=== PATIENT | female | born 1935 | race Caucasian/White ===

== ENCOUNTER → 2018-06-13 16:09 | Outpatient (CLI) | payer MEDICARE, OTHER, SELFPAY ==
[2015-08-25 11:02] VITALS: BMI 22.1
--- NOTE | 2018-06-13 16:19 | RAD_ITS ---
STUDY: X-RAY CHEST REASON FOR EXAM: Female, 82 years old. Preop for pelvic surgery TECHNIQUE: PA and lateral views of the chest. COMPARISON: 2009 FINDINGS: The lungs are clear and expanded. There is no demonstrated pleural abnormality. Normal size heart. Normal mediastinum and josseline. Normal visualized pulmonary arteries. Normal visualized aortic arch and descending thoracic aorta. Normal visualized thoracic spine. Normal visualized ribs, clavicles, and shoulders. There is no demonstrated abnormality of the visualized soft tissue structures of the upper abdomen. RAD/Chest PA and Lateral IMPRESSION: Normal x-ray examination of the chest. Electronically Signed: Tommie Rios MD at 8:29 EDT , Service support ,
--- NOTE | 2018-06-13 16:36 | EKG12_ITS ---
Test Reason : PRE OP Blood Pressure : / mmHG Vent. Rate : 068 BPM Atrial Rate : 068 BPM P-R Int : 192 ms QRS Dur : 132 ms QT Int : 450 ms P-R-T Axes : 079 074 249 degrees QTc Int : 478 ms Normal sinus rhythm Left bundle branch block Abnormal ECG Confirmed by CAROL ANN RON, DANETTE ([id number]), story editor SASKIA SINGLETON ([id number]) on 06/14/2018 7:05:24 AM Referred By: El Singleton Confirmed By:DANETTE MAHARAJ MD
== END ==
PROVIDERS: Family Provider Family Medicine; PCP Family Medicine; Referring Provider Orthopaedic Surgery; Visit Provider Orthopaedic Surgery
DX: Z01.810 Encounter for preprocedural cardiovascular examination (principal); Z01.811 Encounter for preprocedural respiratory examination
CPT/HCPCS: 71046; 93005

== ENCOUNTER → 2018-11-15 15:27 | Outpatient (CLI) | payer MEDICARE, OTHER, SELFPAY ==
--- NOTE | 2018-11-15 15:36 | VDLE_ITS ---
Reason For Study: PAIN RIGHT GSV is normal. CFV is compressible, spontaneous, phasic, competent and demonstrates normal augmentation. FV is compressible, spontaneous, phasic, competent and demonstrates normal augmentation. POP V is compressible, spontaneous, phasic, competent and demonstrates normal augmentation. T/P Trunk is compressible. PTV is compressible. RT PerV is compressible. Rt SSV is dilated and NONCOMPRESSIBLE throughout. Interpretation Summary Deep veins of the right lower extremity are patent and compressible segmentally. There is no evidence of right lower extremity deep vein thrombosis. Valvular competence appears intact within the proximal deep venous system on the right . The right great saphenous vein appears patent and compressible segmentally. Acute superficial thrombophlebitis is noted throughout the right small saphenous vein. Ordering Physician: El Singleton Referring Physician: El Singleton Performed By: Griselda Olivia, RUSSELL, RVT
== END ==
PROVIDERS: Family Provider Family Medicine; PCP Family Medicine; Referring Provider Orthopaedic Surgery; Visit Provider Orthopaedic Surgery
DX: M79.604 Pain in right leg (principal)
CPT/HCPCS: 93971

== ENCOUNTER 2020-03-18 14:10 | Outpatient (RCR) | payer MEDICARE, SELFPAY ==
[2015-08-25 11:02] VITALS: BMI 22.1
== END 2020-03-18 23:59 ==
LOC: IMMUN 14:10
PROVIDERS: PCP Family Medicine; Visit Provider Family Medicine
DX: Z23 Encounter for immunization (principal)
CPT/HCPCS: 0011A; 0012A; 91301

== ENCOUNTER 2020-10-23 00:09 | Observation (INO) | payer MEDICARE, SELFPAY ==
[2020-10-23] VITALS (14 sets, daily range): BP systolic 121–168; BP diastolic 59–128; PULSE 57–140; RESP 14–20; TEMP 36.4–36.9; O2SAT 94–100; BMI 23.8; BMI 22.7
--- NOTE | 2020-10-23 00:17 | EKG12_ITS ---
Test Reason : PALPATIONS/CP Blood Pressure : / mmHG Vent. Rate : 065 BPM Atrial Rate : 065 BPM P-R Int : 190 ms QRS Dur : 154 ms QT Int : 434 ms P-R-T Axes : 076 035 186 degrees QTc Int : 451 ms Normal sinus rhythm Left bundle branch block Abnormal ECG Confirmed by LINO RON, ZITA ([id number]), editor newspaper TRAVIS QUACH ([id number]) on 10/26/2020 8:42:23 AM Referred By: PL Confirmed By:DORETHA HUYNH MD
--- NOTE | 2020-10-23 00:29 | EKG12_ITS ---
Test Reason : PALPATIONS/CP Blood Pressure : / mmHG Vent. Rate : 134 BPM Atrial Rate : 136 BPM P-R Int : 000 ms QRS Dur : 140 ms QT Int : 404 ms P-R-T Axes : 000 061 229 degrees QTc Int : 603 ms Supraventricular tachycardia , likely atrial tachycardia Left bundle branch block Abnormal ECG Confirmed by LINO RON, ZITA ([id number]), industrial editor TRAVIS QUACH ([id number]) on 10/26/2020 7:58:12 AM Referred By: SUE Confirmed By:DORETHA HUYNH MD
[2020-10-23 00:39] LABS: Absolute Lymphocyte Count 1.71 X10^3/uL (0.83-4.51); Absolute Neutrophil Count 3.5 X10^3/uL (2.0-7.7); Basophil# 0.04 X10^3/uL; Basophil% 0.7 % (0-1); Eosinophil# 0.13 X10^3/uL; Eosinophils% 2.1 % (0-5); Hematocrit 41.8 % (37-47); Hemoglobin 13.8 g/dL (12.0-15.0); Lymphocyte # 1.71 X10^3/ul (0.83-4.51); Lymphocyte % 28.2 % (19-41); Mean Corpuscular Hgb 30.7 pg (27.0-32.0); Mean Corpuscular Volume 92.9 fL (81-99); Monocyte% 11.5 % (0-10); NRBC Flagged by Analyzer 0 % (0-5); Neutrophil # 3.48 X10^3/uL (2.7-7.7); Neutrophil % 57.3 % (47-70); Platelet Count 212 K/mm3 (150-450); RBC Distribution Width CV 13.8 % (11.6-14.6); RBC Distribution Width SD 47.2 fl (35.1-43.9); White Blood Count 6.1 K/mm3 (4.4-11.0)
--- NOTE | 2020-10-23 00:45 | RAD_ITS ---
STUDY: X-RAY CHEST REASON FOR EXAM: Female, 85 years old. chest pain TECHNIQUE: Single AP portable view of the chest. COMPARISON: None. FINDINGS: The lungs are clear and expanded. There is no demonstrated pleural abnormality. Normal size heart. Normal mediastinum and josseline. Normal visualized pulmonary arteries. Normal visualized aortic arch and descending thoracic aorta. Normal visualized thoracic spine. Normal visualized ribs, clavicles, and shoulders. There is no demonstrated abnormality of the visualized soft tissue structures of the upper abdomen. RAD/Chest 1 View (Portable) IMPRESSION: Normal x-ray examination of the chest. Electronically Signed: Rebel Vaughan MD at 2:04 EDT Tel , Service support ,
[2020-10-23] MEDS: Metoprolol Tartrate 5 MG/5 ML Vial IV (00:48)
[2020-10-23] MEDS: Aspirin 81 MG TAB.CHEW 324 MG PO (00:48)
--- NOTE | 2020-10-23 00:54 | EDS_ITS ---
HPI History of Present Illness Chief Complaint: Palpitations Informant: patient and spouse/S.O. Narrative Narrative: Patient had an episode of anterior sternal chest pain that radiated a little toward her neck. This occurred at about 11:15 at night. Lasted for 10 minutes. She thinks she could have been slightly short of breath. No nausea vomiting or diaphoresis. No lightheadedness. She checked her blood pressure and its said that her heart rate was at 117. She then noticed some palpitations with this. The chest pain is never returned. She denies any history of heart disease. No heart attack. No dysrhythmia. She does have high blood pressure. Her med list shows Xarelto but she was only on this after her left knee replacement for a month. Nothing specifically made her symptoms better or worse. She feels well now. Past medical history is positive for high blood pressure and cholesterol. Medications include losartan, amlodipine, pravastatin Multiple allergies Surgeries include multiple orthopedic surgeries D&C Non-smoker lives with [facility] Medical History Chest pain Hypertension Non-smoker Home Medications pravastatin 10 mg PO QHS 08/04/15 [History Last Taken 08/04/15 10 MG] amlodipine 5 mg DAILY 10/23/20 [History Last Taken Unknown] losartan 100 mg DAILY 10/23/20 [History Last Taken Unknown] Allergy/AdvReac Type Severity Reaction Status Date / Time latex Allergy Rash Verified 10/23/20 00:10 meloxicam Allergy Rash Verified 10/23/20 00:10 prednisone Allergy Unknown Verified 10/23/20 00:10 tramadol Allergy Rash Verified 10/23/20 00:10 Family History (Updated 10/23/20 @ 02:[address] Beni Vasquez MD) Other Heart disease Melanoma and neural system tumor syndrome Surgical History (Updated 10/23/20 @ 02:[address] Beni Vasquez MD) H/O dilation and curettage History of carpal tunnel surgery History of knee replacement History of tonsillectomy Social History Smoking Status: Never smoker ROS ROS ED Constitutional Constitutional ED: Denies fever(s) or subjective Eyes Eyes: Denies change in vision ENT ENT ED: Denies rhinorrhea Cardiovascular Cardiovascular: Reports as per HPI, chest pain, palpitations and other Respiratory/Chest Respiratory/Chest: Reports dyspnea; Denies cough, dyspnea on exertion or sputum Gastrointestinal Gastrointestinal: Denies abdominal pain, nausea or vomiting Genitourinary Genitourinary ED: Denies dysuria Musculoskeletal Musculoskeletal: Reports other Details: Pain did radiate toward the left side of her neck but it is not there now. ; Denies back pain Integumentary Denies rash Neurologic Neurologic: Denies headache(s), paresthesias or weakness Endocrine Endocrinology: Denies polydipsia or polyuria Hematologic/Lymphatic Hematologic/Lymphatic: Denies easy bleeding or easy bruising Allergic/Immunologic Allergic/Immunologic ED: Denies urticaria EXAM Physical Exam Const Vital Signs: 10/23/20 00:11 10/23/20 00:20 10/23/20 00:21 Temperature 97.6 F L Temperature Source Temporal Pulse Rate 140 H 64 Respiratory Rate 14 16 Respiratory Effort Normal Blood Pressure 146/122 H 154/94 H Blood Pressure Mean 130 114 Pulse Ox 98 100 Oxygen Delivery Method Room Air 10/23/20 00:33 10/23/20 00:35 10/23/20 00:52 Temperature Temperature Source Pulse Rate Respiratory Rate Respiratory Effort Blood Pressure 168/128 H Blood Pressure Mean 141 Pulse Ox 97 99 Oxygen Delivery Method Room Air Room Air Positive well nourished and well developed General Appearance ED: well developed and NAD HEENT normocephalic and atraumatic Neck supple and no JVD Chest Wall inspection of chest normal Resp normal respiratory effort and clear to auscultation bilaterally Effort and Inspection: respiratory distress Cardio regular rate, regular rhythm and no murmurs Rate: other Other Details: When I listen to the heart initially. She has a rate in the 60s this regular. She then flips into a rate about 120s. She will then flipped back to her normal sinus rhythm. This generally looks to be a SVT as it is tachycardic with no obvious P waves. It does not look to be irregular as one would typically see with atrial fibrillation. She is going back and forth between this fast rhythm and her normal rhythm. She does not seem to have symptoms as this happens. GI normal to inspection, nondistended, normoactive bowel sounds, soft to palpation and non-tender Back/Spine no CVA tenderness Extremity normal to inspection General Extremety ED: Negative for edema, pulses abnormal or tenderness General Extremity: Negative for edema or pulses abnormal Neuro oriented x3 Sensorium / Orientation: awake and alert Psych mental status grossly normal Skin no rashes or lesions noted MDM MDM MDM Narrative Medical decision making narrative: Blood work showed normal CBC. Electrolytes were essentially unremarkable other than minimally low potassium. This was replaced. Troponin was negative. I added phosphorus magnesium and TSH. Patient is switching back and forth between a sinus rhythm and a tachycardic rhythm. This looks to be a junctional tachycardic rhythm. When it transitions from 1 to the other it is a clean transition without any sign of fusion beat or transition beat. My suspicion is that this is sinus and junctional. Does not appear to be atrial fibrillation as the rhythm is quite regular. Patient is really not having symptoms when this transitions. With her continually variable rate, I think she does need to come in the hospital. I cannot really give her more beta-blockers. It did lower her high rate but also dropped her lower sinus rhythm rate. I discussed the case with the hospitalist. Lab Data Attestation: I reviewed the patient's lab results. Labs: Laboratory Results - last 24 hr 10/23/20 10/23/20 10/23/20 00:15 00:15 00:15 WBC 6.1 RBC 4.50 Hgb 13.8 Hct 41.8 MCV 92.9 MCH 30.7 MCHC 33.0 RDW Std Deviation 47.2 H RDW Coeff of [place] 13.8 Plt Count 212 MPV 11.0 Immature Gran % (Auto) 0.200 Neut % (Auto) 57.3 Lymph % (Auto) 28.2 [place] % (Auto) 11.5 H Eos % (Auto) 2.1 Baso % (Auto) 0.7 Absolute Neuts (auto) 3.5 Absolute Lymphs (auto) 1.71 Nucleated RBC % 0 Sodium 137 Potassium 3.4 L Chloride 102 Carbon Dioxide 29.0 Anion Gap 6 BUN 18 Creatinine 0.81 Estim Creat Clear Calc 42.00 Est GFR (MDRD) Af Amer 87 Est GFR (MDRD) Non-Af 72 BUN/Creatinine Ratio 22.3 H Glucose 113 H Calcium 9.2 Phosphorus 4.2 Magnesium 2.2 Troponin I High Sens 17 TSH 7.70 H Radiography Diagnostic Testing: Radiology Impression Chest X-Ray 10/23/20 00:45 IMPRESSION: Normal x-ray examination of the chest. Electronically Signed: Rebel Vaughan MD at 2:04 EDT Tel , Service support , EKG Initial EKG: Comments: EKG done for palpitations read by me shows normal sinus rhythm with left bundle branch block which is not new. No ectopy. AL interval is normal. QRS duration is long. QTc is normal. We repeated this and then we have a tachycardic rate at 130 that does look regular and I do not see P waves. Discharge Plan Dx/Rx/DC Orders Clinical Impression: Dysrhythmia, Chest pain Disposition Disposition: Acute Care Hospital [facility]
[2020-10-23 01:07] LABS: Anion Gap 6 (5-15); BUN 18 mg/dL (7-18); BUN/Creat Ratio 22.3 RATIO (10-20); Calcium,Total 9.2 mg/dL (8.5-10.1); Chloride 102 mmol/L (98-107); Creatinine, Serum 0.81 mg/dL (0.55-1.02); EST Glomerular Filtration Rate 72 mL/min (>60); Est Glom Filt Rate - Afr Amer 87 mL/min (>60); Glucose 113 mg/dL (74-106); Potassium 3.4 mmol/L (3.5-5.1); Sodium Level 137 mmol/L (136-145); Troponin-I HS 17 pg/mL (3.0-54.0)
[2020-10-23] MEDS: Potassium Chloride Oral Tablet 20 MEQ 40 MEQ PO (01:37)
--- NOTE | 2020-10-23 02:08 | PCM.HP.STD ---
HPI - General General Date of Admission: 10/23/20 HPI Narrative APRYL BARTHOLOMEW, is a 85 F with a significant history of hypertension and hyperlipidemia who presents presents emergency department with persistent palpitations that started about 1-1/2 hours to 2 hours before presentation. Associated of her symptoms is sharp substernal chest pain that radiated to her left arm, her left neck into her left back. The chest pain considerably improved but the palpitations lasted longer. Eventually both chest pain and the palpitations disappeared. At the emergency department she was found with heart rate in the high 50s and going up to as high as 139; back and forth. Of note her who has A. aurea was very concerned about patient's rhythm. [facility] Medical History Chest pain Hypertension Non-smoker Home Medications pravastatin 10 mg PO QHS 08/04/15 [History Last Taken 10/22/20] amlodipine 5 mg DAILY 10/23/20 [History Last Taken 10/22/20] losartan 100 mg DAILY 10/23/20 [History Last Taken 10/22/20] Allergy/AdvReac Type Severity Reaction Status Date / Time latex Allergy Rash Verified 10/23/20 00:10 meloxicam Allergy Rash Verified 10/23/20 00:10 prednisone Allergy Unknown Verified 10/23/20 00:10 tramadol Allergy Rash Verified 10/23/20 00:10 Family History Other Heart disease Melanoma and neural system tumor syndrome Surgical History H/O dilation and curettage History of carpal tunnel surgery History of knee replacement History of tonsillectomy Social History Smoking Status: Never smoker ROS ROS Narrative Constitutional: Denies anorexia and change in weight Eyes: Denies blurry vision, change in eye color, change in vision, discharge from eye(s), double vision, erythema, eye pain, loss of vision or other HEENT: Denies abnormal hearing, dysphagia, ear pain, epistaxis, headache(s), hearing loss, nasal congestion, nasal discharge, post nasal drip, sinus pressure, sore throat or other Cardiovascular: Reports chest pain. Denies dyspnea on exertion, orthopnea and paroxysmal nocturnal dyspnea Respiratory/Chest: Denies cough, excessive phlegm production, shortness of breath with exertion and wheezing Gastrointestinal: Denies abdominal pain, coffee ground emesis, constipation, diarrhea, dyspepsia, hematemesis, hematochezia, loose stools, melena, nausea, vomiting or other Genitourinary: Denies burning urination, difficulty urinating, dysuria, hematuria, nocturia, urinary frequency, urinary hesitancy, urinary incontinence, urinary urgency or other Musculoskeletal: Denies arthralgias, joint pain, joint stiffness, joint swelling, myalgias or other Neurologic: Denies abnormal gait, abnormal speech, confusion, disequilibrium, dizziness, focal weakness, headache(s), numbness, paresthesias, seizure-like activity, seizures, syncope, tingling, tremor(s) or other Psychiatric: Reports anxiety. Denies depression, homicidal ideation, suicidal ideation or other Endocrinology: Denies change in body appearance, cold intolerance, excessive sweating, heat intolerance, polydipsia, polyuria or other Hematologic/Lymphatic: Denies anemia, easy bleeding, easy bruising, lymphadenopathy or other Integumentary: Denies rashes Allergic/Immunologic: Denies rhinitis, hives, eczema, asthma or other Vital Signs Vital Signs Vital Signs: 10/23/20 00:11 10/23/20 00:20 10/23/20 00:21 Temperature 97.6 F L Temperature Source Temporal Pulse Rate 140 H 64 Respiratory Rate 14 16 Respiratory Effort Normal Blood Pressure 146/122 H 154/94 H Blood Pressure Mean 130 114 Pulse Ox 98 100 Oxygen Delivery Method Room Air 10/23/20 00:33 10/23/20 00:35 10/23/20 00:52 Temperature Temperature Source Pulse Rate Respiratory Rate Respiratory Effort Blood Pressure 168/128 H Blood Pressure Mean 141 Pulse Ox 97 99 Oxygen Delivery Method Room Air Room Air Weight Weight: 61.1 kg Body Mass Index (BMI) 23.8 Physical Exam Narrative Physical exam: General: Well-nourished, well-developed. Head: Normocephalic, atraumatic, no tenderness Eyes: PERRLA, EOMI ENT, no trauma, moist mucous membranes, no rhinorrhea Neck: Nontender, full range of motion, no spinal tenderness, deformities, step-off CVS: Regular rate and rhythm. S1-S2 present. No murmur, gallop or rub. Respiratory : clear to auscultation bilaterally, chest wall nontender, no wheezing Abdomen: Soft, nontender, nondistended, normal bowel sounds, no masses : Deferred Back: Nontender, no CVA tenderness, no midline spinal tenderness, deformities, step-offs Extremities: Nontender full range of motion, no trauma Skin: Normal color, no trauma, abrasions Neuro: Alert, oriented, cranial nerves II through XII grossly intact. Psychiatry: Normal mood. Normal affect. Not depressed. Not anxious. Results Lab / Micro Data Result Diagrams: 10/23/20 00:15 10/23/20 00:15 Labs: Laboratory Results - last 24 hr 10/23/20 00:15: WBC 6.1, RBC 4.50, Hgb 13.8, Hct 41.8, MCV 92.9, MCH 30.7, MCHC 33.0, RDW Std Deviation 47.2 H, RDW Coeff of [place] 13.8, Plt Count 212, MPV 11.0, Immature Gran % (Auto) 0.200, Neut % (Auto) 57.3, Lymph % (Auto) 28.2, [place] % (Auto) 11.5 H, Eos % (Auto) 2.1, Baso % (Auto) 0.7, Absolute Neuts (auto) 3.5, Absolute Lymphs (auto) 1.71, Nucleated RBC % 0 10/23/20 00:15: Sodium 137, Potassium 3.4 L, Chloride 102, Carbon Dioxide 29.0, Anion Gap 6, BUN 18, Creatinine 0.81, Estim Creat Clear Calc 42.00, Est GFR (MDRD) Af Amer 87, Est GFR (MDRD) Non-Af 72, BUN/Creatinine Ratio 22.3 H, Glucose 113 H, Calcium 9.2, Troponin I High Sens 17 Radiology Impression Chest X-Ray 10/23/20 00:45 IMPRESSION: Normal x-ray examination of the chest. Electronically Signed: Rebel Vaughan MD at 2:04 EDT Tel , Service support , Assessment & Plan Assessment/Plan (1) Dysrhythmia: QUALIFIERS: Arrhythmia type: other cardiac arrhythmia Qualified Code(s): I49.8 - Other specified cardiac arrhythmias (2) Chest pain: QUALIFIERS: Chest pain type: unspecified Qualified Code(s): R07.9 - Chest pain, unspecified PLAN: Dysrhythmia Radiologist impression of chest x-ray: Normal x-ray examination of the chest. Actual chest x-ray was independently visualized and agree radiologist interpretation. Review of EKG obtained at the emergency department showed EKG is with normal sinus rhythm; and EKGs with left bundle branch block and tachycardia with occasional P waves. Review of old records show that left bundle branch block is not new. Received metoprolol IV at the emergency department. At the time of hospitalist examination patient remained in sinus rhythm as observed on the monitor. Will observe patient at the progressive care unit on telemetry. Consider further heart monitoring if necessary. Potassium level was 3.4 that was replaced at the emergency department. Trend BMP. Magnesium, and phosphorus was obtained at the emergency department; follow. Check echocardiogram. Chest pain Initial high sensitivity troponin was negative. Trend troponin. Received aspirin 324 mg at emergency department. Aspirin 81 mg ordered. Elevated TSH TSH ordered emergency department return as 7.70 high. Will obtain a free T4. DVT prophylaxis Subcutaneous Lovenox ordered. Charges/Coding Visit Charges OBSV E&M: 93147 Initial observation care L3
[2020-10-23 02:17] LABS: Magnesium 2.2 mg/dL (1.6-2.6); Phosphorus 4.2 mg/dL (2.5-4.9)
--- NOTE | 2020-10-23 02:46 | ECHOD_ITS ---
Reason For Study: ARRHYTHMIA Procedure This was a 2D Doppler, Color Flow transthoracic echocardiogram. Exam performed portable in patient room. Left Ventricle Normal LV size. The estimated ejection fraction is 60 %. Unable to assess diastolic dysfunction. No regional wall motion abnormalities noted. Right Ventricle Normal RV size. Normal systolic function. Atria The left atrium is mildly enlarged. Normal right atrium. No doppler evidence for ASD. Mitral Valve There is severe mitral annular calcification. There is no mitral valve stenosis. No mitral valve insufficiency. Tricuspid Valve There is no tricuspid stenosis. No tricuspid valve insufficiency. Aortic Valve Aortic sclerosis, no stenosis. There is no aortic stenosis. No aortic valve insufficiency. Pulmonic Valve There is no pulmonic valvular stenosis. No pulmonic valve insufficiency. Great Vessels Normal aortic root. Pericardium/Pleural No pericardial effusion. MMode/2D Measurements & Calculations LVIDd: 4.8 cm IVSd: 1.1 cm Ao root diam: 3.4 cm LVIDs: 3.2 cm LVPWd: 1.1 cm RVDd: 2.8 cm FS: 32.9 % LAV(MOD-bp): 66.7 ml LA A4 area: 18.6 cm2 LA dimension(2D): 3.0 cm LAV(MOD-bp) Indexed: 41.7 ml/m2 LAV(MOD-sp2): 70.8 ml LAV(MOD-sp4): 56.4 ml RA A4 area: 13.6 cm2 Time Measurements MV dec time: 0.25 sec Doppler Measurements & Calculations MV E max kevin: 107.6 cm/sec Lat Peak E' Kevin: 5.9 cm/sec Med Peak E' Kevin: 4.5 cm/sec MV A max kevin: 137.2 cm/sec E/E' lat: 18.3 E/E' med: 23.8 MV E/A: 0.78 Ao V2 max: 162.3 cm/sec LV V1 max: 126.6 cm/sec PA V2 max: 109.5 cm/sec Ao max P.5 mmHg LV V1 max P.4 mmHg ECHO/Echo Complete Interpretation Summary The estimated ejection fraction is 60 %. Unable to assess diastolic dysfunction. The left atrium is mildly enlarged. There is severe mitral annular calcification. Ordering Physician: Beni Vasquez Referring Physician: Aries Jones Performed By: Edyta Ruelas, RUSSELL, RVT
--- NOTE | 2020-10-23 02:50 | PCS.PANDOC ---
PANDEMIC DOCUMENTATION INITIATED: Date: 10/23/2020 Time: 0250 pandemic charting in effect.
[2020-10-23 03:47] LABS: Troponin-I HS 24 pg/mL (3.0-54.0)
[2020-10-23 07:37] LABS: Anion Gap 3 (5-15); BUN 15 mg/dL (7-18); Calcium,Total 8.2 mg/dL (8.5-10.1); Chloride 110 mmol/L (98-107); Creatinine, Serum 0.65 mg/dL (0.55-1.02); EST Glomerular Filtration Rate 92 mL/min (>60); Est Glom Filt Rate - Afr Amer 111 mL/min (>60); Estimated Creatinine Clearance 32.53 ml/min; Glucose 114 mg/dL (74-106); Potassium 4.1 mmol/L (3.5-5.1); Sodium Level 142 mmol/L (136-145); Troponin-I HS 62 pg/mL (3.0-54.0)
[2020-10-23] MEDS: Aspirin 81 MG TAB.CHEW PO (08:02)
[2020-10-23] MEDS: amLODIPine 5 MG Tablet PO (09:12)
[2020-10-23] MEDS: Enoxaparin 40 MG/0.4 ML Syringe SC (09:12)
--- NOTE | 2020-10-23 12:01 | PN.HOSP_ITS ---
Subjective Subjective Patient was seen and examined. She denied any new complaints. Denied chest pain or dizziness. Heart rate has been fairly stable overnight. Objective Data Objective Data Vital Signs: Vital Signs Temp Pulse Resp BP Pulse Ox 98.4 F 70 18 142/59 H 100 10/23/20 09:10 10/23/20 09:10 10/23/20 09:10 10/23/20 09:10 10/23/20 09:10 Oxygen Delivery Method Room Air Weight: 58.3 kg Body Mass Index (BMI) 22.7 Intake & Output: Intake and Output for Last 24 Hours 10/21/20 10/22/20 10/23/20 23:59 23:59 23:59 Intake Total 620 / 620 Balance 620 / 620 Lab / Micro Data Result Diagrams: 10/23/20 00:15 10/23/20 06:53 Labs: Laboratory Results - last 24 hr 10/23/20 00:15: WBC 6.1, RBC 4.50, Hgb 13.8, Hct 41.8, MCV 92.9, MCH 30.7, MCHC 33.0, RDW Std Deviation 47.2 H, RDW Coeff of [place] 13.8, Plt Count 212, MPV 11.0, Immature Gran % (Auto) 0.200, Neut % (Auto) 57.3, Lymph % (Auto) 28.2, [place] % ( Auto) 11.5 H, Eos % (Auto) 2.1, Baso % (Auto) 0.7, Absolute Neuts (auto) 3.5, Absolute Lymphs (auto) 1.71, Nucleated RBC % 0 10/23/20 00:15: Sodium 137, Potassium 3.4 L, Chloride 102, Carbon Dioxide 29.0, Anion Gap 6, BUN 18, Creatinine 0.81, Estim Creat Clear Calc 42.00, Est GFR (MDRD) Af Amer 87, Est GFR (MDRD) Non-Af 72, BUN/Creatinine Ratio 22.3 H, Glucose 113 H, Calcium 9.2, Troponin I High Sens 17 10/23/20 00:15: Phosphorus 4.2, Magnesium 2.2, TSH 7.70 H 10/23/20 03:04: Troponin I High Sens 24 10/23/20 06:53: Sodium 142, Potassium 4.1, Chloride 110 H, Carbon Dioxide 29.0, Anion Gap 3 L, BUN 15, Creatinine 0.65, Estim Creat Clear Calc 32.53, Est GFR (MDRD) Af Amer 111, Est GFR (MDRD) Non-Af 92, BUN/Creatinine Ratio 23.0 H, Glucose 114 H, Calcium 8.2 L, Troponin I High Sens 62 H, Free T4 0.80 Radiography Diagnostic Testing: Radiology Impression Chest X-Ray 10/23/20 00:45 IMPRESSION: Normal x-ray examination of the chest. Electronically Signed: Rebel Vaughan MD at 2:04 EDT Tel , Service support , Physical Exam Narrative Physical exam: General: Alert, Oriented x3, Cooperative, No apparent distress, Well developed HEENT: Atraumatic Oral: Moist Mucosa Neck: Supple Lungs: Clear to auscultation Cardiovascular: HS I+II, regular, no murmurs Abdomen: Bowel Sounds Present, Soft, Non Tender Extremities: No edema Skin: No rashes, No breakdown Neurological: Grossly intact Psych/Mental Status: Appropriate Assessment & Plan Assessment/Plan (1) Dysrhythmia: QUALIFIERS: Arrhythmia type: other cardiac arrhythmia Qualified Code(s): I49.8 - Other specified cardiac arrhythmias (2) Chest pain: QUALIFIERS: Chest pain type: unspecified Qualified Code(s): R07.9 - Chest pain, unspecified PLAN: 1. Acute dysrhythmia, in NSR, heart rate has been fluctuating, dropped to 50s Continue to monitor, Consult cardiology 2. Acute chest pain, resolved Troponins x3 have been unremarkable 3. Hypokalemia, resolved, recheck in a.m. 4. Elevated TSH, normal FT4, will check free T3 Charges/Coding Visit Charges Inpatient E&M: 93165 Subs Hosp L2
[2020-10-23 14:49] LABS: Free T3 2.4 pg/mL (2.18-3.98)
--- NOTE | 2020-10-23 15:42 | CASEMGMT ---
TAYLOR AKHTAR in to discuss ARIZA form with patient. RN GIOVANA explained ARIZA form to patient. Patient voiced understanding, patient signed ARIZA form. Signed ARIZA form placed in chart. Patient provided with copy of signed ARIZA form. Patient had no further questions or concerns at this time.
--- NOTE | 2020-10-23 17:00 | DS.PCM_ITS ---
Providers Date of Admission: 10/23/20 Date of Discharge: 10/23/20 Primary Care Physician: Dr. Jas Jones MD Consultations 10/23/20 11:47 Consult: Cardiology Routine Consulting Provider: Bairon Cabral Reason for Consult: Arrthymia EMERGENT Consult: No MD Notified: Yes Date Notified: 10/23/20 Time Notified: 11:47 Method of Notification: Text Reason For Visit: DYSRHYTHMIA Diagnosis Discharge Diagnosis (1) Palpitations: Status: Resolved Code(s): R00.2 - Palpitations (2) Chest pain: Status: Resolved Code(s): R07.9 - Chest pain, unspecified Qualifiers: Chest pain type: unspecified Qualified Code(s): R07.9 - Chest pain, unspecified (3) Subclinical hypothyroidism: Status: Acute Code(s): E03.8 - Other specified hypothyroidism Medications at Discharge Home Medications pravastatin 10 mg PO QHS 08/04/15 amlodipine 5 mg DAILY 10/23/20 losartan 100 mg DAILY 10/23/20 Hospital Course Operations None Procedures 2-D Echocardiogram Summary of Care Provided Minutes Spent on Discharge: 45 Hospital Course: 85-year-old female with past medical history of hypertension, hyperlipidemia who was admitted with palpitations that was associated with substernal chest pain related to the left arm. This did not last long. Palpitations lasted longer. In the emergency department, her heart rate was found to be fluctuating between 50s and 140s. She was admitted to the [facility] floor. She was kept on telemetry. No acute events overnight except for short run of V. tach. Patient had 2D echo done showed no wall motion abnormality. Troponins x2 were negative. EKG did not show any acute ST-T changes. She had elevated TSH of 7.7 but free T4 and free T3 were normal. Patient most likely have subclinical hypothyroidism. Needs to follow-up with her primary care doctor for repeat TSH in 4 to 6 weeks. Patient was seen by cardiology and recommended to keep an eye on symptoms. She will follow up with cardiology in the outpatient. Physical Exam Narrative See progress note of the day Weight / BMI Weight Weight: 58.3 kg Body Mass Index (BMI) 22.7 ABG / Lab / Microbiology Data Result Diagrams: 10/23/20 00:15 10/23/20 06:53 Laboratory: Laboratory Results - last 24 hr 10/23/20 06:53: Sodium 142, Potassium 4.1, Chloride 110 H, Carbon Dioxide 29.0, Anion Gap 3 L, BUN 15, Creatinine 0.65, Estim Creat Clear Calc 32.53, Est GFR (MDRD) Af Amer 111, Est GFR (MDRD) Non-Af 92, BUN/Creatinine Ratio 23.0 H, Glucose 114 H, Calcium 8.2 L, Troponin I High Sens 62 H, Free T4 0.80 10/23/20 06:53: Free T3 pg/dL 2.4 Radiography Diagnostic Testing: Radiology Impression Echocardiogram 10/23/20 02:46 Interpretation Summary The estimated ejection fraction is 60 %. Unable to assess diastolic dysfunction. The left atrium is mildly enlarged. There is severe mitral annular calcification. Ordering Physician: Beni Vasquez Referring Physician: Aries Jones Performed By: Edyta Ruelas RDCS, RVT D/C Instructions Discharge Diet: Low fat / Low cholesterol Call your doctor if you observe: Fever of 101 or Higher, Shortness of breath, Dizziness, Swelling in the ankles, Chest pain and Increased palpitations (irregular heartbeat) Meaningful Use Info Meaningful Use Diagnoses (Choose all that apply): None applicable Discharge Plan Admission Admit Date/Time: 10/23/20 02:06 Primary Reason for Your Visit: Dysrhythmia Attending Provider: Gladys Silverio Primary Care Provider: Jas Jones Consulting Providers: Bairon Cabral Instructions Patient Instructions: ED Chest Pain, Noncardiac Discharge Orders/Prescriptions Prescriptions: Continued pravastatin 10 MG tablet 10 mg PO QHS RF: 0 losartan 100 mg tablet 100 mg DAILY RF: 0 amlodipine 5 mg tablet 5 mg DAILY RF: 0 Referrals / Follow Up: Jas Jones MD [Primary Care Provider] - Within 1 Week Disposition Disposition (needs filled in before D/C Order can be placed): Home, Self Care Charges/Coding Visit Charges OBSV E&M: 94948 Observation care discharge
--- NOTE | 2020-10-23 17:38 | PCM.CONS.C ---
Assessment & Plan Assessment/Plan (1) Palpitations: PLAN: No significant arrhythmias noted on telemetry except for a short run of nonsustained V. tach. Explained to the patient that she could be discharged home today and she can keep an eye on symptoms. If she continues to have palpitations then we will order a 30-day event monitor. Patient will call our office and let us know if she has symptoms. (2) Chest pain: QUALIFIERS: Chest pain type: unspecified Qualified Code(s): R07.9 - Chest pain, unspecified PLAN: Echo showed no wall motion abnormalities. Advised patient that if she has recurrence of symptoms she may need a stress test or coronary angiography depending on the clinical situation at that time. HPI Consult Data Date of Consult: 10/23/20 HPI Narrative HPI Narrative: 85-year-old female who presented with complaints of palpitations. She also had sharp chest pain that resolved on its own. Patient has a blood pressure cuff and that showed heart rate of 117 when she was having the palpitations. No major arrhythmias were noted when patient presented to the emergency room. She was monitored overnight on PCU and apart from one episode of 6 beat run of nonsustained V. tach no other significant arrhythmias with noted on telemetry. Patient has been doing well since admission. Review of systems: All systems reviewed. All else is negative except that in the [facility] Medical History Chest pain Hypertension Non-smoker Home Medications pravastatin 10 mg PO QHS 08/04/15 [History Last Taken 10/22/20] amlodipine 5 mg DAILY 10/23/20 [History Last Taken 10/22/20] losartan 100 mg DAILY 10/23/20 [History Last Taken 10/22/20] Allergy/AdvReac Type Severity Reaction Status Date / Time latex Allergy Rash Verified 10/23/20 00:10 meloxicam Allergy Rash Verified 10/23/20 00:10 prednisone Allergy Unknown Verified 10/23/20 00:10 tramadol Allergy Rash Verified 10/23/20 00:10 Family History Other Heart disease Melanoma and neural system tumor syndrome Surgical History H/O dilation and curettage History of carpal tunnel surgery History of knee replacement History of tonsillectomy Social History Smoking Status: Never smoker Physical Exam Const alert and oriented x3 Orientation / Consciousness: awake HEENT normocephalic Eyes no scleral icterus Neck supple Chest inspection of chest normal Resp normal respiratory effort Cardio regular rate Extremity no pedal edema Neuro oriented x3 Psych mental status grossly normal Charges/Coding Visit Charges Inpatient E&M: 24889 Init Hosp L2 Objective Data Vital Signs: Vital Signs Temp Pulse Resp BP Pulse Ox 97.9 F 58 L 18 150/76 H 100 10/23/20 15:35 10/23/20 15:35 10/23/20 15:35 10/23/20 15:35 10/23/20 15:35 Oxygen Delivery Method Room Air Weight: 128 lb 8.472 oz Body Mass Index (BMI) 22.7 Intake & Output: Intake and Output for Last 24 Hours 10/21/20 10/22/20 10/23/20 23:59 23:59 23:59 Intake Total 1020 / 1020 Balance 1020 / 1020 Lab / Micro Data Result Diagrams: 10/23/20 00:15 10/23/20 06:53 Labs: Laboratory Results - last 24 hr 10/23/20 00:15: WBC 6.1, RBC 4.50, Hgb 13.8, Hct 41.8, MCV 92.9, MCH 30.7, MCHC 33.0, RDW Std Deviation 47.2 H, RDW Coeff of Ernesto 13.8, Plt Count 212, MPV 11.0, Immature Gran % (Auto) 0.200, Neut % (Auto) 57.3, Lymph % (Auto) 28.2, [place] % (Auto) 11.5 H, Eos % (Auto) 2.1, Baso % (Auto) 0.7, Absolute Neuts (auto) 3.5, Absolute Lymphs (auto) 1.71, Nucleated RBC % 0 10/23/20 00:15: Sodium 137, Potassium 3.4 L, Chloride 102, Carbon Dioxide 29.0, Anion Gap 6, BUN 18, Creatinine 0.81, Estim Creat Clear Calc 42.00, Est GFR (MDRD) Af Amer 87, Est GFR (MDRD) Non-Af 72, BUN/Creatinine Ratio 22.3 H, Glucose 113 H, Calcium 9.2, Troponin I High Sens 17 10/23/20 00:15: Phosphorus 4.2, Magnesium 2.2, TSH 7.70 H 10/23/20 03:04: Troponin I High Sens 24 10/23/20 06:53: Sodium 142, Potassium 4.1, Chloride 110 H, Carbon Dioxide 29.0, Anion Gap 3 L, BUN 15, Creatinine 0.65, Estim Creat Clear Calc 32.53, Est GFR (MDRD) Af Amer 111, Est GFR (MDRD) Non-Af 92, BUN/Creatinine Ratio 23.0 H, Glucose 114 H, Calcium 8.2 L, Troponin I High Sens 62 H, Free T4 0.80 10/23/20 06:53: Free T3 pg/dL 2.4 Cardiology Labs/Tests 10/23/20 00:15: WBC 6.1, RBC 4.50, Hgb 13.8, Hct 41.8, MCV 92.9, MCH 30.7, MCHC 33.0, Plt Count 212, MPV 11.0, Immature Gran % (Auto) 0.200, Neut % (Auto) 57.3, Lymph % (Auto) 28.2, [place] % (Auto) 11.5 H, Eos % (Auto) 2.1, Baso % (Auto) 0.7, Absolute Neuts (auto) 3.5, Nucleated RBC % 0 10/23/20 00:15: Sodium 137, Potassium 3.4 L, Chloride 102, Carbon Dioxide 29.0, Anion Gap 6, BUN 18, Creatinine 0.81, Est GFR (MDRD) Af Amer 87, Est GFR (MDRD) Non-Af 72, BUN/Creatinine Ratio 22.3 H, Glucose 113 H, Calcium 9.2 10/23/20 00:15: Phosphorus 4.2, Magnesium 2.2 10/23/20 06:53: Sodium 142, Potassium 4.1, Chloride 110 H, Carbon Dioxide 29.0, Anion Gap 3 L, BUN 15, Creatinine 0.65, Est GFR (MDRD) Af Amer 111, Est GFR (MDRD) Non-Af 92, BUN/Creatinine Ratio 23.0 H, Glucose 114 H, Calcium 8.2 L Rhythm: EKG: ECHO: Stress Test: Cardiac Cath: PCI: CT Surgery: Holter monitor: EPS: PPM: CXR: Chest CT Scan: Radiography Diagnostic Testing: Radiology Impression Chest X-Ray 10/23/20 00:45 IMPRESSION: Normal x-ray examination of the chest. Electronically Signed: Rebel Vaughan MD at 2:04 EDT Tel , Service support , Echocardiogram 10/23/20 02:46 Interpretation Summary The estimated ejection fraction is 60 %. Unable to assess diastolic dysfunction. The left atrium is mildly enlarged. There is severe mitral annular calcification. Ordering Physician: Beni Vasquez Referring Physician: Aries Jones Performed By: Edyta Ruelas, RDCS, RVT
--- NOTE | 2020-10-23 17:48 | PCM.DC ---
Discharge Instructions Diet Discharge Diet: Low fat / Low cholesterol Activity Discharge Activity: Return to Normal Activity Dressing / Incision Call your doctor if you observe: Fever of 101 or Higher, Shortness of breath, Dizziness, Swelling in the ankles, Chest pain and Increased palpitations (irregular heartbeat) Follow Up Care Test Results: Test results from this visit will be discussed in further detail at your follow-up appointment, if applicable. Discharge Plan Admission Admit Date/Time: 10/23/20 02:06 Attending Provider: Gladys Silverio Primary Care Provider: Jas Jones Consulting Providers: Bairon Cabral Instructions Patient Instructions: ED Chest Pain, Noncardiac Discharge Orders/Prescriptions Prescriptions: Continued pravastatin 10 MG tablet 10 mg PO QHS RF: 0 losartan 100 mg tablet 100 mg DAILY RF: 0 amlodipine 5 mg tablet 5 mg DAILY RF: 0 Referrals / Follow Up: Jas Jones MD [Primary Care Provider] - Within 1 Week Disposition Disposition (needs filled in before D/C Order can be placed): Home, Self Care
== END 2020-10-23 17:49 | disposition home or self-care (01) ==
LOC: ED 02:02 → PCU 02:13
PROVIDERS: Admitting Provider Hospitalist; Emergency Provider Emergency Medicine; PCP Family Medicine; Visit Provider Internal Medicine
DX: R00.2 Palpitations (principal); E03.8 Other specified hypothyroidism; E78.5 Hyperlipidemia, unspecified; I10 Essential (primary) hypertension; R07.2 Precordial pain; Z79.899 Other long term (current) drug therapy; E87.6 Hypokalemia; I47.2 Ventricular tachycardia
CPT/HCPCS: 36415; 71045; 80048; 83735; 84100; 84439; 84443; 84481; 84484; 85025; 93005; 93306; 96372; 96374; 99218; 99285; J7030; A4216; G0378

== ENCOUNTER → 2022-11-15 | Outpatient (CLI) | payer MEDICARE, SELFPAY ==
[2022-11-15 14:33] LABS: Absolute Lymphocyte Count 1.04 X10^3/uL (0.83-4.51); Absolute Neutrophil Count 4.1 X10^3/uL (2.0-7.7); Basophil# 0.03 X10^3/uL; Basophil% 0.5 % (0-1); Eosinophil# 0.11 X10^3/uL; Eosinophils% 1.9 % (0-5); Hematocrit 38.7 % (37-47); Hemoglobin 12.2 g/dL (12.0-15.0); Lymphocyte # 1.04 X10^3/ul (0.83-4.51); Lymphocyte % 17.7 % (19-41); Mean Corp Hgb Conc 31.5 g/dL (32-36); Mean Corpuscular Hgb 30.7 pg (27.0-32.0); Mean Corpuscular Volume 97.2 fL (81-99); Monocyte# 0.59 X10^3/uL; Monocyte% 10.1 % (0-10); NRBC Flagged by Analyzer 0 % (0-5); Neutrophil # 4.07 X10^3/uL (2.7-7.7); Neutrophil % 69.5 % (47-70); Platelet Count 169 K/mm3 (150-450); RBC Distribution Width CV 13.6 % (11.6-14.6); RBC Distribution Width SD 48.9 fl (35.1-43.9); Red Blood Count 3.98 M/mm3 (4.2-5.4); White Blood Count 5.9 K/mm3 (4.4-11.0)
[2022-11-15 14:55] LABS: Vitamin D,25 Hydroxy 38.3 ng/mL
[2022-11-15 15:02] LABS: ALB/GLOB Ratio 1.2 RATIO (0.9-2.4); AST(SGOT) 23 U/L (15-37); Alanine Aminotransfer ALT/SGPT 32 U/L (13-56); Albumin, Serum 3.7 g/dL (3.2-5.0); Alkaline Phosphatase 61 U/L (45-117); Anion Gap 4 (5-15); BUN 18 mg/dL (7-18); BUN/Creat Ratio 21.8 RATIO (10-20); Calcium,Total 8.6 mg/dL (8.5-10.1); Chloride 105 mmol/L (98-107); Cholesterol 183 mg/dL (200); Creatinine, Serum 0.82 mg/dL (0.55-1.02); EST Glomerular Filtration Rate 70 mL/min (>60); Est Glom Filt Rate - Afr Amer 84 mL/min (>60); Free T3 2.1 pg/mL (2.18-3.98); Globulin 3.2 g/dL (2.2-4.2); Glucose 110 mg/dL (74-106); High Density Lipoprotein 78 mg/dL; Magnesium 2.3 mg/dL (1.6-2.6); Potassium 3.8 mmol/L (3.5-5.1); Protein, Total 6.9 g/dL (6.4-8.2); Sodium Level 139 mmol/L (136-145); T4 Free Direct 0.79 ng/dL (0.76-1.46); Thyroid Stim Hormone (TSH) 2.48 uIU/mL (0.358-3.74); Triglycerides 102 mg/dL; Very Low Density Lipoprotein 20 mg/dL (5-40)
== END | disposition home or self-care (01) ==
PROVIDERS: PCP Internal Medicine; Visit Provider Internal Medicine
DX: I10 Essential (primary) hypertension (principal); E78.00 Pure hypercholesterolemia, unspecified; M19.90 Unspecified osteoarthritis, unspecified site; E03.8 Other specified hypothyroidism; E55.9 Vitamin D deficiency, unspecified
CPT/HCPCS: 36415; 80053; 80061; 82306; 83735; 84439; 84443; 84481; 85025

== ENCOUNTER → 2023-01-22 | Outpatient (CLI) | payer MEDICARE, SELFPAY ==
--- NOTE | 2023-01-22 15:30 | RAD_ITS ---
INDICATION: BACK PAIN EXAMINATION/TECHNIQUE: X-RAY - XR Spine Thoracic 3 Views COMPARISON: Prior study dated: 01/26/2016. FINDINGS: VERTEBRAE: Preserved vertebral body height. No fracture. No spondylolisthesis. Exaggerated kyphosis of the thoracic spine. No substantial scoliosis. No significant facet arthropathy. DISCS: Endplate spondylosis and multilevel disc space narrowing. INCLUDED CHEST/ABDOMEN: No acute abnormalities. . RAD/Thoracic Spine 3 Views IMPRESSION: Degenerative changes of the thoracic spine essentially unchanged. Electronically Signed: Price Apodaca MD at 22:54 EST ,
== END | disposition home or self-care (01) ==
LOC: RAD 15:26
PROVIDERS: PCP Internal Medicine; Referring Provider Anesthesiology Pain Medicine; Visit Provider Anesthesiology Pain Medicine
DX: M54.14 Radiculopathy, thoracic region (principal); M51.34 Other intervertebral disc degeneration, thoracic region
CPT/HCPCS: 72072

== ENCOUNTER → 2023-03-07 | Outpatient (CLI) | payer MEDICARE, SELFPAY ==
[2023-03-07 12:37] LABS: Bacteria 0 SEEN /hpf (None Seen); Mucous, Urine 0 SEEN /hpf (<or=2+); Squamous Epithelial Cells - UA 0 SEEN /hpf (5-10)
--- OUTSIDE RECORDS SUMMARY | 2023-03-07 12:42 | XMS RPT_ITS | CCD ---
Author Name Unknown Address [address] [facility] [address] [place] [address] [facility] Providers Care Motor And Controls Tester Name Role Phone ÁNGELA TREVIÑO (PAC) Unavailable Unavaila MARIAN Raygoza DR Admitting Unavailable MARIAN GUTIERREZ DR Attending Unavailable MARIAN GUTIERREZ DR Primary Care Unavailable JAREN JONES Consulting Unava ilable PROVIDER, UNKNOWN Consulting Unavailable MARIAN GUTIERREZ DR Admitting Unavailable MARIAN GUTIERREZ DR Attending Unavailable MARIAN GUTIERREZ DR Primary Care Unavailable JAREN JONES Consulting Unava ilable PROVIDER, UNKNOWN Consulting Unavailable MARIAN GUTIERREZ DR Admitting Unavailable MARIAN GUTIERREZ DR Attending Unavailable MARIAN GUTIERREZ DR Primary Care Unavailable JAREN JONES Consulting Unava ilable PROVIDER, UNKNOWN Consulting Unavailable Jaren Jones MD Primary Care Provider Jaren Jones MD Primary Care Provider Jaren Jones MD Primary Care Provider Unavailable Primary Care Provider Unavailabl ÁNGELA Reyes Referring Unavailable JAREN JONES Primary Care Unavailab JAREN Eaton Attending Unavailab JAREN Eaton Primary Care Unavailab JAREN Eaton Referring Unavailab JAREN Eaton Primary Care Unavailab ÁNGELA Smalls Attending Unavailable JAREN JONES Primary Care UnavailÁNGELA Mejia Attending Unavailable ÁNGELA LEIVA Referring Unavailable JAREN JONES Primary Care Unavailab le Allergies Allergy Classification Reported Allergen(s) Allergy Type Date of Onset Reaction(s) Facility (18 sources) benzocaine; Translations: [BENZOCAINE] Drug Allergy 01-29-20 04 Swelling [place] Other [place] Repository (19 sources) Latex; Translations: [LATEX] Propensity to adverse reactions to drug (disorder) 05-29-19 07 Swelling [facility] Repository (19 sources) meloxicam; Translations: [MELOXICAM] Drug Allergy 02-26-19 15 Other: See Comments [facility] Repository (18 sources) methylprednisoLONE ; Translations: [METHYLPREDNISOLON E] Drug Allergy 11-28-19 07 Hives, Swelling, Itching [facility] Repository (18 sources) NITROFURANTOIN MONOHYD/M-CRYST; Translations: [NITROFURANTOIN MONOHYD/M-CRYST] Propensity to adverse reactions to drug (disorder) 05-09-19 06 Vomiting [facility] Repository (1 source) oxyCODONE Drug Allergy [facility] Repository (1 source) Sulfonamides (Antibiotic) Drug allergy (disorder) [facility] Repository (15 sources) traMADol; Translations: [TRAMADOL] Drug Allergy 10-24-19 21 Rash [place] Medications Current Medications Medication Drug Class(es) Dates Sig (Normalized) Sig (Original) predniSONE 10 mg oral tablet (2 sources) Start: 03-21-2022 End: 03-30-2022 predniSONE (DELTASONE) 10 mg tablet Indications: Rash Take 4 tabs daily for 3 days, then 2 tabs daily for 3 days, then 1 tab daily for 3 days with food. 21 tablet 0 03/21/2022 03/30/2022 Active Completed/Discontinued Medications Medication Drug Class(es) Dates Sig (Normalized) Sig (Original) amLODIPine 5 mg oral tablet (16 sources) Dihydropyridine Calcium Channel Piyush Start: 01-05-2021 End: 09-28-2021 take 1 tablet by mouth once daily amLODIPine (NORVASC) 5 mg tablet Indications: Essential hypertension Take 1 tablet by mouth once daily. 90 tablet 3 06/30/2021 Active Problems Active Problems Problem Classification Problem Date Documented Da te Episodic/Chronic Allergic reactions (1 source) Eruption due to drug; Translations: [Generalized skin eruption due to drugs and medicaments taken internally] Episodic Anxiety disorders (2 sources) Mixed anxiety and depressive disorder; Translations: [Other specified anxiety disorders] Chronic Conditions associated with dizziness or vertigo (3 sources) Dizziness; Translations: [Dizziness and giddiness] Episodic Conduction disorders (20 sources) Left bundle branch block; Translations: [Left bundle-branch block, unspecified] Onset: 03-07-2021 03-07-2021 Chronic Disorders of lipid metabolism (20 sources) Hyperlipidemia; Translations: [Hyperlipidemia, unspecified] Onset: 05-17-2005 12-22-2014 Chronic Disorders of lipid metabolism (1 source) Pure hypercholesterolemia , unspecified; Translations: [Pure hypercholesterolemia , unspecified] Onset: 08-12-2018 Diverticulosis and diverticulitis (16 sources) Diverticulosis of colon; Translations: [Diverticulosis of large intestine without perforation or abscess without bleeding] 01-31-2005 Chronic Essential hypertension (20 sources) Essential (primary) hypertension; Translations: [Essential hypertension] Onset: 05-17-2005 Chronic Inflammation; infection of eye (except that caused by tuberculosis or sexually transmitteddisease) (16 sources) Herpes zoster ophthalmicus; Translations: [Zoster ocular disease, unspecified] 08-20-2019 Episodic Osteoarthritis (2 sources) Unilateral post-traumatic osteoarthritis, right knee; Translations: [Unilateral primary osteoarthritis, right knee] Onset: 07-08-2018 Chronic Other and unspecified benign neoplasm (16 sources) Benign neoplasm of colon; Translations: [Benign neoplasm of colon, unspecified] 01-31-2005 Episodic Other bone disease and musculoskeletal deformities (16 sources) Osteopenia; Translations: [Other specified disorders of bone density and structure, unspecified site] 05-25-2017 Episodic Other ear and sense organ disorders (1 source) Impacted cerumen of bilateral ears; Translations: [Impacted cerumen, bilateral] Episodic Other hereditary and degenerative nervous system conditions (1 source) Minimal cognitive impairment; Translations: [Mild cognitive impairment, so stated] Chronic Other non-traumatic joint disorders (2 sources) Pain in right knee; Translations: [Pain in right knee] Onset: 08-12-2018 Episodic Other skin disorders (1 source) Eruption; Translations: [Rash and other nonspecific skin eruption] Episodic Spondylosis; intervertebral disc disorders; other back problems (16 sources) Degeneration of thoracic intervertebral disc; Translations: [Other intervertebral disc degeneration, thoracic region] Onset: 03-20-2014 03-20-2014 Chronic Past or Other Problems Problem Classification Problem Date Documented Da te Episodic/Chronic Cardiac dysrhythmias (20 sources) Palpitations; Translations: [Palpitations] Onset: 03-07-2021 03-07-2021 Episodic Other and unspecified benign neoplasm (16 sources) History of polyp of colon; Translations: [Personal history of colonic polyps] Onset: 02-26-2007 02-26-2007 Episodic Other connective tissue disease (16 sources) Bilateral cramp of muscle of lower limbs; Translations: [Cramp and spasm] Onset: 01-05-2015 01-05-2015 Episodic Other diseases of bladder and urethra (16 sources) Urethral caruncle; Translations: [Urethral caruncle] Onset: 12-28-2009 12-28-2009 Episodic Other screening for suspected conditions (not mental disorders or infectious disease) (18 sources) Patient encounter status; Translations: [Encounter for screening for malignant neoplasm of colon] Onset: 03-04-2015 03-04-2015 Episodic Spondylosis; intervertebral disc disorders; other back problems (20 sources) Pain in thoracic spine; Translations: [Low back pain] Onset: 05-22-2006 05-22-2006 Episodic Results Test Name Value Interpretation Reference Range Facil ity Vital Signs Date Time Vital Sign Value Performing Clinician Kelton hurst 11-13-2022 15:31-0400 Diastolic blood pressure 72 mm[Hg] Ángela Leiva MD Work Phone: [place] 11-13-2022 15:31-0400 Systolic blood pressure 138 mm[Hg] Ángela Leiva MD Work Phone: [place] 11-13-2022 15:14-0400 Body weight 58.06 kg Ángela Leiva MD Work Phone: [place] 11-13-2022 15:14-0400 Heart rate 62 /min Ángela Leiva MD Work Phone: [place] 11-13-2022 15:14-0400 SaO2% (BldA) [Mass fraction] 100 % Ángela Leiva MD Work Phone: [place] 03-21-2022 15:25-0500 Body temperature 97.7 [degF] Lily Villar APRN.QUALITY ASSURANCE CONSULTANT Work Phone: [place] 03-21-2022 15:25-0500 Body weight 58.06 kg Lily Villar APRN.QUALITY ASSURANCE CONSULTANT Work Phone: [place] 03-21-2022 15:25-0500 Diastolic blood pressure 78 mm[Hg] Lily Praisler-Wood EARLY CHILDHOOD COORDINATOR.QUALITY ASSURANCE CONSULTANT Work Phone: [place] 03-21-2022 15:25-0500 Heart rate 68 /min Lily Praisler-Wood EARLY CHILDHOOD COORDINATOR.QUALITY ASSURANCE CONSULTANT Work Phone: [place] 03-21-2022 15:25-0500 Respiratory rate 18 /min Lily Praisler-Wood EARLY CHILDHOOD COORDINATOR.QUALITY ASSURANCE CONSULTANT Work Phone: [place] 03-21-2022 15:25-0500 SaO2% (BldA) [Mass fraction] 99 % Lily Praisler-Wood EARLY CHILDHOOD COORDINATOR.QUALITY ASSURANCE CONSULTANT Work Phone: [place] 03-21-2022 15:25-0500 Systolic blood pressure 132 mm[Hg] Lily Praisler-Wood EARLY CHILDHOOD COORDINATOR.QUALITY ASSURANCE CONSULTANT Work Phone: [place] 02-06-2022 15:27-0500 Body weight 59.88 kg Ángela Leiva MD Work Phone: [place] 02-06-2022 15:27-0500 Diastolic blood pressure 80 mm[Hg] Ángela Leiva MD Work Phone: [place] 02-06-2022 15:27-0500 Heart rate 75 /min Ángela Leiva MD Work Phone: [place] 02-06-2022 15:27-0500 SaO2% (BldA) [Mass fraction] 98 % Ángela Leiva MD Work Phone: [place] 02-06-2022 15:27-0500 Systolic blood pressure 148 mm[Hg] Ángela Leiva MD Work Phone: [place] 01-17-2022 11:55-0500 Heart rate 60 /min Jaren Jones MD Work Phone: [place] 01-17-2022 11:16-0500 Body weight 59.69 kg Jaren Jones MD Work Phone: [place] 01-17-2022 11:16-0500 Diastolic blood pressure 64 mm[Hg] Jaren Jones MD Work Phone: [place] 01-17-2022 11:16-0500 Respiratory rate 16 /min Jaren Jones MD Work Phone: [place] 01-17-2022 11:16-0500 SaO2% (BldA) [Mass fraction] 98 % Jaren Jones MD Work Phone: [place] 01-17-2022 11:16-0500 Systolic blood pressure 114 mm[Hg] Jaren Jones MD Work Phone: [place] 09-21-2021 14:40-0400 Body temperature 99 [degF] Tawnya Podlogar EARLY CHILDHOOD COORDINATOR.QUALITY ASSURANCE CONSULTANT Work Phone: [place] 09-21-2021 14:40-0400 Body weight 59.78 kg Tawnya Podlogar EARLY CHILDHOOD COORDINATOR.QUALITY ASSURANCE CONSULTANT Work Phone: [place] 09-21-2021 14:40-0400 Diastolic blood pressure 68 mm[Hg] Tawnya Podlogar EARLY CHILDHOOD COORDINATOR.QUALITY ASSURANCE CONSULTANT Work Phone: [place] 09-21-2021 14:40-0400 Heart rate 67 /min Tawnya Podlogar EARLY CHILDHOOD COORDINATOR.QUALITY ASSURANCE CONSULTANT Work Phone: [place] 09-21-2021 14:40-0400 Respiratory rate 18 /min Tawnya Podlogar EARLY CHILDHOOD COORDINATOR.QUALITY ASSURANCE CONSULTANT Work Phone: [place] 09-21-2021 14:40-0400 SaO2% (BldA) [Mass fraction] 96 % Tawnya Podlogar EARLY CHILDHOOD COORDINATOR.QUALITY ASSURANCE CONSULTANT Work Phone: [place] 09-21-2021 14:40-0400 Systolic blood pressure 132 mm[Hg] Tawnya Podlogar EARLY CHILDHOOD COORDINATOR.QUALITY ASSURANCE CONSULTANT Work Phone: [place] 09-09-2021 13:05-0400 Body weight 60.06 kg Tawnya Podlogar EARLY CHILDHOOD COORDINATOR.QUALITY ASSURANCE CONSULTANT Work Phone: [place] 09-09-2021 13:05-0400 Diastolic blood pressure 72 mm[Hg] Tawnya Podlogar EARLY CHILDHOOD COORDINATOR.QUALITY ASSURANCE CONSULTANT Work Phone: [place] 09-09-2021 13:05-0400 Heart rate 76 /min Tawnya Podlogar EARLY CHILDHOOD COORDINATOR.QUALITY ASSURANCE CONSULTANT Work Phone: [place] 09-09-2021 13:05-0400 Respiratory rate 18 /min Tawnya Podlogar EARLY CHILDHOOD COORDINATOR.QUALITY ASSURANCE CONSULTANT Work Phone: [place] 09-09-2021 13:05-0400 SaO2% (BldA) [Mass fraction] 98 % Tawnya Podlogar EARLY CHILDHOOD COORDINATOR.QUALITY ASSURANCE CONSULTANT Work Phone: [place] 09-09-2021 13:05-0400 Systolic blood pressure 128 mm[Hg] Tawnya Podlogar EARLY CHILDHOOD COORDINATOR.QUALITY ASSURANCE CONSULTANT Work Phone: [place] 07-11-2021 14:25-0400 Body weight 59.42 kg Ángela Leiva MD Work Phone: [place] 07-11-2021 14:25-0400 Diastolic blood pressure 68 mm[Hg] Ángela Leiva MD Work Phone: [place] 07-11-2021 14:25-0400 Heart rate 72 /min Ángela Leiva MD Work Phone: [place] 07-11-2021 14:25-0400 SaO2% (BldA) [Mass fraction] 97 % Ángela Leiva MD Work Phone: [place] 07-11-2021 14:25-0400 Systolic blood pressure 138 mm[Hg] Ángela Leiva MD Work Phone: [place] Encounters Encounter Date Encounter Type Care Provider Facility Start: 11-13-2022 End: 11-13-2022 ambulatory ÁNGELA LEIVA Facility:[facility] Start: 11-13-2022 End: 11-13-2022 Patient encounter procedure Ángela Leiva MD Work Phone: Cardiology Procedures Date Procedure Procedure Detail Performing Clinician Start: 10-20-2022 Screening digital br east tomosynthesis bi [facility] Provider Start: 08-12-2018 Replacement of Right Knee Joint with Synthetic Substitute, Cemented, Open Approach MARIAN GUTIERREZ Plan of Treatment Date Care Activity Detail Author Start: 01-28-2023 Urine microalbumin profile [place] Start: 01-17-2023 COVID-19 VACCINE (4 - Booster for Moderna series) COVID-19 VACCINE (4 - Booster for Moderna series) [place] Immunizations Immunization Date Immunization Notes Care Provider Fa cility 12-14-2021 influenza (aIIV4) vaccine, age 65+ yr, quadrivalent, PF (FLUAD QUADRIVALENT) Jaren Jones MD Work Phone: [place] 12-14-2021 influenza virus vaccine, unspecified formulation Ángela Leiva MD Work Phone: [place] 09-20-2021 zoster vaccine recombinant Tawnya Scales EARLY CHILDHOOD COORDINATOR.QUALITY ASSURANCE CONSULTANT Work Phone: [place] 06-07-2021 zoster vaccine recombinant Jaren Jones MD Work Phone: [place] Work Phone: 11-30-2020 influenza, high-dose , quadrivalent vaccine (FLUZONE HIGH DOSE QUADRIVALENT) Jaren Jones MD Work Phone: [place] 04-15-2020 COVID-19 vaccine, booster dose (MODERNA) Jaren Jones MD Work Phone: [place] 03-18-2020 COVID-19 vaccine, booster dose (MODERNA) Jaren Jones MD Work Phone: [place] 12-13-2019 influenza, high-dose , quadrivalent vaccine (FLUZONE HIGH DOSE QUADRIVALENT) Jaren Jones MD Work Phone: [place] 12-14-2018 influenza, high dose seasonal, preservative-free Jaren Jones MD Work Phone: [place] 11-17-2017 influenza, high dose seasonal, preservative-free Jaren Jones MD Work Phone: [place] 11-24-2016 influenza, high dose seasonal, preservative-free Jaren Jones MD Work Phone: [place] 12-11-2015 influenza, high dose seasonal, preservative-free Jaren Jones MD Work Phone: [place] 01-05-2015 influenza, high dose seasonal, preservative-free Jaren Jones MD Work Phone: [place] 06-01-2014 pneumococcal conjuga te vaccine, 13 valent Jaren Jones MD Work Phone: [place] 12-26-2013 influenza, seasonal, injectable Jaren Jones MD Work Phone: [place] 01-28-2013 tetanus toxoid, redu brain diphtheria toxoid, and acellular pertussis vaccine, adsorbed Jaren Jones MD Work Phone: [place] 12-28-2012 influenza virus vaccine, unspecified formulation Jaren Jones MD Work Phone: [place] 12-30-2011 influenza virus vaccine, unspecified formulation Jaren Jones MD Work Phone: [place] Work Phone: 12-22-2010 influenza virus vaccine, unspecified formulation Jaren Jones MD Work Phone: [place] 11-18-2008 influenza virus vaccine, unspecified formulation Jaren Jones MD Work Phone: [place] 01-01-2008 influenza virus vaccine, unspecified formulation Jaren Jones MD Work Phone: [place] Work Phone: 03-08-2007 zoster vaccine, live Claudio Jones MD Work Phone: [place] Work Phone: 01-08-2006 influenza virus vaccine, unspecified formulation Jaren Jones MD Work Phone: [place] 12-20-2004 influenza virus vaccine, unspecified formulation Jaren Jones MD Work Phone: [place] Work Phone: 11-19-2002 tetanus and diphther ia toxoids, not adsorbed, for adult use Jaren Jones MD Work Phone: [place] 09-19-2000 pneumococcal polysaccharide vaccine, 23 valent Jaren Jones MD Work Phone: [place] Payers Date Payer Category Payer Medicare UHC AARP MEDICAR E UHC AARP MEDICARE HMO [id number] 2019-Present [phone] [address] [address] [place] [address] O [id number] 2019 Medicare UHC AARP MEDICAR E UHC AARP MEDICARE HMO [id number] 2019-Present [phone] [address] [address] [place] [address] O [id number] 2019 Medicare [id number] 1935 Unknown [id number] 1935 Unknown [id number] 1935 Unknown [id number] Medicare [id number] Medicare [id number] Unknown [id number] Social History Date Type Detail Facility Start: 12-22-2010 Tobacco smoking stat us IAIS Never smoked tobacco [place] Start: 03-07-2021 End: 03-21-2022 Alcohol intake Current drinker of alcohol (finding) [place] Start: 01-28-2020 End: 03-07-2021 Alcohol intake [place] Start: 01-01-2012 History SDOH Alcohol Comment wine ocassional 3-4 times over the week [place] Start: 1935 [facility] Start: 09-11-2021 End: 01-17-2022 Exposure to SARS-CoV-2 (event) Not sure [place] Start: 12-22-2010 Tobacco use and exposure Smoke less tobacco non-user [place] Start: 01-28-2020 End: 03-21-2022 Tobacco use panel [facility] Adult Depression Screening Assessment 2 [facility] Clinical Notes 04-20-2009 to 11-13-2022 Ángela Leiva MD - 11/13/2022 3:20 PM EDTPLaurita marino RT(R) - 10/20/2022 2:30 PM EDTTelephone Encounter - Jaren Jones MD - 10/17/2022 4:46 PM EDTPatient Instructions Note Date & Type Note Facility 11-13-2022 Note HNO ID: [id number] Author: Ángela Leiva MD Service: ? Author Type: Physician Type: Progress Notes Filed: 11/13/2022 3:58 PM Note Text: [facility] SE[facility]AL CARDIOLOGY Cardiology ([facility]) [address] [facility] [id number] OUTPATIENT VISIT DATE 11/13/2022 PRIMARY CARE PHYSICIAN: Jaren Jones [address] [place] [address] REFERRING PHYSICIAN: Jaren Jones [address] [facility] [address] HISTORY OF PRESENT ILLNESS: Ms. Schreiber is a 87 year old pleasant and active woman with a history of hypertension, left bundle branch block pattern on EKG, SVT secondary to atrial tachycardia, and dyslipidemia who presents the office for routine follow-up. Since her last visit she has been doing well. She has not had symptoms of palpitation or heart racing. She denies symptoms concerning for congestive heart failure including PND, orthopnea, lower extremity edema. She has not had palpitations, lightheadedness, dizziness, or syncope. 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 Gutierrez ARTHROSCOPY KNEE DIAGNOSTIC W/WO SYNOVIAL BX SPX 08/19/2010 Arthroscopy, knee- right- Dr. Gutierrez ARTHRP KNE CONDYLEANDPLATU MEDIALANDLAT COMPARTMENTS Left 08/2015 CARPAL TUNNEL Right 05/[address] Morales COLONOSCOPY FLX DX W/COLLJ SPEC WHEN PFRMD 01/31/05 Colonoscopy COLONOSCOPY FLX DX W/COLLJ SPEC WHEN PFRMD 02/26/2007 Colonoscopy-repeat in COLONOSCOPY FLX DX W/COLLJ SPEC WHEN PFRMD 02/28/2012 Colonoscopy COLONOSCOPY FLX DX W/COLLJ SPEC WHEN PFRMD 03/04/2015 Colonoscopy, repeat in 5 years DILATION AND CURETTAGE DXAND/THER NONOBSTETRIC Dilation AND curettage DILATION AND CURETTAGE DXAND/THER NONOBSTETRIC Dilation AND curettage ESOPHAGOGASTRODUODENOSCOPY TRANSORAL DIAGNOSTIC 03/27/2013 EGD SIGMOIDOSCOPY FLX DX W/COLLJ SPEC BR/WA IF PFRMD 01/26/00 Sigmoidoscopy, flexible TONSILLECTOMY PRIMARY/SECONDARY Tonsillectomy SOCIAL HISTORY Social History Tobacco Use Smoking status: Never Smokeless tobacco: Never Substance Use Topics Alcohol use: Yes Alcohol/week: 5.0 standard drinks of alcohol Types: 2 Glasses of Wine (5oz) per week Comment: wine ocassional 3-4 times over the week Drug use: No FAMILY HISTORY Problem Relation Age of Onset other (MELANOMA) Mother other (CT) Father 59 other (LUNG CANCER) Brother ALLERGIES: ALLERGIES Allergen Reactions Benzocaine Swelling Latex Swelling Macrobid [Nitrofura* Vomiting Meloxicam Other: See Comments Itching, rash Methylprednisolone Hives, Swelling, Itching Tramadol Rash MEDICATIONS: dupilumab (DUPIXENT SYRINGE) 100 mg/0.67 mL injection Inject 100 mg subcutaneously every 2 weeks. losartan (COZAAR) 100 mg tablet Take 1 tablet by mouth once daily. pravastatin (PRAVACHOL) 10 mg tablet Take 1 tablet by mouth daily at bedtime. triamcinolone (KENALOG) 0.025 % cream Apply 1 application to affected area twice daily. amLODIPine (NORVASC) 5 mg tablet Take 1 tablet by mouth once daily. cyanocobalamin, vitamin B-12, (VITAMIN B-12 ORAL) Take 1 tablet by mouth once daily. metoprolol tartrate, short acting, (LOPRESSOR) 25 mg tablet Take 1 tablet by mouth twice daily. As needed per your directions DUREZOL 0.05 % ophthalmic suspension instill 1 drop into left eye once a day REVIEW OF SYSTEMS: Review of Systems Constitutional: Negative for chills, fever, malaise/fatigue and weight loss. HENT: Negative for hearing loss and sore throat. Eyes: Negative for blurred vision and double vision. Respiratory: Negative. Cardiovascular: Negative. Gastrointestinal: Negative. Genitourinary: Negative for dysuria, frequency, hematuria and urgency. Musculoskeletal: Negative. Skin: Negative. Neurological: Negative for dizziness, seizures, loss of consciousness, weakness and headaches. Endo/Heme/Allergies: Negative for environmental allergies. Does not bruise/bleed easily. Psychiatric/Behavioral: Negative for depression. PHYSICAL EXAMINATION: BP 138/72 Pulse 62 Wt 128 lb (58.1kg) SpO2 100% General: Thin elderly woman appears younger than her stated age sitting comfortable no apparent distress. She is alert and oriented x3 HEENT: Carotid upstrokes are brisk bilaterally without bru (more content not included)... [facility] 11-13-2022 History of Present illness Narrative Images from the original note were not included. [facility] SECTION [facility] REGIONAL CARDIOLOGY Cardiology ([facility] ) [address] [facility] [address] OUTPATIENT VISIT DATE 11/13/2022 PRIMARY CARE PHYSICIAN: Jaren Jones [address] [place] [address] REFERRING PHYSICIAN: Jaren Jones [address] [facility] [address] HISTORY OF PRESENT ILLNESS: Ms. Schreiber is a 87 year old pleasant and active woman with a history of hypertension, left bundle branch block pattern on EKG, SVT secondary to atrial tachycardia, and dyslipidemia who presents the office for routine follow-up. Since her last visit she has been doing well. She has not had symptoms of palpitation or heart racing. She denies symptoms concerning for congestive heart failure including PND, orthopnea, lower extremity edema. She has not had palpitations, lightheadedness, dizziness, or syncope. 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 Gutierrez ARTHROSCOPY KNEE DIAGNOSTIC W/WO SYNOVIAL BX SPX 08/19/2010 Arthroscopy, knee- right- Dr. Gutierrez ARTHRP KNE CONDYLE&PLATU MEDIAL&LAT COMPARTMENTS Left 08/2015 CARPAL TUNNEL Right 05/[address] Morales COLONOSCOPY FLX DX W/COLLJ SPEC WHEN PFRMD 01/31/05 Colonoscopy COLONOSCOPY FLX DX W/COLLJ SPEC WHEN PFRMD 02/26/2007 Colonoscopy-repeat in -2012 COLONOSCOPY FLX DX W/COLLJ SPEC WHEN PFRMD 02/28/2012 Colonoscopy COLONOSCOPY FLX DX W/COLLJ SPEC WHEN PFRMD 03/04/2015 Colonoscopy, repeat in 5 years DILATION & CURETTAGE DX&/THER NONOBSTETRIC Dilation & curettage DILATION & CURETTAGE DX&/THER NONOBSTETRIC Dilation & curettage ESOPHAGOGASTRODUODENOSCOPY TRANSORAL DIAGNOSTIC 03/27/2013 EGD SIGMOIDOSCOPY FLX DX W/COLLJ SPEC BR/WA IF PFRMD 01/26/00 Sigmoidoscopy, flexible TONSILLECTOMY PRIMARY/SECONDARY <AGE 12 Tonsillectomy SOCIAL HISTORY Social History Tobacco Use Smoking status: Never Smokeless tobacco: Never Substance Use Topics Alcohol use: Yes Alcohol/week: 5.0 standard drinks of alcohol Types: 2 Glasses of Wine (5oz) per week Comment: wine ocassional 3-4 times over the week Drug use: No FAMILY HISTORY Problem Relation Age of Onset other (MELANOMA) Mother other (CT) Father 59 other (LUNG CANCER) Brother ALLERGIES: ALLERGIES Allergen Reactions Benzocaine Swelling Latex Swelling Macrobid [Nitrofura* Vomiting Meloxicam Other: See Comments Itching, rash Methylprednisolone Hives, Swelling, Itching Tramadol Rash MEDICATIONS: dupilumab (DUPIXENT SYRINGE) 100 mg/0.67 mL injection Inject 100 mg subcutaneously every 2 weeks. losartan (COZAAR) 100 mg tablet Take 1 tablet by mouth once daily. pravastatin (PRAVACHOL) 10 mg tablet Take 1 tablet by mouth daily at bedtime. triamcinolone (KENALOG) 0.025 % cream Apply 1 application to affected area twice daily. amLODIPine (NORVASC) 5 mg tablet Take 1 tablet by mouth once daily. cyanocobalamin, vitamin B-12, (VITAMIN B-12 ORAL) Take 1 tablet by mouth once daily. metoprolol tartrate, short acting, (LOPRESSOR) 25 mg tablet Take 1 tablet by mouth twice daily. As needed per your directions DUREZOL 0.05 % ophthalmic suspension instill 1 drop into left eye once a day REVIEW OF SYSTEMS: Review of Systems Constitutional: Negative for chills, fever, malaise/fatigue and weight loss. HENT: Negative for hearing loss and sore throat. Eyes: Negative for blurred vision and double vision. Respiratory: Negative. Cardiovascular: Negative. Gastrointestinal: Negative. Genitourinary: Negative for dysuria, frequency, hematuria and urgency. Musculoskeletal: Negative. Skin: Negative. Neurological: Negative for dizziness, seizures, loss of consciousness, weakness and headaches. Endo/Heme/Allergies: Negative for environmental allergies. Does not bruise/bleed easily. Psychiatric/Behavioral: Negative for depression. PHYSICAL EXAMINATION: BP 138/72 Pulse 62 Wt 128 lb (58.1kg) SpO2 100% General: Thin elderly woman appears younger than her stated age sitting comfortable no apparent distress. She is alert and oriented x3 HEENT: Carotid upstrokes are brisk bilaterally without bruits no JVD appreciated. Pulmonary: Lungs are clear no rales, wheezes, rhonchi Cardiovascular: Normal S1, S2 with regular rate and rhythm. No murmurs, rubs, or gallops Extremities: Warm, well-perfused, no lower extremity edema. 2+ distal pulses CARDIOVASCULAR MEDICINE TESTING: ECG in the office 02/06/2022: Normal sinus rhythm with a left bundle branch block pattern Echocardiogram [facility] 10/23/2020 Normal LV size and systolic function. Estimated ejection fraction 60% Left atrium mildly enlarged Severe mitral annular calcification, no mitral regurgitation or stenosis Regadenoson Myoview stress test 07/03/2018 CONCLUSIONS: 1. SPECT Perfusion Study: Normal. 2. There is no scintigraphic evidence for inducible ischemia. 3. No evidence of scarred myocardium. 4. Functional capacity N/A (pharmacological). 5. Left ventricle is normal in size. The left ventricle systolic function is normal. 6. Right ventricle is normal in size. The right ventricle systolic function is normal. 7. This is a low risk scan. Gated Stress FBP LVEF % 56 Zio Monitor 11/02/2020-11/16/2020: Patient had a min HR of 45 bpm, max HR of 174 bpm, and avg HR of 62 bpm. Predominant underlying rhythm was Sinus Rhythm. Bundle Branch Block/IVCD was present. 40 Supraventricular Tachycardia runs occurred, the run with the fastest interval lasting 6 beats with a max rate of 174 bpm, the longest lasting 11.5 secs with an avg rate of 116 bpm. IsolatedSVEs were rare (<1.0%), SVE Couplets were rare (<1.0%), and SVE Triplets were rare (<1.0%). Isolated VEs were rare (<1.0%), and no VE Couplets or VE Triplets were present. Ventricular Bigeminy and Trigeminywere present. I have personally reviewed the Electrocardiogram, Laboratory Testing and Echocardiogram. IMPRESSION: Ms. Schreiber is a 87 year old woman with a history of hypertension, dyslipidemia and SVT likely atrial tachycardia who presents for routine follow-up PLAN AND RECOMMENDATIONS: 1. Essential hypertension, benign - ICD9: 401.1, ICD10: I10 (primary diagnosis) Well-controlled on current medical regimen. 2. Mixed hyperlipidemia - ICD9: 272.2, ICD10: E78.2 Maintained on Pravachol 10 mg daily. Fasting blood work has been followed by her primary care physician. Most recent blood work was completed December 2021 and was reviewed during the office visit 3. Palpitations - ICD9: 785.1, ICD10: R00.2 Likely secondary to atrial tachycardia. She has been asymptomatic since her last visit. 4. LBBB (left bundle branch block) - ICD9: 426.3, ICD10: I44.7 Ángela Leiva MD documented in this encounter [place] 10-20-2022 Note HNO ID: [id number] Author: Laurita Gavin RT(R) Service: Radiology Author Type: Agricultural Produce Packer Type: Progress Notes Filed: 10/20/2022 2:48 PM Note Text: Radiology Service Progress Note PATIENT NAME: Apryl Schreiber DATE OF SERVICE: October 20, 2022 TIME: 2:48 PM PATIENT IDENTITY VERIFICATION COMPLETED USING TWO (2) IDENTIFIERS: Name and Date of confirmed by patient verbally. FALL SCREENING: Has the patient had 2 falls in the last year or 1 fall with injury or currently using an Ambulatory Assistive Device (Walker, Cane, Wheelchair, Crutches, etc.)? No PATIENT GENDER DATA: Female. status: : No status: NO. PATIENT RELEVANT IMPLANT DATA REVIEWED: Yes RADIOLOGY DEPARTMENT: Mammography PERIPHERAL IV DATA: Not applicable SIGNED BY: RT Jose(R) October 20, 2022 2:48 PM [facility] 10-20-2022 History of Present illness Narrative Radiology Service Progress Note PATIENT NAME: Apryl Schreiber DATE OF SERVICE: October 20, 2022 TIME: 2:48 PM PATIENT IDENTITY VERIFICATION COMPLETED USING TWO (2) IDENTIFIERS: Name and Date of confirmed by patient verbally. FALL SCREENING: Has the patient had 2 falls in the last year or 1 fall with injury or currently using an Ambulatory Assistive Device (Walker, Cane, Wheelchair, Crutches, etc.)? No PATIENT GENDER DATA: Female. status: : No status: NO. PATIENT RELEVANT IMPLANT DATA REVIEWED: Yes RADIOLOGY DEPARTMENT: Mammography PERIPHERAL IV DATA: Not applicable SIGNED BY: RT Jose(R) October 20, 2022 2:48 PM documented in this encounter [place] 10-17-2022 Miscellaneous Notes Ok, will remove myself as PCP and cancel order. Would recommend she follow up with their office for imaging. Phoned patient and reviewed message with her. She stated she has changed PCP and sees Dr Angella Wallace. She says she already has mammogram scheduled for Sunday. Typically we stop mammograms at age 75. Is patient wanting to continue mammograms at this point? Please file orders for a screening mammogram for patient for upcoming appointment. Thanks documented in this encounter [place] 04-10-2022 Miscellaneous Notes Last Office Visit: 01/17/2022 Future Office Visit: None Requested Prescriptions Pending Prescriptions Disp Refills losartan (COZAAR) 100 mg tablet 90 tablet 1 Sig: Take 1 tablet by mouth once daily. Date of Last Labs: 01/11/2022 documented in this encounter [place] 03-27-2022 Miscellaneous Notes Patient has been identified by name and date of : Yes, Provider Date Time Patient phones for refill(s): Requested Prescriptions Pending Prescriptions Disp Refills pravastatin (PRAVACHOL) 10 mg tablet 90 tablet 3 Sig: Take 1 tablet by mouth daily at bedtime. Date of last office visit with pcp: 01/17/22 Date of last office visit in primary care: Last 2 Encounter Wt Readings: Date: Wt: 03/21/2022 58.1 kg (128 lb) 02/06/2022 59.9 kg (132 lb) Previous labs/tests for medication: Cholesterol: HDL Cholesterol (mg/dL) Date Value 06/19/2018 80 HDL Cholesterol, Nonfasting (mg/dL) Date Value 01/11/2022 81 01/05/2021 79 LDL Cholesterol (mg/dL) Date Value 06/19/2018 93 LDL Cholesterol, Nonfasting (mg/dL) Date Value 01/11/2022 92 01/05/2021 90 ALT (U/L) Date Value 01/11/2022 17 01/05/2021 20 Non HDL Cholesterol, Nonfasting (mg/dL) Date Value 01/11/2022 108 01/05/2021 106 Please advise. Thank you. Haley Liu RN documented in this encounter [place] 03-21-2022 Note HNO ID: [id number] Author: Lily Villar APRN.QUALITY ASSURANCE CONSULTANT Service: ? Author Type: Nurse Practitioner Type: Progress Notes Filed: 03/21/2022 3:52 PM Note Text: Subjective Hives Associated symptoms include a rash. Pertinent negatives include no chills, fever or myalgias. Apryl Schreiber is a 86 year old female who presents with rash on her bilateral lower abdomen and torso present since 01/07. She thinks the rash is due to Ultram which she took for some pain she was having. She had a prior reaction to Ultram. She states the rash is red and itchy. She has used OTC benadryl and hydrocortisone cream without improvement. She also used lidocaine gel and ice packs. She has been under increased stress recently caring for her sick . Review of Systems Constitutional: Negative for chills and fever. Musculoskeletal: Negative for joint pain and myalgias. Skin: Positive for itching and rash. BP 132/78 Pulse 68 Temp 36.5 ?C (97.7 ?F) (Tympanic) Resp 18 Wt 58.1 kg (128 lb) SpO2 99% BMI 22.86 kg/m? 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 Gutierrez ARTHROSCOPY KNEE DIAGNOSTIC W/WO SYNOVIAL BX SPX 08/19/2010 Arthroscopy, knee- right- Dr. Gutierrez ARTHRP KNE CONDYLEANDPLATU MEDIALANDLAT COMPARTMENTS Left 08/2015 CARPAL TUNNEL Right 05/[address] Morales COLONOSCOPY FLX DX W/COLLJ SPEC WHEN PFRMD 01/31/05 Colonoscopy COLONOSCOPY FLX DX W/COLLJ SPEC WHEN PFRMD 02/26/2007 Colonoscopy-repeat in COLONOSCOPY FLX DX W/COLLJ SPEC WHEN PFRMD 02/28/2012 Colonoscopy COLONOSCOPY FLX DX W/COLLJ SPEC WHEN PFRMD 03/04/2015 Colonoscopy, repeat in 5 years DILATION AND CURETTAGE DXAND/THER NONOBSTETRIC Dilation AND curettage DILATION AND CURETTAGE DXAND/THER NONOBSTETRIC Dilation AND curettage ESOPHAGOGASTRODUODENOSCOPY TRANSORAL DIAGNOSTIC 03/27/2013 EGD SIGMOIDOSCOPY FLX DX W/COLLJ SPEC BR/WA IF PFRMD 01/26/00 Sigmoidoscopy, flexible TONSILLECTOMY PRIMARY/SECONDARY Tonsillectomy ALLERGIES Benzocaine, Latex, Macrobid [Nitrofurantoin Monohyd/M-Cryst], Meloxicam, Methylprednisolone, and Tramadol MEDICATIONS losartan (COZAAR) 100 mg tablet Take 1 tablet by mouth once daily. amLODIPine (NORVASC) 5 mg tablet Take 1 tablet by mouth once daily. pravastatin (PRAVACHOL) 10 mg tablet Take 1 tablet by mouth daily at bedtime. DUREZOL 0.05 % ophthalmic suspension instill 1 drop into left eye once a day predniSONE (DELTASONE) 10 mg tablet Take 4 tabs daily for 3 days, then 2 tabs daily for 3 days, then 1 tab daily for 3 days with food. triamcinolone (KENALOG) 0.025 % cream Apply 1 application to affected area twice daily. cyanocobalamin, vitamin B-12, (VITAMIN B-12 ORAL) Take 1 tablet by mouth once daily. (Patient not taking: Reported on 03/21/2022) metoprolol tartrate, short acting, (LOPRESSOR) 25 mg tablet Take 1 tablet by mouth twice daily. As needed per your directions FAMILY HISTORY Problem Relation Age of Onset other (MELANOMA) Mother other (CT) Father 59 other (LUNG CANCER) Brother Social History Tobacco Use Smoking status: Never Smokeless tobacco: Never Substance Use Topics Alcohol use: Yes Alcohol/week: 5.0 standard drinks Types: 2 Glasses of Wine (5oz) per week Comment: wine ocassional 3-4 times over the week Drug use: No Objective Physical Exam Vitals and nursing note reviewed. Constitutional: Appearance: Normal appearance. Skin: General: Skin is warm and dry. Capillary Refill: Capillary refill takes less than 2 seconds. Findings: Erythema and rash present. Rash is not scaling. Neurological: Mental Status: She is alert. ASSESSMENT/PLAN: 1. Rash - ICD9: 782.1, ICD10: R21 - PREDNISONE 10 MG TABLET - TRIAMCINOLONE ACETONIDE 0.025 % TOPICAL CREAM - Follow-up with your PCP in 3-5 days if symptoms have not improved or sooner if symptoms worsen - Discussed red flags and need for immediate medical evaluation if any occur. - Discussed expected course of illness Lily Villar APRN.[facility] 03-21-2022 History of Present illness Narrative Images from the original note were not included. Subjective Hives Associated symptoms include a rash. Pertinent negatives include no chills, fever or myalgias. Apryl Schreiber is a 86 year old female who presents with rash on her bilateral lower abdomen and torso present since 01/07. She thinks the rash is due to Ultram which she took for some pain she was having. She had a prior reaction to Ultram. She states the rash is red and itchy. She has used OTC benadryl and hydrocortisone cream without improvement. She also used lidocaine gel and ice packs. She has been under increased stress recently caring for her sick . Review of Systems Constitutional: Negative for chills and fever. Musculoskeletal: Negative for joint pain and myalgias. Skin: Positive for itching and rash. 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 Gutierrez ARTHROSCOPY KNEE DIAGNOSTIC W/WO SYNOVIAL BX SPX 08/19/2010 Arthroscopy, knee- right- Dr. Gutierrez ARTHRP KNE CONDYLE&PLATU MEDIAL&LAT COMPARTMENTS Left 08/2015 CARPAL TUNNEL Right 05/[address] Morales COLONOSCOPY FLX DX W/COLLJ SPEC WHEN PFRMD 01/31/05 Colonoscopy COLONOSCOPY FLX DX W/COLLJ SPEC WHEN PFRMD 02/26/2007 Colonoscopy-repeat in COLONOSCOPY FLX DX W/COLLJ SPEC WHEN PFRMD 02/28/2012 Colonoscopy COLONOSCOPY FLX DX W/COLLJ SPEC WHEN PFRMD 03/04/2015 Colonoscopy, repeat in 5 years DILATION & CURETTAGE DX&/THER NONOBSTETRIC Dilation & curettage DILATION & CURETTAGE DX&/THER NONOBSTETRIC Dilation & curettage ESOPHAGOGASTRODUODENOSCOPY TRANSORAL DIAGNOSTIC 03/27/2013 EGD SIGMOIDOSCOPY FLX DX W/COLLJ SPEC BR/WA IF PFRMD 01/26/00 Sigmoidoscopy, flexible TONSILLECTOMY PRIMARY/SECONDARY <AGE 12 Tonsillectomy ALLERGIES Benzocaine, Latex, Macrobid [Nitrofurantoin Monohyd/M-Cryst], Meloxicam, Methylprednisolone, and Tramadol MEDICATIONS losartan (COZAAR) 100 mg tablet Take 1 tablet by mouth once daily. amLODIPine (NORVASC) 5 mg tablet Take 1 tablet by mouth once daily. pravastatin (PRAVACHOL) 10 mg tablet Take 1 tablet by mouth daily at bedtime. DUREZOL 0.05 % ophthalmic suspension instill 1 drop into left eye once a day predniSONE (DELTASONE) 10 mg tablet Take 4 tabs daily for 3 days, then 2 tabs daily for 3 days, then 1 tab daily for 3 days with food. triamcinolone (KENALOG) 0.025 % cream Apply 1 application to affected area twice daily. cyanocobalamin, vitamin B-12, (VITAMIN B-12 ORAL) Take 1 tablet by mouth once daily. (Patient not taking: Reported on 03/21/2022) metoprolol tartrate, short acting, (LOPRESSOR) 25 mg tablet Take 1 tablet by mouth twice daily. As needed per your directions FAMILY HISTORY Problem Relation Age of Onset other (MELANOMA) Mother other (CT) Father 59 other (LUNG CANCER) Brother Social History Tobacco Use Smoking status: Never Smokeless tobacco: Never Substance Use Topics Alcohol use: Yes Alcohol/week: 5.0 standard drinks Types: 2 Glasses of Wine (5oz) per week Comment: wine ocassional 3-4 times over the week Drug use: No Objective Physical Exam Vitals and nursing note reviewed. Constitutional: Appearance: Normal appearance. Skin: General: Skin is warm and dry. Capillary Refill: Capillary refill takes less than 2 seconds. Findings: Erythema and rash present. Rash is not scaling. Neurological: Mental Status: She is alert. ASSESSMENT/PLAN: 1. Rash - ICD9: 782.1, ICD10: R21 - PREDNISONE 10 MG TABLET - TRIAMCINOLONE ACETONIDE 0.025 % TOPICAL CREAM - Follow-up with your PCP in 3-5 days if symptoms have not improved or sooner if symptoms worsen - Discussed red flags and need for immediate medical evaluation if any occur. - Discussed expected course of illness Lily Villar APRN.CNP documented in this encounter [place] 03-21-2022 Instructions Lily Villar APRN.CNP - 03/21/2022 3:44 PM EST ASSESSMENT/PLAN: 1. Rash - ICD9: 782.1, ICD10: R21 - PREDNISONE 10 MG TABLET - TRIAMCINOLONE ACETONIDE 0.025 % TOPICAL CREAM - Follow-up with your PCP in 3-5 days if symptoms have not improved or sooner if symptoms worsen - Discussed red flags and need for immediate medical evaluation if any occur. - Discussed expected course of illness Lily Praisler-Wood, EARLY CHILDHOOD COORDINATOR.QUALITY ASSURANCE CONSULTANT NONSPECIFIC RASH: Our exam shows you have a rash which has no clear cause. Rashes can result from infections, allergies, or irritation of the skin by chemicals or other environmental factors. Rashes can also result from scratching or rubbing the skin too much to relieve itching. Further medical examination may be needed to identify the specific cause and proper treatment of your skin rash. You should treat your rash as recommended by your doctor. If you have itching, you should avoid scratching as much as possible, as this further damages the skin. Ask your doctor or pharmacist if you have any questions about what topical medicines may help relieve your symptoms. Call your doctor right away if your rash is not better in 2-3 days, if it worsens, or if there are signs of infection (increased pain, redness, drainage or pus). documented in this encounter [place] 02-06-2022 Note HNO ID: [id number] Author: Ángela Leiva MD Service: ? Author Type: Physician Type: Progress Notes Filed: 02/06/2022 4:39 PM Note Text: [facility] SECTION OF REGIONAL CARDIOLOGY Cardiology ([facility]) [address] [facility] [address] OUTPATIENT VISIT DATE 02/06/2022 PRIMARY CARE PHYSICIAN: Jaren Jones [address] [place] [address] REFERRING PHYSICIAN: Jaren Jones [address] [id number] HISTORY OF PRESENT ILLNESS: Ms. Schreiber is a 86 year old pleasant and active woman with a history of hypertension, left bundle branch block pattern on EKG, SVT secondary to atrial tachycardia, and dyslipidemia who presents the office for routine follow-up. Since her last visit, she tells me she has been doing well. She has had no symptoms of chest pain, or palpitations. Overall functional capacity is remained stable. She has had no symptoms concerning for CHF including PND, orthopnea, lower extremity edema. 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 Gutierrez ARTHROSCOPY KNEE DIAGNOSTIC W/WO SYNOVIAL BX SPX 08/19/2010 Arthroscopy, knee- right- Dr. Gutierrez ARTHRP KNE CONDYLEANDPLATU MEDIALANDLAT COMPARTMENTS Left 08/2015 CARPAL TUNNEL Right 05/[address] Morales COLONOSCOPY FLX DX W/COLLJ SPEC WHEN PFRMD 01/31/05 Colonoscopy COLONOSCOPY FLX DX W/COLLJ SPEC WHEN PFRMD 02/26/2007 Colonoscopy-repeat in -2012 COLONOSCOPY FLX DX W/COLLJ SPEC WHEN PFRMD 02/28/2012 Colonoscopy COLONOSCOPY FLX DX W/COLLJ SPEC WHEN PFRMD 03/04/2015 Colonoscopy, repeat in 5 years DILATION AND CURETTAGE DXAND/THER NONOBSTETRIC Dilation AND curettage DILATION AND CURETTAGE DXAND/THER NONOBSTETRIC Dilation AND curettage ESOPHAGOGASTRODUODENOSCOPY TRANSORAL DIAGNOSTIC 03/27/2013 EGD SIGMOIDOSCOPY FLX DX W/COLLJ SPEC BR/WA IF PFRMD 01/26/00 Sigmoidoscopy, flexible TONSILLECTOMY PRIMARY/SECONDARY Tonsillectomy SOCIAL HISTORY Social History Tobacco Use Smoking status: Never Smokeless tobacco: Never Substance Use Topics Alcohol use: Yes Alcohol/week: 5.0 standard drinks Types: 2 Glasses of Wine (5oz) per week Comment: wine ocassional 3-4 times over the week Drug use: No FAMILY HISTORY Problem Relation Age of Onset other (MELANOMA) Mother other (CT) Father 59 other (LUNG CANCER) Brother ALLERGIES: ALLERGIES Allergen Reactions Benzocaine Swelling Latex Swelling Macrobid [Nitrofura* Vomiting Meloxicam Other: See Comments Itching, rash Methylprednisolone Hives, Swelling, Itching Tramadol Rash MEDICATIONS: losartan (COZAAR) 100 mg tablet Take 1 tablet by mouth once daily. amLODIPine (NORVASC) 5 mg tablet Take 1 tablet by mouth once daily. pravastatin (PRAVACHOL) 10 mg tablet Take 1 tablet by mouth daily at bedtime. cyanocobalamin, vitamin B-12, (VITAMIN B-12 ORAL) Take 1 tablet by mouth once daily. metoprolol tartrate, short acting, (LOPRESSOR) 25 mg tablet Take 1 tablet by mouth twice daily. As needed per your directions DUREZOL 0.05 % ophthalmic suspension instill 1 drop into left eye once a day REVIEW OF SYSTEMS: Review of Systems Constitutional: Negative for chills, fever, malaise/fatigue and weight loss. HENT: Negative for hearing loss and sore throat. Eyes: Negative for blurred vision and double vision. Respiratory: Negative. Cardiovascular: Negative. Gastrointestinal: Negative. Genitourinary: Negative for dysuria, frequency, hematuria and urgency. Musculoskeletal: Negative. Skin: Negative. Neurological: Negative for dizziness, seizures, loss of consciousness, weakness and headaches. Endo/Heme/Allergies: Negative for environmental allergies. Does not bruise/bleed easily. Psychiatric/Behavioral: Negative for depression. PHYSICAL EXAMINATION: BP 148/80 Pulse 75 Wt 132 lb (59.9kg) SpO2 98% General: Thin elderly woman appears younger than her stated age sitting comfortable no apparent distress. She is alert and oriented x3 HEENT: Carotid upstrokes are brisk bilaterally without bruits no JVD appreciated. Pulmonary: Lungs are clear no rales, wheezes, rhonchi Cardiovascular: Normal S1, S2 with regular rate and rhythm. No murmurs, rubs, or gallops Extremities: Warm, well-perfused, no lower extremity julee (more content not included)... [facility] 02-06-2022 History of Present illness Narrative Images from the original note were not included. [facility] SECTION OF REGIONAL CARDIOLOGY Cardiology ([facility] ) [address] [facility] [id number] OUTPATIENT VISIT DATE 02/06/2022 PRIMARY CARE PHYSICIAN: Jaren Jones [address] [place] [address] REFERRING PHYSICIAN: Jaren Jones [address] [facility] [id number] HISTORY OF PRESENT ILLNESS: Ms. Schreiber is a 86 year old pleasant and active woman with a history of hypertension, left bundle branch block pattern on EKG, SVT secondary to atrial tachycardia, and dyslipidemia who presents the office for routine follow-up. Since her last visit, she tells me she has been doing well. She has had no symptoms of chest pain, or palpitations. Overall functional capacity is remained stable. She has had no symptoms concerning for CHF including PND, orthopnea, lower extremity edema. 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 Gutierrez ARTHROSCOPY KNEE DIAGNOSTIC W/WO SYNOVIAL BX SPX 08/19/2010 Arthroscopy, knee- right- Dr. Gutierrez ARTHRP KNE CONDYLE&PLATU MEDIAL&LAT COMPARTMENTS Left 08/2015 CARPAL TUNNEL Right 05/[address] Morales COLONOSCOPY FLX DX W/COLLJ SPEC WHEN PFRMD 01/31/05 Colonoscopy COLONOSCOPY FLX DX W/COLLJ SPEC WHEN PFRMD 02/26/2007 Colonoscopy-repeat in COLONOSCOPY FLX DX W/COLLJ SPEC WHEN PFRMD 02/28/2012 Colonoscopy COLONOSCOPY FLX DX W/COLLJ SPEC WHEN PFRMD 03/04/2015 Colonoscopy, repeat in 5 years DILATION & CURETTAGE DX&/THER NONOBSTETRIC Dilation & curettage DILATION & CURETTAGE DX&/THER NONOBSTETRIC Dilation & curettage ESOPHAGOGASTRODUODENOSCOPY TRANSORAL DIAGNOSTIC 03/27/2013 EGD SIGMOIDOSCOPY FLX DX W/COLLJ SPEC BR/WA IF PFRMD 01/26/00 Sigmoidoscopy, flexible TONSILLECTOMY PRIMARY/SECONDARY <AGE 12 Tonsillectomy SOCIAL HISTORY Social History Tobacco Use Smoking status: Never Smokeless tobacco: Never Substance Use Topics Alcohol use: Yes Alcohol/week: 5.0 standard drinks Types: 2 Glasses of Wine (5oz) per week Comment: wine ocassional 3-4 times over the week Drug use: No FAMILY HISTORY Problem Relation Age of Onset other (MELANOMA) Mother other (CT) Father 59 other (LUNG CANCER) Brother ALLERGIES: ALLERGIES Allergen Reactions Benzocaine Swelling Latex Swelling Macrobid [Nitrofura* Vomiting Meloxicam Other: See Comments Itching, rash Methylprednisolone Hives, Swelling, Itching Tramadol Rash MEDICATIONS: losartan (COZAAR) 100 mg tablet Take 1 tablet by mouth once daily. amLODIPine (NORVASC) 5 mg tablet Take 1 tablet by mouth once daily. pravastatin (PRAVACHOL) 10 mg tablet Take 1 tablet by mouth daily at bedtime. cyanocobalamin, vitamin B-12, (VITAMIN B-12 ORAL) Take 1 tablet by mouth once daily. metoprolol tartrate, short acting, (LOPRESSOR) 25 mg tablet Take 1 tablet by mouth twice daily. As needed per your directions DUREZOL 0.05 % ophthalmic suspension instill 1 drop into left eye once a day REVIEW OF SYSTEMS: Review of Systems Constitutional: Negative for chills, fever, malaise/fatigue and weight loss. HENT: Negative for hearing loss and sore throat. Eyes: Negative for blurred vision and double vision. Respiratory: Negative. Cardiovascular: Negative. Gastrointestinal: Negative. Genitourinary: Negative for dysuria, frequency, hematuria and urgency. Musculoskeletal: Negative. Skin: Negative. Neurological: Negative for dizziness, seizures, loss of consciousness, weakness and headaches. Endo/Heme/Allergies: Negative for environmental allergies. Does not bruise/bleed easily. Psychiatric/Behavioral: Negative for depression. PHYSICAL EXAMINATION: BP 148/80 Pulse 75 Wt 132 lb (59.9kg) SpO2 98% General: Thin elderly woman appears younger than her stated age sitting comfortable no apparent distress. She is alert and oriented x3 HEENT: Carotid upstrokes are brisk bilaterally without bruits no JVD appreciated. Pulmonary: Lungs are clear no rales, wheezes, rhonchi Cardiovascular: Normal S1, S2 with regular rate and rhythm. No murmurs, rubs, or gallops Extremities: Warm, well-perfused, no lower extremity edema. 2+ distal pulses CARDIOVASCULAR MEDICINE TESTING: ECG in the office 02/06/2022: Normal sinus rhythm with a left bundle branch block pattern Echocardiogram [facility] 10/23/2020 Normal LV size and systolic function. Estimated ejection fraction 60% Left atrium mildly enlarged Severe mitral annular calcification, no mitral regurgitation or stenosis Regadenoson Myoview stress test 07/03/2018 CONCLUSIONS: 1. SPECT Perfusion Study: Normal. 2. There is no scintigraphic evidence for inducible ischemia. 3. No evidence of scarred myocardium. 4. Functional capacity N/A (pharmacological). 5. Left ventricle is normal in size. The left ventricle systolic function is normal. 6. Right ventricle is normal in size. The right ventricle systolic function is normal. 7. This is a low risk scan. Gated Stress FBP LVEF % 56 Zio Monitor 11/02/2020-11/16/2020: Patient had a min HR of 45 bpm, max HR of 174 bpm, and avg HR of 62 bpm. Predominant underlying rhythm was Sinus Rhythm. Bundle Branch Block/IVCD was present. 40 Supraventricular Tachycardia runs occurred, the run with the fastest interval lasting 6 beats with a max rate of 174 bpm, the longest lasting 11.5 secs with an avg rate of 116 bpm. IsolatedSVEs were rare (<1.0%), SVE Couplets were rare (<1.0%), and SVE Triplets were rare (<1.0%). Isolated VEs were rare (<1.0%), and no VE Couplets or VE Triplets were present. Ventricular Bigeminy and Trigeminywere present. I have personally reviewed the Electrocardiogram, Laboratory Testing and Echocardiogram. IMPRESSION: Ms. Schreiber is a 86 year old woman with a history of hypertension, dyslipidemia and SVT likely atrial tachycardia who presents for routine follow-up PLAN AND RECOMMENDATIONS: 1. Palpitations - ICD9: 785.1, ICD10: R00.2 (primary diagnosis) Remains asymptomatic. Continue current medical therapy. - ECG COMPLETE 2. Essential hypertension, benign - ICD9: 401.1, ICD10: I10 Mildly elevated during the office visit. I have asked her to keep track of her blood pressure at home for review at next office visit 3. Other hyperlipidemia - ICD9: 272.4, ICD10: E78.49 Maintained on pravastatin 10 mg daily. Recent fasting blood work 01/11/2022 was reviewed. LDL cholesterol 92 mg/dL 4. LBBB (left bundle branch block) - ICD9: 426.3, ICD10: I44.7 Ángela Leiva MD documented in this encounter [facility] 01-17-2022 Miscellaneous Notes Patient calls to request copies of recent lab work be mailed to home address. Copies of labs made and placed in out-going mail to be mailed to patient at home address. Cierra Nassar RN documented in this encounter [facility] 01-17-2022 Note HNO ID: [id number] Author: Jaren Jones MD Service: ? Author Type: Physician Type: Progress Notes Filed: 01/22/2022 11:40 AM Note Text: Chief Complaint Patient presents with: Physical: Started mini cog and patient refused after starting it became aggitated and demanded the mini cog paperwork. She stated she didn't want the information recorded. Papers given to patient and PCP updated. HPI Apryl Schreiber is a 86 year old female who presents here today for routine follow up. Patient did minicog with nurse before I entered the room and was not able to draw the clock and only could remember 2 out of the 3 words. Score 2/5 which is abnormal. Patient became agitated and requested the papers from the nurse which she was given. Refuses to give them back for our records. States that she was upset by the testing and is refusing to do MMSE today. Doesn't want to do any of that big brother stuff. Also states that she is upset that when she had dizziness she had to see our INTERDISCIPLINARY PROFESSOR instead of me. States that her symptoms of BPPV were not improved with sherrie maneuvers at home. Had to see ENT and they performed them there and her symptoms. Discussed with patient that she had been given maneuvers for home and if they didn't improve we would have referred her to PT as appropriate. C/o itching rash on her left side to shoulder which started with Tramadol from her pain management Dr Stringer for DDD thoracic spine. Started last week and has since stopped the medication. Treating with OTC hydrocortisone cream and rash is improving. Has known allergy to Tramadol. BP well controlled on current regimen. Taking her beta piyush and ARB daily. Past medical history, appointments, medications, allergies reviewed. 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 Gutierrez ARTHROSCOPY KNEE DIAGNOSTIC W/WO SYNOVIAL BX SPX 08/19/2010 Arthroscopy, knee- right- Dr. Gutierrez ARTHRP KNE CONDYLEANDPLATU MEDIALANDLAT COMPARTMENTS Left 08/2015 CARPAL TUNNEL Right 05/[address] Morales COLONOSCOPY FLX DX W/COLLJ SPEC WHEN PFRMD 01/31/05 Colonoscopy COLONOSCOPY FLX DX W/COLLJ SPEC WHEN PFRMD 02/26/2007 Colonoscopy-repeat in COLONOSCOPY FLX DX W/COLLJ SPEC WHEN PFRMD 02/28/2012 Colonoscopy COLONOSCOPY FLX DX W/COLLJ SPEC WHEN PFRMD 03/04/2015 Colonoscopy, repeat in 5 years DILATION AND CURETTAGE DXAND/THER NONOBSTETRIC Dilation AND curettage DILATION AND CURETTAGE DXAND/THER NONOBSTETRIC Dilation AND curettage ESOPHAGOGASTRODUODENOSCOPY TRANSORAL DIAGNOSTIC 03/27/2013 EGD SIGMOIDOSCOPY FLX DX W/COLLJ SPEC BR/WA IF PFRMD 01/26/00 Sigmoidoscopy, flexible TONSILLECTOMY PRIMARY/SECONDARY Tonsillectomy Family History FAMILY HISTORY Problem Relation Age of Onset other (MELANOMA) Mother other (CT) Father 59 other (LUNG CANCER) Brother Patient Allergies ALLERGIES Allergen Reactions Benzocaine Swelling Latex Swelling Macrobid [Nitrofura* Vomiting Meloxicam Other: See Comments Itching, rash Methylprednisolone Hives, Swelling, Itching Tramadol Rash Current Medications Current Outpatient Medications on File Prior to Visit Medication Sig losartan (COZAAR) 100 mg tablet Take 1 tablet by mouth once daily. pravastatin (PRAVACHOL) 10 mg tablet Take 1 tablet by mouth daily at bedtime. cyanocobalamin, vitamin B-12, (VITAMIN B-12 ORAL) Take 1 tablet by mouth once daily. meclizine (ANTIVERT) 12.5 mg tab Take 1 tablet by mouth at bedtime as needed (dizziness). (Patient not taking: Reported on 01/17/2022) amLODIPine (NORVASC) 5 mg tablet Take 1 tablet by mouth once daily. metoprolol tartrate, short acting, (LOPRESSOR) 25 mg tablet Take 1 tablet by mouth twice daily. As needed per your directions DUREZOL 0.05 % ophthalmic suspension instill 1 drop into left eye once a day MULTIVITAMIN ORAL Take by mouth. (Patient not taking: Reported on 01/17/2022) No current facility-administered medications on file prior to visit. Social History Social History Tobacco Use Smoking status: Never Smokeless tobacco: Never Substance Use Topics Alcohol use: Yes Alcohol/week: 5.0 standard drinks Types: 2 Glasses of Wine (5oz) per week Comment: wine ocassional 3-4 times over the week Drug use: No Review of Symptoms REVIEW OF SYSTEMS (more content not included)... [facility] 01-17-2022 History of Present illness Narrative Chief Complaint Patient presents with: Physical: Started mini cog and patient refused after starting it became aggitated and demanded the mini cog paperwork. She stated she didn't want the information recorded. Papers given to patient and PCP updated. TIMBO Apryl Schreiber is a 86 year old female who presents here today for routine follow up. Patient did minicog with nurse before I entered the room and was not able to draw the clock and only could remember 2 out of the 3 words. Score 2/5 which is abnormal. Patient became agitated and requested the papers from the nurse which she was given. Refuses to give them back for our records. States that she was upset by the testing and is refusing to do MMSE today. Doesn't want to do any of that big brother stuff. Also states that she is upset that when she had dizziness she had to see our INTERDISCIPLINARY PROFESSOR instead of me. States that her symptoms of BPPV were not improved with sherrie maneuvers at home. Had to see ENT and they performed them there and her symptoms. Discussed with patient that she had been given maneuvers for home and if they didn't improve we would have referred her to PT as appropriate. C/o itching rash on her left side to shoulder which started with Tramadol from her pain management Dr Myke for DDD thoracic spine. Started last week and has since stopped the medication. Treating with OTC hydrocortisone cream and rash is improving. Has known allergy to Tramadol. BP well controlled on current regimen. Taking her beta piyush and ARB daily. Past medical history, appointments, medications, allergies reviewed. 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 Gutierrez ARTHROSCOPY KNEE DIAGNOSTIC W/WO SYNOVIAL BX SPX 08/19/2010 Arthroscopy, knee- right- Dr. Gutierrez ARTHRP KNE CONDYLE&PLATU MEDIAL&LAT COMPARTMENTS Left 08/2015 CARPAL TUNNEL Right 05/[address] Morales COLONOSCOPY FLX DX W/COLLJ SPEC WHEN PFRMD 01/31/05 Colonoscopy COLONOSCOPY FLX DX W/COLLJ SPEC WHEN PFRMD 02/26/2007 Colonoscopy-repeat in -2012 COLONOSCOPY FLX DX W/COLLJ SPEC WHEN PFRMD 02/28/2012 Colonoscopy COLONOSCOPY FLX DX W/COLLJ SPEC WHEN PFRMD 03/04/2015 Colonoscopy, repeat in 5 years DILATION & CURETTAGE DX&/THER NONOBSTETRIC Dilation & curettage DILATION & CURETTAGE DX&/THER NONOBSTETRIC Dilation & curettage ESOPHAGOGASTRODUODENOSCOPY TRANSORAL DIAGNOSTIC 03/27/2013 EGD SIGMOIDOSCOPY FLX DX W/COLLJ SPEC BR/WA IF PFRMD 01/26/00 Sigmoidoscopy, flexible TONSILLECTOMY PRIMARY/SECONDARY <AGE 12 Tonsillectomy Family History FAMILY HISTORY Problem Relation Age of Onset other (MELANOMA) Mother other (CT) Father 59 other (LUNG CANCER) Brother Patient Allergies ALLERGIES Allergen Reactions Benzocaine Swelling Latex Swelling Macrobid [Nitrofura* Vomiting Meloxicam Other: See Comments Itching, rash Methylprednisolone Hives, Swelling, Itching Tramadol Rash Current Medications Current Outpatient Medications on File Prior to Visit Medication Sig losartan (COZAAR) 100 mg tablet Take 1 tablet by mouth once daily. pravastatin (PRAVACHOL) 10 mg tablet Take 1 tablet by mouth daily at bedtime. cyanocobalamin, vitamin B-12, (VITAMIN B-12 ORAL) Take 1 tablet by mouth once daily. meclizine (ANTIVERT) 12.5 mg tab Take 1 tablet by mouth at bedtime as needed (dizziness). (Patient not taking: Reported on 01/17/2022) amLODIPine (NORVASC) 5 mg tablet Take 1 tablet by mouth once daily. metoprolol tartrate, short acting, (LOPRESSOR) 25 mg tablet Take 1 tablet by mouth twice daily. As needed per your directions DUREZOL 0.05 % ophthalmic suspension instill 1 drop into left eye once a day MULTIVITAMIN ORAL Take by mouth. (Patient not taking: Reported on 01/17/2022) No current facility-administered medications on file prior to visit. Social History Social History Tobacco Use Smoking status: Never Smokeless tobacco: Never Substance Use Topics Alcohol use: Yes Alcohol/week: 5.0 standard drinks Types: 2 Glasses of Wine (5oz) per week Comment: wine ocassional 3-4 times over the week Drug use: No Review of Symptoms REVIEW OF SYSTEMS GENERAL: No weight loss, malaise or fevers RESPIRATORY: Negative for cough, hemoptysis, wheezing, COPD, dyspnea or shortness of breath CARDIOVASCULAR: Negative for chest pain, leg swelling, hypertension, CHF or palpitations GI: No nausea, vomiting, or diarrhea SKIN: Negative for lesions, rash, and itching EXAM: BP 114/64 Pulse 60 Resp 16 Wt 59.7 kg (131 lb 9.6 oz) SpO2 98% BMI 23.50 kg/m General Appearance: Well appearing, alert, in no acute distress, well-hydrated, well nourished.. Skin: scattered rash on left flank and shoulder without cellulitis or purulent drainage. Lungs: Lungs clear to auscultation. No wheezing, rhonchi, rales.. Heart: RRR without murmur, gallop, or rubs. No ectopy. Abdomen: Normal abdominal exam, Abdomen soft, non-tender. Bowel sounds normal. No masses, organomegaly. Extremities: No deformities, edema, skin discoloration, clubbing or cyanosis. Good capillary refill. Health Maintenance List ADVANCE DIRECTIVE DISCUSSION Never done DEPRESSION ASSESSMENT Never done COVID-19 VACCINE(4 - Booster for Moderna series) due on 03/03/2021 SHINGRIX VACCINE(3 of 3) due on 11/15/2021 LDL CHOLESTEROL due on 01/11/2023 DTAP,TDAP,TD(2 - Td or Tdap) due on 01/28/2023 BONE DENSITY Completed INFLUENZA Completed PNEUMOCOCCAL: 65+ Completed URINE ALBUMIN:CREATININE RATIO Discontinued DILATED RETINAL EXAM Discontinued DIABETIC FOOT EXAM Discontinued HBA1C Discontinued Data reviewed Component Latest Ref Rng & Units 01/11/2022 Protein, Total 6.3 - 8.0 g/dL 7.0 Albumin 3.9 - 4.9 g/dL 4.3 Calcium 8.5 - 10.2 mg/dL 9.7 Bilirubin, Total 0.2 - 1.3 mg/dL 0.4 Alkaline Phosphatase 34 - 123 U/L 74 AST 13 - 35 U/L 20 ALT 7 - 38 U/L 17 Glucose 74 - 99 mg/dL 104 (H) BUN 7 - 21 mg/dL 17 Creatinine 0.58 - 0.96 mg/dL 0.77 Sodium 136 - 144 mmol/L 138 Potassium 3.7 - 5.1 mmol/L 4.1 Chloride 97 - 105 mmol/L 100 CO2 22 - 30 mmol/L 26 Anion Gap 9 - 18 mmol/L 12 eGFR >=60 mL/min/1.73m 75 Total Cholesterol, Nonfasting <200 mg/dL 189 Triglycerides, Nonfasting <150 mg/dL 78 HDL Cholesterol, Nonfasting >39 mg/dL 81 LDL Cholesterol, Nonfasting <100 mg/dL 92 Non HDL Cholesterol, Nonfasting <130 mg/dL 108 VLDL Cholesterol, Nonfasting <30 mg/dL 16 Total Chol/HDL Ratio, Nonfasting <5.10 mg/dL 2.33 LDL/HDL Ratio, Nonfasting <2.54 mg/dL 1.14 ASSESSMENT/PLAN: 1. Drug rash - ICD9: 693.0, ICD10: L27.0 (primary diagnosis) Improving with cessation of tramadol. Continue OTC anti itch cream. Red flags for re-assessment reviewed with patient in detail. 2. 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 Refusing further workup with MMSE today. Discussed concerns about possible memory impairment. Refusing to schedule f/u appointment before leaving to discuss. 3. Essential hypertension - ICD9: 401.9, ICD10: I10 - good control - Continue current medication(s) - Encouraged dietary sodium restriction/DASH diet - Recommended regular aerobic exercise. - Reviewed risks of HTN and principles of treatment - Goal of BP <140/90 4. Hyperlipidemia, unspecified hyperlipidemia type - ICD9: 272.4, ICD10: E78.5 - good control - Continue current medication. - Encouraged following a low fat, low cholesterol diet. - Discussed the benefits of regular aerobic exercise and weight loss. 5. Anxiety with depression - ICD9: 300.4, ICD10: F41.8 No complaints today. Doing well without rx. 6. BPPV (benign paroxysmal positional vertigo), unspecified laterality - ICD9: 386.11, ICD10: H81.10 Resolved. Jaren Jones MD documented in this encounter [facility] 09-30-2021 Miscellaneous Notes September 30, 2021 PID: [id number] Apryl Schreiber [address] [place] [address] Dear Ms. Schreiber, We are pleased to inform you that the results of your recent breast imaging exam on 09/29/2021 are normal. Your mammogram demonstrates that you have dense breast tissue, which could hide abnormalities. Dense breast tissue, in and of itself, is a relatively common condition. Therefore, this information is not provided to cause undue concern; rather, it is to raise your awareness and promote discussion with your health care provider regarding the presence of dense breast tissue in addition to other risk factors. Early detection of cancer is very important. We also understand recommendations regarding breast cancer screening are controversial. Please discuss with your primary care provider which strategy is best for you and whether a mammogram is right for you. Your imaging studies and report will be kept on file at [facility] as part of your permanent medical record and are available for your continuing care. Thank you for allowing us to help in meeting your health care needs. Sincerely, Dr. Watt Interpreting Radiologist [facility] (Normal over 40) documented in this encounter [facility] 09-29-2021 Miscellaneous Notes Pt notified. Glad to hear it. Let us know if symptoms return or change. Patient called to advise Tawnya Scales that her vertigo has been gone for 2 days. documented in this encounter [facility] 09-29-2021 Miscellaneous Notes Patient has been identified by name and date of : Yes Requested Prescriptions Pending Prescriptions Disp Refills losartan (COZAAR) 100 mg tablet 90 tablet 1 Sig: Take 1 tablet by mouth once daily. RX INSTRUCTIONS: Patient aware RX will be sent to pharmacy. No need to notify patient. Mel Dubose documented in this encounter [facility] 09-21-2021 History of Present illness Narrative 09/21/2021 Patient presents with: Dizziness: x4 days Earwax: bilateral ears; completed drops SUBJECTIVE: This is a 86 year old that is here today for Above Complaints. After last appointment dizziness had stopped but on Sunday awoke with dizziness. Reports usually only gets dizzy at night when she lays down and if she turns on her side the dizziness goes away. Did note when she looked up and then back down became dizzy but it went away quickly. Denies visual changes, headaches, syncope, ear pain, tinnitus, or recent URI. 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 amLODIPine (NORVASC) 5 mg tablet Take 1 tablet by mouth once daily. losartan (COZAAR) 100 mg tablet Take 1 tablet by mouth once daily. pravastatin (PRAVACHOL) 10 mg tablet Take 1 tablet by mouth daily at bedtime. cyanocobalamin, vitamin B-12, (VITAMIN B-12 ORAL) Take 1 tablet by mouth once daily. metoprolol tartrate, short acting, (LOPRESSOR) 25 mg tablet Take 1 tablet by mouth twice daily. As needed per your directions DUREZOL 0.05 % ophthalmic suspension instill 1 drop into left eye once a day MULTIVITAMIN ORAL Take by mouth. No current facility-administered medications for this visit. Medications and allergies reviewed by this provider. SOCIAL HISTORY Social History Tobacco Use Smoking status: Never Smoker Smokeless tobacco: Never Used Substance Use Topics Alcohol use: Yes Alcohol/week: 5.0 standard drinks Types: 2 Glasses of Wine (5oz) per week Comment: wine ocassional 3-4 times over the week Drug use: No REVIEW OF SYSTEMS All other reviewed and negative other than HPI. OBJECTIVE: BP 132/68 Pulse 67 Temp 37.2 C (99 F) Resp 18 Wt 59.8 kg (131 lb 12.8 oz) SpO2 96% BMI 23.53 kg/m . Vital signs reviewed by this provider. APPEARANCE Well appearing, alert, in no acute distress, well-hydrated, well nourished. EYES PERRLA, conjunctiva and sclera normal. EARS Positive findings: cerumen bilaterally, amount Small. Normal bilateral ear canals and TMs after irrigation HEART RRR with normal S1 and S2, no murmurs, no gallops, no JVD appreciated LUNG clear to auscultation. No wheezes, rhonchi, or rales EXTREMITIES Extremities normal, No deformities, No skin discoloration and No edema NEURO Awake, alert and oriented x 3, Cranial nerves II-XII grossly intact, Reflexes symmetrical, Normal gait, No involuntary motions. and negative findings: speech normal, mental status intact, gait, including heel, toe, and tandem walking normal, Romberg negative, muscle tone normal, muscle strength normal, rapid alternating movements normal, finger to nose normal, reflexes normal and symmetric, plantar response downgoing bilaterally SKIN Skin color, texture, turgor normal, no suspicious rashes or lesions to exposed skin ADVANCE DIRECTIVE DISCUSSION Never done COVID-19 VACCINE(4 - Booster for Moderna series) due on 05/06/2021 INFLUENZA(1) due on 10/20/2021 SHINGRIX VACCINE(3 of 3) due on 11/15/2021 LDL CHOLESTEROL due on 01/05/2022 DTAP,TDAP,TD(2 - Td or Tdap) due on 01/28/2023 BONE DENSITY Completed PNEUMOCOCCAL: 65+ Completed URINE ALBUMIN:CREATININE RATIO Discontinued DILATED RETINAL EXAM Discontinued DIABETIC FOOT EXAM Discontinued HBA1C Discontinued ASSESSMENT/PLAN: 1. Dizziness - ICD9: 780.4, ICD10: R42 (primary diagnosis) - no red flag symptoms or exam findings - red flag symptoms discussed, verbalizes understanding - discussed options for treatment - she is going to take a meclizine 30-45 minutes prior to sleep to see if this helps - will have her do Sherrie procedure at home three times a day - she will update me in one week with symptoms, if not improving will have her see PT - MECLIZINE 12.5 MG TABLET- common side effects discussed - update me in one to ER with red flag symptoms 2. Bilateral impacted cerumen - ICD9: 380.4, ICD10: H61.23 - resolved after irrigation Tawnya Podlogar, EARLY CHILDHOOD COORDINATOR.QUALITY ASSURANCE CONSULTANT Prescription instructions reviewed with patient as applicable. Patient advised if symptoms do not improve or if symptoms worsen sooner, to contact their primary care physician. Potential red flag symptoms discussed with the patient. Reviewed appropriate action plan to take if red flag symptoms occur. Patient agreeable to treatment plan. I spent a total of 30 minutes on the date of the service which included preparing to see the patient, [id number] patient care, completing clinical documentation, obtaining and/or reviewing separately obtained history, performing a medically appropriate examination, counseling and educating the patient/family/caregiver and ordering medications, tests, or procedures. documented in this encounter [place] 09-09-2021 History of Present illness Narrative 09/09/2021 Patient presents with: Dizziness: x1 week SUBJECTIVE: This is a 86 year old that is here today for Above Complaints. Reports vertigo for the past week, although she reports last night she was fine. Happens when she lays down at night, however if she turns her head to the left or right it goes away. No current dizziness. Admits to a hx of vertigo and it felt like this. Has not had any dizziness or lightheadedness during the day. Also denies visual changes, headaches, syncope, ear pain, tinnitus, or recent URI. Patient asking if I think her vertigo is due to anxiety. Patient reports her family wanted her to discuss her anxiety today. Patient admits to some recent stressful situations in her family recently. 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 losartan (COZAAR) 100 mg tablet Take 1 tablet by mouth once daily. pravastatin (PRAVACHOL) 10 mg tablet Take 1 tablet by mouth daily at bedtime. cyanocobalamin, vitamin B-12, (VITAMIN B-12 ORAL) Take 1 tablet by mouth once daily. metoprolol tartrate, short acting, (LOPRESSOR) 25 mg tablet Take 1 tablet by mouth twice daily. As needed per your directions DUREZOL 0.05 % ophthalmic suspension instill 1 drop into left eye once a day MULTIVITAMIN ORAL Take by mouth. No current facility-administered medications for this visit. Medications and allergies reviewed by this provider. SOCIAL HISTORY Social History Tobacco Use Smoking status: Never Smoker Smokeless tobacco: Never Used Substance Use Topics Alcohol use: Yes Alcohol/week: 5.0 standard drinks Types: 2 Glasses of Wine (5oz) per week Comment: wine ocassional 3-4 times over the week Drug use: No REVIEW OF SYSTEMS All other reviewed and negative other than HPI. OBJECTIVE: BP 128/72 Pulse 76 Resp 18 Wt 60.1 kg (132 lb 6.4 oz) SpO2 98% BMI 23.64 kg/m . Vital signs reviewed by this provider. APPEARANCE Well appearing, alert, in no acute distress, well-hydrated, well nourished. EYES PERRLA, conjunctiva and sclera normal. EARS External ears normal, canals clear NECK Supple, no adenopathy; thyroid symmetric, normal size, no bruits HEART RRR with normal S1 and S2, no murmurs, no gallops, no JVD appreciated LUNG clear to auscultation. No wheezes, rhonchi, or rales EXTREMITIES Extremities normal, No deformities, No skin discoloration and No edema NEURO Awake, alert and oriented x 3, Cranial nerves II-XII grossly intact, Reflexes symmetrical, Normal gait, No involuntary motions. and negative findings: speech normal, mental status intact, cranial nerves 2-12 intact, Romberg negative, muscle tone normal, muscle strength normal, rapid alternating movements normal, finger to nose normal, reflexes normal and symmetric, plantar response downgoing bilaterally SKIN Skin color, texture, turgor normal, no suspicious rashes or lesions to exposed skin PSYCH: Posture and motor behavior: normal posture and motor behavior Dress, grooming, personal hygiene: normal dress and grooming Facial expression: good eye contact Speech: normal speech Mood: cheerful Coherency and relevance of thought: normal thought processes Memory: normal memory SHINGRIX VACCINE(2 of 3) due on 05/03/2007 ADVANCE DIRECTIVE DISCUSSION Never done COVID-19 VACCINE(4 - Booster for Moderna series) due on 05/06/2021 INFLUENZA(1) due on 10/20/2021 LDL CHOLESTEROL due on 01/05/2022 DTAP,TDAP,TD(2 - Td or Tdap) due on 01/28/2023 BONE DENSITY Completed PNEUMOCOCCAL: 65+ Completed URINE ALBUMIN:CREATININE RATIO Discontinued DILATED RETINAL EXAM Discontinued DIABETIC FOOT EXAM Discontinued HBA1C Discontinued ASSESSMENT/PLAN: 1. Dizziness - ICD9: 780.4, ICD10: R42 (primary diagnosis) - none last night, normal neuro exam today - possibly BPPV - no red flag symptoms or exam findings - red flag symptoms discussed, verbalizes understanding - discussed Sherrie maneuver she can do three times a day if returns - follow-up if symptoms fail to improve 2. 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 - Counseling Center [facility] and after hours crisis line - [facility] [place] phone number or - SERTRALINE 25 MG TABLET - follow-up in one month, sooner if needed 3. Encounter for screening mammogram for malignant neoplasm of breast - ICD9: V76.12, ICD10: Z12.31 - MARY SCREENING Tawnya Scales APRN.CNP Prescription instructions reviewed with patient as applicable. Patient advised if symptoms do not improve or if symptoms worsen sooner, to contact their primary care physician. Potential red flag symptoms discussed with the patient. Reviewed appropriate action plan to take if red flag symptoms occur. Patient agreeable to treatment plan. I spent a total of 36 minutes on the date of the service which included preparing to see the patient, [id number] patient care, completing clinical documentation, performing a medically appropriate examination, counseling and educating the patient/family/caregiver and ordering medications, tests, or procedures. documented in this encounter [place] 07-11-2021 History of Present illness Narrative Images from the original note were not included. [facility] SE[facility] CARDIOLOGY Cardiology ([facility]) [address] [facility] [id number] OUTPATIENT VISIT DATE 07/11/2021 PRIMARY CARE PHYSICIAN: Jaren Jones [address] [place] [address] REFERRING PHYSICIAN: Jaren Jones [address] [facility] [id number] HISTORY OF PRESENT ILLNESS: Ms. Schreiber is a 85 year old pleasant and active woman with a history of hypertension, left bundle branch block pattern on EKG, SVT secondary to atrial tachycardia, and dyslipidemia who presents the office for routine follow-up. Since her last visit, she tells me she has been doing well. She has had no recurrent episodes of palpitations or heart racing. She did not take a single dose of metoprolol since her last visit. She remains active and is only limited by some back pain. She has had no symptoms concerning for congestive heart failure including PND, orthopnea, lower extremity edema. 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 Gutierrez ARTHROSCOPY KNEE DIAGNOSTIC W/WO SYNOVIAL BX SPX 08/19/2010 Arthroscopy, knee- right- Dr. Gutierrez ARTHRP KNE CONDYLE&PLATU MEDIAL&LAT COMPARTMENTS Left 08/2015 CARPAL TUNNEL Right 05/[address] Morales COLONOSCOPY FLX DX W/COLLJ SPEC WHEN PFRMD 01/31/05 Colonoscopy COLONOSCOPY FLX DX W/COLLJ SPEC WHEN PFRMD 02/26/2007 Colonoscopy-repeat in COLONOSCOPY FLX DX W/COLLJ SPEC WHEN PFRMD 02/28/2012 Colonoscopy COLONOSCOPY FLX DX W/COLLJ SPEC WHEN PFRMD 03/04/2015 Colonoscopy, repeat in 5 years DILATION & CURETTAGE DX&/THER NONOBSTETRIC Dilation & curettage DILATION & CURETTAGE DX&/THER NONOBSTETRIC Dilation & curettage ESOPHAGOGASTRODUODENOSCOPY TRANSORAL DIAGNOSTIC 03/27/2013 EGD SIGMOIDOSCOPY FLX DX W/COLLJ SPEC BR/WA IF PFRMD 01/26/00 Sigmoidoscopy, flexible TONSILLECTOMY PRIMARY/SECONDARY <AGE 12 Tonsillectomy SOCIAL HISTORY Social History Tobacco Use Smoking status: Never Smoker Smokeless tobacco: Never Used Substance Use Topics Alcohol use: Yes Alcohol/week: 5.0 standard drinks Types: 2 Glasses of Wine (5oz) per week Comment: wine ocassional 3-4 times over the week Drug use: No FAMILY HISTORY Problem Relation Age of Onset other (MELANOMA) Mother other (CT) Father 59 other (LUNG CANCER) Brother ALLERGIES: ALLERGIES Allergen Reactions Benzocaine Swelling Latex Swelling Macrobid [Nitrofura* Vomiting Meloxicam Other: See Comments Itching, rash Methylprednisolone Hives, Swelling, Itching MEDICATIONS: amLODIPine (NORVASC) 5 mg tablet Take 1 tablet by mouth once daily. losartan (COZAAR) 100 mg tablet Take 1 tablet by mouth once daily. pravastatin (PRAVACHOL) 10 mg tablet Take 1 tablet by mouth daily at bedtime. cyanocobalamin, vitamin B-12, (VITAMIN B-12 ORAL) Take 1 tablet by mouth once daily. DUREZOL 0.05 % ophthalmic suspension instill 1 drop into left eye once a day MULTIVITAMIN ORAL Take by mouth. metoprolol tartrate, short acting, (LOPRESSOR) 25 mg tablet Take 1 tablet by mouth twice daily. As needed per your directions REVIEW OF SYSTEMS: Review of Systems Constitutional: Negative for chills, fever, malaise/fatigue and weight loss. HENT: Negative for hearing loss and sore throat. Eyes: Negative for blurred vision and double vision. Respiratory: Negative. Cardiovascular: Negative. Gastrointestinal: Negative. Genitourinary: Negative for dysuria, frequency, hematuria and urgency. Musculoskeletal: Negative. Skin: Negative. Neurological: Negative for dizziness, seizures, loss of consciousness, weakness and headaches. Endo/Heme/Allergies: Negative for environmental allergies. Does not bruise/bleed easily. Psychiatric/Behavioral: Negative for depression. PHYSICAL EXAMINATION: BP 138/68 Pulse 72 Wt 131 lb (59.4kg) SpO2 97% General: Thin elderly woman appears younger than her stated age sitting comfortable no apparent distress. She is alert and oriented x3 HEENT: Carotid upstrokes are brisk bilaterally without bruits no JVD appreciated. Pulmonary: Lungs are clear no rales, wheezes, rhonchi Cardiovascular: Normal S1, S2 with regular rate and rhythm. No murmurs, rubs, or gallops Extremities: Warm, well-perfused, no lower extremity edema. 2+ distal pulses CARDIOVASCULAR MEDICINE TESTING: Echocardiogram [facility] 10/23/2020 Normal LV size and systolic function. Estimated ejection fraction 60% Left atrium mildly enlarged Severe mitral annular calcification, no mitral regurgitation or stenosis Regadenoson Myoview stress test 07/03/2018 CONCLUSIONS: 1. SPECT Perfusion Study: Normal. 2. There is no scintigraphic evidence for inducible ischemia. 3. No evidence of scarred myocardium. 4. Functional capacity N/A (pharmacological). 5. Left ventricle is normal in size. The left ventricle systolic function is normal. 6. Right ventricle is normal in size. The right ventricle systolic function is normal. 7. This is a low risk scan. Gated Stress FBP LVEF % 56 [facility]io Monitor 11/02/2020-11/16/2020: Patient had a min HR of 45 bpm, max HR of 174 bpm, and avg HR of 62 bpm. Predominant underlying rhythm was Sinus Rhythm. Bundle Branch Block/IVCD was present. 40 Supraventricular Tachycardia runs occurred, the run with the fastest interval lasting 6 beats with a max rate of 174 bpm, the longest lasting 11.5 secs with an avg rate of 116 bpm. IsolatedSVEs were rare (<1.0%), SVE Couplets were rare (<1.0%), and SVE Triplets were rare (<1.0%). Isolated VEs were rare (<1.0%), and no VE Couplets or VE Triplets were present. Ventricular Bigeminy and Trigeminywere present. I have personally reviewed the Electrocardiogram, Laboratory Testing and Echocardiogram. IMPRESSION: Ms. Schreiber is a 85 year old woman with a history of hypertension, dyslipidemia and SVT likely atrial tachycardia who presents for routine follow-up PLAN AND RECOMMENDATIONS: 1. Palpitations - ICD9: 785.1, ICD10: R00.2 (primary diagnosis) Patient has been asymptomatic. Continue current careful observation. 2. LBBB (left bundle branch block) - ICD9: 426.3, ICD10: I44.7 3. Essential hypertension, benign - ICD9: 401.1, ICD10: I10 Well-controlled on current regimen. 4. Other hyperlipidemia - ICD9: 272.4, ICD10: E78.49 Maintained on pravastatin 10 mg daily. Blood work from December 2020 was reviewed. LDL cholesterol 90 mg/dL Ángela Leiva MD documented in this encounter [place] 06-30-2021 Miscellaneous Notes Patient has been identified by name and date of : Yes Patient phones for refill(s): Pending Prescriptions Disp Refills AMLODIPINE 5 MG TABLET 90 tablet 3 Sig: Take 1 tablet by mouth once daily. TANA: No Date of last office visit in primary care: 01/05/2021; Future Appt. None Last 2 Encounter Wt Readings: Date: Wt: 03/07/2021 60.3 kg (133 lb) 01/05/2021 59.9 kg (132 lb) Previous labs/tests for medication: Blood Pressure: BUN (mg/dL) Date Value 01/05/2021 15 Sodium (mmol/L) Date Value 01/05/2021 140 Last 1 Encounter BP Readings: Date: BP: 03/07/2021 150/74 Liver Function: ALT (U/L) Date Value 01/05/2021 20 AST (U/L) Date Value 01/05/2021 25 Please advise. Thank you. Yeimy Jovel RN documented in this encounter [place] documented as of this encounter (statuses as of 06/30/2021) [place]03-02-2010 History of Past illness Narrative* Problem Noted Date Resolved Date DJD (degenerative joint disease), thoracic 04/2005/25/2016 Inflamed seborrheic keratosis 01/02/2008 SOLAR LENGINES///DYSCHROMIA OTHER 12/12/2007 01/05/2015 Other chronic dermatitis due to solar radiation 12/12/2007 01/05/2015 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, including hip 12/12/2007 07/06/2015 NEVI TRUNK///BENIGN FERNIE SKIN TRUNK 12/12/2007 07/06/2015 Other seborrheic keratosis 12/12/200707/05 CANNON ANGIOMA///NEVUS, NON-NEOPLASTIC 8 01/05/2015 Unspecified hypertrophic and atrophic condition of skin 12/12/2007 07/06/2015 Diarrhea 02/26/2007 12/21/2008 Internal hemorrhoids without mention of complica tion 07/06/2015 documented as of this encounter (statuses as of 07/11/2021) [place]-02-2010 History of Past illness Narrative* Problem Noted Date Resolved Date DJD (degenerative joint disease), thoracic 04/2005/25/2016 Inflamed seborrheic keratosis 01/02/2008 SOLAR LENGINES///DYSCHROMIA OTHER 12/12/2007 01/05/2015 Other chronic dermatitis due to solar radiation 12/12/2007 01/05/2015 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, including hip 12/12/2007 07/06/2015 NEVI TRUNK///BENIGN FERNIE SKIN TRUNK 12/12/2007 07/06/2015 Other seborrheic keratosis 12/12/200707/05 CANNON ANGIOMA///NEVUS, NON-NEOPLASTIC 8 01/05/2015 Unspecified hypertrophic and atrophic condition of skin 12/12/2007 07/06/2015 Diarrhea 02/26/2007 12/21/2008 Internal hemorrhoids without mention of complica tion 07/06/2015 documented as of this encounter (statuses as of 09/09/2021) [place]-02-2010 History of Past illness Narrative* Problem Noted Date Resolved Date DJD (degenerative joint disease), thoracic 04/2005/25/2016 Inflamed seborrheic keratosis 01/02/2008 SOLAR LENGINES///DYSCHROMIA OTHER 12/12/2007 01/05/2015 Other chronic dermatitis due to solar radiation 12/12/2007 01/05/2015 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, including hip 12/12/2007 07/06/2015 NEVI TRUNK///BENIGN FERNIE SKIN TRUNK 12/12/2007 07/06/2015 Other seborrheic keratosis 12/12/200707/05 CANNON ANGIOMA///NEVUS, NON-NEOPLASTIC 8 01/05/2015 Unspecified hypertrophic and atrophic condition of skin 12/12/2007 07/06/2015 Diarrhea 02/26/2007 12/21/2008 Internal hemorrhoids without mention of complica tion 07/06/2015 documented as of this encounter (statuses as of 09/21/2021) [place]-02-2010 History of Past illness Narrative* Problem Noted Date Resolved Date DJD (degenerative joint disease), thoracic 04/2005/25/2016 Inflamed seborrheic keratosis 01/02/2008 SOLAR LENGINES///DYSCHROMIA OTHER 12/12/2007 01/05/2015 Other chronic dermatitis due to solar radiation 12/12/2007 01/05/2015 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, including hip 12/12/2007 07/06/2015 NEVI TRUNK///BENIGN FERNIE SKIN TRUNK 12/12/2007 07/06/2015 Other seborrheic keratosis 12/12/200707/05 CANNON ANGIOMA///NEVUS, NON-NEOPLASTIC 8 01/05/2015 Unspecified hypertrophic and atrophic condition of skin 12/12/2007 07/06/2015 Diarrhea 02/26/2007 12/21/2008 Internal hemorrhoids without mention of complica tion 07/06/2015 documented as of this encounter (statuses as of 09/29/2021) [place]-02-2010 History of Past illness Narrative* Problem Noted Date Resolved Date DJD (degenerative joint disease), thoracic 04/2005/25/2016 Inflamed seborrheic keratosis 01/02/2008 SOLAR LENGINES///DYSCHROMIA OTHER 12/12/2007 01/05/2015 Other chronic dermatitis due to solar radiation 12/12/2007 01/05/2015 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, including hip 12/12/2007 07/06/2015 NEVI TRUNK///BENIGN FERNIE SKIN TRUNK 12/12/2007 07/06/2015 Other seborrheic keratosis 12/12/200707/05 CANNON ANGIOMA///NEVUS, NON-NEOPLASTIC 8 01/05/2015 Unspecified hypertrophic and atrophic condition of skin 12/12/2007 07/06/2015 Diarrhea 02/26/2007 12/21/2008 Internal hemorrhoids without mention of complica tion 07/06/2015 documented as of this encounter (statuses as of 09/30/2021) [place]-02-2010 History of Past illness Narrative* Problem Noted Date Resolved Date DJD (degenerative joint disease), thoracic 04/2005/25/2016 Inflamed seborrheic keratosis 01/02/2008 SOLAR LENGINES///DYSCHROMIA OTHER 12/12/2007 01/05/2015 Other chronic dermatitis due to solar radiation 12/12/2007 01/05/2015 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, including hip 12/12/2007 07/06/2015 NEVI TRUNK///BENIGN FERNIE SKIN TRUNK 12/12/2007 07/06/2015 Other seborrheic keratosis 12/12/200707/05 CANNON ANGIOMA///NEVUS, NON-NEOPLASTIC 8 01/05/2015 Unspecified hypertrophic and atrophic condition of skin 12/12/2007 07/06/2015 Diarrhea 02/26/2007 12/21/2008 Internal hemorrhoids without mention of complica tion 07/06/2015 documented as of this encounter (statuses as of 10/04/2021) [place]03-02-2010 History of Past illness Narrative* Problem Noted Date Resolved Date DJD (degenerative joint disease), thoracic 04/2005/25/2016 Inflamed seborrheic keratosis 01/02/2008 SOLAR LENGINES///DYSCHROMIA OTHER 12/12/2007 01/05/2015 Other chronic dermatitis due to solar radiation 12/12/2007 01/05/2015 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, including hip 12/12/2007 07/06/2015 NEVI TRUNK///BENIGN FERNIE SKIN TRUNK 12/12/2007 07/06/2015 Other seborrheic keratosis 12/12/200707/05 CANNON ANGIOMA///NEVUS, NON-NEOPLASTIC 8 01/05/2015 Unspecified hypertrophic and atrophic condition of skin 12/12/2007 07/06/2015 Diarrhea 02/26/2007 12/21/2008 Internal hemorrhoids without mention of complica tion 07/06/2015 documented as of this encounter (statuses as of 01/17/2022) [place]03-02-2010 History of Past illness Narrative* Problem Noted Date Resolved Date DJD (degenerative joint disease), thoracic 04/2005/25/2016 Inflamed seborrheic keratosis 01/02/2008 SOLAR LENGINES///DYSCHROMIA OTHER 12/12/2007 01/05/2015 Other chronic dermatitis due to solar radiation 12/12/2007 01/05/2015 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, including hip 12/12/2007 07/06/2015 NEVI TRUNK///BENIGN FERNIE SKIN TRUNK 12/12/2007 07/06/2015 Other seborrheic keratosis 12/12/200707/05 CANNON ANGIOMA///NEVUS, NON-NEOPLASTIC 8 01/05/2015 Unspecified hypertrophic and atrophic condition of skin 12/12/2007 07/06/2015 Diarrhea 02/26/2007 12/21/2008 Internal hemorrhoids without mention of complica tion 07/06/2015 documented as of this encounter (statuses as of 01/22/2022) [place]03-02-2010 History of Past illness Narrative* Problem Noted Date Resolved Date DJD (degenerative joint disease), thoracic 04/2005/25/2016 Inflamed seborrheic keratosis 01/02/2008 SOLAR LENGINES///DYSCHROMIA OTHER 12/12/2007 01/05/2015 Other chronic dermatitis due to solar radiation 12/12/2007 01/05/2015 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, including hip 12/12/2007 07/06/2015 NEVI TRUNK///BENIGN FERNIE SKIN TRUNK 12/12/2007 07/06/2015 Other seborrheic keratosis 12/12/200707/05 CANNON ANGIOMA///NEVUS, NON-NEOPLASTIC 8 01/05/2015 Unspecified hypertrophic and atrophic condition of skin 12/12/2007 07/06/2015 Diarrhea 02/26/2007 12/21/2008 Internal hemorrhoids without mention of complica tion 07/06/2015 documented as of this encounter (statuses as of 02/06/2022) [place]03-02-2010 History of Past illness Narrative* Problem Noted Date Resolved Date DJD (degenerative joint disease), thoracic 04/2005/25/2016 Inflamed seborrheic keratosis 01/02/2008 SOLAR LENGINES///DYSCHROMIA OTHER 12/12/2007 01/05/2015 Other chronic dermatitis due to solar radiation 12/12/2007 01/05/2015 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, including hip 12/12/2007 07/06/2015 NEVI TRUNK///BENIGN FERNIE SKIN TRUNK 12/12/2007 07/06/2015 Other seborrheic keratosis 12/12/200707/05 CANNON ANGIOMA///NEVUS, NON-NEOPLASTIC 8 01/05/2015 Unspecified hypertrophic and atrophic condition of skin 12/12/2007 07/06/2015 Diarrhea 02/26/2007 12/21/2008 Internal hemorrhoids without mention of complica tion 07/06/2015 documented as of this encounter (statuses as of 03/22/2022) [place]03-02-2010 History of Past illness Narrative* Problem Noted Date Resolved Date DJD (degenerative joint disease), thoracic 04/2005/25/2016 Inflamed seborrheic keratosis 01/02/2008 SOLAR LENGINES///DYSCHROMIA OTHER 12/12/2007 01/05/2015 Other chronic dermatitis due to solar radiation 12/12/2007 01/05/2015 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, including hip 12/12/2007 07/06/2015 NEVI TRUNK///BENIGN FERNIE SKIN TRUNK 12/12/2007 07/06/2015 Other seborrheic keratosis 12/12/200707/05 CANNON ANGIOMA///NEVUS, NON-NEOPLASTIC 8 01/05/2015 Unspecified hypertrophic and atrophic condition of skin 12/12/2007 07/06/2015 Diarrhea 02/26/2007 12/21/2008 Internal hemorrhoids without mention of complica tion 07/06/2015 documented as of this encounter (statuses as of 03/27/2022) [place]03-02-2010 History of Past illness Narrative* Problem Noted Date Resolved Date DJD (degenerative joint disease), thoracic 04/2005/25/2016 Inflamed seborrheic keratosis 01/02/2008 SOLAR LENGINES///DYSCHROMIA OTHER 12/12/2007 01/05/2015 Other chronic dermatitis due to solar radiation 12/12/2007 01/05/2015 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, including hip 12/12/2007 07/06/2015 NEVI TRUNK///BENIGN FERNIE SKIN TRUNK 12/12/2007 07/06/2015 Other seborrheic keratosis 12/12/200707/05 CANNON ANGIOMA///NEVUS, NON-NEOPLASTIC 8 01/05/2015 Unspecified hypertrophic and atrophic condition of skin 12/12/2007 07/06/2015 Diarrhea 02/26/2007 12/21/2008 Internal hemorrhoids without mention of complica tion 07/06/2015 documented as of this encounter (statuses as of 04/11/2022) [place]03-02-2010 History of Past illness Narrative* Problem Noted Date Diagnosed Date Resolved Date DJD (degenerative joint disease), thoracic 04/20/2009 05/25/2016 Inflamed seborrheic keratosis 01/02/2008 01/05/2015 SOLAR LENGINES///DYSCHROMIA OTHER 12/12/2007 01/05/2015 Other chronic dermatitis due to solar radiation 12/12/2007 01/05/2015 Benign neoplasm of skin of l ower limb, including hip 12/12/2007 07/06/2015 NEVI TRUNK///BENIGN FERNIE SKIN TRUNK 12/12/2007 07/06/2015 Other seborrheic keratosis 12/12/2007 0 07/06/2015 CANNON ANGIOMA///NEVUS, NON-NEOPLASTIC 12/12/2007 01/05/2015 Unspecified hypertrophic and atrophic condition of skin 12/12/2007 07/06/2015 Diarrhea 02/26/2007 12/21/2008 Internal hemorrhoids without mention of complication 07/06/2015 documented as of this encounter (statuses as of 10/18/2022) [place]03-02-2010 History of Past illness Narrative* Problem Noted Date Diagnosed Date Resolved Date DJD (degenerative joint disease), thoracic 04/20/2009 05/25/2016 Inflamed seborrheic keratosis 01/02/2008 01/05/2015 SOLAR LENGINES///DYSCHROMIA OTHER 12/12/2007 01/05/2015 Other chronic dermatitis due to solar radiation 12/12/2007 01/05/2015 Benign neoplasm of skin of l ower limb, including hip 12/12/2007 07/06/2015 NEVI TRUNK///BENIGN FERNIE SKIN TRUNK 12/12/2007 07/06/2015 Other seborrheic keratosis 12/12/2007 0 07/06/2015 CANNON ANGIOMA///NEVUS, NON-NEOPLASTIC 12/12/2007 01/05/2015 Unspecified hypertrophic and atrophic condition of skin 12/12/2007 07/06/2015 Diarrhea 02/26/2007 12/21/2008 Internal hemorrhoids without mention of complication 07/06/2015 documented as of this encounter (statuses as of 11/14/2022) [place]03-02-2010 History of Past illness Narrative* Problem Noted Date Diagnosed Date Resolved Date DJD (degenerative joint disease), thoracic 04/20/2009 05/25/2016 Inflamed seborrheic keratosis 01/02/2008 01/05/2015 SOLAR LENGINES///DYSCHROMIA OTHER 12/12/2007 01/05/2015 Other chronic dermatitis due to solar radiation 12/12/2007 01/05/2015 Benign neoplasm of skin of l ower limb, including hip 12/12/2007 07/06/2015 NEVI TRUNK///BENIGN FERNIE SKIN TRUNK 12/12/2007 07/06/2015 Other seborrheic keratosis 12/12/2007 0 07/06/2015 CANNON ANGIOMA///NEVUS, NON-NEOPLASTIC 12/12/2007 01/05/2015 Unspecified hypertrophic and atrophic condition of skin 12/12/2007 07/06/2015 Diarrhea 02/26/2007 12/21/2008 Internal hemorrhoids without mention of complication 07/06/2015 documented as of this encounter (statuses as of 12/24/2022) [facility] note* Diagnosis Essential hypertension Unspecified essential hypertension documented in this encounter [facility] note* Diagnosis Palpitations- Primary LBBB (left bundle branch block) Other left bundle branch block Essential hypertension, benign Other hyperlipidemia documented in this encounter [facility] note* Diagnosis Dizziness- Primary Dizziness and giddiness Anxiety with depression Encounter for screening mammogram for malignant neoplasm of breast Other screening mammogram documented in this encounter [facility] note* Diagnosis Dizziness- Primary Dizziness and giddiness Bilateral impacted cerumen Impacted cerumen documented in this encounter [facility] note* Diagnosis Drug rash- Primary Dermatitis due to drugs and medicines taken internally Minimal cognitive impairment Mild cognitive impairment, so stated Essential hypertension Unspecified essential hypertension Hyperlipidemia, unspecified hyperlipidemia type Anxiety with depression BPPV (benign paroxysmal positional vertigo), unspecified laterality documented in this encounter [facility] note* Diagnosis Palpitations- Primary Essential hypertension, benign Other hyperlipidemia LBBB (left bundle branch block) Other left bundle branch block documented in this encounter [facility] note* Diagnosis Rash- Primary Rash and other nonspecific skin eruption documented in this encounter [facility] note* Diagnosis Hyperlipidemia, unspecified hyperlipidemia type documented in this encounter [facility] note* Diagnosis Encounter for screening mammogram for malignant neoplasm of breast- Primary Other screening mammogram documented in this encounter [facility] note* Diagnosis Essential hypertension, benign- Primary Mixed hyperlipidemia Palpitations LBBB (left bundle branch block) Other left bundle branch block documented in this encounter [facility] for referral (narrative)* Diagnostic Procedure Only (Routine) - Pending Review Specialty Diagnoses / Procedures Referred By Dirk lewis Referred To Contact [facility] Diagnoses Encounter for screening mammogram for malignant neoplasm of breast Procedures MARY SCREENING SCREENING MAMMOGRAPHY BI 2-VIEW BREAST INC CAD Tawyna Scales APRN.CNP [address] [place] [address] [facility] [address] [place] [address] Referral ID Status Reason Start Date Expiration Date Visits Requested Visits Authorized [id number] Pending Review Auto-Generat ed Referral 09/09/2021 10/09/2022 1 1 [place] Outpatient Procedure (Routine) - Closed Specialty Diagnoses / Procedures Referred By Dirk t Referred To [facility] Diagnoses Palpitations Procedures ECG COMPLETE ECG ROUTINE ECG W/LEAST 12 LDS W/I&R Ángela Leiva MD [address] [place] [id number] [facility] [address] [place] [id number] Referral ID Status Reason Start Date Expiration Date V isits Requested Visits Authorized [id number] Closed Auto-Generate d Referral 01/31/2022 01/31/2023 1 1 [place] Summary Purpose Family History No Family History Records FoundNo Family History Records FoundNo Family History Records FoundNo Family History Records Found Advance Directives Documents on File Type Date Recorded 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 RECORD# NUMBER DATE DATE TYPE [place] [id number] F 83 08/12/18 1 APRYL Minnie [id number] ROOM: 309 DATE OF : 1935 DICTATING PHYSICIAN: Marian Gutierrez DATE OF SERVICE: August 13, 2018 SUBJECTIVE: Right knee replacement. The patient is postoperative day #1 right total knee replacement. She denies chest pain and shortness of breath. She denies productive cough. She has some knee pain and some nausea. She is hoping to go home today. OBJECTIVE: She has been afebrile. Current temperature is 98.2. Current pulse ox is 96% on room air. Nursing 24-hour summary sheet was reviewed. The right knee bandage is on, clean and dry. Right knee Braxton wrap was taken down to the Mepilex dressing. The Mepilex dressing was completely dry with no redness. No sign of bleeding. Her knee motion this morning is 3 to 45 degrees. No calf tenderness or swelling bilaterally. Negative Homans sign bilaterally. Good active motion i (more content not included)... Additional Source Comments INFORMATION SOURCE (unrecogn ized section and content) DATE CREATED AUTHOR AUTHOR'S ORGANIZ ATION 08/15/2018 [facility] DATE CREATED AUTHOR AUTHOR'S ORGANIZ ATION 10/12/2018 [facility] DATE CREATED AUTHOR AUTHOR'S ORGANIZ ATION 11/21/2022 [facility] Source Comments (unrecognize d section and content) In the event this informatio n is protected by the Federal Confidentiality of Alcohol and Drug Abuse Patient Records regulations: The Federal rules restrict any use of the information to criminally investigate or prosecute any alcohol or drug abuse patient.[place] the event this information is protected by the Federal Confidentiality of Alcohol and Drug Abuse Patient Records regulations: The Federal rules restrict any use of the information to criminally investigate or prosecute any alcohol or drug abuse patient.[place] the event this information is protected by the Federal Confidentiality of Alcohol and Drug Abuse Patient Records regulations: The Federal rules restrict any use of the information to criminally investigate or prosecute any alcohol or drug abuse patient.[place] the event this information is protected by the Federal Confidentiality of Alcohol and Drug Abuse Patient Records regulations: The Federal rules restrict any use of the information to criminally investigate or prosecute any alcohol or drug abuse patient.[place] the event this information is protected by the Federal Confidentiality of Alcohol and Drug Abuse Patient Records regulations: The Federal rules restrict any use of the information to criminally investigate or prosecute any alcohol or drug abuse patient.[place] the event this information is protected by the Federal Confidentiality of Alcohol and Drug Abuse Patient Records regulations: The Federal rules restrict any use of the information to criminally investigate or prosecute any alcohol or drug abuse patient.[place] the event this information is protected by the Federal Confidentiality of Alcohol and Drug Abuse Patient Records regulations: The Federal rules restrict any use of the information to criminally investigate or prosecute any alcohol or drug abuse patient.[place] the event this information is protected by the Federal Confidentiality of Alcohol and Drug Abuse Patient Records regulations: The Federal rules restrict any use of the information to criminally investigate or prosecute any alcohol or drug abuse patient.[place] the event this information is protected by the Federal Confidentiality of Alcohol and Drug Abuse Patient Records regulations: The Federal rules restrict any use of the information to criminally investigate or prosecute any alcohol or drug abuse patient.[place] the event this information is protected by the Federal Confidentiality of Alcohol and Drug Abuse Patient Records regulations: The Federal rules restrict any use of the information to criminally investigate or prosecute any alcohol or drug abuse patient.[place] the event this information is protected by the Federal Confidentiality of Alcohol and Drug Abuse Patient Records regulations: The Federal rules restrict any use of the information to criminally investigate or prosecute any alcohol or drug abuse patient.[place] the event this information is protected by the Federal Confidentiality of Alcohol and Drug Abuse Patient Records regulations: The Federal rules restrict any use of the information to criminally investigate or prosecute any alcohol or drug abuse patient.[place] the event this information is protected by the Federal Confidentiality of Alcohol and Drug Abuse Patient Records regulations: The Federal rules restrict any use of the information to criminally investigate or prosecute any alcohol or drug abuse patient.[place] the event this information is protected by the Federal Confidentiality of Alcohol and Drug Abuse Patient Records regulations: The Federal rules restrict any use of the information to criminally investigate or prosecute any alcohol or drug abuse patient.[place] the event this information is protected by the Federal Confidentiality of Alcohol and Drug Abuse Patient Records regulations: The Federal rules restrict any use of the information to criminally investigate or prosecute any alcohol or drug abuse patient.[place] the event this information is protected by the Federal Confidentiality of Alcohol and Drug Abuse Patient Records regulations: The Federal rules restrict any use of the information to criminally investigate or prosecute any alcohol or drug abuse patient.[place] Reason for Visit (unrecogniz ed section and content) Reason Comments 4 month CARD check Specialty Diagnoses / Procedures Referred By Contact Referred To Contact Cardiology / FAMILY MEDICINE Diagnoses Palpitations Other chest pain Procedures CONSULT TO CARDIOLOGY NEW PATIENT VISIT LEVEL 5 Jaren Jones MD [address] [id number] [facility] [address] [phone] Referral ID Status Reason Start Date Expiration Date V isits Requested Visits Authorized [id number] Closed Patient Cleared INN/fitaborateP Payor Auth Obtained 03/07/2021 02/18/2022 1 1 Reason Comments Dizziness x1 week Specialty Diagnoses / Procedures Referred By Contac t Referred To Contact [facility] Diagnoses vertigo x 1 week Procedures 4C ANTHONY Fonseca MD [facility] [address] [phone] Referral ID Status Reason Start Date Expiration Date V isits Requested Visits Authorized [id number] Closed Financial Clearance Required - OON Payor Patient Cleared INN/fitaborateP Payor Auth Obtained 09/08/2021 12/07/2021 1 1 Reason Comments Dizziness x4 days Earwax bilateral ears; comp leted drops Specialty Diagnoses / Procedures Referred By Contac t Referred To Contact Family Practice / FAMILY MEDICINE Diagnoses Dizziness follow-up Requesting medication and possibly therapy referral. Did not start sertraline. Procedures 4C ANTHONY Fonseca MD PodlogTawnya hines APRN.[employer] [address] [place] [address] Referral ID Status Reason Start Date Expiration Date Visits Re quested Visits Authorized [id number] Closed 09/21/2021 02/18/2022 1 1 Reason Comments Vertigo update Reason Onset Date Comments Refill Request 09/29/2021 Reason Comments Results Reason Comments Physical Started mini cog and patient refused after starting it became aggitated and demanded the mini cog paperwork. She stated she didn't want the information recorded. Papers given to patient and PCP updated. Reason Comments 6 month check Reason Comments Hives Rash and hives on gracie th sides of torso and lower abdomen since 01/07/2022 Reason Onset Date Comments Refill Request 03/27/2022 Reason Onset Date Comments Refill Request 04/10/2022 Reason Comments Orders Reason Comments Established Patient Follow-Up Care Teams (unrecognized sec tion and content) Motor And Controls Tester Relationship Specialty Start Date End Date Jaren Jones MD [address] [place], [place] [address] [phone] PCP - General Family Practice 03/03/16 Motor And Controls Tester Relationship Specialty Start Date End Date Jaren Jones MD [address] [place] [address] PCP - General Family Practice 03/03/16 Motor And Controls Tester Relationship Specialty Start Date End Date Jaren Jones MD [address] [place] [address] PCP - General Family Practice 03/03/16 Motor And Controls Tester Relationship Specialty Start Date End Date Jaren Jones MD [address] [place] [address] PCP - General Family Practice 03/03/16 Motor And Controls Tester Relationship Specialty Start Date End Date Jaren Jones MD [address] [place] [address] PCP - General Family Practice 03/03/16 Motor And Controls Tester Relationship Specialty Start Date End Date Jaren Jones MD [address] [place] [address] PCP - General Family Medicine 03/03/16 Motor And Controls Tester Relationship Specialty Start Date End Date Jaren Jones MD [address] [place] [address] PCP - General Family Medicine 03/03/16 Motor And Controls Tester Relationship Specialty Start Date End Date Jaren Jones MD [address] [place] [address] PCP - General Family Medicine 03/03/16 Motor And Controls Tester Relationship Specialty Start Date End Date Jaren Jones MD [address] [place] [address] PCP - General Family [facility] 03/03/16 Motor And Controls Tester Relationship Specialty Start Date End Date Jaren Jones MD [address] [place] [address] PCP - General Family Medicine 03/03/16 FOR RECORDS PERTAINING TO PATIENTS WHO ARE OR HAVE BEEN ENROLLED IN A CHEMICAL DEPENDENCY/SUBSTANCEABUSE PROGRAM, SOME INFORMATION MAY BE OMITTED. This clinical summary was aggregated from multiple sources. Caution should be exercised in using it in the provision of clinical care. This summary normalizes information from multiple sources, and as a consequence, information in this document may materially change the coding, format and clinical context of patient data. In addition, data may be omitted in some cases. CLINICAL DECISIONS SHOULD BE BASED ON THE PRIMARY CLINICAL RECORDS. [employer] [facility]. provides no warranty or guarantee of the accuracy or completeness of information in this document.
[2023-03-07 13:38] LABS: Color, Urine Amber (Yellow); Glucose, Dipstick Normal (Normal); Ketone-Dipstick Negative (Negative); Leukocyte Esterase-Dipstick 25 /ul (Negative); Nitrite-Dipstick Positive (Negative); Occult Blood-Urine 25 /ul (Negative); Protein-Dipstick 15 mg/dl (Negative); Urine Clarity Clear (Clear); Urine Urobilinogen 8 mg/dl (Normal)
[2023-03-07 13:41] LABS: Urine Bilirubin Dipstick 3 mg/dL (Negative)
[2023-03-07 13:50] LABS: Red Blood Cells-Urine 0-5 SEEN /hpf (0-5); White Blood Cells 0-5 SEEN /hpf (0-5)
== END | disposition home or self-care (01) ==
PROVIDERS: PCP Internal Medicine; Referring Provider Internal Medicine; Visit Provider Internal Medicine
DX: N39.0 Urinary tract infection, site not specified (principal)
CPT/HCPCS: 81001; 87077; 87086; 87088; 87186

== ENCOUNTER 2023-04-05 10:43 | Emergency (ER) | payer MEDICARE, SELFPAY ==
[2023-04-05 10:43] VITALS: BP 136/99; BP 156/99; PULSE 122; PULSE 132; RESP 16; RESP 18; TEMP 36.3; O2SAT 98; BMI 22.6
--- NOTE | 2023-04-05 11:07 | EDS_ITS ---
HPI History of Present Illness Chief Complaint: Palpitations Detail of Chief Complaint: Chest tightness x 1 month. Sent from outpatient testing for A-fib Informant: patient Onset/Context/Timing Onset: Month(s) Activity at onset: sudden and exertion Timing: Intermittent Quality: Positive for Pressure and Tightness Location: Substernal Current Severity: Gone Maximum Severity: Moderate Worsened By: Exertion (Patient states when she walks up an incline she gets chest tightness with shortness of breath and radiation to her neck) Relieved By: Rest Associated Symptoms: Positive for Dyspnea; Negative for Nausea, Vomiting, Diaphoresis, Cough, Fever, Lightheadedness, Acid Reflux or Palpitations Narrative Narrative: Patient is an 87-year-old woman who was having outpatient test done. She was noted to have A-fib. She does not have a history of A-fib. She reports chest tightness substernal for the past month when she walks up an incline. She states she is able to walk approximately 100 feet before she has symptoms. She may have symptoms walking less than 100 feet. When she is back on level ground the tightness and shortness of breath resolves. The tightness does radiate to her neck. There is no other associated symptoms. Patient does see a integrated circuit layout designer through the [facility]. She is scheduled to have an appointment in July she contacted them because of her symptoms and was told they would not be able to see her till October. She is a non-smoker. She states she walks on a regular basis. She does have history of hypertension. She also has history of hypercholesterolemia. She denies abdominal pain, black stool or maroon stool. She denies fever, chills night sweats. She denies headache, visual, ocular auditory symptoms. Prior Similar Symptoms: No Recent Illness/Hospitalization: No CVD Risk Factors: Positive for Hypertension and Hypercholesterolemia; Negative for Diabetes, Family History 1' </=55 or Smoking PE Risk Factors: Negative for Recent Travel/Surgery, Recent Immobilization, Prior DVT or PE, Cancer or OCP + Smoking + >/=35 TAD Risk Factors: Positive for Hypertension; Negative for Marfan's Syndrome or Family History [facility] Medical History Arthritis Back problem Carpal tunnel syndrome Cataracts, both eyes Chest pain Dysrhythmia Hearing problem Herniated disc High cholesterol Hives Hypertension Non-smoker Osteoarthritis Osteopenia UTI (urinary tract infection) Vision problems Home Medications multivitamin 1 tab PO DAILY 03/07/22 [History Last Taken 04/04/23] amlodipine 5 mg tablet 5 mg PO DAILY bp #90 tabs 06/28/22 [Rx Last Taken 04/05/23] pravastatin 10 mg tablet 10 mg PO QHS cholesterol #90 tabs 06/28/22 [Rx Last Taken 04/04/23] losartan 100 mg tablet 100 mg PO DAILY bp #90 tabs 10/10/22 [Rx Last Taken 04/04/23] acetaminophen 500 mg capsule 500 mg PO Q6H PRN pain 04/05/23 [History Last Taken 04/05/23] apixaban 2.5 mg tablet (Eliquis) 2.5 mg PO BID #60 tabs 04/05/23 [Rx Last Taken Unknown] metoprolol tartrate 25 mg tablet 25 mg PO BID #60 tabs 04/05/23 [Rx Last Taken Unknown] Allergy/AdvReac Type Severity Reaction Status Date / Time latex Allergy Rash Verified 04/05/23 10:46 meloxicam Allergy Rash Verified 04/05/23 10:46 prednisone Allergy Unknown Verified 04/05/23 10:46 Seasonal Allergies: Uncoded Allergy NEEDS Verified 04/05/23 10:46 FOLLOW-UP tramadol Allergy Rash Verified 04/05/23 10:46 Family History Grandmother , age 42 Arthritis Myocardial infarction Brother , age 47 Cancer lung Father , age 59 Myocardial infarction Heart disease Hypertension Mother , age 51 Melanoma Grandfather , age 69 CVA (cerebral vascular accident) Other Melanoma and neural system tumor syndrome Surgical History H/O dilation and curettage History of carpal tunnel surgery History of knee replacement History of tonsillectomy Social History household members: spouse Smoking Status: Never smoker substance use type: does not use ROS ROS ED Constitutional Constitutional ED: Denies chills, fever(s), subjective or sweats Eyes Eyes: Reports none ENT ENT ED: Denies ear pain, rhinorrhea or sore throat Cardiovascular Cardiovascular: Reports as per HPI; Denies orthopnea or paroxysmal nocturnal dyspnea Respiratory/Chest Respiratory/Chest: Reports dyspnea on exertion; Denies cough, dyspnea, orthopnea, paroxysmal nocturnal dyspnea or sputum Gastrointestinal Gastrointestinal: Denies abdominal pain, nausea or vomiting Genitourinary Genitourinary ED: Denies dysuria, hematuria or urinary frequency Musculoskeletal Musculoskeletal: Denies arthralgias, back pain or myalgias Neurologic Neurologic: Denies headache(s), paresthesias or weakness Endocrine Endocrinology: Denies cold intolerance or heat intolerance Hematologic/Lymphatic Hematologic/Lymphatic: Denies easy bleeding or easy bruising EXAM Physical Exam Const Vital Signs: 04/05/23 10:43 04/05/23 10:43 04/05/23 10:43 Temperature 97.3 F L Temperature Source Temporal Pulse Rate 122 H 132 H Respiratory Rate 18 16 Respiratory Effort Normal Blood Pressure 156/99 H 136/99 H Blood Pressure Mean 118 111 Pulse Ox 98 98 Oxygen Delivery Method Room Air 04/05/23 11:08 04/05/23 12:00 04/05/23 13:24 Temperature 98.4 F Temperature Source Temporal Pulse Rate 140 H 54 L Respiratory Rate 16 17 Respiratory Effort Blood Pressure 143/79 H 123/66 H Blood Pressure Mean 100 85 Pulse Ox 98 97 Oxygen Delivery Method Room Air Room Air Positive well nourished and well developed General Appearance ED: well developed and NAD; Negative for pallor HEENT Reports TM's clear and moist mucous membranes normocephalic and atraumatic Tympanic Membrane ED: Yes TM's clear Eyes PERRL and EOMs intact bilaterally General Eye ED: Negative for pale conjunctiva or scleral icterus Neck no lymphadenopathy, supple and no JVD Resp normal respiratory effort and clear to auscultation bilaterally Cardio regular rate, S1 normal heart sound, S2 normal heart sound and no murmurs Rhythm: abnormal rhythm irregularly irregular Peripheral Pulses: pulses 2+ throughout GI normal to inspection, nondistended, normoactive bowel sounds, soft to palpation, non-tender, non-distended and no masses; Negative for hepatosplenomegaly Back/Spine no CVA tenderness and no thoracic nor lumbar tenderness Extremity normal to inspection General Extremety ED: Negative for edema, pulses abnormal or tenderness General Extremity: Negative for edema or pulses abnormal Neuro oriented x3, CN's II-XII intact bilaterally and no sensory deficits noted Sensorium / Orientation: awake and alert Psych mental status grossly normal Skin no rashes or lesions noted and no wounds Skin Narrative: Patient has evidence of prior bruises legs. General Skin Exam: Negative for jaundice or pallor Rashes: No rashes noted Heart Score History: Moderately Suspicious ECG: Nonspecific Repolarization Age: >/= 65 years Risk Factors: 1 or 2 Risk Factors Score: 5 MDM MDM MDM Narrative Medical decision making narrative: Patient with new onset A-fib. This will need a workup. More concerning is patient's exertional chest tightness with dyspnea that resolves with rest or walking on level ground instead of an incline. Patient not had a recent echo, stress test or cardiac catheterization. Patient is seen by Dr. Schofield. History & Record Review Additional record(s) reviewed:: Prior outpatient record (2020. Enzymes were negative. Echo was normal.), Prior ED visit and Prior labs Lab Data Attestation: I reviewed the patient's lab results. Lab results narrative: Electrolyte panel is unremarkable. First troponin is normal, 15. TSH is normal 2.85. Labs: Laboratory Results - last 24 hr 04/05/23 04/05/23 11:06 13:21 Sodium 138 Potassium 3.8 Chloride 105 Carbon Dioxide 29.0 Anion Gap 4 L BUN 18 Creatinine 0.80 Estim Creat Clear Calc 40.98 Est GFR (MDRD) Af Amer 87 Est GFR (MDRD) Non-Af 72 BUN/Creatinine Ratio 22.4 H Glucose 108 H Calcium 9.6 Troponin I High Sens 15 16 TSH 2.85 Radiography Chest X-Ray - ED: 1 View and Read by ED Physician (Independent reviewed interpreted by me at 1136 is normal. Cardiac silhouette size normal. Perihilar region normal. Lung parenchyma is normal. Osseous structures are unremarkable.) Diagnostic Testing: Clinical Impression(s) from Imaging Studies Chest X-Ray 04/05/23 11:25 IMPRESSION: Stable examination. No acute abnormality is seen. Electronically Signed: Fracisco Woodward MD at 11:53 EST , EKG Initial EKG: Attestation: I personally reviewed and interpreted this EKG as follows: Interpretation: Atrial Fibrillation (Rate is 99. Decreased anterior force. Nonseptic ST-T wave changes noted. LA interval is 120 ms. Cures duration 3 and 48 ms. [place] is normal.) Follow-up EKG: Attestation: I personally reviewed and interpreted this EKG as follows: Interpretation: Sinus Bradycardia (Rate is 53. Patient has decreased anterior force. There is evidence of left bundle branch block. QRS duration 148 ms. QT duration 514 ms. [place] is normal.) Management Discussion w/another healthcare provider: [employer] (Spoke to Dr. Brian Still regarding patient. If second troponin is normal discharged home on metoprolol titrate 25 mg twice daily and Eliquis. She is to contact the office and they will set up for an outpatient visit and appropriate testing i.e. stress etc.) Treatment and Re-Evaluation :: Dr. Still was able to determine that the left bundle branch block that is noted on her repeat EKG is old since 2019. Plan is discharge with prescription for metoprolol 25 mg twice daily and Eliquis. She was given a starter pack to offset cost. Discharge Plan Triage Chief Complaint: Palpitations ED Provider: Mayito Palacio Dx/Rx/DC Orders Clinical Impression: Atrial fibrillation, new onset, High cholesterol, Hypertension, Bradycardia, sinus Instructions: ED AFIB Prescriptions: New Eliquis 2.5 mg tablet 2.5 mg PO BID Qty: 60 0RF metoprolol tartrate 25 mg tablet 25 mg PO BID Qty: 60 0RF No Action multivitamin Tablet 1 tab PO DAILY Patient Comments: centrum acetaminophen 500 mg capsule 500 mg PO Q6H PRN (Reason: pain) amlodipine 5 mg tablet 5 mg PO DAILY Qty: 90 3RF pravastatin 10 mg tablet 10 mg PO QHS Qty: 90 3RF losartan 100 mg tablet 100 mg PO DAILY Qty: 90 3RF Primary Care Provider: Angella Wallace Referrals: Angella Wallace MD [Primary Care Provider] - Patrick Still MD [Med Staff - Active Staff] - 1 Week Disposition Disposition: Home, Self Care
[2023-04-05] MEDS: Aspirin 81 MG TAB.CHEW 324 MG PO (11:11)
--- NOTE | 2023-04-05 11:25 | RAD_ITS ---
STUDY: X-RAY CHEST REASON FOR EXAM: Female, 87 years old. Chest pain TECHNIQUE: Single AP portable view of the chest. COMPARISON: Comparison is made with prior study October 23, 2020. FINDINGS: EKG electrodes are seen. The lungs are clear and expanded. There is no demonstrated pleural abnormality. Normal size heart. Normal mediastinum and josseline. Normal visualized pulmonary arteries. There is atherosclerotic tortuosity of the aortic arch and descending thoracic aorta. There are diffuse degenerative changes of the visualized thoracic spine. Normal visualized ribs, clavicles, and shoulders. There is no demonstrated abnormality of the visualized soft tissue structures of the upper abdomen. RAD/Chest 1 View (Portable) IMPRESSION: Stable examination. No acute abnormality is seen. Electronically Signed: Fracisco Woodward MD at 11:53 EST ,
[2023-04-05 11:36] LABS: Anion Gap 4 (5-15); BUN 18 mg/dL (7-18); BUN/Creat Ratio 22.4 RATIO (10-20); Calcium,Total 9.6 mg/dL (8.5-10.1); Chloride 105 mmol/L (98-107); EST Glomerular Filtration Rate 72 mL/min (>60); Est Glom Filt Rate - Afr Amer 87 mL/min (>60); Estimated Creatinine Clearance 40.98 ml/min; Glucose 108 mg/dL (74-106); Potassium 3.8 mmol/L (3.5-5.1); Sodium Level 138 mmol/L (136-145); Troponin-I HS (w/2H Reflex) 15 pg/mL (3.0-54.0)
[2023-04-05 12:00] VITALS: BP 143/79; PULSE 140; RESP 16; TEMP 36.9; O2SAT 98
[2023-04-05] MEDS: Metoprolol Tartrate 5 MG/5 ML Vial IV (12:01)
[2023-04-05] MEDS: APIXABAN 2.5 MG TABLET (WCH) PO (12:18)
[2023-04-05 13:08] LABS: Reflex Troponin-HS? (from REC) Y
--- NOTE | 2023-04-05 13:20 | PCM.CONS.C ---
Assessment & Plan Assessment/Plan (1) Paroxysmal atrial fibrillation: PLAN: The patient developed presumably new onset atrial fibrillation within the last 48 hours. She has noted dyspnea on exertion and some chest pressure walking uphill. Her EKG initially showed atrial fibrillation with a rapid ventricular sponsor and a left bundle branch block pattern. She has a chronic left bundle branch block. The patient has no prior history of coronary artery disease she has never been cathed but she has had an echo which showed mitral annular calcification but no other significant valvular heart disease. LV function was normal at 60%. The patient has a history of hypertension and an 86-year-old which is probably the etiology of her atrial fibs. The patient's symptoms are concerning for possible angina. She is stable and troponins were negative on this ED visit. The patient will be instituted on Eliquis to 2.5 mg twice daily given her 87 years of age the patient was given a card to get 30 days of Eliquis free. We will continue oral Lopressor 50 mg twice daily. A 2D echocardiogram will be performed and a stress echo will be done. The patient will follow-up in our office on 04/09/2023 at 9:30 AM with Jennifer. (2) Dyspnea on exertion: PLAN: The dyspnea on exertion is potentially an anginal equivalent with this chest pressure sensation but it could also be simply related to her atrial for with rapid ventricular response. Now that she is in sinus rhythm we will do a stress echo to evaluate her response to exercise. This will also allow us to rule out an ischemic etiology. (3) Chest tightness: PLAN: The chest tightness may be related to the atrial for with a rapid ventricular sponsor but also only we need to rule out a coronary ischemic issue. A stress echo will be done when she is evaluated in the office on Sunday. (4) Hypertension: QUALIFIERS: Hypertension type: primary hypertension Qualified Code(s): I10 - Essential (primary) hypertension PLAN: Continue Lopressor we will check her blood pressure and heart rate when she is in the office we will need to add medical therapy to maintain systolic less than 145 and diastolic less than 85. 1 option would be to increase amlodipine to 10 mg/day in addition to the recently added Lopressor 50 mg twice daily which we started today in the ER. (5) High cholesterol: PLAN: The patient's lipid profile needs to be evaluated and pending the outcome of her stress testing LDL target should be less than 70 if coronary artery disease is suspected or less than 100 otherwise. She should continue the pravastatin for now. PLAN: Plan 1. Patient be evaluated in the [facility] office with Jennifer Dias on Sunday to 2023 blood pressure and heart rate will be evaluated and medications titrated 2. We will schedule a 2D echo and stress echo at the time of that office visit. 3. Eliquis should be continued long-term as tolerated. We will address the financial constraints when she is evaluated in the office. HPI Consult Data Date of Consult: 04/05/23 HPI Narrative Reason for Consultation: New onset A.fib HPI Narrative: APRYL BARTHOLOMEW, is a 87 F who presents with new onset atrial fibrillation the patient reports that she has noticed that when she was walking up he will that she developed a pressure sensation in her chest and was short of breath. She came to the emergency department with her to be evaluated and was found to be in atrial fibrillation with a rapid ventricular response. The EKG revealed a left bundle branch block which was documented by her report as early as 2019. I actually located an EKG done June 13, 2018 that showed the left bundle branch block. The patient has followed up with Dr. Sears for this left bundle branch block in the past she has never been cathed but she did have an echocardiogram done in 2020. That echo revealed normal LV function EF of 60% severe mitral annular calcification with no mitral valve stenosis or regurgitation. There is no other significant valvular heart disease there was some mild aortic sclerosis but no stenosis and no insufficiency. The patient has been very active walking on a routine basis until just recently when she developed this dyspnea on exertion and chest pressure going up heels that resolved spontaneously on flat ground. The patient converted to normal sinus rhythm after IV Lopressor in the emergency department. FORMERLY [facility], [facility] Medical History Arthritis Back problem Carpal tunnel syndrome Cataracts, both eyes Chest pain Dysrhythmia Hearing problem Herniated disc High cholesterol Hives Hypertension Non-smoker Osteoarthritis Osteopenia UTI (urinary tract infection) Vision problems Home Medications multivitamin 1 tab PO DAILY 03/07/22 [History Last Taken 04/04/23] amlodipine 5 mg tablet 5 mg PO DAILY bp #90 tabs 05/10/23 [Rx Last Taken 04/05/23] pravastatin 10 mg tablet 10 mg PO QHS cholesterol #90 tabs 06/28/22 [Rx Last Taken 04/04/23] losartan 100 mg tablet 100 mg PO DAILY bp #90 tabs 10/10/22 [Rx Last Taken 04/04/23] acetaminophen 500 mg capsule 500 mg PO Q6H PRN pain 04/05/23 [History Last Taken 04/05/23] Allergy/AdvReac Type Severity Reaction Status Date / Time latex Allergy Rash Verified 04/05/23 10:46 meloxicam Allergy Rash Verified 04/05/23 10:46 prednisone Allergy Unknown Verified 04/05/23 10:46 Seasonal Allergies: Uncoded Allergy NEEDS Verified 04/05/23 10:46 FOLLOW-UP tramadol Allergy Rash Verified 04/05/23 10:46 Family History Grandmother , age 42 Arthritis Myocardial infarction Brother , age 47 Cancer lung Father , age 59 Myocardial infarction Heart disease Hypertension Mother , age 51 Melanoma Grandfather , age 69 CVA (cerebral vascular accident) Other Melanoma and neural system tumor syndrome Surgical History H/O dilation and curettage History of carpal tunnel surgery History of knee replacement History of tonsillectomy Social History household members: spouse Smoking Status: Never smoker substance use type: does not use ROS Constitutional Constitutional: Reports systems reviewed and no addt'l complaints, except as documented Eyes Eyes: Reports systems reviewed and no addt'l complaints, except as documented ENT HEENT: Reports systems reviewed and no addt'l complaints, except as documented Cardiovascular Cardiovascular: Reports as per HPI Respiratory/Chest Respiratory/Chest: Reports as per HPI Gastrointestinal Gastrointestinal: Reports systems reviewed and no addt'l complaints, except as documented Genitourinary Genitourinary: Reports systems reviewed and no addt'l complaints, except as documented Musculoskeletal Musculoskeletal: Reports systems reviewed and no addt'l complaints, except as documented Integumentary Integumentary: Reports systems reviewed and no addt'l complaints, except as documented Neurologic Neurologic: Reports systems reviewed and no addt'l complaints, except as documented Psychiatric Psychiatric: Reports systems reviewed and no addt'l complaints, except as documented Endocrine Endocrinology: Reports systems reviewed and no addt'l complaints, except as documented Hematologic/Lymphatic Hematologic/Lymphatic: Reports systems reviewed and no addt'l complaints, except as documented Allergic/Immunologic Allergic/Immunologic: Reports systems reviewed and no addt'l complaints, except as documented Physical Exam Const oriented x3 HEENT normocephalic Eyes EOMs intact bilaterally Neck no JVD and no carotid bruits Chest inspection of chest normal Resp clear to auscultation bilaterally Cardio regular rate, regular rhythm, S1 normal heart sound, S2 normal heart sound, no murmurs, no rub and no gallops Cardio Narrative: Examined in the emergency room. GI normal to inspection, nondistended, normoactive bowel sounds Extremity no pedal edema Skin no rashes or lesions noted Neuro Neuro Narrative: Alert and oriented x 3 Psych mental status grossly normal Risk Stratification Risk Stratification Applicable: Yes Age >/= 65: Yes >/= 3 CAD Risk Factors (HTN, HLD, DM, family hx of CAD, or current smoker): No Aspirin Use in the Past 7 Days: No Severe Angina (>/= episodes in 24 hours): No EKG ST Changes >/= 0.5mm: No Positive Cardiac Marker: No MARY Risk Stratification Score: 1 MARY % Risk: 5% Risk Charges/Coding Visit Charges Inpatient E&M: 13398 Init Hosp L3 Objective Data Vital Signs: Vital Signs Temp Pulse Resp BP Pulse Ox O2 Del Method 98.4 F 140 H 16 143/79 H 98 Room Air 04/05/23 12:00 04/05/23 12:00 04/05/23 12:00 04/05/23 12:00 04/05/23 12:00 04/05/23 12:00 Oxygen Delivery Method Room Air Weight: 127 lb 11.2 oz Body Mass Index (BMI) 22.6 Lab / Micro Data Attestation: I reviewed the patient's lab results. 04/05/23 11:06 04/05/23 11:06 Labs: Laboratory Results - last 24 hr 04/05/23 11:06: Sodium 138, Potassium 3.8, Chloride 105, Carbon Dioxide 29.0, Anion Gap 4 L, BUN 18, Creatinine 0.80, Estim Creat Clear Calc 40.98, Est GFR (MDRD) Af Amer 87, Est GFR (MDRD) Non-Af 72, BUN/Creatinine Ratio 22.4 H, Glucose 108 H, Calcium 9.6, Troponin I High Sens 15 Rhythm Strip Rhythm Strip: Sinus Rhythm Rate: 70 Cardiology Labs/Tests 04/05/23 11:06: Sodium 138, Potassium 3.8, Chloride 105, Carbon Dioxide 29.0, Anion Gap 4 L, BUN 18, Creatinine 0.80, Est GFR (MDRD) Af Amer 87, Est GFR (MDRD) Non-Af 72, BUN/Creatinine Ratio 22.4 H, Glucose 108 H, Calcium 9.6 Rhythm: EKG: ECHO: Stress Test: Cardiac Cath: PCI: CT Surgery: Holter monitor: EPS: PPM: CXR: Chest CT Scan: Radiography Diagnostic Testing: Radiology Impression Chest X-Ray 04/05/23 11:25 IMPRESSION: Stable examination. No acute abnormality is seen. Electronically Signed: Fracisco Woodward MD at 11:53 EST , EKG Follow-up EKG: Attestation: I personally reviewed and interpreted this EKG as follows: Interpretation: EKG was sinus bradycardia at 56 bpm left bundle branch block. This was similar to the old EKG from 2019.
[2023-04-05 13:24] VITALS: BP 123/66; PULSE 54; RESP 17; O2SAT 97
--- NOTE | 2023-04-05 13:24 | EKG12_ITS ---
Test Reason : REPEAT Blood Pressure : / mmHG Vent. Rate : 053 BPM Atrial Rate : 053 BPM P-R Int : 196 ms QRS Dur : 128 ms QT Int : 514 ms P-R-T Axes : 029 020 201 degrees QTc Int : 482 ms Sinus bradycardia with Premature atrial complexes Left bundle branch block -old Abnormal ECG Confirmed by Patrick Still ([id number]), food editor TRAVIS QUACH ([id number]) on 04/06/2023 9:42:05 AM Referred By: Angella Wallace Confirmed By:Patrick Still
[2023-04-05 13:45] LABS: Thyroid Stim Hormone (TSH) 2.85 uIU/mL (0.358-3.74)
[2023-04-05 13:58] LABS: Troponin-I HS 16 pg/mL (3.0-54.0)
[2023-04-05 14:25] LABS: Absolute Lymphocyte Count 1.05 X10^3/uL (0.83-4.51); Absolute Neutrophil Count 2.8 X10^3/uL (2.0-7.7); Basophil# 0.03 X10^3/uL; Basophil% 0.7 % (0-1); Eosinophil# 0.12 X10^3/uL; Eosinophils% 2.7 % (0-5); Hematocrit 42.1 % (37-47); Hemoglobin 13.5 g/dL (12.0-15.0); Lymphocyte # 1.05 X10^3/ul (0.83-4.51); Lymphocyte % 23.3 % (19-41); Mean Corp Hgb Conc 32.1 g/dL (32-36); Mean Corpuscular Hgb 30.9 pg (27.0-32.0); Mean Corpuscular Volume 96.3 fL (81-99); Mean Platelet Vol. 11.2 fl (6.2-12.0); Monocyte# 0.49 X10^3/uL; Monocyte% 10.9 % (0-10); NRBC Flagged by Analyzer 0 % (0-5); Neutrophil # 2.79 X10^3/uL (2.7-7.7); Platelet Count 170 K/mm3 (150-450); RBC Distribution Width CV 13.2 % (11.6-14.6); Red Blood Count 4.37 M/mm3 (4.2-5.4); White Blood Count 4.5 K/mm3 (4.4-11.0)
[2023-04-05 14:36] VITALS: BP 119/62; PULSE 58; RESP 14; TEMP 36.7; O2SAT 98
== END 2023-04-05 14:37 | disposition home or self-care (01) ==
PROVIDERS: Emergency Provider Emergency Medicine; PCP Internal Medicine; Visit Provider Emergency Medicine
DX: I48.0 Paroxysmal atrial fibrillation (principal); R07.89 Other chest pain; I10 Essential (primary) hypertension; R00.1 Bradycardia, unspecified; E78.00 Pure hypercholesterolemia, unspecified; R06.09 Other forms of dyspnea; R53.83 Other fatigue; R09.89 Other specified symptoms and signs involving the circulatory and respiratory systems; Z79.899 Other long term (current) drug therapy
CPT/HCPCS: 71045; 80048; 84443; 84484; 85025; 93005; 96374; 99284; A4216

== ENCOUNTER → 2023-04-05 | Outpatient (CLI) | payer MEDICARE, SELFPAY ==
--- NOTE | 2023-04-05 10:25 | EKG12_ITS ---
Test Reason : CP Blood Pressure : / mmHG Vent. Rate : 099 BPM Atrial Rate : 102 BPM P-R Int : 000 ms QRS Dur : 120 ms QT Int : 348 ms P-R-T Axes : 000 057 247 degrees QTc Int : 446 ms Atrial fibrillation Septal infarct , age undetermined Nonspecific ST and T wave abnormality Abnormal ECG Confirmed by Patrick Still ([id number]), editorial writer TRAVIS QUACH ([id number]) on 04/06/2023 9:26:52 AM Referred By: Angella Wallace Confirmed By:Patrick Still
--- OUTSIDE RECORDS SUMMARY | 2023-04-05 11:56 | XMS RPT_ITS | CCD ---
Author Name Unknown Address [address] [facility] [address] [place] [address] Organization [facility] Care Team Providers Care Rolling Chair Pusher Name Role Phone ÁNGELA TREVIÑO (PAC) Unavailable [...] Primary Care Provider Unavailable Primary Care Provider UnavailÁNGELA Gusman Attending Unavailable Allergies Allergy Classification Reported Allergen(s) Allergy Type Date of Onset Reaction(s) Facility (19 sources) benzocaine; Translations: [BENZOCAINE] Drug Allergy 01-29-20 04 Swelling [facility] Repository (20 sources) Latex; Translations: [LATEX] Propensity to adverse reactions to drug (disorder) 05-29-19 07 Swelling [facility] Repository (20 sources) meloxicam; Translations: [MELOXICAM] Drug Allergy 02-26-19 15 Other: See Comments [facility] Repository (19 sources) methylprednisoLONE ; Translations: [METHYLPREDNISOLON E] Drug Allergy 11-28-19 07 Hives, Swelling, Itching [facility] Repository (19 sources) NITROFURANTOIN MONOHYD/M-CRYST; Translations: [NITROFURANTOIN MONOHYD/M-CRYST] Propensity to adverse reactions to drug (disorder) 05-09-[address] [facility] Other [place] Repository (1 source) oxyCODONE Drug Allergy [facility] Repository (1 source) Sulfonamides (Antibiotic) Drug allergy (disorder) [facility] Repository (16 sources) traMADol; Translations: [TRAMADOL] Drug Allergy 10-24-[address] [facility] Medications Current Medications Medication Drug Class(es) Dates [...] Sig (Original) amLODIPine 5 mg oral tablet (17 sources) Dihydropyridine Calcium Channel Piyush Start: 01-05-2021 [...] , unspecified] Onset: 08-12-2018 Diverticulosis and diverticulitis (17 sources) Diverticulosis of colon; Translations: [Diverticulosis of large intestine without perforation or abscess without bleeding] 01-31-2005 Chronic Essential hypertension (20 sources) Essential (primary) hypertension; Translations: [Essential hypertension] Onset: 05-17-2005 Chronic Inflammation; infection of eye (except that caused by tuberculosis or sexually transmitteddisease) (17 sources) Herpes zoster ophthalmicus; Translations: [Zoster ocular disease, unspecified] 08-20-2019 Episodic Osteoarthritis (2 sources) Unilateral post-traumatic osteoarthritis, right knee; Translations: [Unilateral primary osteoarthritis, right knee] Onset: 07-08-2018 Chronic Other and unspecified benign neoplasm (17 sources) Benign neoplasm of colon; Translations: [Benign neoplasm of colon, unspecified] 01-31-2005 Episodic Other bone disease and musculoskeletal deformities (17 sources) Osteopenia; Translations: [Other specified disorders of [...] Spondylosis; intervertebral disc disorders; other back problems (17 sources) Degeneration of thoracic intervertebral disc; Translations: [Other intervertebral disc degeneration, thoracic region] Onset: 03-20-2014 03-20-2014 Chronic Past or Other Problems Problem Classification Problem Date Documented Da te Episodic/Chronic Cardiac dysrhythmias (20 sources) Palpitations; Translations: [Palpitations] Onset: 03-07-2021 03-07-2021 Episodic Other and unspecified benign neoplasm (17 sources) History of polyp of colon; Translations: [Personal history of colonic polyps] Onset: 02-26-2007 02-26-2007 Episodic Other connective tissue disease (17 sources) Bilateral cramp of muscle of lower limbs; Translations: [Cramp and spasm] Onset: 01-05-2015 01-05-2015 Episodic Other diseases of bladder and urethra (17 sources) Urethral caruncle; Translations: [Urethral caruncle] Onset: 12-28-2009 12-28-2009 Episodic Other screening for suspected conditions (not mental disorders or infectious disease) (19 sources) Patient encounter status; Translations: [Encounter for [...] 72 mm[Hg] Ángela Leiva MD Work Phone: [facility] 11-13-2022 15:31-0400 Systolic blood pressure 138 mm[Hg] Ángela Leiva MD Work Phone: [facility] 11-13-2022 15:14-0400 Body weight 58.06 kg Ángela Leiva MD Work Phone: [facility] 11-13-2022 15:14-0400 Heart rate 62 /min Ángela Leiva MD Work Phone: [facility] 11-13-2022 15:14-0400 SaO2% (BldA) [Mass fraction] 100 % Ángela Leiva MD Work Phone: [facility] 03-21-2022 15:25-0500 Body temperature 97.7 [degF] Lily Praisler-Wood RESERVOIR ENGINEERING MANAGER.EMPLOYEE SERVICE OFFICER Work Phone: [facility] 03-21-2022 15:25-0500 Body weight 58.06 kg Lily Praisler-Wood RESERVOIR ENGINEERING MANAGER.EMPLOYEE SERVICE OFFICER Work Phone: [facility] 03-21-2022 15:25-0500 Diastolic blood pressure 78 mm[Hg] Lily Praisler-Wood RESERVOIR ENGINEERING MANAGER.EMPLOYEE SERVICE OFFICER Work Phone: [facility] 03-21-2022 15:25-0500 Heart rate 68 /min Lily Praisler-Wood RESERVOIR ENGINEERING MANAGER.EMPLOYEE SERVICE OFFICER Work Phone: [facility] 03-21-2022 15:25-0500 Respiratory rate 18 /min Lily Praisler-Wood RESERVOIR ENGINEERING MANAGER.EMPLOYEE SERVICE OFFICER Work Phone: [facility] 03-21-2022 15:25-0500 SaO2% (BldA) [Mass fraction] 99 % Lily Praisler-Wood RESERVOIR ENGINEERING MANAGER.EMPLOYEE SERVICE OFFICER Work Phone: [facility] 03-21-2022 15:25-0500 Systolic blood pressure 132 mm[Hg] Lily Praisler-Wood RESERVOIR ENGINEERING MANAGER.EMPLOYEE SERVICE OFFICER Work Phone: [facility] 02-06-2022 15:27-0500 Body weight 59.88 kg Ángela Leiva MD Work Phone: [facility] 02-06-2022 15:27-0500 Diastolic blood pressure 80 mm[Hg] Ángela Leiav MD Work Phone: [facility] 02-06-2022 15:27-0500 Heart rate 75 /min Ángela Leiva MD Work Phone: [facility] 02-06-2022 15:27-0500 SaO2% (BldA) [Mass fraction] 98 % Ángela Leiva MD Work Phone: [facility] 02-06-2022 15:27-0500 Systolic blood pressure 148 mm[Hg] Ángela Leiva MD Work Phone: [facility] 01-17-2022 11:55-0500 Heart rate 60 /min Jaren Jones MD Work Phone: [facility] 01-17-2022 11:16-0500 Body weight 59.69 kg Jaren Jones MD Work Phone: [facility] 01-17-2022 11:16-0500 Diastolic blood pressure 64 mm[Hg] Jaren Jones MD Work Phone: [facility] 01-17-2022 11:16-0500 Respiratory rate 16 /min Jaren Jones MD Work Phone: [facility] 01-17-2022 11:16-0500 SaO2% (BldA) [Mass fraction] 98 % Jaren Jones MD Work Phone: [facility] 01-17-2022 11:16-0500 Systolic blood pressure 114 mm[Hg] Jaren Jones MD Work Phone: [facility] 09-21-2021 14:40-0400 Body temperature 99 [degF] Tawnya Podlogar RESERVOIR ENGINEERING MANAGER.EMPLOYEE SERVICE OFFICER Work Phone: [facility] 09-21-2021 14:40-0400 Body weight 59.78 kg Tawnya Podlogar RESERVOIR ENGINEERING MANAGER.EMPLOYEE SERVICE OFFICER Work Phone: [facility] 09-21-2021 14:40-0400 Diastolic blood pressure 68 mm[Hg] Tawnya Podlogar RESERVOIR ENGINEERING MANAGER.EMPLOYEE SERVICE OFFICER Work Phone: [facility] 09-21-2021 14:40-0400 Heart rate 67 /min Tawnya Podlogar RESERVOIR ENGINEERING MANAGER.EMPLOYEE SERVICE OFFICER Work Phone: [facility] 09-21-2021 14:40-0400 Respiratory rate 18 /min Twanya Podlogar RESERVOIR ENGINEERING MANAGER.EMPLOYEE SERVICE OFFICER Work Phone: [facility] 09-21-2021 14:40-0400 SaO2% (BldA) [Mass fraction] 96 % Tawnya Podlogar RESERVOIR ENGINEERING MANAGER.EMPLOYEE SERVICE OFFICER Work Phone: [facility] 09-21-2021 14:40-0400 Systolic blood pressure 132 mm[Hg] Tawnya Podlogar RESERVOIR ENGINEERING MANAGER.EMPLOYEE SERVICE OFFICER Work Phone: [facility] 09-09-2021 13:05-0400 Body weight 60.06 kg Tawnya Podlogar RESERVOIR ENGINEERING MANAGER.EMPLOYEE SERVICE OFFICER Work Phone: [facility] 09-09-2021 13:05-0400 Diastolic blood pressure 72 mm[Hg] Tawnya Podlogar RESERVOIR ENGINEERING MANAGER.EMPLOYEE SERVICE OFFICER Work Phone: [facility] 09-09-2021 13:05-0400 Heart rate 76 /min Tawnya Podlogar RESERVOIR ENGINEERING MANAGER.EMPLOYEE SERVICE OFFICER Work Phone: [facility] 09-09-2021 13:05-0400 Respiratory rate 18 /min Tawnya Podlogar RESERVOIR ENGINEERING MANAGER.EMPLOYEE SERVICE OFFICER Work Phone: [facility] 09-09-2021 13:05-0400 SaO2% (BldA) [Mass fraction] 98 % Tawnya Podlogar RESERVOIR ENGINEERING MANAGER.EMPLOYEE SERVICE OFFICER Work Phone: [facility] 09-09-2021 13:05-0400 Systolic blood pressure 128 mm[Hg] Tawnya Podlogar RESERVOIR ENGINEERING MANAGER.EMPLOYEE SERVICE OFFICER Work Phone: [facility] 07-11-2021 14:25-0400 Body weight 59.42 kg Ángela Leiva MD Work Phone: [facility] 07-11-2021 14:25-0400 Diastolic blood pressure 68 mm[Hg] Ángela Leiva MD Work Phone: [facility] 07-11-2021 14:25-0400 Heart rate 72 /min Ángela Leiva MD Work Phone: [facility] 07-11-2021 14:25-0400 SaO2% (BldA) [Mass fraction] 97 % Ángela Leiva MD Work Phone: [facility] 07-11-2021 14:25-0400 Systolic blood pressure 138 mm[Hg] Ángela Leiva MD Work Phone: [facility] Encounters Encounter Date Encounter Type Care Provider Facility Start: 03-27-2023 Telephone encounter Ángela Leiva MD Work Phone: Cardiology Procedures Date Procedure Procedure Detail Performing Clinician Start: 10-20-2022 Screening digital br [facility]os[facility] Provider Start: 08-12-2018 Replacement of Right Knee Joint with Synthetic Substitute, Cemented, Open Approach MARIAN GUTIERREZ Plan of Treatment Date Care Activity Detail Author Start: 02-19-2023 Advance Directive Discussion Advance Directive Discussion [facility] Start: 02-19-2023 Depression Assessment Depression Ass essment [facility] Start: 01-28-2023 Urine microalbumin profile [facility] Start: 01-17-2023 COVID-19 VACCINE (4 - Booster for Moderna series) COVID-19 VACCINE (4 - Booster for Moderna series) [facility] Immunizations Immunization Date Immunization Notes Care Provider Evangelista dsouza 12-14-2021 influenza (aIIV4) vaccine, age 65+ yr, quadrivalent, PF (FLUAD QUADRIVALENT) Jaren Jones MD Work Phone: [facility] 12-14-2021 influenza virus vaccine, unspecified formulation Ángela Leiva MD Work Phone: [facility] 09-20-2021 zoster vaccine recombinant Tawnya Scales APRN.EMPLOYEE SERVICE OFFICER Work Phone: [facility] 06-07-2021 zoster vaccine recombinant Jaren Jones MD Work Phone: [facility] Work Phone: 11-30-2020 influenza, high-dose , quadrivalent vaccine (FLUZONE HIGH DOSE QUADRIVALENT) Jaren Jones MD Work Phone: [facility] 04-15-2020 COVID-19 vaccine, booster dose (MODERNA) Jaren Jones MD Work Phone: [facility] 03-18-2020 COVID-19 vaccine, booster dose (MODERNA) Jaren Jones MD Work Phone: [facility] 12-13-2019 influenza, high-dose , quadrivalent vaccine (FLUZONE HIGH DOSE QUADRIVALENT) Jaren Jones MD Work Phone: [facility] 12-14-2018 influenza, high dose seasonal, preservative-free Jaren Jones MD Work Phone: [facility] 11-17-2017 influenza, high dose seasonal, preservative-free Jaren Jones MD Work Phone: [facility] 11-24-2016 influenza, high dose seasonal, preservative-free Jaren Jones MD Work Phone: [facility] 12-11-2015 influenza, high dose seasonal, preservative-free Jaren Jones MD Work Phone: [facility] 01-05-2015 influenza, high dose seasonal, preservative-free Jaren Jones MD Work Phone: [facility] 06-01-2014 pneumococcal conjuga te vaccine, 13 valent Jaren Jones MD Work Phone: [facility] 12-26-2013 influenza, seasonal, injectable Jaren Jones MD Work Phone: [facility] 01-28-2013 tetanus toxoid, redu brain diphtheria toxoid, and acellular pertussis vaccine, adsorbed Jaren Jones MD Work Phone: [facility] 12-28-2012 influenza virus vaccine, unspecified formulation Jaren Jones MD Work Phone: [facility] 12-30-2011 influenza virus vaccine, unspecified formulation Jaren Jones MD Work Phone: [facility] Work Phone: 12-22-2010 influenza virus vaccine, unspecified formulation Jaren Jones MD Work Phone: [facility] 11-18-2008 influenza virus vaccine, unspecified formulation Jaren Jonse MD Work Phone: [facility] 01-01-2008 influenza virus vaccine, unspecified formulation Jaren Jones MD Work Phone: [facility] Work Phone: 03-08-2007 zoster vaccine, live Claudio Jones MD Work Phone: [facility] Work Phone: 01-08-2006 influenza virus vaccine, unspecified formulation Jaren Jones MD Work Phone: [facility] 12-20-2004 influenza virus vaccine, unspecified formulation Jaren Jones MD Work Phone: [facility] Work Phone: 11-19-2002 tetanus and diphther ia toxoids, not adsorbed, for adult use Jaren Jones MD Work Phone: [facility] 09-19-2000 pneumococcal polysaccharide vaccine, 23 valent Jaren Jones MD Work Phone: [facility] Payers Date Payer Category Payer Medicare UHC AAR MEDICAR E UHC AARP MEDICARE HMO [id number] 2019-Present [phone] [address] [address] [place] [address] O [id number] 2019 Medicare [facility] AARP MEDICAR E [facility] AAR MEDICARE O [id number] 2019-Present [phone] [address] [address] [place] [address] O [id number] 2019 Medicare [id number] 1935 Unknown [id number] 1935 Unknown [id number] 1935 Unknown [id number] Medicare [id number] Medicare [id number] Unknown [id number] Social History Date Type Detail Facility Start: 12-22-2010 Tobacco smoking stat [place] [facility] Never smoked tobacco [facility] Start: 03-07-2021 End: 11-13-2022 Alcohol intake Current drinker of alcohol (finding) [facility] Start: 01-28-2020 End: 03-07-2021 Alcohol intake [facility] Start: 01-01-2012 History SDOH Alcohol Comment wine ocassional 3-4 times over the week [facility] Start: 1935 Sex Assigned At Not on file [facility] Start: 09-11-2021 End: 01-17-2022 Exposure to SARS-CoV-2 (event) Not sure [facility] Start: 12-22-2010 Tobacco use and exposure Smoke less tobacco non-user [facility] Start: 01-28-2020 End: 03-21-2022 Tobacco use panel [facility] Adult Depression Screening Assessment [address] [facility] Clinical Notes 04-20-2009 to 03-27-2023 Telephone Encounter - Juana Posey RN - 03/27/2023 4:26 PM ESTTelephone Encounter - Jaren Jones MD - 03/27/2023 4:16 PM Ángela Emerson MD - 11/13/2022 3:20 PM EDT Note Date & Type Note Facility 03-27-2023 Miscellaneous Notes Called and left a detailed voicemail notifying patient of providers message. Clinic phone number was left in case patient had any questions. Juana Posey RN I am not sure why this is being sent here. Patient established with Dr. Wallace as PCP. Needs to contact their office. Message left asking patient to follow up with her PCP. Patient encouraged to go to the ED for any increase in her symptoms or chest pain. Patient's last echo and zio were done in 2020. Nicolle Oakes RN Call received from Pt - name & verified. Pt calls and reports that she has a known LBBB. Her last OV with Dr. Leiva was 10/2022. Since that time, she has noticed very mild changes to her activity tolerance. She is an avid walker and fairly active. Pt reports occasionally feeling some mild shortness of breath in the center of her chest. Pt states it can happen with activity or at rest. The feeling only stays for a minute or two, but she's able to complete what she's doing at the time it happens. Upon questioning, Pt reports some associated Lt shoulder/neck discomfort during these times, but it's nothing that really bothers me or makes me have to stop. Pt reports her BPs have ranged from 128-138/68-70, HR 60's. She has been unable to schedule an appointment anytime soon for follow-up with Dr. Leiva and is scheduled 10/2023. He wanted to see her back around 05/2023. Pt now calling to ask if he would be willing to order an echocardiogram and 14-day holter monitor for her. Pt reports her recently had one and is interested in having the same work-up completed. Please call her back with response. If unavailable by phone, Pt gives permission to leave detailed message on machine or speak to spouse, Mirza: Jil Mondragon RN March 27, 2023 3:09 PM documented in this encounter [facility] 11-13-2022 Note HNO ID: [id number] Author: Ángela Leiva MD Service: ? Author Type: Physician Type: Progress Notes Filed: 11/13/2022 3:58 PM Note Text: [facility] SE[facility]IONAL CARDIOLOGY Cardiology ([facility]) [address] [facility] [address] OUTPATIENT VISIT DATE 11/13/2022 PRIMARY CARE PHYSICIAN: Jaren Jones [address] [place] [address] REFERRING PHYSICIAN: Jaren Jones [address] [facility] [address] HISTORY OF PRESENT ILLNESS: Ms. Schreiber is [...] Age of Onset other (MELANOMA) Mother other (CA) Father 59 other (LUNG CANCER) Brother ALLERGIES: [...] bilaterally without bru (more content not included)... [facility] 11-13-2022 History of Present illness Narrative Images from the original note were not included. [facility]IONAL CARDIOLOGY Cardiology ([facility]) [address] [facility] [address] OUTPATIENT VISIT DATE 11/13/2022 PRIMARY CARE PHYSICIAN: Jaren Jones [address] [place] [address] REFERRING PHYSICIAN: Jaren Jones [address] [facility] [address] HISTORY OF PRESENT ILLNESS: Ms. Schreiber is [...] Age of Onset other (MELANOMA) Mother other (CA) Father 59 other (LUNG CANCER) Brother ALLERGIES: [...] a left bundle branch block pattern Echocardiogram [facility] 10/23/2020 Normal LV size and systolic function. [...] Ángela Leiva MD documented in this encounter [facility] 10-20-2022 Note HNO ID: [id number] Author: Laurita Gavin RT(William) Service: Radiology Author Type: Information And Referral Director Type: Progress Notes Filed: 10/20/2022 2:48 PM [...] RT Jose(R) October 20, 2022 2:48 PM [facility] 10-20-2022 History of Present illness Narrative Radiology [...] 2022 2:48 PM documented in this encounter [facility] 10-17-2022 Miscellaneous Notes Ok, will remove myself [...] upcoming appointment. Thanks documented in this encounter [facility] 04-10-2022 Miscellaneous Notes Last Office Visit: 01/17/2022 Future Office Visit: None Requested Prescriptions Pending Prescriptions Disp Refills losartan (COZAAR) 100 mg tablet 90 tablet 1 Sig: Take 1 tablet by mouth once daily. Date of Last Labs: 01/11/2022 documented in this encounter [facility] 03-27-2022 Miscellaneous Notes Patient has been identified [...] Haley Liu RN documented in this encounter [facility] 03-21-2022 History of Present illness Narrative [...] Age of Onset other (MELANOMA) Mother other (CA) Father 59 other (LUNG CANCER) Brother Social [...] Lily Villar APRN.CNP documented in this encounter [facility] 03-21-2022 Instructions Lily Villar APRN.CNP - 03/21/2022 [...] Discussed expected course of illness Lily Villar APRN.EMPLOYEE SERVICE OFFICER NONSPECIFIC RASH: Our exam shows you have [...] drainage or pus). documented in this encounter [facility] 02-06-2022 History of Present illness Narrative Images from the original note were not included. [facility] SE[facility]IONAL CARDIOLOGY Cardiology ([facility]) [address] [facility] [id number] OUTPATIENT VISIT DATE 02/06/2022 PRIMARY CARE PHYSICIAN: aJren Jones [address] [place] [address] REFERRING PHYSICIAN: Jarne Jones [address] [place] [id number] HISTORY OF PRESENT ILLNESS: Ms. Schreiber is [...] Age of Onset other (MELANOMA) Mother other (CA) Father 59 other (LUNG CANCER) Brother ALLERGIES: [...] a left bundle branch block pattern Echocardiogram [facility] 10/23/2020 Normal LV size and systolic function. [...] Ángela Leiva MD documented in this encounter [facility] 01-17-2022 Miscellaneous Notes Patient calls to request copies of recent lab work be mailed to home address. Copies of labs made and placed in out-going mail to be mailed to patient at home address. Cierra Nassar RN documented in this encounter [facility] 01-17-2022 History of Present illness Narrative Chief [...] had dizziness she had to see our LOAD MIXER instead of me. States that her symptoms [...] Age of Onset other (MELANOMA) Mother other (CA) Father 59 other (LUNG CANCER) Brother Patient [...] Jaren Jones MD documented in this encounter [facility] 09-30-2021 Miscellaneous Notes September 30, 2021 PID: [id number] Apryl Schreiber [address] [place] [address] Dear Ms. Schreiber, We are pleased to [...] report will be kept on file at [facility] as part of your permanent medical record and are available for your continuing care. Thank you for allowing us to help in meeting your health care needs. Sincerely, Dr. Watt Interpreting Radiologist [facility] (Normal over 40) documented in this encounter [facility] 09-29-2021 Miscellaneous Notes Pt notified. Glad to hear it. Let us know if symptoms return or change. Patient called to advise Tawnya Podlogflora that her vertigo has been gone for 2 days. documented in this encounter [facility] 09-29-2021 Miscellaneous Notes Patient has been identified by name and date of : Yes Requested Prescriptions Pending Prescriptions Disp Refills losartan (COZAAR) 100 mg tablet 90 tablet 1 Sig: Take 1 tablet by mouth once daily. RX INSTRUCTIONS: Patient aware RX will be sent to pharmacy. No need to notify patient. Mel Dubose documented in this encounter [facility] 09-21-2021 History of Present illness Narrative 09/21/2021 [...] ICD10: H61.23 - resolved after irrigation Tawnya Scales APRN.EMPLOYEE SERVICE OFFICER Prescription instructions reviewed with patient as applicable. [...] which included preparing to see the patient, [id number] patient care, completing clinical documentation, obtaining and/or reviewing separately obtained history, performing a medically appropriate examination, counseling and educating the patient/family/caregiver and ordering medications, tests, or procedures. documented in this encounter [facility] 09-09-2021 History of Present illness Narrative 09/09/2021 [...] F41.8 - Discussed concept of neurochemical imbalance wth depression/anxiety - Handout on depression/anxiety form UptoDate given - Risks/benefits of SSRIs - Common side effects - Sleep Hygeine - advised counseling to improve management of stressors - Instructed patient to contact office or cxipc-rc-xdpt after-hours promptly should condition worsen or any new symptoms appear. - [facility] and after hours crisis line - [facility] [place] phone number or - SERTRALINE 25 MG [...] which included preparing to see the patient, [id number]-dt-[id number] patient care, completing clinical documentation, performing a medically appropriate examination, counseling and educating the patient/family/caregiver and ordering medications, tests, or procedures. documented in this encounter [facility] 07-11-2021 History of Present illness Narrative Images from the original note were not included. [facility] SECTION OF REGIONAL CARDIOLOGY Cardiology ([facility]) [address] [facility] [id number] OUTPATIENT VISIT DATE 07/11/2021 PRIMARY CARE PHYSICIAN: Jaren Jones [address] [place] [address] REFERRING PHYSICIAN: Jaren Jones [address] [facility] [address] HISTORY OF PRESENT ILLNESS: Ms. Schreiber is [...] Age of Onset other (MELANOMA) Mother other (CA) Father 59 other (LUNG CANCER) Brother ALLERGIES: [...] 2+ distal pulses CARDIOVASCULAR MEDICINE TESTING: Echocardiogram [facility] 10/23/2020 Normal LV size and systolic function. [...] Ángela Leiva MD documented in this encounter [facility] 06-30-2021 Miscellaneous Notes Patient has been identified [...] Yeimy Jovel RN documented in this encounter [facility] documented as of this encounter (statuses as of 06/30/2021) [facility] History of Past illness Narrative* Problem Noted [...] of this encounter (statuses as of 07/11/2021) [facility] History of Past illness Narrative* Problem Noted [...] of this encounter (statuses as of 09/09/2021) [facility] History of Past illness Narrative* Problem Noted [...] of this encounter (statuses as of 09/21/2021) [facility] History of Past illness Narrative* Problem Noted [...] of this encounter (statuses as of 09/29/2021) [facility] History of Past illness Narrative* Problem Noted [...] of this encounter (statuses as of 09/30/2021) [facility] History of Past illness Narrative* Problem Noted [...] of this encounter (statuses as of 10/04/2021) [facility] History of Past illness Narrative* Problem Noted [...] of this encounter (statuses as of 01/17/2022) [facility] History of Past illness Narrative* Problem Noted [...] of this encounter (statuses as of 01/22/2022) [facility] History of Past illness Narrative* Problem Noted [...] of this encounter (statuses as of 02/06/2022) [facility] History of Past illness Narrative* Problem Noted [...] of this encounter (statuses as of 03/22/2022) [facility] History of Past illness Narrative* Problem Noted [...] of this encounter (statuses as of 03/27/2022) [facility] History of Past illness Narrative* Problem Noted [...] of this encounter (statuses as of 04/11/2022) [facility] History of Past illness Narrative* Problem Noted [...] of this encounter (statuses as of 10/18/2022) [facility] History of Past illness Narrative* Problem Noted [...] of this encounter (statuses as of 11/14/2022) [facility] History of Past illness Narrative* Problem Noted [...] of this encounter (statuses as of 12/24/2022) [facility] History of Past illness Narrative* Problem Noted [...] as of this encounter (statuses as of 03/28/2023) [facility] Diagnosis Essential hypertension Unspecified essential hypertension documented in this [facility] Diagnosis Palpitations- Primary LBBB (left bundle branch block) Other left bundle branch block Essential hypertension, benign Other hyperlipidemia documented in this [facility] Diagnosis Dizziness- Primary Dizziness and giddiness Anxiety with depression Encounter for screening mammogram for malignant neoplasm of breast Other screening mammogram documented in this encounter [facility] Diagnosis Dizziness- Primary Dizziness and giddiness Bilateral impacted cerumen Impacted cerumen documented in this encounter [facility] note* Diagnosis Drug rash- Primary Dermatitis due to drugs and medicines taken internally Minimal cognitive impairment Mild cognitive impairment, so stated Essential hypertension Unspecified essential hypertension Hyperlipidemia, unspecified hyperlipidemia type Anxiety with depression BPPV (benign paroxysmal positional vertigo), unspecified laterality documented in this encounter [facility] note* Diagnosis Palpitations- Primary Essential hypertension, benign Other hyperlipidemia LBBB (left bundle branch block) Other left bundle branch block documented in this encounter [facility] note* Diagnosis Rash- Primary Rash and other nonspecific skin eruption documented in this encounter [facility] note* Diagnosis Hyperlipidemia, unspecified hyperlipidemia type documented in this encounter [facility] note* Diagnosis Encounter for screening mammogram for malignant neoplasm of breast- Primary Other screening mammogram documented in this encounter [facility] note* Diagnosis Essential hypertension, benign- Primary Mixed hyperlipidemia Palpitations LBBB (left bundle branch block) Other left bundle branch block documented [facility] this [facility] (narrative)* Diagnostic Procedure Only (Routine) - Pending Review Specialty Diagnoses / Procedures Referred By Dirk lewis Referred To Contact [facility] Diagnoses Encounter for screening mammogram for malignant neoplasm of breast Procedures MARY SCREENING SCREENING MAMMOGRAPHY BI 2-VIEW BREAST INC CAD Tawnya Scales APRN.CNP [address] [place] [address] [facility] [address] [place] [id number] Referral ID Status Reason Start Date Expiration Date Visits Requested Visits Authorized [id number] Pending Review Auto-Generat ed Referral 09/09/2021 10/09/2022 [address] [facility] Outpatient Procedure (Routine) - Closed Specialty Diagnoses / Procedures Referred By Dirk lewis Referred To Contact [facility] Diagnoses Palpitations Procedures ECG COMPLETE ECG ROUTINE ECG W/LEAST 12 LDS W/I&R Ángela Leiva MD [address] [place] [address] [facility] [place] [address] [place], [place] [address], [place] [address] Referral ID Status Reason Start Date Expiration Date V isits Requested Visits Authorized [id number] Closed Auto-Generate d Referral 01/31/2022 01/31/2023 [address] [facility] Summary Purpose Family History No Family History Records FoundNo Family History Records FoundNo Family History Records FoundNo Family History Records Found Advance Directives No Advanced Directives Records FoundDocuments on File Type Date Recorded Patient [employer] Advance Directive(s) Documents on File Type Date Recorded Patient [employer] Advance Directive(s) Hospital Course Note [facility] PROGRESS N OTE/DISCHARGE SUMMARY NAME ACCOUNT SEX AGE ADMIT DISCHARGE PT MED. RECORD# NUMBER DATE DATE TYPE [place] [id number] F 83 08/12/18 1 APRYL Hartman [id number] ROOM: [facility] DATE OF : 1935 DICTATING PHYSICIAN: Marian [...] CREATED AUTHOR AUTHOR'S ORGANIZ ATION 08/15/2018 [facility] DATE CREATED AUTHOR AUTHOR'S ORGANIZ ATION 10/12/2018 [facility] DATE CREATED AUTHOR AUTHOR'S ORGANIZ ATION 03/29/2023 [facility] Source Comments (unrecognize d section and content) In the event this informatio n is protected by the Federal Confidentiality of Alcohol and Drug Abuse Patient Records regulations: The Federal rules restrict any use of the information to criminally investigate or prosecute any alcohol or drug abuse patient.[facility] the event this information is protected by the Federal Confidentiality of Alcohol and Drug Abuse Patient Records regulations: The Federal rules restrict any use of the information to criminally investigate or prosecute any alcohol or drug abuse patient.[facility] the event this information is protected by the Federal Confidentiality of Alcohol and Drug Abuse Patient Records regulations: The Federal rules restrict any use of the information to criminally investigate or prosecute any alcohol or drug abuse patient.[facility] the event this information is protected by the Federal Confidentiality of Alcohol and Drug Abuse Patient Records regulations: The Federal rules restrict any use of the information to criminally investigate or prosecute any alcohol or drug abuse patient.[facility] the event this information is protected by the Federal Confidentiality of Alcohol and Drug Abuse Patient Records regulations: The Federal rules restrict any use of the information to criminally investigate or prosecute any alcohol or drug abuse patient.[facility] the event this information is protected by the Federal Confidentiality of Alcohol and Drug Abuse Patient Records regulations: The Federal rules restrict any use of the information to criminally investigate or prosecute any alcohol or drug abuse patient.[facility] the event this information is protected by the Federal Confidentiality of Alcohol and Drug Abuse Patient Records regulations: The Federal rules restrict any use of the information to criminally investigate or prosecute any alcohol or drug abuse patient.[facility] the event this information is protected by the Federal Confidentiality of Alcohol and Drug Abuse Patient Records regulations: The Federal rules restrict any use of the information to criminally investigate or prosecute any alcohol or drug abuse patient.[facility] the event this information is protected by the Federal Confidentiality of Alcohol and Drug Abuse Patient Records regulations: The Federal rules restrict any use of the information to criminally investigate or prosecute any alcohol or drug abuse patient.[facility]In the event this information is protected by the Federal Confidentiality of Alcohol and Drug Abuse Patient Records regulations: The Federal rules restrict any use of the information to criminally investigate or prosecute any alcohol or drug abuse patient.[facility] HospitalIn the event this information is protected by the Federal Confidentiality of Alcohol and Drug Abuse Patient Records regulations: The Federal rules restrict any use of the information to criminally investigate or prosecute any alcohol or drug abuse patient.[facility]In the event this information is protected by the Federal Confidentiality of Alcohol and Drug Abuse Patient Records regulations: The Federal rules restrict any use of the information to criminally investigate or prosecute any alcohol or drug abuse patient.[facility] HospitalIn the event this information is protected by the Federal Confidentiality of Alcohol and Drug Abuse Patient Records regulations: The Federal rules restrict any use of the information to criminally investigate or prosecute any alcohol or drug abuse patient.[facility] HospitalIn the event this information is protected by the Federal Confidentiality of Alcohol and Drug Abuse Patient Records regulations: The Federal rules restrict any use of the information to criminally investigate or prosecute any alcohol or drug abuse patient.[facility] HospitalIn the event this information is protected by the Federal Confidentiality of Alcohol and Drug Abuse Patient Records regulations: The Federal rules restrict any use of the information to criminally investigate or prosecute any alcohol or drug abuse patient.[facility]In the event this information is protected by the Federal Confidentiality of Alcohol and Drug Abuse Patient Records regulations: The Federal rules restrict any use of the information to criminally investigate or prosecute any alcohol or drug abuse patient.[facility]In the event this information is protected by the Federal Confidentiality of Alcohol and Drug Abuse Patient Records regulations: The Federal rules restrict any use of the information to criminally investigate or prosecute any alcohol or drug abuse patient.[facility] Reason for Visit (unrecogniz ed section and content) Reason Comments 4 month CARD check Specialty Diagnoses / Procedures Referred By Contact Referred To Contact Cardiology / FAMILY MEDICINE Diagnoses Palpitations Other chest pain Procedures CONSULT TO CARDIOLOGY NEW PATIENT VISIT LEVEL 5 Jaren Jones MD [address] [place] [address] [facility] [address] [place] [address] Referral ID Status Reason Start Date Expiration Date V isits Requested Visits Authorized [id number] Closed Patient Cleared INN/KivedaP Payor Auth Obtained 03/07/2021 02/18/2022 1 1 Reason Comments Dizziness x1 week Specialty Diagnoses / Procedures Referred By Contac t Referred To Contact FAMILY MEDICINE Diagnoses vertigo x 1 week Procedures 4C ANTHONY Fonseca MD [facility] [address] [place] [address] Referral ID Status Reason Start Date Expiration Date V isits Requested Visits Authorized [id number] Closed Financial Clearance Required - OON Payor Patient Cleared INN/KivedaP Payor Auth Obtained 09/08/2021 12/07/2021 1 1 Reason Comments Dizziness x4 days Earwax bilateral ears; comp leted drops Specialty Diagnoses / Procedures Referred By Contac t Referred To Contact Family Practice / FAMILY MEDICINE Diagnoses Dizziness follow-up Requesting medication and possibly therapy referral. Did not start sertraline. 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 [address] [place] [address] Referral ID Status Reason Start Date Expiration Date Visits Re quested Visits Authorized [id number] Closed 09/21/2021 02/18/2022 1 1 Reason Comments [...] Comments Orders Reason Comments Established Patient Follow-Up Reason Comments Patient Question Care Teams (unrecognized sec tion and content) Rolling Chair Pusher Relationship Specialty Start Date End Date Jaren Jones MD [address] [place] [address] PCP - General Family Practice 03/03/16 Rolling Chair Pusher Relationship Specialty Start Date End Date Jaren Jones MD [address] [place] [address] PCP - General Family Practice 03/03/16 Rolling Chair Pusher Relationship Specialty Start Date End Date Jaren Jones MD [address] [place] [address] PCP - General Family Practice 03/03/16 Rolling Chair Pusher Relationship Specialty Start Date End Date Jaren Jones MD [address] [place] [address] PCP - General Family Practice 03/03/16 Rolling Chair Pusher Relationship Specialty Start Date End Date Jaren Jones MD [facility] [place] [address] PCP - General Family Practice 03/03/16 Rolling Chair Pusher Relationship Specialty Start Date End Date Jaren Jones MD [address] [facility] [place] [address] PCP - General Family Medicine 03/03/16 Rolling Chair Pusher Relationship Specialty Start Date End Date Jaren Jones MD [address] [facility] [place] [address] PCP - General Family Medicine 03/03/16 Rolling Chair Pusher Relationship Specialty Start Date End Date Jaren Jones MD [address] [facility] [place] [address] PCP - General Family [facility] 03/03/16 Rolling Chair Pusher Relationship Specialty Start Date End Date Jaren Jones MD [address] [facility] [place] [address] PCP - General Family Medicine 03/03/16 Rolling Chair Pusher Relationship Specialty Start Date End Date Jaren Jones MD [address] [place] [address] PCP - General Family Medicine 03/03/16 FOR [...] BE BASED ON THE PRIMARY CLINICAL RECORDS. [facility]. provides no warranty or guarantee of the accuracy or completeness of information in this document.
== END | disposition home or self-care (01) ==
LOC: PSN 10:23
PROVIDERS: PCP Internal Medicine; Referring Provider Internal Medicine; Visit Provider Internal Medicine
DX: R07.89 Other chest pain (principal); R53.83 Other fatigue; R06.09 Other forms of dyspnea
CPT/HCPCS: 93005

== ENCOUNTER → 2023-05-15 | Outpatient (CLI) | payer MEDICARE, SELFPAY ==
--- NOTE | 2023-05-15 07:04 | ECHOD_ITS ---
Reason For Study: Chest pain Procedure This was a 2D Doppler, Color Flow transthoracic echocardiogram. Exam performed in department. Left Ventricle Normal LV size. Left ventricular systolic function is normal. The estimated ejection fraction is 55 %. Stage 1 diastolic dysfunction. Right Ventricle Normal RV size. Normal systolic function. Atria Normal left atrium. Normal right atrium. Mitral Valve There is moderate mitral annular calcification. There is Moderate focal posterior mitral annular calcification. Mild (1+) eccentric mitral valve insufficiency. Tricuspid Valve Normal tricuspid valve. Mild tricuspid valve insufficiency. Pulmonary artery systolic pressure is 28 mmHg. Aortic Valve Mild focal aortic valve calcification. Pulmonic Valve Normal pulmonic valve. Great Vessels Calcified aortic root. The pulmonary artery is normal size. Inferior vena cava collapse with respiration. Pericardium/Pleural No pericardial effusion. MMode/2D Measurements & Calculations LVIDd: 4.3 cm IVSd: 1.1 cm LVOT diam: 2.1 cm LVIDs: 3.1 cm LVPWd: 0.99 cm LVOT area: 3.5 cm2 RVDd: 3.2 cm FS: 27.9 % Ao root diam: 3.4 cm LAV(MOD-bp): 46.1 ml LVAd ap4: 21.9 cm2 LAV(MOD-bp) Indexed: 28.8 ml/m2 LVLd ap4: 6.5 cm LAV(MOD-sp2): 48.0 ml EDV(MOD-sp4): 61.6 ml LAV(MOD-sp4): 36.5 ml EDV(sp4-el): 62.8 ml LVAs ap4: 14.0 cm2 LVLs ap4: 5.5 cm ESV(MOD-sp4): 30.3 ml ESV(sp4-el): 30.1 ml EF(MOD-sp4): 50.9 % EF(sp4-el): 52.2 % LVAd ap2: 25.5 cm2 SV(MOD-sp4): 31.4 ml SV(MOD-sp2): 56.1 ml LVLd ap2: 6.5 cm EDV(MOD-sp2): 85.3 ml EDV(sp2-el): 84.1 ml LVAs ap2: 13.7 cm2 LVLs ap2: 5.6 cm ESV(MOD-sp2): 29.2 ml ESV(sp2-el): 28.5 ml EF(MOD-sp2): 65.7 % SV(sp4-el): 32.8 ml LA dimension(2D): 3.6 cm LA A4 area: 14.4 cm2 RA A4 area: 12.6 cm2 TAPSE: 2.6 cm Time Measurements MV dec time: 0.52 sec Doppler Measurements & Calculations MV E max kevin: 83.1 cm/sec Lat Peak E' Kevin: 4.7 cm/sec Med Peak E' Kevin: 4.3 cm/sec MV A max kevin: 112.8 cm/sec E/E' lat: 17.7 E/E' med: 19.3 MV E/A: 0.74 Ao V2 max: 147.2 cm/sec LV V1 max: 115.1 cm/sec MV dec slope: 159.0 cm/sec2 Ao max P.7 mmHg LV V1 max P.3 mmHg Ao V2 mean: 93.0 cm/sec LV V1 mean P.3 mmHg Ao mean P.1 mmHg LV V1 mean: 69.2 cm/sec Ao V2 VTI: 35.0 cm LV V1 VTI: 26.6 cm AV (velocity ratio): 0.76 TROY(I,D): 2.6 cm2 TROY(V,D): 2.7 cm2 SV(LVOT): 92.1 ml PA V2 max: 102.5 cm/sec TR max kevin: 244.7 cm/sec TR max P.0 mmHg ECHO/Echo Complete Interpretation Summary Normal LV size. Left ventricular systolic function is normal. The estimated ejection fraction is 55 %. Stage 1 diastolic dysfunction. There is moderate mitral annular calcification. Mild (1+) eccentric mitral valve insufficiency. Ordering Physician: Jennifer Jama Referring Physician: Angella Wallace M.D. Performed By: Shaye Turner RDCS
--- NOTE | 2023-05-15 16:02 | STRESSREP_ITS ---
Stress Test Report Pharmacologic myocardial perfusion stress test. 87-year-old lady with a history of atrial fibrillation Resting EKG demonstrates sinus bradycardia with a left bundle branch block with a rate of 50 bpm. Resting blood pressure is 148/80 mmHg. 0.4 mg of regadenoson was infused per usual protocol followed by rapid intravenous saline flush inje ction. Continuous EKG monitoring was performed. The maximum heart rate was 72 bpm which was 54% of max impacted heart rate the maximum workload was 1 metabolic equivalent. At rest there were no ST or T wave changes noted to suggest ischemia and at peak infusion nonspecific ST changes were noted which did not meet the criteria for ischemia. No clinical angina is noted. The final blood pressure was 146/68 mmHg. Myocardial perfusion protocol. 10.8 mCi of technetium 99m sestamibi was injected at rest. 0.4 mg of regadenoson was infused per usual protocol. At peak infusion 32.3 mCi of tech netium 99m sestamibi was injected stress images were obtained stress and rest images were reconstructed and compared in the short axis vertical long and horizontal long axis. Gated images were also obtained. Perfusion SPECT analysis: Review of the stress images demonstrate normal uptake of tracer noted in all areas of the myocardium. The resting images similar demonstrated normal uptake of tracer noted in all areas of the myocardium. No areas of reversibility are noted to suggest ischemia and no previous infarct is noted. Gated SPECT analysis: The gated ejection fraction is 69%. Conclusion: Normal pharmacologic myocardial perfusion stress test. Preserved ejection fraction.
== END | disposition home or self-care (01) ==
LOC: CVS 07:03
PROVIDERS: PCP Internal Medicine; Referring Provider Physician Assistant Medical; Visit Provider Physician Assistant Medical
DX: R07.9 Chest pain, unspecified (principal); I48.92 Unspecified atrial flutter; I48.91 Unspecified atrial fibrillation
CPT/HCPCS: 78452; 93017; 93306; A9500; A4216; J2785

== ENCOUNTER → 2023-10-03 | Outpatient (CLI) | payer MEDICARE, SELFPAY ==
--- NOTE | 2023-10-03 08:10 | MRI_ITS ---
STUDY: MRI LUMBAR SPINE WITHOUT CONTRAST REASON FOR EXAM: Female, 88 years old. RADICULOPATHY TECHNIQUE: Standardized fat and water weighted pulse sequences were obtained in the sagittal and axial planes. COMPARISON: None FINDINGS: T12-L1: Normal endplates. Normal disc height, hydration and morphology. Normal bilateral facet joints. Normal central canal and bilateral lateral recesses. Normal bilateral intervertebral neural foramina. Normal lumbar lordosis. Mild dextroscoliosis centered at L3. Normal conus medullaris that terminates at the L1/L2. L1-2: Mild bilateral facet hypertrophy with fluid in the facet joints consistent with instability and moderately inflamed hypertrophy. 2 mm retrolisthesis of L1 on L2 with a mild bilobed disc protrusion produces mild spinal stenosis and mild bilateral neural foraminal stenosis. L2-3: Mild bilateral facet hypertrophy with fluid in the facet joints consistent with instability and moderate ligament flavum hypertrophy. 2 mm retrolisthesis of L2 on L3 with a moderate bilobed disc protrusion produces moderate spinal stenosis and moderate bilateral neural foraminal stenosis. L3-4: Mild bilateral facet hypertrophy and severe ligament flavum hypertrophy. Large broad disc protrusion produces severe spinal stenosis with near total effacement of the spinal canal and moderate bilateral neural foraminal stenosis. L4-5: Mild bilateral facet hypertrophy and severe ligament flavum hypertrophy. Moderate bilateral disc protrusion produces severe spinal stenosis with near total effacement of the spinal canal and moderate bilateral neural foraminal stenosis. L5-S1: Mild bilateral facet hypertrophy and severe ligament flavum hypertrophy. 2 mm retrolisthesis of L5 on S1 with a mild broad disc protrusion produces severe spinal stenosis and moderate bilateral neural foraminal stenosis. Normal visualized sacral ala. 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 Multiple bilateral renal cysts.. MRI/Spine Lumbar (Routine) IMPRESSION: Mild dextroscoliosis and severe degenerative disc disease as described above. Electronically Signed: Rob Hussein MD at 9:07 EDT ,
== END | disposition home or self-care (01) ==
PROVIDERS: PCP Internal Medicine; Referring Provider Anesthesiology Pain Medicine; Visit Provider Anesthesiology Pain Medicine
DX: M54.16 Radiculopathy, lumbar region (principal)
CPT/HCPCS: 72148

== ENCOUNTER → 2023-12-04 | Outpatient (CLI) | payer MEDICARE, SELFPAY ==
--- NOTE | 2023-12-04 14:30 | RAD_ITS ---
INDICATION: Mid back pain EXAMINATION/TECHNIQUE: X-RAY - XR Spine Thoracic 3 Views COMPARISON: 01/22/2023 FINDINGS: VERTEBRAE: Preserved vertebral body height. No fracture. No spondylolisthesis. Preservation of the normal thoracic kyphosis. DISCS: Stable mild degenerative disc space narrowing. INCLUDED CHEST/ABDOMEN: No acute abnormalities. RAD/Thoracic Spine 3 Views IMPRESSION: No acute findings or significant interval change from the prior study. Electronically Signed: Atul Kamara MD at 15:36 EDT ,
== END | disposition home or self-care (01) ==
LOC: RAD 14:25
PROVIDERS: PCP Internal Medicine; Referring Provider Anesthesiology Pain Medicine; Visit Provider Anesthesiology Pain Medicine
DX: M47.816 Spondylosis without myelopathy or radiculopathy, lumbar region (principal)
CPT/HCPCS: 72072

== ENCOUNTER 2024-08-12 10:51 | Emergency (ER) | payer MEDICARE, SELFPAY ==
[2024-08-12] VITALS (7 sets, daily range): BP systolic 96–138; BP diastolic 65–117; PULSE 47–126; RESP 15–28; TEMP 36.8–37; O2SAT 94–100
--- NOTE | 2024-08-12 11:10 | EKG12_ITS ---
Test Reason : REPEAT-RHYTHM CHANGE Blood Pressure : */* mmHG Vent. Rate : 50 BPM Atrial Rate : 50 BPM P-R Int : 206 ms QRS Dur : 132 ms QT Int : 522 ms P-R-T Axes : 73 22 180 degrees QTcB Int : 475 ms Sinus bradycardia Left bundle branch block Abnormal ECG Confirmed by JEANETTE RON, VONNIE ([id number]), news editor TRAVIS QUACH ([id number]) on 08/13/2024 11:05:42 AM Referred By: Confirmed By: VONNIE REID MD
[2024-08-12] MEDS: Aspirin 81 MG TAB.CHEW 324 MG PO (11:17)
[2024-08-12] MEDS: Metoprolol Tartrate 5 MG/5 ML Vial IV ×2 (11:18→11:23)
[2024-08-12 11:24] LABS: Absolute Lymphocyte Count 1.53 X10^3/uL (0.83-4.51); Absolute Neutrophil Count 3.5 X10^3/uL (2.0-7.7); Basophil# 0.05 X10^3/uL; Basophil% 0.9 % (0-1); Eosinophil# 0.11 X10^3/uL; Eosinophils% 1.9 % (0-5); Hematocrit 41.7 % (37-47); Lymphocyte # 1.53 X10^3/ul (0.83-4.51); Lymphocyte % 26.7 % (19-41); Mean Corp Hgb Conc 33.6 g/dL (32-36); Mean Corpuscular Hgb 30.9 pg (27.0-32.0); Mean Corpuscular Volume 92.1 fL (81-99); Mean Platelet Vol. 11.3 fl (6.2-12.0); Monocyte# 0.53 X10^3/uL; Monocyte% 9.2 % (0-10); NRBC Flagged by Analyzer 0 % (0-5); Platelet Count 218 K/mm3 (150-450); RBC Distribution Width CV 13.5 % (11.6-14.6); RBC Distribution Width SD 46.1 fl (35.1-43.9); Red Blood Count 4.53 M/mm3 (4.2-5.4); White Blood Count 5.7 K/mm3 (4.4-11.0)
--- NOTE | 2024-08-12 11:44 | EKG12_ITS ---
Test Reason : ARRYTH Blood Pressure : */* mmHG Vent. Rate : 125 BPM Atrial Rate : * BPM P-R Int : * ms QRS Dur : 128 ms QT Int : 304 ms P-R-T Axes : * 64 228 degrees QTcB Int : 438 ms Atrial fibrillation with rapid ventricular response Left bundle branch block Abnormal ECG Confirmed by JEANETTE RNO, VONNIE ([id number]), editor farm journal TRAVIS QUACH ([id number]) on 08/13/2024 11:05:35 AM Referred By: Confirmed By: VONNIE REID MD
--- NOTE | 2024-08-12 11:45 | ED.VIS.CHEST ---
HPI History of Present Illness Chief Complaint: Chest Pain Informant: patient and spouse/S.O. Narrative Narrative: States around 8 AM this morning felt some funny feeling in her chest and went up to her neck. History of paroxysmal A-fib. She crawled up the steps she took a dose of metoprolol that was written previously by her lodge attendant. Previously on metoprolol and Eliquis however states on her visit was stopped by her lodge attendant. She denied any rectal bleeding complaints. She started having a dry cough yesterday. No vomiting no diarrhea. This feels similar to her A-fib events in the past. Reports some lightheaded symptoms. Prior Similar Symptoms: Yes CVD Risk Factors: Positive for Hypertension and Hypercholesterolemia; Negative for Diabetes, Family History 1' </=55 or Smoking PE Risk Factors: Negative for Recent Travel/Surgery, Recent Immobilization or Prior DVT or PE [facility] Medical History Spinal stenosis Spinal stenosis at L4-L5 level Sciatica associated with disorder of lumbar spine Herniated disc Vision problems Osteopenia Osteoarthritis Hives High cholesterol Hearing problem Carpal tunnel syndrome Cataracts, both eyes UTI (urinary tract infection) Back problem Arthritis Non-smoker Chest pain Hypertension Dysrhythmia Home Medications ?Medication ?Instructions ?Recorded ?Last Taken ?Type multivitamin 1 tab PO DAILY 03/07/22 04/04/23 History acetaminophen 500 mg capsule 500 mg PO Q6H PRN pain 04/05/23 04/05/23 History amlodipine 5 mg tablet 5 mg PO DAILY bp #90 tabs 07/18/24 Unknown Rx losartan 100 mg tablet 100 mg PO DAILY bp #90 tabs 07/18/24 Unknown Rx pravastatin 10 mg tablet 10 mg PO QHS cholesterol #90 tabs 07/18/24 Unknown Rx apixaban 2.5 mg tablet (Eliquis) 2.5 mg PO BID #90 tabs 08/12/24 Unknown Rx Allergy/AdvReac Type Severity Reaction Status Date / Time latex Allergy Rash Verified 05/15/24 14:46 meloxicam Allergy Rash Verified 05/15/24 14:46 prednisone Allergy Unknown Verified 05/15/24 14:46 Seasonal Allergies: Uncoded Allergy NEEDS Verified 05/15/24 14:46 FOLLOW-UP tramadol Allergy Rash Verified 05/15/24 14:46 Family History Grandmother , age 42 Arthritis Myocardial infarction Brother , age 47 Cancer lung Father , age 59 Myocardial infarction Heart disease Hypertension Mother , age 51 Melanoma Grandfather , age 69 CVA (cerebral vascular accident) Other Melanoma and neural system tumor syndrome Surgical History History of carpal tunnel surgery History of knee replacement H/O dilation and curettage History of tonsillectomy Social History household members: spouse Smoking Status: Never smoker alcohol intake: current alcohol intake frequency: a few times a week substance use type: does not use ROS ROS ED Constitutional Constitutional ED: Denies chills, fever(s) or sweats ENT ENT ED: Denies sore throat Cardiovascular Cardiovascular: Reports chest pain, palpitations and other Details: Lightheaded ; Denies leg edema or racing heartbeat Respiratory/Chest Respiratory/Chest: Reports cough; Denies dyspnea or dyspnea on exertion Gastrointestinal Gastrointestinal: Denies abdominal pain, diarrhea, nausea or vomiting Genitourinary Genitourinary ED: Denies dysuria, hematuria or urinary frequency Musculoskeletal Musculoskeletal: Denies back pain, extremity pain or neck pain Integumentary Denies rash or wounds Neurologic Neurologic: Denies headache(s), paresthesias or weakness EXAM Physical Exam Const Vital Signs: 08/12/24 10:52 08/12/24 10:57 08/12/24 11:21 Temperature 98.6 F Temperature Source Temporal Pulse Rate 126 H 102 H Respiratory Rate 28 H 20 H Respiratory Effort Normal Non-Labored Blood Pressure 138/117 H 111/93 H Blood Pressure Mean 124 99 Pulse Ox 94 100 Oxygen Delivery Method Room Air Room Air 08/12/24 11:26 08/12/24 11:29 08/12/24 12:00 Temperature Temperature Source Pulse Rate 99 54 L 51 L Respiratory Rate 18 16 16 Respiratory Effort Blood Pressure 134/95 H 135/80 H 116/75 Blood Pressure Mean 108 98 88 Pulse Ox 99 100 98 Oxygen Delivery Method Room Air Room Air 08/12/24 13:00 Temperature Temperature Source Pulse Rate 47 L Respiratory Rate 15 Respiratory Effort Blood Pressure 96/65 Blood Pressure Mean 75 Pulse Ox 99 Oxygen Delivery Method Room Air Positive well nourished and well developed General Appearance ED: well developed and NAD HEENT Reports moist mucous membranes normocephalic and atraumatic Eyes General Eye ED: Yes normal appearance of both eyes Neck full ROM Chest Wall Chest: Negative for tenderness Resp normal respiratory effort and normal air movement Effort and Inspection: symmetric chest movement; Negative for respiratory distress Cardio no murmurs Rate: tachycardic Rhythm: abnormal rhythm Peripheral Pulses: pulses 2+ throughout GI normal to inspection, nondistended, normoactive bowel sounds and non-tender Palpation: Negative for guarding or rebound tenderness present Extremity normal to inspection General Extremety ED: Negative for edema or tenderness General Extremity: Negative for edema Neuro oriented x3 and no sensory deficits noted Sensorium / Orientation: awake and alert Skin no rashes or lesions noted and no wounds Heart Score History: Slightly/Non-Suspicious ECG: Nonspecific Repolarization Age: >/= 65 years Risk Factors: 1 or 2 Risk Factors Troponin: >1 - <3 Normal Limit Score: 5 MDM MDM MDM Narrative Medical decision making narrative: Interventions / MDM: Differential diagnosis: A-fib with RVR, chest pain Diagnosis considered but do not suspect: N/A My EKG interpretation: A-fib rate 125, nonspecific ST depression in inferior leads no elevations. Left bundle branch block. Old EKGs noted chronic left bundle branch block. EKG #2 at 1149: Sinus bradycardia rate of 50. No ST depressions. Bimodal T waves V5 V6. Imaging independently reviewed and interpreted by myself: N/A External documents reviewed: Cardiology note October 2023, metoprolol was stopped due to bradycardia heart rate at times in the 40s at baseline she is at 60 without medication. Also decided to stop her Eliquis due to noted patient taking Eliquis once a day and she has been in sinus rhythm for 5 months prior to follow-up October 2023. Was reported to start her Eliquis if she feels a dysrhythmia and her metoprolol. Test considered but not ordered:N/A ED course: Patient A-fib RVR with chest pains. Cardiac workup initiated. IV Lopressor. Aspirin ordered. EKG slight ST depressions inferiorly likely demand. 1145: After second dose of Lopressor nurse reports heart rate in the 50s appears more regular on the monitor. Will repeat EKG. 1204: Repeat EKG back to sinus rhythm. Initial troponin is 30 creatinine 0.88. Hemoglobin 14. Reevaluation with patient back in sinus rhythm she is symptom-free. Patient recurrent A-fib noted, restarted on her Eliquis of 2.5 mg as she is over 80 and less than 60 kg. 1350: Delta troponin troponin trending down to 22 from 30. She remains symptom-free. Heart rate in the low 50s. I discussed with covering lodge attendant Dr. Baum, back in sinus rhythm can follow-up with Dr. Still. Discussed not restarting her metoprolol as her heart rate is on the lower end. He agrees. Eliquis 3-month supply sent to her pharmacy. Re-evaluation: stable Disposition discussed with patient/family/significant other: Patient and significant other Case discussed with consulting clinician: Cardiology This note was generated with Voice2Insightation software. It may contain incorrect words, spelling, and punctuation that were not noted in checking the note before signing. Lab Data Attestation: I reviewed the patient's lab results. Labs: Laboratory Results - last 24 hr 08/12/24 08/12/24 11:00 12:56 WBC 5.7 RBC 4.53 Hgb 14.0 Hct 41.7 MCV 92.1 MCH 30.9 MCHC 33.6 RDW Std Deviation 46.1 H RDW Coeff of Ernesto 13.5 Plt Count 218 MPV 11.3 Immature Gran % (Auto) 0.300 Neut % (Auto) 61.0 Lymph % (Auto) 26.7 Emmet % (Auto) 9.2 Eos % (Auto) 1.9 Baso % (Auto) 0.9 Absolute Neuts (auto) 3.5 Absolute Lymphs (auto) 1.53 Nucleated RBC % 0 Sodium 137 Potassium 3.6 Chloride 97 L Carbon Dioxide 23.0 Anion Gap 17 H BUN 21 H Creatinine 0.88 Estim Creat Clear Calc 35.10 L Est GFR (MDRD) Non-Af 63 BUN/Creatinine Ratio 24.0 H Glucose 107 H Calcium 10.0 Troponin T High Sens 30 H Troponin T Hi Sens 2 Hr 22 H Radiography Diagnostic Testing: Clinical Impression(s) from Imaging Studies Chest X-Ray 08/12/24 11:55 IMPRESSION: No Acute Findings. Reading Location: [facility] Discharge Plan Triage Chief Complaint: Chest Pain ED Provider: Kolby Wong Dx/Rx/DC Orders Clinical Impression: Atrial fibrillation, currently in sinus rhythm, LBBB (left bundle branch block), Chest pain Instructions: ED AFIB, ED Chest Pain, Noncardiac Prescriptions: New Eliquis 2.5 mg tablet 2.5 mg PO BID Qty: 90 0RF No Action multivitamin Tablet 1 tab PO DAILY Patient Comments: centrum acetaminophen 500 mg capsule 500 mg PO Q6H PRN (Reason: pain) amlodipine 5 mg tablet 5 mg PO DAILY Qty: 90 3RF losartan 100 mg tablet 100 mg PO DAILY Qty: 90 3RF pravastatin 10 mg tablet 10 mg PO QHS Qty: 90 3RF Primary Care Provider: Angella Wallace Referrals: Angella Wallace MD [Primary Care Provider] - Patrick Still MD [Med Staff - Active Staff] - Keep John appointment Activity Restrictions/Additional Instructions: Urine atrial fibrillation you converted in the emergency department. Labs are stable. You are restarted back on your Eliquis. Take this twice a day. Discussed with Dr. Baum. With your lower heart rate, you would not be restarted on metoprolol at this time. Follow-up with Dr. Still as scheduled. Print Language: Ukrainian Disposition Disposition: Home, Self Care
--- NOTE | 2024-08-12 11:55 | RAD_ITS ---
PROCEDURE: CHEST 1 VIEW (PORTABLE) 08/12/2024 REASON FOR EXAM: COUGH TECHNIQUE: Frontal view of the chest. COMPARISON: Prior study dated April 05, 2023. FINDINGS: Hardware: EKG electrodes Heart: Lungs: The lungs are clear. Bones: Degenerative changes are identified within the thoracic spine. Other: RAD/Chest 1 View (Portable) IMPRESSION: No Acute Findings. Reading Location: [facility]
[2024-08-12 12:00] LABS: Anion Gap 17 (5-15); BUN 21 mg/dL (4-19); Chloride 97 mmol/L (98-108); Creatinine, Serum 0.88 mg/dL (0.70-1.20); EST Glomerular Filtration Rate 63 (>60); Glucose 107 mg/dL (70-99); Potassium 3.6 mmol/L (3.3-5.1); Sodium Level 137 mmol/L (133-145); Troponin T High Sensitivity 30 ng/L (<=14)
[2024-08-12] MEDS: APIXABAN 2.5 MG TABLET (WCH) PO (12:52)
[2024-08-12 13:33] LABS: Troponin T High Sens 2 HR 22 ng/L (<=14)
== END 2024-08-12 14:12 | disposition home or self-care (01) ==
PROVIDERS: Emergency Provider Emergency Medicine; PCP Internal Medicine; Visit Provider Emergency Medicine
DX: I48.91 Unspecified atrial fibrillation (principal); E78.00 Pure hypercholesterolemia, unspecified; I44.7 Left bundle-branch block, unspecified; I10 Essential (primary) hypertension; Z79.899 Other long term (current) drug therapy
CPT/HCPCS: 71045; 80048; 84484; 85025; 93005; 96374; 96376; 99284

== ENCOUNTER 2024-08-22 01:29 | Emergency (ER) | payer MEDICARE, SELFPAY ==
[2024-08-22 01:31] VITALS: BP 139/93; PULSE 132; RESP 22; TEMP 36.3; BMI 21.2
--- NOTE | 2024-08-22 01:41 | EKG12_ITS ---
Test Reason : TACHYCARDIA Blood Pressure : */* mmHG Vent. Rate : 122 BPM Atrial Rate : * BPM P-R Int : * ms QRS Dur : 130 ms QT Int : 352 ms P-R-T Axes : * 67 237 degrees QTcB Int : 501 ms Atrial fibrillation with rapid ventricular response Left bundle branch block Abnormal ECG Confirmed by JEANETTE RON, VONNIE ([id number]), news copy editor TRAVIS QUACH ([id number]) on 08/25/2024 9:36:39 AM Referred By: KORI Confirmed By: VONNIE REID MD
--- NOTE | 2024-08-22 01:41 | EKG12_ITS ---
Test Reason : TACHYCARDIA Blood Pressure : */* mmHG Vent. Rate : 122 BPM Atrial Rate : * BPM P-R Int : * ms QRS Dur : 130 ms QT Int : 352 ms P-R-T Axes : * 67 237 degrees QTcB Int : 501 ms Atrial fibrillation with rapid ventricular response Left bundle branch block Abnormal ECG Confirmed by JEANETTE RON, VONNIE ([id number]), subeditor TRAVIS QUACH ([id number]) on 08/25/2024 9:36:39 AM Referred By: KORI Confirmed By: VONNIE REID MD
[2024-08-22 01:50] LABS: Hematocrit 39.5 % (37-47); Hemoglobin 13.2 g/dL (12.0-15.0); Immature Granulocytes Count 0.020 X10^3/uL (0.0-0.0); Mean Corp Hgb Conc 33.4 g/dL (32-36); Mean Corpuscular Volume 92.5 fL (81-99); Mean Platelet Vol. 11.4 fl (6.2-12.0); NRBC Flagged by Analyzer 0 % (0-5); POSITIVE MORPHOLOGY YES; Platelet Count 192 K/mm3 (150-450); RBC Distribution Width CV 13.5 % (11.6-14.6); RBC Distribution Width SD 46.1 fl (35.1-43.9); Red Blood Count 4.27 M/mm3 (4.2-5.4); White Blood Count 8.5 K/mm3 (4.4-11.0)
--- OUTSIDE RECORDS SUMMARY | 2024-08-22 01:51 | XMS RPT_ITS | CCD ---
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 Role Phone ÁNGELA TREVIÑO (PAC) Unavailable Unavaila EL Raygoza DR Admitting Unavailable EL GUTIERREZ DR Attending Unavailable EL GUTIERREZ DR Primary Care Unavailable JAREN JONES Consulting Unava ilable PROVIDER, UNKNOWN Consulting Unavailable EL GUTIERREZ DR Admitting Unavailable EL GUTIERREZ DR Attending Unavailable EL GUTIERREZ DR Primary Care Unavailable JAREN JONES Consulting Unava ilable PROVIDER, UNKNOWN Consulting Unavailable EL GTUIERREZ DR Admitting Unavailable EL GUTIERREZ DR Attending Unavailable EL GUTIERREZ DR Primary Care Unavailable JAREN JONES Consulting Unava ilable PROVIDER, UNKNOWN Consulting Unavailable Jaren Jones MD Primary Care Provider Jaren Jones MD Primary Care Provider Jaren Jones MD Primary Care Provider Unavailable Primary Care Provider Unavailjama e Dr. Angella Wallace Primary Care Provider Dr. Angella Wallace Attending Provider [phone] Angella Wallace Primary Care Provider Dr. Mayito Palacio Emergency Provider Dr. Patrick Still Attending Provider Dr. Angella Wallace Referring Provider [phone] Wiley GUADALUPE, ANAYELI Pandya Attending Provider Dr. Angella Wallace Primary Care Provider Dr. Mayito Palacio Emergency Provider Dr. Patrick Still Attending Provider [phone] Angella Wallace Referring Provider [phone] Wiley GUADALUPE, ANAYELI Pandya Attending Provider Dr. Odilon Baum Attending Provider Unavailable Primary Care Provider UnavailCLARA Portillo Referring Unavailable CLARA GU Referring Unavailable Dr. Angella Wallace MD Primary Care Provider Dr. Angella Wallace MD Referring Provider Dr. Beto Bro MD Attending Provider Dr. Kolby Wong DO Emergency Provider [phone] Rodrigo, Angella Primary Care Unavailable Kolby Wong Attending Unavailable Patrick Still Attending Unavailable Rodrigo, Angella Referring Unavailable Rodrigo, Angella Primary Care Unavailable RodrigoAngella Attending Unavailable Rodrigo, Angella Primary Care Unavailable Beto Bro Attending Unavailable Rodrigo, Angella Referring Unavailable Rodrigo, Angella Primary Care Unavailable Patrick Still Attending Unavailable Rodrigo, Angella Primary Care Unavailable Rodrigo, Angella Referring Unavailable Patrick Still Attending Unavailable Rodrigo, Angella Referring Unavailable Rodrigo, Angella Primary Care Unavailable RodrigoAngella Attending Unavailable Rodrigo, Angella Primary Care Unavailable Jus Johns Attending Unavailable Basali Ayeran Referring Unavailable Rodrigo, Angella Primary Care Unavailable BasalJus gu Attending Unavailable Basali, Ayman Referring Unavailable Rodrigo, Angella Primary Care Unavailable Allergies Allergy Classification Reported Allergen(s) Allergy Type Date of Onset Reaction(s) Facility (20 sources) benzocaine; Translations: [BENZOCAINE] Drug Allergy 01-29-20 04 Swelling [facility] Repository (20 sources) Latex; Translations: [LATEX] Propensity to adverse reactions to drug (disorder) 05-29-19 07 Swelling [facility] Repository (20 sources) meloxicam; Translations: [MELOXICAM] Drug Allergy 02-26-19 15 Other: See Comments [facility] Repository (20 sources) methylprednisoLONE ; Translations: [METHYLPREDNISOLON E] Drug Allergy 11-28-19 07 Hives, Swelling, Itching [facility] Repository (20 sources) NITROFURANTOIN MONOHYD/M-CRYST; Translations: [NITROFURANTOIN MONOHYD/M-CRYST] Propensity to adverse reactions to drug (disorder) 05-09-19 06 Vomiting [facility] Other [place] Repository (1 source) oxyCODONE Drug Allergy [facility] Repository (1 source) Sulfonamides (Antibiotic) Drug allergy (disorder) [facility] Repository (20 sources) traMADol; Translations: [TRAMADOL] Drug Allergy 10-24-19 21 Rash [facility] (8 sources) predniSONE Drug Allergy 10-24-19 21 Unknown [facility] (8 sources) Seasonal Allergies: Uncoded; Translations: [Seasonal Allergies: Uncoded] Allergy to substance 07-26-19 NEEDS FOLLOW-UP [facility] (1 source) predniSONE Drug Allergy 05-16-19 [facility] Repository (1 source) traMADol Drug Allergy 05-16-19 [facility] Repository Medications Current Medications Medication Drug Class(es) Dates Sig (Normalized) Sig (Original) acetaminophen 500 mg oral capsule (4 sources) Start: 04-05-2023 take 1 capsule by mouth every six hours as needed for pain Acetaminophen 500 mg capsule Active 500 mg PO EVERY 6 HOURS as needed for pain April 05, 2023 1:00am amLODIPine 5 mg oral tablet (20 sources) Dihydropyridine Calcium Channel Bryan Start: 10-23-2020 End: 07-18-2024 take 1 tablet by mouth once daily Amlodipine 5 mg tablet Active 5 mg PO DAILY July 18, 2024 3:04pm Comment on above: Take 1 tablet by shakira once daily. apixaban 2.5 mg oral tablet (7 sources) Factor Xa Inhibitor Start: 08-12-2024 take 1 tablet by mouth twice daily Apixaban (Eliquis) 2.5 mg tablet Active 2.5 mg PO TWICE A DAY August 12, 2024 12:00am Start: 04-05-2023 End: 11-13-2023 take 1 tablet by mouth twice daily Apixaban (Eliquis) 2.5 mg tablet Discontinued 2.5 mg PO TWICE A DAY 60 May 02, 2023 2:40pm November 13, 2023 2:22pm cyanocobalamin, vitamin B-12 , (VITAMIN B-12 ORAL) (20 sources) take 1 tablet by mouth once daily cyanocobalamin, vitamin B-12, (VITAMIN B-12 ORAL) Take 1 tablet by mouth once daily. Active take 1 tablet by mouth once macarena y cyanocobalamin, vitamin B-12, (VITAMIN B-12 ORAL) Take 1 tablet by mouth once daily. 0 Active Comment on above: Take 1 tablet by shakira th once daily. difluprednate 0.5 mg/ml ophthalmic suspension (20 sources) Start: take 1 drop(s) into the eye(s) once daily DUREZOL 0.05 % ophthalmic suspension instill 1 drop into left eye once a day 01/05/2021 Active Comment on above: instill 1 drop into left eye once a day dupilumab (DUPIXENT SYRINGE) 100 mg/0.67 mL injection (6 sources) dupilumab (DUPIX ENT SYRINGE) 100 mg/0.67 mL injection Inject 100 mg subcutaneously every 2 weeks. Active dupilumab (DUPIX ENT SYRINGE) 100 mg/0.67 mL injection Inject 100 mg subcutaneously every 2 weeks. 0 Active Comment on above: Inject 100 mg subcut aneously every 2 weeks. losartan potassium 100 mg oral tablet (20 sources) Angiotensin 2 Receptor Bryan Start: 10-24-19 End: 07-19-19 take 1 tablet by mouth once daily Losartan 100 mg tablet Active 100 mg PO DAILY July 18, 2024 3:04pm Comment on above: Take 1 tablet by shakira th once daily. Multivitamin preparation (6 sources) Start: 03-07-19 23 take 1 tablet by mouth once daily Multivitamin Active 1 TABLET PO DAILY March 07, 2022 12:00am Start: 03-07-2022 take 1 tablet by shakira th once daily Multivitamin Active 1 TABLET PO DAILY March 07, 2022 1:00am Multivitamin tablet (1 source) Start: 03-07-2022 Multivitamin tablet Active 1 {tbl} PO DAILY March 07, 2022 1:00am pravastatin sodium 10 mg oral tablet (20 sources) HMG-CoA Reductase Inhibitor Start: 08-04-2015 End: 07-18-2024 take 1 tablet by mouth at bedtime Pravastatin 10 mg tablet Active 10 mg PO AT BEDTIME July 18, 2024 3:04pm Comment on above: Take 1 tablet by shakira th daily at bedtime. predniSONE 10 mg oral tablet (2 sources) Start: 03-21-2022 End: 03-30-2022 predniSONE (DELTASONE) 10 mg tablet Indications: Rash Take 4 tabs daily for 3 days, then 2 tabs daily for 3 days, then 1 tab daily for 3 days with food. 21 tablet 0 03/21/2022 03/30/2022 Active Comment on above: Take 4 tabs daily fo r 3 days, then 2 tabs daily for 3 days, then 1 tab daily for 3 days with food. triamcinolone acetonide 0.25 mg/ml topical cream (11 sources) Corticosteroid Start: 03-21-2022 triamcinolone (KENALOG) 0.025 % cream Indications: Rash Apply 1 application to affected area twice daily. 30 g 03/21/2022 Active Comment on above: Apply 1 application to affected area twice daily. Completed/Discontinued Medications Medication Drug Class(es) Dates Sig (Normalized) Sig (Original) carvedilol 3.125 mg oral tablet (8 sources) alpha-Adrenergic Bryan, beta-Adrenergic Bryan Start: 10-24-2020 End: 04-10-2022 take 1 tablet by mouth twice daily at mealtime Carvedilol 3.125 mg tablet Discontinued 3.125 mg PO TWICE A DAY 60 October 24, 2020 12:00am April 10, 2022 2:24pm must administer with a meal/food ciprofloxacin 250 mg oral tablet (5 sources) Quinolone Antimicrobial Start: 03-07-2023 End: 03-12-2023 take 1 tablet by mouth twice daily Ciprofloxacin Hcl 250 mg tablet Discontinued 250 mg PO TWICE A DAY 10 5 March 07, 2023 1:00am March 11, 2023 1:00am March 12, 2023 1:04am gabapentin 100 mg oral capsule (9 sources) Anti-epileptic Agent Start: 04-09-2024 End: 05-15-2024 Gabapentin 100 mg capsule Discontinued 0 PO Q8H April 09, 2024 5:22pm May 15, 2024 2:48pm orally every 8 hours; Start: 04-04-2024 End: 04-09-2024 Gabapentin 100 mg capsule Discontinued 0 PO daily April 04, 2024 1:00am April 09, 2024 5:22pm Taper as directed. Start: 03-17-2024 End: 05-15-2024 take 1 capsule by mouth every eight hours Gabapentin 300 mg capsule Discontinued 300 mg PO Q8H 120 March 17, 2024 12:53pm May 15, 2024 2:48pm Start: 02-21-2024 End: 03-17-2024 take 1 capsule by mouth twice daily Gabapentin 300 mg capsule Discontinued 300 mg PO TWICE A DAY 60 February 21, 2024 5:49pm March 17, 2024 12:54pm Start: 12-24-2023 End: 01-28-2024 take 1 capsule by mouth once daily Gabapentin 100 mg capsule Discontinued 100 mg PO every day at noon December 24, 2023 1:00am January 28, 2024 10:08am Start: 12-03-2023 End: 01-28-2024 take 1 capsule by mouth twice daily Gabapentin 300 mg capsule Discontinued 300 mg PO TWICE A DAY 60 December 03, 2023 10:51am January 28, 2024 10:08am Start: 12-03-2023 End: 12-03-2023 take 1 capsule by mouth three times daily Gabapentin 100 mg capsule Discontinued 100 mg PO THREE TIMES A DAY 90 December 03, 2023 9:38am December 03, 2023 10:51am Start: 11-05-2023 End: 12-03-2023 take 1 capsule by mouth twice daily Gabapentin 100 mg capsule Discontinued 100 mg PO TWICE A DAY 60 November 13, 2023 12:57pm December 03, 2023 9:38am meclizine hydrochloride 12.5 mg oral tablet (5 sources) Antiemetic Start: 09-21-2021 End: 01-17-2022 take 1 tablet by mouth every twenty-four hours as needed for dizziness and dizziness meclizine (ANTIVERT) 12.5 mg tab Indications: Dizziness Take 1 tablet by mouth at bedtime as needed (dizziness). 30 tablet 1 09/21/2021 01/17/2022 Discontinued Comment on above: Take 1 tablet by shakira th at bedtime as needed (dizziness). metoprolol tartrate 25 mg oral tablet (20 sources) beta-Adrenergic Bryan Start: 07-09-2023 End: 07-09-2023 Metoprolol Tartrate 25 mg tablet Discontinued 12.5 mg PO TWICE A DAY July 09, 2023 11:04am July 09, 2023 11:23am Start: 03-07-2021 End: 07-09-2023 take 1 tablet by mouth twice daily Metoprolol Tartrate 25 mg tablet Discontinued 25 mg PO TWICE A DAY 60 May 02, 2023 2:40pm July 09, 2023 11:05am Comment on above: Take 1 tablet by shakira th twice daily. As needed per your directions MULTIVITAMIN ORAL (8 sources) End: 01-17-2022 MULTIVITAMIN ORAL Take by mouth. 0 01/17/2022 Discontinued MULTIVITAMIN ORA L Take by mouth. 0 Active Comment on above: Take by mouth. sertraline 25 mg oral tablet (2 sources) Serotonin Reuptake Inhibitor Start: 09-09-2021 End: 09-21-2021 take 1 tablet by mouth once daily sertraline (ZOLOFT) 25 mg tablet Indications: Anxiety with depression Take 1 tablet by mouth once daily. 30 tablet 2 09/09/2021 09/21/2021 Discontinued (Course of therapy completed) Comment on above: Take 1 tablet by shakira th once daily. Problems Active Problems Problem Classification Problem Date Documented Da te Episodic/Chronic Anxiety disorders (2 sources) Mixed anxiety and depressive disorder; Translations: [Other specified anxiety disorders] Chronic Cardiac dysrhythmias (10 sources) Atrial fibrillation; Translations: [Unspecified atrial fibrillation] Onset: 11-13-2023 04-05-2023 Chronic Cardiac dysrhythmias (20 sources) Palpitations; Translations: [Palpitations] Onset: 03-07-2021 03-07-2021 Episodic Conditions associated with dizziness or vertigo (3 [...] , unspecified] Onset: 08-12-2018 Diverticulosis and diverticulitis (20 sources) Diverticulosis of colon; Translations: [Diverticulosis of large intestine without perforation or abscess without bleeding] 01-31-2005 Chronic Essential hypertension (20 sources) Essential (primary) hypertension; Translations: [Essential hypertension] Onset: 05-17-2005 Chronic Inflammation; infection of eye (except that caused by tuberculosis or sexually transmitteddisease) (20 sources) Herpes zoster ophthalmicus; Translations: [Zoster ocular disease, unspecified] 08-20-2019 Episodic Malaise and fatigue (4 sources) Fatigue; Translations: [Other fatigue] 04-03-2023 Episodic Nonspecific chest pain (14 sources) Chest pain; Translations: [Chest pain, unspecified] Onset: 08-18-2024 10-31-2020 Episodic Osteoarthritis (16 sources) Unilateral post-traumatic osteoarthritis, right knee; Translations: [Unilateral primary osteoarthritis, right knee] Onset: 07-08-2018 04-10-2022 Chronic Other and unspecified benign neoplasm (20 sources) Benign neoplasm of colon; Translations: [Benign neoplasm of colon, unspecified] 01-31-2005 Episodic Other bone disease and musculoskeletal deformities (20 sources) Osteopenia; Translations: [Other specified disorders of bone density and structure, unspecified site] 05-25-2017 Episodic Other circulatory disease (1 source) H/O: atrial fibrillation; Translations: [Personal history of other diseases of the circulatory system] 08-12-2024 Episodic Other ear and sense organ disorders (1 source) Impacted cerumen of bilateral ears; Translations: [Impacted cerumen, bilateral] Episodic Other hereditary and degenerative nervous system conditions (1 source) Minimal cognitive impairment; Translations: [Mild cognitive impairment, so stated] Chronic Other lower respiratory disease (4 sources) Dyspnea on exertion; Translations: [Other forms of dyspnea] 04-03-2023 Episodic Other non-traumatic joint disorders (2 sources) Pain in right knee; Translations: [Pain in right knee] Onset: 08-12-2018 Episodic Other skin disorders (1 source) Eruption; Translations: [Rash and other nonspecific skin eruption] Episodic Spondylosis; intervertebral disc disorders; other back problems (20 sources) Degeneration of thoracic intervertebral disc; Translations: [Other intervertebral disc degeneration, thoracic region] Onset: 04-20-2009 Resolved: 05-25-2016 03-20-2014 Chronic Thyroid disorders (8 sources) Subclinical hypothyroidism; Translations: [Other specified hypothyroidism] 10-24-2020 Chronic Urinary tract infections (5 sources) Urinary tract infectious disease; Translations: [Urinary tract infection, site not specified] 03-07-2023 Episodic Past or Other Problems Problem Classification Problem Date Documented Da te Episodic/Chronic Allergic reactions (5 sources) Eruption due to drug; Translations: [Generalized skin eruption due to drugs and medicaments taken internally] Onset: 12-12-2007 Resolved: 01-05-2015 Episodic Hemorrhoids (4 sources) Internal hemorrhoids; Translations: [Other hemorrhoids] Resolved: 07-06-2015 07-06-2015 Episodic Other and unspecified benign neoplasm (20 sources) History of polyp of colon; Translations: [Personal history of colonic polyps] Onset: 02-26-2007 02-26-2007 Episodic Other and unspecified benign neoplasm (4 sources) 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; Translations: [Other benign neoplasm of skin of unspecified lower limb, including hip] Onset: 12-12-2007 Resolved: 07-06-2015 07-06-2015 Episodic Other and unspecified benign neoplasm (4 sources) Benign neoplasm of skin of trunk; Translations: [Other benign neoplasm of skin of trunk] Onset: 12-12-2007 Resolved: 07-06-2015 07-06-2015 Episodic Other circulatory disease (4 sources) Non-neoplastic nevus; Translations: [Nevus, non-neoplastic] Onset: 12-12-2007 Resolved: 01-05-2015 01-05-2015 Episodic Other connective tissue disease (20 sources) Bilateral cramp of muscle of lower limbs; Translations: [Cramp and spasm] Onset: 01-05-2015 01-05-2015 Episodic Other diseases of bladder and urethra (20 sources) Urethral caruncle; Translations: [Urethral caruncle] Onset: 12-28-2009 12-28-2009 Episodic Other gastrointestinal disorders (4 sources) Diarrhea; Translations: [Diarrhea, unspecified] Onset: 02-26-2007 Resolved: 12-21-2008 12-21-2008 Episodic Other screening for suspected conditions (not mental disorders or infectious disease) (20 sources) Patient encounter status; Translations: [Encounter for screening for malignant neoplasm of colon] Onset: 03-04-2015 03-04-2015 Episodic Other skin disorders (4 sources) Disorder of skin pigmentation; Translations: [Disorder of pigmentation, unspecified] Onset: 12-12-2007 Resolved: 01-05-2015 01-05-2015 Episodic Other skin disorders (4 sources) Seborrheic keratosis; Translations: [Other seborrheic keratosis] Onset: 12-12-2007 Resolved: 07-06-2015 07-06-2015 Episodic Other skin disorders (4 sources) Disorder of skin; Translations: [Hypertrophic disorder of the skin, unspecified] Onset: 12-12-2007 Resolved: 07-06-2015 07-06-2015 Episodic Other skin disorders (4 sources) Inflamed seborrheic keratosis; Translations: [Inflamed seborrheic keratosis] Onset: 01-02-2008 Resolved: 01-05-2015 01-05-2015 Episodic Spondylosis; intervertebral disc disorders; other back problems (20 sources) Pain in thoracic spine; Translations: [Low back pain] Onset: 05-22-2006 05-22-2006 Episodic Results Test Name Value Interpretation Reference Range Facility 12 Lead EKGon 08-12-2024 12 Lead EKG [facility] [address] [place] [address] 12 Lead EKG 08/12/24 1055 MR#: [id number] Acct: [id number] Name: ANABEL BARTHOLOMEW Rep #: [id number] : [id number] From: Odilon Baum MD Attending Dr: Status: DEP ER Ordering Dr: Kolby Wong DO Date: 08/12/24 Location: ED Sex: F C Admitted: Test Reason : ARRYTH Blood Pressure : */* mmHG Vent. Rate : 125 BPM Atrial Rate : * BPM P-R Int : * ms QRS Dur : 128 ms QT Int : 304 ms P-R-T Axes : * 64 228 degrees QTcB Int : 438 ms Atrial fibrillation with rapid ventricular response Left bundle branch block Abnormal ECG Confirmed by ODILON BAUM MD ([id number]), senior technical editor JUANA QUACH ([id number]) on 08/13/2024 11:05:35 AM Referred By: Confirmed By: ODILON BAUM MD 08/13/24 1105 Date Odilon Baum MD CC: Dr. Angella Wallace MD; Dr. Kolby Wong DO Signed Normal [facility] 12 Lead EKG [facility] [address] [place] [address] 12 Lead EKG 08/12/24 1149 MR#: [id number] Acct: [id number] Name: ANABEL BARTHOLOMEW Rep #: [id number] : [id number] From: Odilon Baum MD Attending Dr: Status: DEP ER Ordering Dr: Kolby Wong DO Date: 08/12/24 Location: ED Sex: F C Admitted: Test Reason : REPEAT-RHYTHM CHANGE Blood Pressure : */* mmHG Vent. Rate : 50 BPM Atrial Rate : 50 BPM P-R Int : 206 ms QRS Dur : 132 ms QT Int : 522 ms P-R-T Axes : 73 22 180 degrees QTcB Int : 475 ms Sinus bradycardia Left bundle branch block Abnormal ECG Confirmed by JEANETTE RON, ODILON ([id number]), senior technical editor JUANA QUACH ([id number]) on 08/13/2024 11:05:42 AM Referred By: Confirmed By: ODILON BAUM MD 08/13/24 1105 Date Odilon Baum MD CC: Dr. Angella Wallace MD; Dr. Kolby Wong DO Signed Normal [facility] Absolute lymphocyte countOrd ered By: Kolby Wong on 08-12-2024 Lymphocytes Auto (Unsp spec) [#/Vol] 1.53 10*3/uL 0.83-4.51 [facility] Absolute neutrophil countOrd ered By: Kolby Wong on 08-12-2024 Neutrophils (Bld) [#/Vol] 3.5 10*3/uL 2.0-7.7 [facility] Anion gap in Serum or Plasma Ordered By: Kolby Wong on 08-12-2024 Anion gap [Moles/Vol] 17 mmol/L High 5-15 [facility] Automated blood erythrocyte countOrdered By: Kolby Wong on 08-12-2024 RBC (Bld) [#/Vol] 4.53 10*6/uL Normal 4.2-5.4 [facility] Comment on above: Performed By: #### L 100.0100, L500.2500 #### [facility] [address] [place], [address] Automated blood hematocrit ( percentage)Ordered By: Kolby Wong on 08-12-2024 Hematocrit (Bld) [Volume fraction] 41.7 % Normal 37-47 [facility] Comment on above: Performed By: #### L 100.0100, L500.2500 #### [facility] [address] [place], [address] Automated lymphocyte count a s percentage of total leukocytesOrdered By: Kolby Wong on 08-12-2024 Lymphocytes/100 WBC Auto (Unsp spec) 26.7 % 19-41 [facility] BUN/creatinine ratioOrdered By: Kolby Wong on 08-12-2024 Urea nitrogen/Creatinine [Mass ratio] 24.0 mg/mg High 10-20 [facility] Basic Metabolic Profile (BMP )on 08-12-2024 BUN/CRE 24.0 RATIO High 10-20 [facility] Comment on above: Performed By: #### L 100.0100, L500.2500 #### [facility] [address] [place], [address] ECRCL 35.10 ml/min Low 50-250 [facility] Comment on above: Performed By: #### L 100.0100, L500.2500 #### [facility] [address] [place], [address] GAP 17 High 5-15 [facility] Comment on above: Performed By: #### L 100.0100, L500.2500 #### [facility] [address] [place], [address] Potassium [Moles/Vol] 3.6 mmol/L Normal 3.3-5.1 [facility] Comment on above: Performed By: #### L 100.0100, L500.2500 #### [facility] [address] [place], [address] Basophil percentageOrdered B y: Kolby Wong on 08-12-2024 Basophils/100 WBC (Bld) 0.9 % Normal 0-1 [facility] Comment on above: Performed By: #### L 100.0100, L500.2500 #### [facility] [address] [place], [address] CBC W/Diff, Automatedon 07-21 Absolute Lymph 1.53 X10 3/uL Normal 0.83-4.51 [facility] Comment on above: Performed By: #### L 100.0100, L500.2500 #### [facility] [address] [place], [address] Absolute Neut 3.5 X10 3/uL Normal 2.0-7.7 [facility] Comment on above: Performed By: #### L 100.0100, L500.2500 #### [facility] [address] [place], [address] IG% 0.300 Normal 0.0-0.9 [facility] Comment on above: Result Comment: IG% - Immature Granulocytes (promyelocytes, myelocytes and metamyelocytes) > 1% indicates that a LEFT SHIFT is Present. Performed By: #### L 100.0100, L500.2500 #### [facility] [address] [place], [address] Lymphocytes/100 WBC (Bld) 26.7 % Normal 19-41 [facility] Comment on above: Performed By: #### L 100.0100, L500.2500 #### [facility] [address] [place], [address] Nucleated RBC (Bld) [#/Vol] 0 10*3/uL Normal 0-5 [facility] Comment on above: Performed By: #### L 100.0100, L500.2500 #### [facility] [address] [place], [address] RDW SD 46.1 fl High 35.1-43.9 [facility] Comment on above: Performed By: #### L 100.0100, L500.2500 #### [facility] [address] [place], [address] Carbon dioxide, total [Moles /volume] in Central venous bloodOrdered By: Kolby Wong on 08-12-2024 CO2 [Moles/Vol] 23.0 mmol/L Normal 21.0-32.0 [facility] Comment on above: Performed By: #### L 100.0100, L500.2500 #### [facility] Laboratory [address] [place], [address] Chest 1 View (Portable)on Chest 1 View (Portable) [facility] Imaging Services [address] [place] [address] Chest 1 View (Portable) MR#: [id number] Acct: [id number] Name: ANABEL BARTHOLOMEW Rep #: [id number] : 1935 F 89 From: Fracisco irizarry MD PCP: Dr. Angella Wallace MD Status: REG ER Study: Chest 1 View (Portable) Date of Exam: 08/12/24 Exam# [id number] Ordering Dr: Kolby Wong DO PROCEDURE: CHEST 1 VIEW (PORTABLE) 08/12/2024 REASON FOR EXAM: COUGH TECHNIQUE: Frontal view of the chest. COMPARISON: Prior study dated April 05, 2023. FINDINGS: Hardware: EKG electrodes Heart: Lungs: The lungs are clear. Bones: Degenerative changes are identified within the thoracic spine. Other: RAD/Chest 1 View (Portable) IMPRESSION: No Acute Findings. Reading Location: [id number] CC: Dr. Angella Wallace MD; Dr. Kolby Wong DO Varnishing Unit Operator: Signed Normal [facility] Chloride assayOrdered By: Eladio Wong on 08-12-2024 Chloride [Moles/Vol] 97 mmol/L Low 98-108 [facility] Comment on above: Performed By: #### L 100.0100, L500.2500 #### [facility] Laboratory [address] [place], [address] Emergency Department Summary on 08-12-2024 Emergency Department Summary [facility] Medical Records Department [address] [place] [address] Emergency Department Summary 08/12/24 MR#: [id number] Acct: [id number] Name: ANABEL BARTHOLOMEW Rep #: [id number] : 1935 89 From: Kolby Galaviz PCP: Dr. Angella Wallace MD Status:REG ER Location: ED HPI History of Present Illness Chief Complaint: Chest Pain Informant: patient and spouse/S.O. Narrative Narrative: States around 8 AM this morning felt some funny feeling in her chest and went up to her neck. History of paroxysmal A-fib. She crawled up the steps she took a dose of metoprolol that was written previously by her rag baler. Previously on metoprolol and Eliquis however states on her visit was stopped by her rag baler. She denied any rectal bleeding complaints. She started having a dry cough yesterday. No vomiting no diarrhea. This feels similar to her A-fib events in the past. Reports some lightheaded symptoms. Prior Similar Symptoms: Yes CVD Risk Factors: Positive for Hypertension and Hypercholesterolemi a; Negative for Diabetes, Family History 1' PE Risk Factors: Negative for Recent Travel/Surgery, Recent Immobilization or Prior DVT or PE [facility] Medical History Spinal stenosis Spinal stenosis at L4-L5 level Sciatica associated with disorder of lumbar spine Herniated disc Vision problems Osteopenia Osteoarthritis Hives High cholesterol Hearing problem Carpal tunnel syndrome Cataracts, both eyes UTI (urinary tract infection) Back problem Arthritis Non-smoker Chest pain Hypertension Dysrhythmia Home Medications ???Medication ???Instructions ???Recorded ???Last Taken ???Type multivitamin 1 tab PO DAILY 03/07/22 04/04/23 H istory acetaminophen 500 mg capsule 500 mg PO Q6H PRN pain 04/05/23 History amlodipine 5 mg tablet 5 mg PO DAILY bp #90 tabs 07/18/24 Unknown Rx losartan 100 mg tablet 100 mg PO DAILY bp #90 tabs Unknown Rx pravastatin 10 mg tablet 10 mg PO QHS cholesterol #90 tabs 07/18/24 Unknown Rx apixaban 2.5 mg tablet (Eliquis) 2.5 mg PO BID #90 tabs 08/12/24 Un known Rx Allergy/AdvReac Type Severity Reaction Status Date / Time latex Allergy Rash Verified 05/15/24 14:46 meloxicam Allergy Rash Verified 05/15/24 14:46 prednisone Allergy Unknown Verified 05/15/24 14:46 Seasonal Allergies: Uncoded Allergy NEEDS Verified 05/15/24 14:46 FOLLOW-UP tramadol Allergy Rash Verified 05/15/24 14:46 Family History Grandmother , age 42 Arthritis Myocardial infarction Brother , age 47 Cancer lung Father , age 59 Myocardial infarction Heart disease Hypertension Mother , age 51 Melanoma Grandfather , age 69 CVA (cerebral vascular accident) Other Melanoma and neural system tumor syndrome Surgical History History of carpal tunnel surgery History of knee replacement H/O dilation and curettage History of tonsillectomy Social History household members: spouse Smoking Status: Never smoker alcohol intake: current alcohol intake frequency: a few times a week substance use type: does not use ROS ROS ED Constitutional Constitutional ED: Denies chills, fever(s) or sweats ENT ENT ED: Denies sore throat Cardiovascular Cardiovascular: Reports chest pain, palpitations and other Details: Lightheaded ; Denies leg edema or racing heartbeat Respiratory/Chest Respiratory/Chest: Reports cough; Denies dyspnea or dyspnea on exertion Gastrointestinal Gastrointestinal: Denies abdominal pain, diarrhea, nausea or vomiting Genitourinary Genitourinary ED: Denies dysuria, hematuria or urinary frequency Musculoskeletal Musculoskeletal: Denies back pain, extremity pain or neck pain Integumentary Denies rash or wounds Neurologic Neurologic: Denies headache(s), paresthesias or weakness EXAM Physical Exam Const Vital Signs: 08/12/24 10:52 08/12/24 10:57 08/12/24 11:21 Temperature 98.6 F Temperature Source Temporal Pulse Rate 126 H 102 H Respiratory Rate 28 H 20 H Respiratory Effort Normal Non-Labored Blood Pressure 138/117 H 111/93 H Blood Pressure Mean 124 99 Pulse Ox 94 100 Oxygen Delivery Method Room Air Room Air 08/12/24 11:26 08/12/24 11:29 08/12/24 12:00 Temperature Temperature Source Pulse Rate 99 54 L 51 L Respiratory Rate 18 16 16 Respiratory Effort Blood Pressure 134/95 H 135/80 H 116/75 Blood Pressure Mean 108 98 88 Pulse Ox 99 100 98 Oxygen Delivery Method Room Air Room Air 08/12/24 13:00 Temperature Temperature Source Pulse (more content not included)... Normal [facility] Eosinophil percentageOrdered By: Kolby Wong on 08-12-2024 Eosinophils/100 WBC (Bld) 1.9 % Normal 0-5 [facility] Comment on above: Performed By: #### L 100.0100, L500.2500 #### [facility] Laboratory [address] [place], [place], [id number] Erythrocyte distribution wid th ratioOrdered By: Kolby Wong on 08-12-2024 Erythrocyte distribution width (RBC) [Ratio] 13.5 % Normal 11.6-14.6 [facility] Comment on above: Performed By: #### L 100.0100, L500.2500 #### [facility] Laboratory [address] [place], [address] Erythrocyte distribution wid th standard deviationOrdered By: Kolby Wong on 08-12-2024 Erythrocyte distribution width (RBC) [Ratio] 46.1 fl High 35.1-43.9 [facility] Glomerular filtration rate ( GFR) estimation/1.73 sq m using serum, plasma, or whole bOrdered By: Kolby Wong on 08-12-2024 GFR/1.73 sq M.predicted among non-blacks MDRD (S/P/Bld) [Vol rate/Area] 63 mL/min/{1.73_m2} Normal >60 [facility] Comment on above: mL/min/1.73m2 CKD-EP I Creatinine Equation (2020) Result Comment: mL/m in/1.73m2 CKD-EPI Creatinine Equation (2020) Performed By: #### L 100.0100, L500.2500 #### [facility] Laboratory [address] [place], [address] Hemoglobin measurementOrdere d By: Kolby Wong on 08-12-2024 Hemoglobin (Bld) [Mass/Vol] 14.0 g/dL Normal 12.0-15.0 [facility] Comment on above: Performed By: #### L 100.0100, L500.2500 #### [facility] Laboratory [address] [place], [address] Immature granulocytes/100 WB C Auto (Bld)Ordered By: Kolby Wong on 08-12-2024 Immature granulocytes/100 WBC (Bld) 0.300 % 0.0-0.9 [facility] Comment on above: IG% - Immature Granu locytes (promyelocytes, myelocytes and metamyelocytes) > 1% indicates that a LEFT SHIFT is Present. L499.0042on 08-12-2024 Trop T High Sen 22 ng/L High <=14 [facility] Comment on above: Performed By: #### L 499.0042 #### [facility] Laboratory [address] [place], [address] L499.0043on 08-12-2024 Trop T High Sen Normal <=14 [facility] Comment on above: Result Comment: Canc elled via OM: Order cancelled - Patient discharged Performed By: #### L 499.0043 #### [facility] Laboratory [address] [place], [address] L501.4021on 08-12-2024 Trop T High Sen 30 ng/L High <=14 [facility] Comment on above: Performed By: #### L 501.4021 #### [facility] Laboratory [address] [place], [address] MCV (mean corpuscular volume ) determinationOrdered By: Kolby Wong on 08-12-2024 MCV (RBC) [Entitic vol] 92.1 fL Normal 81-99 [facility] Comment on above: Performed By: #### L 100.0100, L500.2500 #### [facility] Laboratory [address] [place], [address] Mean corpuscular hemoglobin (MCH) determinationOrdered By: Kolby Wong on 08-12-2024 MCH (RBC) [Entitic mass] 30.9 pg Normal 27.0-32.0 [facility] Comment on above: Performed By: #### L 100.0100, L500.2500 #### [facility] Laboratory [address] [place], [address] Mean corpuscular hemoglobin concentration (MCHC) determinationOrdered By: Kolby Wong on 08-12-2024 MCHC (RBC) [Mass/Vol] 33.6 g/dL Normal 32-36 [facility] Comment on above: Performed By: #### L 100.0100, L500.2500 #### [facility] [address] [place], [address] Mean platelet volume determi nationOrdered By: Kolby Wong on 08-12-2024 Platelet mean volume (Bld) [Entitic vol] 11.3 fL Normal 6.2-12.0 [facility] Comment on above: Performed By: #### L 100.0100, L500.2500 #### [facility] Laboratory [address] [place], [address] Monocyte percentageOrdered B y: Kolby Wong on 08-12-2024 Monocytes/100 WBC (Bld) 9.2 % Normal 0-10 [facility] Comment on above: Performed By: #### L 100.0100, L500.2500 #### [facility] [address] [place], [address] Neutrophil percentageOrdered By: Kolby Le on 08-12-2024 Neutrophils/100 WBC (Bld) 61.0 % Normal 47-70 [facility] Comment on above: Performed By: #### L 100.0100, L500.2500 #### [facility] Laboratory [address] [place], [address] Nucleated red blood cell per centageOrdered By: Kolby Wong on 08-12-2024 Nucleated RBC/100 WBC (Bld) [Ratio] 0 % 0-5 [facility] Platelet countOrdered By: Eladio Wong on 08-12-2024 Platelets (Bld) [#/Vol] 218 10*3/uL Normal 150-450 [facility] Comment on above: Performed By: #### L 100.0100, L500.2500 #### [facility] [address] [place], [address] Potassium measurement (mass/ volume)Ordered By: Kolby Wong on 08-12-2024 Potassium (Unsp spec) [Mass/Vol] 3.6 mmol/L 3.3-5.1 [facility] Serum creatinine measurement (mass/volume)Ordered By: Kolby Wong on 08-12-2024 Creatinine [Mass/Vol] 0.88 mg/dL Normal 0.70-1.20 [facility] Comment on above: Performed By: #### L 100.0100, L500.2500 #### [facility] [address] [place], [address] Serum glucose measurement (m ass/volume)Ordered By: Kolby Wong on 08-12-2024 Glucose [Mass/Vol] 107 mg/dL High 70-99 [facility] Comment on above: Performed By: #### L 100.0100, L500.2500 #### [facility] Laboratory [address] [place], [address] Serum or plasma calcium john urement (mass/volume)Ordered By: Kolby Wong on 08-12-2024 Calcium [Mass/Vol] 10.0 mg/dL Normal 7.6-11.0 [facility] Comment on above: Performed By: #### L 100.0100, L500.2500 #### [facility] Laboratory [address] [place], [place], [address] Serum or plasma urea nitroge n measurement (mass/volume)Ordered By: Kolby Wong on 08-12-2024 Urea nitrogen [Mass/Vol] 21 mg/dL High 4-19 [facility] Comment on above: Performed By: #### L 100.0100, L500.2500 #### [facility] Laboratory [address] [place], [place], [address] Sodium levelOrdered By: Kolby Wong on 08-12-2024 Sodium [Moles/Vol] 137 mmol/L Normal 133-145 [facility] Comment on above: Performed By: #### L 100.0100, L500.2500 #### [facility] Laboratory [address] [place], [place], [address] Troponin T.cardiac [Mass/vol ume] in Serum or Plasma by High sensitivity methodOrdered By: Kolby Wong on 08-12-2024 Troponin T.cardiac High sensitivity method [Mass/Vol] 22 ng/L High <14 [facility] Troponin T.cardiac High sensitivity method [Mass/Vol] 30 ng/L High <14 [facility] White blood cell (WBC) count Ordered By: Kolby Wong on 08-12-2024 WBC (Bld) [#/Vol] 5.7 10*3/uL Normal 4.4-11.0 [facility] Comment on above: Performed By: #### L 100.0100, L500.2500 #### [facility] Laboratory [address] [place], [place], [address] CNPNon 05-29-2024 YUDYN Telephone ([facility]) ---- ANABEL BARTHOLOMEW ([id number]) 1935 F Date Time Provider Department 05/29/24 ANT BURGOS During your visit today, we recorded the following information about you: Madiha Cooper 05/29/2024 9:39 AM Addendum Patient's appointment on 05/29/2024 was scheduled in error. Patient only reports concerns of sciatica and spinal stenosis; for these concerns, Patient should be scheduled with a Traveling Phlebotomist, not General Neurology. Called and spoke with patient. She agreed to cancel appt with Dr. Burgos. Patient will consult PCP prior to rescheduling. Patient will call back at a later time to reschedule. Madiha Cooper Allergies As of Date: 05/29/2024 Noted Allergy Reaction BENZOCAINE 01/29/2004 7 - Swelling LATEX 05/28/2006 7 - Swelling MACROBID (NITROFURANTOIN MONOHYD/*05/08/2005 11 - Vomiting MELOXICAM 02/26/2014 14 - Other: See Comments Comments: Itching, rash METHYLPREDNISOLONE 11/27/2006 4 - Hives 7 - Swelling 9 - Itching TRAMADOL 10/23/2020 2 - Rash Date Reviewed: 11/13/2022 Reviewed by: Ángela Leiva MD - Fully Assessed Reason for Visit: Appointment [186] Cmt: Appointment Scheduled in Error Prescriptions as of 05/29/2024 - dupilumab (DUPIXENT SYRINGE) 100 mg/0.67 mL injection Inject 100 mg subcutaneously every 2 weeks. - losartan (COZAAR) 100 mg tablet Take 1 tablet by mouth once daily. - pravastatin (PRAVACHOL) 10 mg tablet Take 1 tablet by mouth daily at bedtime. - triamcinolone (KENALOG) 0.025 % cream Apply 1 application to affected area twice daily. - amLODIPine (NORVASC) 5 mg tablet Take 1 tablet by mouth once daily. - cyanocobalamin, vitamin B-12, (VITAMIN B-12 ORAL) Take 1 tablet by mouth once daily. - metoprolol tartrate, short acting, (LOPRESSOR) 25 mg tablet Take 1 tablet by mouth twice daily. As needed per your directions - DUREZOL 0.05 % ophthalmic suspension instill 1 drop into left eye once a day Problem List As Of Date 05/29/2024 Noted Resolved BENIGN NEOPLASM LG BOWEL [D12.6] DIVERTICULOSIS OF COLON W/O BLEED [K57.30] Internal hemorrhoids without mention of complic* 07/06/2015 BENIGN HYPERTENSION [I10] 05/17/2005 Hyperlipidemia [E78.5] 05/17/2005 LUMBAGO [M54.50] 05/22/2006 Diarrhea [R19.7] 02/26/2007 12/21/2008 PERS HX COLONIC POLYPS [Z86.0100] 02/26/2007 SOLAR LENGINES///DYSCHROM IA OTHER [L81.9] 12/12/2007 01/05/2015 Other chronic dermatitis due to solar radiation* 8 01/05/2015 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, includin*12/12/2007 07/06/2015 NEVI TRUNK///BENIGN FERNIE SKIN TRUNK [D23.5] 12/12/2007 07/06/2015 Other seborrheic keratosis [L82.1] 12/12/2007 07/06/2015 CANNON ANGIOMA///NEVUS, NON-NEOPLASTIC [I78.1] 12/12/2007 01/05/2015 Unspecified hypertrophic and atrophic condition* 8 07/06/2015 Inflamed seborrheic keratosis [L82.0] 01/02/2008 01/05/2015 DJD (degenerative joint disease), 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/20/2009 05/25/2016 Urethral caruncle [N36.2] 12/28/2009 DDD (degenerative disc disease), 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/20/2014 Thoracic back pain [M54.6] 03/20/2014 Cramp of both lower extremities [R25.2] 01/05/2015 Special screening for malignant neoplasms, colo*03/04/2015 Osteopenia [M85.80] Herpes zoster ophthalmicus [B02.30] Palpitations [R00.2] 03/07/2021 LBBB (left bundle branch block) [I44.7] 03/07/2021 Encounter Status:Closed by MADIHA COOPER on 05/29/24 [facility] Orthopedic Visit Reporton Orthopedic Visit Report [facility] [address] [place] [address] [address] [place] [address] OFFICE VISIT Date of Service: 05/15/24 MR#: [id number] Acct: [id number] Name: ANABEL BARTHOLOMEW Rep #: [id number] : 1935 Provider: Dr. Beto Bro MD Age/Sex: 88/F Location: [facility] [place] Status: Signed Intake Vital Signs 01/28/24 09:11 05/15/24 14:45 Height 5 ft 3 in 5 ft 3 in Weight: 124 lb 2 oz 124 lb 8 oz BMI 21.9 22.0 BP 113/64 Blood Pressure Location Rt brachial Position Sitting Respiration 16 Pulse 72 Pulse Source Monitor Temp 98.7 F Temp Source Temporal Pulse Oximetry (%) 98 Oxygen Delivery Method room air Intake Visit Reasons: LUMBAR SPINE Chief Complaint: Lumbar spine pain Accompanied by: Is patient in pain?: Yes Pain scale (1-10): 7 Allergies latex Allergy (Verified 05/15/24 14:46) Rash meloxicam Allergy (Verified 05/15/24 14:46) Rash prednisone Allergy (Verified 05/15/24 14:46) Unknown Seasonal Allergies: Uncoded Allergy (Verified 05/15/24 14:46) NEEDS FOLLOW-UP tramadol Allergy (Verified 05/15/24 14:46) Rash Medications ???Medication ???Instructions ???Recorded ???Confirmed ???Type multivitamin 1 tab PO DAILY 03/07/22 05/15/24 H istory acetaminophen 500 mg capsule 500 mg PO Q6H PRN pain 04/05/23 History amlodipine 5 mg tablet 5 mg PO DAILY bp #90 tabs 07/04/23 05/15/24 Rx pravastatin 10 mg tablet 10 mg PO QHS cholesterol #90 tabs 07/04/23 05/15/24 Rx losartan 100 mg tablet 100 mg PO DAILY bp #90 tabs 05/15/24 Rx Have you fallen in the past year?: No PFSH Medical History Spinal stenosis Spinal stenosis at L4-L5 level Sciatica associated with disorder of lumbar spine Herniated disc Vision problems Osteopenia Osteoarthritis Hives High cholesterol Hearing problem Carpal tunnel syndrome Cataracts, both eyes UTI (urinary tract infection) Back problem Arthritis Non-smoker Chest pain Hypertension Dysrhythmia Surgical History History of carpal tunnel surgery History of knee replacement H/O dilation and curettage History of tonsillectomy Family History Grandmother , age 42 Arthritis Myocardial infarction Brother , age 47 Cancer lung Father , age 59 Myocardial infarction Heart disease Hypertension Mother , age 51 Melanoma Grandfather , age 69 CVA (cerebral vascular accident) Other Melanoma and neural system tumor syndrome Social History household members: spouse Smoking Status: Never smoker alcohol intake: current alcohol intake frequency: a few times a week substance use type: does not use HPI LUMBAR SPINE Details: This documentation accurately reflects the service provided and the decisions made by me, Dr. Beto Bro MD 05/15/24 1442. Part of today???s visit was documented by Eva Thomas ATC, acting as scribe. ANABEL BARTHOLOMEW is a 88 year old F here today for lumbar spine pain. Patient states the back pain started last July and she saw Dr. Wallace. Dr. Wallace sent her to physical therapy and this did not help with her pain it made the pain worse. She describes the pain over the right lumbar spine and it goes all the way down her leg to her ankle/foot. She complains of a numb feeling in her lower leg. She denies tingling in her legs but she does have tingling in her fingers. Patient was sent to Dr. Johns for pain management and she had a series of 3 injections and they did not give her any relief. The most recent injection was in late summer. After these did not give her relief he sent her for an MRI in September 2023. After the MRI she was referred to an orthopedic surgeon at [facility] and had imaging done and was told surgical procedure was not an option for her at this time. She recommended patient take Gabapentin for the pain and Dr. Wallace prescribed this for her. She did take this for several months and she was at the max dosage and it was not helping her pain and she went off of this and finished 05/02/2024. She denies any surgery to the lumbar spine. Patient had x-rays done at [facility] in about September 2023. The pain in the leg has not changed since September and it is constant. Walking distances have significantly decreased since this started last year. Patient walks with a walking stick or a cane at times to give her some extra support and relieve weight off of the legs. No heart/lung problems, hypertension, not currently taking any blood thinners, denies any problems with anesthesia with prior surgery, history of shingles but no long- ter (more content not included)... Normal [facility] MR/BMS.[facility] 01-28-2024 MR/BMS.[facility] [address] [place] [address] OFFICE VISIT Date of Service: 01/28/24 MR#: [id number] Acct: [id number] Name: ANABEL BARTHOLOMEW Rep #: [id number] : 1935 Provider: Dr. Angella denton MD Age/Sex: 88/F Location: [facility] Status: Signed Intake Vital Signs 08/06/23 11:03 11/13/23 14:03 01/28/24 09:11 Height 5 ft 3 in 5 ft 3 in 5 ft 3 in Weight: 124 lb 2 oz BMI 21.9 BP 113/64 Blood Pressure Location Rt brachial Position Sitting Respiration 16 Pulse 72 Pulse Source Monitor Temp 98.7 F Temp Source Temporal Pulse Oximetry (%) 98 Oxygen Delivery Method room air Intake Visit Reasons: 6 M FU Chief Complaint: 6 m fu Assurance Manager Required: No Accompanied by: Self Is patient in pain?: Yes (lower back pain, bilateral legs ) Pain scale (1-10): 7 Allergies latex Allergy (Verified 01/28/24 08:58) Rash meloxicam Allergy (Verified 01/28/24 08:58) Rash prednisone Allergy (Verified 01/28/24 08:58) Unknown Seasonal Allergies: Uncoded Allergy (Verified 01/28/24 08:58) NEEDS FOLLOW-UP tramadol Allergy (Verified 01/28/24 08:58) Rash Medications ???Medication ???Instructions ???Recorded ???Confirmed ???Type multivitamin 1 tab PO DAILY 03/07/22 01/28/24 History acetaminophen 500 mg capsule 500 mg PO Q6H PRN pain 04/05/23 01/28/24 History amlodipine 5 mg tablet 5 mg PO DAILY bp #90 tabs 07/04/23 01/28/24 Rx pravastatin 10 mg tablet 10 mg PO QHS cholesterol #90 tabs 07/04/23 01/28/24 Rx losartan 100 mg tablet 100 mg PO DAILY bp #90 tabs 10/17/23 01/28/24 Rx Have you fallen in the past year?: No PFSH Medical History (Updated 01/28/24 @ 09:[address] Angella Wallace MD) Spinal stenosis Spinal stenosis at L4-L5 level Sciatica associated with disorder of lumbar spine Herniated disc Vision problems Osteopenia Osteoarthritis Hives High cholesterol Hearing problem Carpal tunnel syndrome Cataracts, both eyes UTI (urinary tract infection) Back problem Arthritis Non-smoker Chest pain Hypertension Dysrhythmia Surgical History History of carpal tunnel surgery History of knee replacement H/O dilation and curettage History of tonsillectomy Family History Grandmother , age 42 Arthritis Myocardial infarction Brother , age 47 Cancer lung Father , age 59 Myocardial infarction Heart disease Hypertension Mother , age 51 Melanoma Grandfather , age 69 CVA (cerebral vascular accident) Other Melanoma and neural system tumor syndrome Social History (Updated 01/28/24 @ 09:10 by Kathy Velasquez RN) household members: spouse Smoking Status: Never smoker alcohol intake: current alcohol intake frequency: a few times a week substance use type: does not use HPI HPI Chief Complaint: 6 m fu Details: ANABEL BARTHOLOMEW, is a 88 F who presents to the office today for follow-up regards to chronic pain, sciatica. Patient had been referred up to [facility] and saw orthopedic spinal surgeon, Dr. Alonzo, who reportedly found she should not undergo surgical intervention but rather try Lyrica or gabapentin. She cited the patient's concerns about heart issues, but did leave the door open for possible intervention, with laminectomies. The patient on the other hand felt that orthopedic surgeon implied that she should not undergo surgery for her conditions. In any event, upon return, she contacted our office with that information to try and start gabapentin. She started gabapentin, uptitrated made no improvement. She did not have necessarily side effects but it did not help. She gets more relief with Tylenol which is fairly limited in terms of relief. The pain is mostly constant, but somewhat better when sitting down or laying down. When she is up trying to do any activity it is severe at times. She has seen Dr. Festus Ibarra and had back injections, however we discussed potentially seeing a different pain management physician who may have somewhat different techniques that might be another option. She is here basically looking for other options. Again did not get any benefit with gabapentin. It is unlikely she would do so with Lyrica but would likely experience side effects. She should not be taking routinely any anti-inflammatories long- term for a variety of reasons, not the least of which is his age, hypertension. She would like to proceed to see Dr. Stringer for different opinion on back injections. Also spent a fair amount of time discussing the [place] medical marijuana program to trial CBD and see if that would help. Made special emphasis if she were to look at that, how she should look at the [place] medical marijuana provider (more content not included)... Normal [facility] Thoracic Spine 3 Viewson Thoracic Spine 3 Views [facility] Imaging Services [address], [place] [address] Thoracic Spine 3 Views MR#: [id number] Acct: [id number] Name: ANABEL BARTHOLOMEW Rep #: [id number] : 1935 F 88 From: Atul Kamara MD PCP: Dr. Angella Wallace MD Status: REG CLI Study: Thoracic Spine 3 Views Date of Exam: 12/04/23 Exam# [id number] Ordering Dr: Jus Johns MD -[id number] INDICATION: Mid back pain EXAMINATION/TECHNIQ UE: X-RAY - XR Spine Thoracic 3 Views COMPARISON: 01/22/2023 FINDINGS: VERTEBRAE: Preserved vertebral body height. No fracture. No spondylolisthesis. Preservation of the normal thoracic kyphosis. DISCS: Stable mild degenerative disc space narrowing. INCLUDED CHEST/ABDOMEN: No acute abnormalities. RAD/Thoracic Spine 3 Views IMPRESSION: No acute findings or significant interval change from the prior study. Electronically Signed: Atul Kamara MD at 15:36 EDT Reading Location ID and State: [facility] / [place] Tel , Service support , CC: Dr. Jus Johns MD; Dr. Angella Wallace MD Varnishing Unit Operator: Signed Normal [facility] 12 Lead EKG performed by [facility] on 11-13-2023 12 [place] [address] 12 Lead EKG performed by [facility] 11/13/23 0858 MR#: [id number] Acct: [id number] Name: ANABEL BARTHOLOMEW Rep #: [id number] : 1935 88 From: Patrick Still MD Attending Dr: Dr. Patrick Still MD Status: DE P AMB Ordering Dr: Patrick Still MD Date: 11/13/23 Location: [facility] Sex: F C Admitted: BMS/12 Lead EKG performed by [facility] ECG Report Interpretation -------Sinus Rhythm -Left bundle branch block. ABNORMAL Electronically signed on 11/13/2023 at 15:[address] Patrick Still iExplore Software Version [id number] 11/13/23 1546 Date Patrick Still MD CC: Dr. Angella Wallace MD Date Dictated: 11/13/23857 Date Transcribed: 11/13/23857 Varnishing Unit Operator: Signed Normal [facility] Cardiology Visit Reporton Cardiology Visit Report [facility] [address] [place] [address] OFFICE VISIT Date of Service: 11/13/23 MR#: [id number] Acct: [id number] Name: ANABEL BARTHOLOMEW Rep #: [id number] : 1935 Provider: Dr. Patrick montes de oca MD Age/Sex: 88/F Location: [facility] Status: Signed HPI HPI History of Present Illness Details: Anabel Bartholomew is an 88 year old female presenting for follow-up visit. He has a history of atrial fibrillation being diagnosed following routine wellness visit to her primary care physician in March 2023. She also has a history of hypertension. She was evaluated here in the office and started on metoprolol 25 mg twice daily. She also had a stress test which showed no evidence of ischemia and an echocardiogram that was unremarkable. The patient had an episode of significant dizziness and lightheadedness during Sunday activities. She decreased her metoprolol to 12.5 mg twice daily. Comes in today and an EKG in the office shows sinus bradycardia at 48 and a chronic left bundle branch block. She continues her Eliquis without any nuisance bleeding. Patient does not have access to a wearable and she does not have a smart phone. Her does have a device for O2 sat monitoring that he is able to see his heart rate with that and his pulse beat. This allows him to know that he is in atrial fibs constantly and asked her to utilize this to check her heart rate and to watch for irregularities in her heartbeat. The patient has unilaterally dropped her Eliquis down to 2.5 mg daily. Her EKG in the office today shows sinus rhythm at 60 bpm her chronic left bundle branch block. The patient denies any dizziness lightheadedness or any palpitations. She is not really certain of any symptoms that she has with her atrial fibrillation as it was originally diagnosed as noted above at a wellness check. The patient has now been in documented sinus rhythm for 5 months. Her [id number] score is 4. Intake Vital Signs 08/06/23 11:03 11/07/23 10:33 11/13/23 14:03 Height 5 ft 3 in 5 ft 3 in 5 ft 3 in Weight: 125 lb BMI 22.1 BP 139/79 H Blood Pressure Location Lt brachial Position Sitting Respiration 18 Pulse 60 Pulse Source Monitor Pulse Oximetry (%) 98 Oxygen Delivery Method room air Intake Visit Reasons: 1 M FU Assurance Manager Required: No Accompanied by: Self Is patient in pain?: No Allergies latex Allergy (Verified 11/13/23 14:05) Rash meloxicam Allergy (Verified 11/13/23 14:05) Rash prednisone Allergy (Verified 11/13/23 14:05) Unknown Seasonal Allergies: Uncoded Allergy (Verified 11/13/23 14:05) NEEDS FOLLOW-UP tramadol Allergy (Verified 11/13/23 14:05) Rash Medications ???Medication ???Instructions ???Recorded ???Confirmed ???Type multivitamin 1 tab PO DAILY 03/07/22 11/13/23 History acetaminophen 500 mg capsule 500 mg PO Q6H PRN pain 04/05/23 11/13/23 History amlodipine 5 mg tablet 5 mg PO DAILY bp #90 tabs 07/04/23 11/13/23 Rx pravastatin 10 mg tablet 10 mg PO QHS cholesterol #90 tabs 07/04/23 11/13/23 Rx losartan 100 mg tablet 100 mg PO DAILY bp #90 tabs 10/17/23 11/13/23 Rx gabapentin 100 mg capsule 100 mg PO BID #60 caps 11/13/23 11/13/23 Rx Ejection fraction %: 55 Have you fallen in the past year?: No PFSH Medical History Sciatica associated with disorder of lumbar spine Herniated disc Vision problems Osteopenia Osteoarthritis Hives High cholesterol Hearing problem Carpal tunnel syndrome Cataracts, both eyes UTI (urinary tract infection) Back problem Arthritis Non-smoker Chest pain Hypertension Dysrhythmia Surgical History History of carpal tunnel surgery History of knee replacement H/O dilation and curettage History of tonsillectomy Family History Grandmother , age 42 Arthritis Myocardial infarction Brother , age 47 Cancer lung Father , age 59 Myocardial infarction Heart disease Hypertension Mother , age 51 Melanoma Grandfather , age 69 CVA (cerebral vascular accident) Other Melanoma and neural system tumor syndrome Social History household members: spouse Smoking Status: Never smoker substance use type: does not use ROS Const Const: Positive for fatigue (attributes to sciatic pain); Negative for weakness ENT ENT: Positive for balance problems; Negative for dizziness Cardio Chest Pain: No Palpitations: No Edema: None Muscle aches with walking: None Resp Respiratory: Negative for SOB with activity, SOB at rest or SOB ort (more content not included)... Normal [facility] MR/BMS.[facility] 11-07-2023 MR/BMS.[facility] [address] [place] [address] OFFICE VISIT Date of Service: 11/07/23 MR#: [id number] Acct: [id number] Name: ANABEL BARTHOLOMEW Rep #: [id number] : 1935 Provider: Dr. Angella denton MD Age/Sex: 88/F Location: [facility] Status: Signed Intake Vital Signs 08/06/23 11:03 11/07/23 10:33 Height 5 ft 3 in 5 ft 3 in Weight: 126 lb 6 oz 124 lb 2 oz BMI 22.4 21.9 BP 136/77 H 164/92 H Blood Pressure Location Lt brachial Lt brachial Position Sitting Sitting Respiration 16 18 Pulse 56 L 67 Pulse Source Monitor Monitor Temp 97.2 F L 98.2 F Temp Source Temporal Temporal Pulse Oximetry (%) 97 96 Oxygen Delivery Method room air Intake Visit Reasons: SCIATICA Chief Complaint: sciatica Assurance Manager Required: No Accompanied by: Self Is patient in pain?: Yes (right hip/glute/leg) Pain scale (1-10): 9 Allergies latex Allergy (Verified 11/07/23 10:26) Rash meloxicam Allergy (Verified 11/07/23 10:26) Rash prednisone Allergy (Verified 11/07/23 10:26) Unknown Seasonal Allergies: Uncoded Allergy (Verified 11/07/23 10:26) NEEDS FOLLOW-UP tramadol Allergy (Verified 11/07/23 10:26) Rash Medications ???Medication ???Instructions ???Recorded ???Confirmed ???Type multivitamin 1 tab PO DAILY 03/07/22 11/07/23 History acetaminophen 500 mg capsule 500 mg PO Q6H PRN pain 04/05/23 11/07/23 History apixaban 2.5 mg tablet (Eliquis) 2.5 mg PO BID #60 tabs 05/02/23 11/07/23 Rx amlodipine 5 mg tablet 5 mg PO DAILY bp #90 tabs 07/04/23 11/07/23 Rx pravastatin 10 mg tablet 10 mg PO QHS cholesterol #90 tabs 07/04/23 11/07/23 Rx losartan 100 mg tablet 100 mg PO DAILY bp #90 tabs 10/17/23 11/07/23 Rx gabapentin 100 mg capsule 100 mg PO QHS #14 caps 11/05/23 11/07/23 Rx Have you fallen in the past year?: No PFSH Medical History (Updated 11/07/23 @ 13:[address] Angella Wallace MD) Sciatica associated with disorder of lumbar spine Herniated disc Vision problems Osteopenia Osteoarthritis Hives High cholesterol Hearing problem Carpal tunnel syndrome Cataracts, both eyes UTI (urinary tract infection) Back problem Arthritis Non-smoker Chest pain Hypertension Dysrhythmia Surgical History History of carpal tunnel surgery History of knee replacement H/O dilation and curettage History of tonsillectomy Family History Grandmother , age 42 Arthritis Myocardial infarction Brother , age 47 Cancer lung Father , age 59 Myocardial infarction Heart disease Hypertension Mother , age 51 Melanoma Grandfather , age 69 CVA (cerebral vascular accident) Other Melanoma and neural system tumor syndrome Social History household members: spouse Smoking Status: Never smoker substance use type: does not use HPI HPI Chief Complaint: sciatica Details: ANABEL BARTHOLOMEW, is a 88 F who presents to the office today for an acute care follow-up visit. 88-year-old female. She has sciatica, but underlying this, she has severe osteoarthritis of the spine. She did have imaging done at [facility]. They discussed the possibility of surgical intervention. She really does not want to pursue that given concerns. They had tried injections through Dr. Johns without any benefit. At [facility], she saw Dr. Alonzo. Conclusion was to try Lyrica or gabapentin. We started gabapentin and she took the first dose last night. Did not make any improvement which is not any surprise at all. We discussed that. The visit was largely to discuss the plan of action, regarding Lyrica versus gabapentin. We discussed extensively, the potential benefits and risks, the wide range of dosing surrounding gabapentin. The expectation perhaps would be that we might try to achieve 200 mg twice daily p lashay and see how she is doing at that point in time. She still lives at home independently. Clearly need to have some degree of concern about her advanced age. She is using Tylenol in addition to that should not be using any other medications per se specifically for that she is in agreement. Would avoid anti-inflammatories . She is on apixaban. ROS Const Constitutional: No body ache, chills, excessive sweating, fatigue, fever(s), frequent falls, headache(s), snoring, weakness or change in appetite Eyes Eyes: No blurry vision, change in vision, eye pain or Light sensitivity ENT ENT: No abnormal hearing, ear or mastoid pain, tinnitus, nasal congestion, headache(s), neck pain or sore throat Resp Respiratory: No cough, shortness of breath, snoring or wheezing Cardio Cardiology: No chest pain at rest, chest pain wit (more content not included)... [facility] Telephone (AGOCMR) ---- ANABEL BARTHOLOMEW ([id number]) 1935 F Date Time Provider Department 10/24/23 CLARA GU During your visit today, we recorded the following information about you: Severo Rosas RN 10/24/2023 1:04 PM Signed I called and spoke to patient, returning her voice message. I notified her I placed new order for scoliosis films for her to obtain at [facility] on [facility] as she had originally declined to obtain them to further think about getting the scoliosis films. Patient verbalized understanding and appreciative of call. Patient will call office with any questions or concerns. TAYLOR Zurita Gina, APRN.[facility]GER [facility] 10/24/2023 3:43 PM Signed Addended by: RAJWINDER VIGIL on: 10/24/2023 03:43 PM Modules accepted: Orders Severo Rosas RN 10/24/2023 3:51 PM Signed Addended by: SEVERO ROSAS on: 10/24/2023 03:51 PM Modules accepted: Orders Allergies As of Date: 10/24/2023 Noted Allergy Reaction BENZOCAINE 01/29/2004 7 - Swelling LATEX 05/28/2006 7 - Swelling MACROBID (NITROFURANTOIN MONOHYD/*05/08/2005 11 - Vomiting MELOXICAM 02/26/2014 14 - Other: See Comments Comments: Itching, rash METHYLPREDNISOLONE 11/27/2006 4 - Hives 7 - Swelling 9 - Itching TRAMADOL 10/23/2020 2 - Rash Date Reviewed: 11/13/2022 Reviewed by: Ángela Leiva MD - Fully Assessed Reason for Visit: Returning Patient's Call [[phone]] Primary Visit Diagnosis:DDD (degenerative disc disease), 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] Order(s):XR SCOLIOSIS PA STAND/LAT 2V [[id number]] Order #: [id number] FUTURE Prescriptions as of 10/24/2023 - dupilumab (DUPIXENT SYRINGE) 100 mg/0.67 mL injection Inject 100 mg subcutaneously every 2 weeks. - losartan (COZAAR) 100 mg tablet Take 1 tablet by mouth once daily. - pravastatin (PRAVACHOL) 10 mg tablet Take 1 tablet by mouth daily at bedtime. - triamcinolone (KENALOG) 0.025 % cream Apply 1 application to affected area twice daily. - amLODIPine (NORVASC) 5 mg tablet Take 1 tablet by mouth once daily. - cyanocobalamin, vitamin B-12, (VITAMIN B-12 ORAL) Take 1 tablet by mouth once daily. - metoprolol tartrate, short acting, (LOPRESSOR) 25 mg tablet Take 1 tablet by mouth twice daily. As needed per your directions - DUREZOL 0.05 % ophthalmic suspension instill 1 drop into left eye once a day Problem List As Of Date 10/24/2023 Noted Resolved BENIGN NEOPLASM LG BOWEL [D12.6] DIVERTICULOSIS OF COLON W/O BLEED [K57.30] Internal hemorrhoids without mention of complic* 07/06/2015 BENIGN HYPERTENSION [I10] 05/17/2005 Hyperlipidemia [E78.5] 05/17/2005 LUMBAGO [M54.50] 05/22/2006 Diarrhea [R19.7] 02/26/2007 12/21/2008 PERS HX COLONIC POLYPS [Z86.010] 02/26/2007 SOLAR LENGINES///DYSCHROM IA OTHER [L81.9] 12/12/2007 01/05/2015 Other chronic dermatitis due to solar radiation* 8 01/05/2015 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, includin*12/12/2007 07/06/2015 NEVI TRUNK///BENIGN FERNIE SKIN TRUNK [D23.5] 12/12/2007 07/06/2015 Other seborrheic keratosis [L82.1] 12/12/2007 07/06/2015 CANNON ANGIOMA///NEVUS, NON-NEOPLASTIC [I78.1] 12/12/2007 01/05/2015 Unspecified hypertrophic and atrophic condition* 8 07/06/2015 Inflamed seborrheic keratosis [L82.0] 01/02/2008 01/05/2015 DJD (degenerative joint disease), 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/20/2009 05/25/2016 Urethral caruncle [N36.2] 12/28/2009 DDD (degenerative disc disease), 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/20/2014 Thoracic back pain [M54.6] 03/20/2014 Cramp of both lower extremities [R25.2] 01/05/2015 Special screening for malignant neoplasms, colo*03/04/2015 Osteopenia [M85.80] Herpes zoster ophthalmicus [B02.30] Palpitations [R00.2] 03/07/2021 LBBB (left bundle branch block) [I44.7] 03/07/2021 Encounter Status:Closed by SEVERO ROSAS on 10/24/23 [facility] XR SCOLIOSIS 2V PA STAND/LAT on 10-24-2023 XR SCOLIOSIS 2V PA STAND/LAT * * *Final Report* * * DATE OF EXAM: Oct 24 2023 4:04PM WRX [id number] - XR SCOLIOSIS 2V PA STAND/LAT / PROCEDURE REASON: DDD (degenerative disc disease), thoracic * * * * Physician Interpretation * * * * EXAMINATION: XR SCOLIOSIS 2V PA STAND/LAT CLINICAL HISTORY: Degenerative disc disease Technique: XR SCOLIOSIS 2V PA STAND/LAT -- NOT APPLICABLE with 2 views on 4 images Comparison: None RESULT: No acute fracture. Multilevel degenerative disc disease of the thoracic and lumbar spine. Grade 1 retrolisthesis of L2 on L3. Mild levoscoliosis of the upper thoracic spine with approximately 15 degrees angulation from T1 through T6. Mild dextro scoliosis of the lumbar spine with approximately 12 degrees angulation from L1 through L5. IMPRESSION: Multilevel degenerative disc disease. No acute fracture. Varnishing Unit Operator: PSCB Transcribe Date/Time: Oct 26 2023 8:14A Dictated by : ALMAS WOODARD MD This examination was interpreted and the report reviewed and electronically signed by: ALMAS WOODARD MD on Oct 26 2023 8:17AM EST [id number] [id number] Normal [facility] iNco 10-23-2023 CNPN Telephone (AGOR) ---- ANABEL BARTHOLOMEW ([id number]) 1935 F Date Time Provider Department 10/23/23 CLARA GU During your visit today, we recorded the following information about you: Severo Rosas RN 10/23/2023 11:55 AM Signed Spoke with patient in regards to upcoming appointment with Dr. Gu on 11/02/2023. Provided detailed instructions as to when and how to obtain scoliosis films. She stated she will go to [facility] on [address] to obtain imaging. Additionally, she stated she obtained MRI of lumbar spine in August at [facility]. Notified her our office will reach out to them to push over imaging/fax report. She understood. Patient also asked if appointment could be switched to the afternoon on the . Appointment moved from 11am to 2pm. Patient agreeable and thankful for information. Encouraged to call with any further questions or concerns. Severo Rosas RN 10/23/2023 11:55 AM Signed I called and spoke to [facility] at [phone] to get MRI of lumbar spine from August 2023 pushed and report faxed. They will get imaging pushed and reports faxed to us. Provided fax number. 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 - losartan (COZAAR) 100 mg tablet Take 1 tablet by mouth once daily. - pravastatin (PRAVACHOL) 10 mg tablet Take 1 tablet by mouth daily at bedtime. - triamcinolone (KENALOG) 0.025 % cream Apply 1 application to affected area twice daily. - amLODIPine (NORVASC) 5 mg tablet Take 1 tablet by mouth once daily. - cyanocobalamin, vitamin B-12, (VITAMIN B-12 ORAL) Take 1 tablet by mouth once daily. - metoprolol tartrate, short acting, (LOPRESSOR) 25 mg tablet Take 1 tablet by mouth twice daily. As needed per your directions - DUREZOL 0.05 % ophthalmic suspension instill 1 drop into left eye once a day Problem List As Of Date 10/23/2023 Noted Resolved BENIGN NEOPLASM LG BOWEL [D12.6] DIVERTICULOSIS OF COLON W/O BLEED [K57.30] Internal hemorrhoids without mention of complic* 07/06/2015 BENIGN HYPERTENSION [I10] 05/17/2005 Hyperlipidemia [E78.5] 05/17/2005 LUMBAGO [M54.50] 05/22/2006 Diarrhea [R19.7] 02/26/2007 12/21/2008 PERS HX COLONIC POLYPS [Z86.010] 02/26/2007 SOLAR LENGINES///DYSCHROM IA OTHER [L81.9] 12/12/2007 01/05/2015 Other chronic dermatitis due to solar radiation* 8 01/05/2015 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, includin*12/12/2007 07/06/2015 NEVI TRUNK///BENIGN FERNIE SKIN TRUNK [D23.5] 12/12/2007 07/06/2015 Other seborrheic keratosis [L82.1] 12/12/2007 07/06/2015 CANNON ANGIOMA///NEVUS, NON-NEOPLASTIC [I78.1] 12/12/2007 01/05/2015 Unspecified hypertrophic and atrophic condition* 8 07/06/2015 Inflamed seborrheic keratosis [L82.0] 01/02/2008 01/05/2015 DJD (degenerative joint disease), 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/20/2009 05/25/2016 Urethral caruncle [N36.2] 12/28/2009 DDD (degenerative disc disease), 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/20/2014 Thoracic back pain [M54.6] 03/20/2014 Cramp of both lower extremities [R25.2] 01/05/2015 Special screening for malignant neoplasms, colo*03/04/2015 Osteopenia [M85.80] Herpes zoster ophthalmicus [B02.30] Palpitations [R00.2] 03/07/2021 LBBB (left bundle branch block) [I44.7] 03/07/2021 Encounter Status:Closed by SEVERO ROSAS on 10/23/23 Normal [facility] 12 Lead EKG performed by [facility] on 10-15-2023 12 Lead EKG performed by [facility] [address] [place] [address] 12 Lead EKG performed by [facility] 10/15/231101 MR#: [id number] Acct: [id number] Name: ANABEL BARTHOLOMEW Rep #: [id number] : 1935 88 From: Patrick Still MD Attending Dr: Dr. Patrick Still MD Status: DE P AMB Ordering Dr: Patrick Still MD Date: 10/15/23 Location: [facility] [place] Sex: F C Admitted: [facility]/12 Lead EKG performed by [facility] ECG Report Interpretation -------Sinus Rhythm -Left bundle branch block. ABNORMAL Electronically signed on 10/15/2023 at 12:[address] Patrick Still iExplore Software Version [id number] 10/15/23 1204 Date Patrick Still MD CC: Dr. Angella Wallace MD Date Dictated: 10/15/231101 Date Transcribed: 10/15/231101 Varnishing Unit Operator: Signed Normal [facility] Spine Lumbar (Routine)on Spine Lumbar (Routine) [facility] Imaging Services [address] [place] [address] Spine Lumbar (Routine) MR#: [id number] Acct: [id number] Name: ANABEL BARTHOLOMEW Rep #: [id number] : 1935 F 88 From: Brianne Hussein MD PCP: Dr. Angella Wallace MD Status: [facility] Study: Spine Lumbar (Routine) Date of Exam: 10/03/23 Exam# [id number] Ordering Dr: Jus Johns MD -[id number] STUDY: MRI LUMBAR SPINE WITHOUT CONTRAST REASON FOR EXAM: Female, 88 years old. RADICULOPATHY TECHNIQUE: Standardized fat and water weighted pulse sequences were obtained in the sagittal and axial planes. COMPARISON: None FINDINGS: T12-L1: Normal endplates. Normal disc height, hydration and morphology. Normal bilateral facet joints. Normal central canal and bilateral lateral recesses. Normal bilateral intervertebral neural foramina. Normal lumbar lordosis. Mild dextroscoliosis centered at L3. Normal conus medullaris that terminates at the L1/L2. L1-2: Mild bilateral facet hypertrophy with fluid in the facet joints consistent with instability and moderately inflamed hypertrophy. 2 mm retrolisthesis of L1 on L2 with a mild bilobed disc protrusion produces mild spinal stenosis and mild bilateral neural foraminal stenosis. L2-3: Mild bilateral facet hypertrophy with fluid in the facet joints consistent with instability and moderate ligament flavum hypertrophy. 2 mm retrolisthesis of L2 on L3 with a moderate bilobed disc protrusion produces moderate spinal stenosis and moderate bilateral neural foraminal stenosis. L3-4: Mild bilateral facet hypertrophy and severe ligament flavum hypertrophy. Large broad disc protrusion produces severe spinal stenosis with near total effacement of the spinal canal and moderate bilateral neural foraminal stenosis. L4-5: Mild bilateral facet hypertrophy and severe ligament flavum hypertrophy. Moderate bilateral disc protrusion produces severe spinal stenosis with near total effacement of the spinal canal and moderate bilateral neural foraminal stenosis. L5-S1: Mild bilateral facet hypertrophy and severe ligament flavum hypertrophy. 2 mm retrolisthesis of L5 on S1 with a mild broad disc protrusion produces severe spinal stenosis and moderate bilateral neural foraminal stenosis. Normal visualized sacral ala. 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 Multiple bilateral renal cysts.. MRI/Spine Lumbar (Routine) IMPRESSION: Mild dextroscoliosis and severe degenerative disc disease as described above. Electronically Signed: Brianne Hussein MD at 9:07 EDT , CC: Dr. Jus Johns MD; Dr. Angella Wallace MD Varnishing Unit Operator: Signed Normal [facility] 12 Lead EKG performed by [facility] [place] on 09-10-2023 12 Lead EKG performed by [facility] [address] [place] [address] 12 Lead EKG performed by [facility] [place] 09/10/23 1011 MR#: [id number] Acct: [id number] Name: ANABEL BARTHOLOMEW Rep #: [id number] : [id number] From: Patrick Still MD Attending Dr: Dr. Patrick Still MD Status: DE P AMB Ordering Dr: Patrick Still MD Date: 09/10/23 Location: [facility] [place] Sex: F C Admitted: [facility] [place]/12 Lead EKG performed by [facility] [place] ECG Report Interpretation -------Sinus Rhythm LBBBABNORMAL Electronically signed on 09/17/2023 at 12:[address] Patrick Still [employer] Version [id number] 09/17/23 1229 Date Patrick Still MD CC: Dr. Angella Wallace MD Date Dictated: 09/10/23 1011 Date Transcribed: 09/10/23 1011 Varnishing Unit Operator: Signed Normal [facility] Absolute lymphocyte countOrd ered By: Mayitomaru Palacio on 04-05-2023 Lymphocytes Auto (Unsp spec) [#/Vol] 1.05 10*3/uL 0.83-4.51 [facility] Automated lymphocyte count a s percentage of total leukocytesOrdered By: Mayitomaru Palacio on 04-05-2023 Lymphocytes/100 WBC Auto (Unsp spec) 23.3 % 19-41 [facility] Basophil percentageOrdered B y: Mayitomaru Palacio on 04-05-2023 Basophils/100 WBC (Bld) 0.7 % 0-1 [facility] Chloride [Moles/Vol] 105 mmol/L 98-107 [facility] Eosinophils/100 WBC (Bld) 2.7 % 0-5 [facility] Glucose [Mass/Vol] 108 mg/dL 74-106 [facility] Comment on above: Fasting Glucose resu lt from 100 to 125 mg/dL suggests IMPAIRED HOMEOSTASIS per A.D.A. criteria. Hemoglobin (Bld) [Mass/Vol] 13.5 g/dL 12.0-15.0 [facility] Monocytes/100 WBC (Bld) 10.9 % 0-10 [facility] Neutrophils (Bld) [#/Vol] 2.8 10*3/uL 2.0-7.7 [facility] Neutrophils/100 WBC (Bld) 62.0 % 47-70 [facility] Potassium [Moles/Vol] 3.8 mmol/L 3.5-5.1 [facility] Sodium [Moles/Vol] 138 mmol/L 136-145 [facility] WBC (Bld) [#/Vol] 4.5 10*3/uL 4.4-11.0 [facility] Determination of erythrocyte mean corpuscular volume (MCV)Ordered By: Mayitomaru Perezo on 04-05-2023 MCV (RBC) [Entitic vol] 96.3 fL 81-99 [facility] Erythrocyte distribution wid th ratioOrdered By: Mayito Palacio on 04-05-2023 Erythrocyte distribution width (RBC) [Ratio] 13.2 % 11.6-14.6 [facility] Erythrocyte distribution wid th standard deviationOrdered By: [facility] on 04-05-2023 Erythrocyte distribution width (RBC) [Entitic vol] 47.0 fL 35.1-43.9 [facility] Hematocrit Auto (Bld) [Volum e fraction]Ordered By: [facility] on 04-05-2023 Hematocrit (Bld) [Volume fraction] 42.1 % 37-47 [facility] Immature granulocytes/100 WB C Auto (Bld)Ordered By: [facility] on 04-05-2023 Immature granulocytes/100 WBC (Bld) 0.400 % 0.0-0.9 [facility] Comment on above: IG% - Immature Granu locytes (promyelocytes, myelocytes and metamyelocytes) > 1% indicates that a LEFT SHIFT is Present. Laboratory - Chemistry and C hemistry - challengeOrdered By: [facility] on 04-05-2023 CO2 [Moles/Vol] 29.0 mmol/L 21.0-32.0 [facility] Urea nitrogen/Creatinine [Mass ratio] 22.4 mg/mg 10-20 [facility] Laboratory - Hematology and Cell countsOrdered By: [facility] on 04-05-2023 MCH (RBC) [Entitic mass] 30.9 pg 27.0-32.0 [facility] MCHC (RBC) [Mass/Vol] 32.1 g/dL 32-36 [facility] Nucleated RBC/100 WBC (Bld) [Ratio] 0 % 0-5 [facility] Platelet mean volume (Bld) [Entitic vol] 11.2 fL 6.2-12.0 [facility] Platelets (Bld) [#/Vol] 170 10*3/uL 150-450 [facility] No Panel InformationOrdered By: [facility] on 04-05-2023 Troponin I High Sensitivity 16 pg/mL 3.0-54.0 [facility] Comment on above: Please Note: New Nikia t Units and Gender Specific Reference Ranges. For more information see Policy Stat Procedure [place] High Sensitivity Troponin (TNIH) and attachments. Estimated Creatinine Clearance Calc 40.98 ml/min [facility] Estimated GFR (MDRD) Amer 87 mL/min >60 [facility] Comment on above: GFR Calc Estimated GFR (MDRD) Non-Af Amer 72 mL/min >60 [facility] Comment on above: Non- GFR Calc RBC Auto (Bld) [#/Vol]Ordere d By: Mayito Palacio on 04-05-2023 RBC (Bld) [#/Vol] 4.37 10*6/uL 4.2-5.4 [facility] Serum or plasma calcium john urement (mass/volume)Ordered By: Mayito Palacio on 04-05-2023 Calcium [Mass/Vol] 9.6 mg/dL 8.5-10.1 [facility] Serum or plasma creatinine m easurement (mass/volume)Ordered By: Mayitomaru Palacio on 04-05-2023 Creatinine [Mass/Vol] 0.80 mg/dL 0.55-1.02 [facility] Comment on above: The validity of the calculated GFR & GFRAA in patients over 70 years has not been determined. Clinical correlation is essential. Serum or plasma thyroid stim ulating hormone (TSH) measurement (units/volume)Ordered By: Mayito Palacio on 04-05-2023 TSH Qn 2.85 uIU/mL 0.358-3.74 [facility] Serum or plasma urea nitroge n measurement (mass/volume)Ordered By: Mayitomaru Palacio on 04-05-2023 Urea nitrogen [Mass/Vol] 18 mg/dL 7-18 [facility] Thin prep Papanicolaou smear with manual screeningOrdered By: Mayito Palacio on 04-05-2023 Thin prep Papanicolaou smear with manual screening 4 5-15 [facility] Basophil percentageOrdered B y: Angella Wallace on 03-07-2023 Basophil percentage 0-5 SEEN /hpf 0-5 [facility] Bilirubin Test strip Ql (U)O rdered By: Angella Wallace on 03-07-2023 Bilirubin Ql (U) 3 mg/dL Negative [facility] Comment on above: COLOR OF URINE MAY A FFECT DIPSTICK RESULTS. Culture, urineOrdered By: Susie Wallace on 03-07-2023 Bacteria identified Cx Nom (U) Enterococcus faecium [facility] Bacteria identified Cx Nom (U) Enterococcus faecium [facility] Ketones Test strip Ql (U)Ord ered By: Angella Wallace on 03-07-2023 Ketones Ql (U) Negative Negative [facility] Mucus LM Ql (Urine sed)Order ed By: Angella Wallace on 03-07-2023 Mucus Ql (Urine sed) 0 SEEN /hpf [facility] Nitrite Test strip Ql (U)Ord ered By: Angella Wallace on 03-07-2023 Nitrite Ql (U) Positive Negative [facility] No Panel InformationOrdered By: Angella Wallace on 03-07-2023 Urine RBC 0-5 SEEN /hpf 0-5 [facility] Protein Test strip Ql (U)Ord ered By: Angella Wallace on 03-07-2023 Protein Ql (U) 15 mg/dl Negative [facility] Squamous epithelial cells de tection in urine sediment by light microscopyOrdered By: Angella Wallace on 03-07-2023 Epithelial cells.squamous LM Ql (Urine sed) 0 SEEN /hpf 5-10 [facility] Urine blood detectionOrdered By: Angella Wallace on 03-07-2023 RBC Ql (U) 25 /ul Negative [facility] Urine clarityOrdered By: Rufina Wallace on 03-07-2023 Clarity (U) Clear Clear [facility] Urine color determinationOrd ered By: Angella Wallace on 03-07-2023 Color (U) Lauren Yellow [facility] Urine glucose detectionOrder ed By: Angella Wallace on 03-07-2023 Glucose Ql (U) Normal mg/dl Normal [facility] Urine leukocyte esterase det ection by dipstickOrdered By: Angella Wallace on 03-07-2023 Leukocyte esterase Test strip Ql (U) 25 /ul Negative [facility] Urine pHOrdered By: Angella thornton on 03-07-2023 pH (U) 7.0 [pH] 5.0 - 8.0 [facility] Urine sediment bacteria coun t by microscopy (number/high power field)Ordered By: Angella Wallace on 03-07-2023 Bacteria LM.HPF (Urine sed) [#/Area] 0 /[HPF] None Seen [facility] Urine specific gravity measu rementOrdered By: Angella Wallace on 03-07-2023 Specific gravity (U) [Rel density] 1.010 1.002-1.030 [facility] Urine urobilinogen measureme ntOrdered By: Angella Wallace on 03-07-2023 Urobilinogen Ql (U) 8 mg/dl Normal [facility] Absolute lymphocyte countOrd ered By: Angella Wallcae on 11-15-2022 Lymphocytes Auto (Unsp spec) [#/Vol] 1.04 10*3/uL 0.83-4.51 [facility] Basophil percentageOrdered B y: Angella Wallace on 11-15-2022 Basophils/100 WBC (Bld) 0.5 % 0-1 [facility] Bilirubin [Mass/Vol] 0.40 mg/dL 0.20-1.00 [facility] Comment on above: For patients on eltr ombopag therapy, use of Dimension [place] TBIL is not recommended. Chloride [Moles/Vol] 105 mmol/L 98-107 [facility] Cholesterol [Mass/Vol] 183 mg/dL <200 [facility] Comment on above: <200 mg/dL Desirable 200-240 mg/dL Borderline >240 mg/dL High Risk Eosinophils/100 WBC (Bld) 1.9 % 0-5 [facility] Glucose [Mass/Vol] 110 mg/dL 74-106 [facility] Comment on above: Fasting Glucose resu lt from 100 to 125 mg/dL suggests IMPAIRED HOMEOSTASIS per A.D.A. criteria. Neutrophils (Bld) [#/Vol] 4.1 10*3/uL 2.0-7.7 [facility] Neutrophils/100 WBC (Bld) 69.5 % 47-70 [facility] Potassium [Moles/Vol] 3.8 mmol/L 3.5-5.1 [facility] Protein [Mass/Vol] 6.9 g/dL 6.4-8.2 [facility] Sodium [Moles/Vol] 139 mmol/L 136-145 [facility] Triglyceride [Mass/Vol] 102 mg/dL <199 [facility] Comment on above: The drugs N-Acetylcy steine and Metamizole may falsely depress this assay.Serum Triglycerides Reference Interval Normal <150 mg/dL Borderline high 150 - 199 mg/dL High 200 - 499 mg/dL Very High > or = 500 mg/dL WBC (Bld) [#/Vol] 5.9 10*3/uL 4.4-11.0 [facility] Blood erythrocytes count (nu mber/volume)Ordered By: Angella Wallace on 11-15-2022 RBC (Bld) [#/Vol] 3.98 10*6/uL 4.2-5.4 [facility] Blood hemoglobin measurement (mass/volume)Ordered By: Angella Wallace on 11-15-2022 Hemoglobin (Bld) [Mass/Vol] 12.2 g/dL 12.0-15.0 [facility] Blood lymphocytes/100 leukoc ytesOrdered By: Angella Wallace on 11-15-2022 Lymphocytes/100 WBC (Bld) 17.7 % 19-41 [facility] Blood monocytes/100 leukocyt esOrdered By: Angella Wallace on 11-15-2022 Monocytes/100 WBC (Bld) 10.1 % 0-10 [facility] Blood platelet mean volumeOr dered By: Angella Wallace on 11-15-2022 Platelet mean volume (Bld) [Entitic vol] 11.0 fL 6.2-12.0 [facility] Determination of erythrocyte mean corpuscular volume (MCV)Ordered By: Angella Wallace on 11-15-2022 MCV (RBC) [Entitic vol] 97.2 fL 81-99 [facility] Hematocrit Auto (Bld) [Volum e fraction]Ordered By: Angella Wallace on 11-15-2022 Hematocrit (Bld) [Volume fraction] 38.7 % 37-47 [facility] Laboratory - Chemistry and C hemistry - challengeOrdered By: Angella Wallace on 11-15-2022 ALP [Catalytic activity/Vol] 61 U/L 45-117 [facility] ALT [Catalytic activity/Vol] 32 U/L 13-56 [facility] CO2 [Moles/Vol] 30.0 mmol/L 21.0-32.0 [facility] Free T4 [Mass/Vol] 0.79 ng/dL 0.76-1.46 [facility] Globulin (S) [Mass/Vol] 3.2 g/dL 2.2-4.2 [facility] Magnesium [Mass/Vol] 2.3 mg/dL 1.6-2.6 [facility] Urea nitrogen/Creatinine [Mass ratio] 21.8 mg/mg 10-20 [facility] Laboratory - Hematology and Cell countsOrdered By: Angella Wallace on 11-15-2022 Erythrocyte distribution width (RBC) [Entitic vol] 48.9 fL 35.1-43.9 [facility] Erythrocyte distribution width (RBC) [Ratio] 13.6 % 11.6-14.6 [facility] Immature granulocytes/100 WBC (Bld) 0.300 % 0.0-0.9 [facility] Comment on above: IG% - Immature Granu locytes (promyelocytes, myelocytes and metamyelocytes) > 1% indicates that a LEFT SHIFT is Present. MCH (RBC) [Entitic mass] 30.7 pg 27.0-32.0 [facility] Nucleated RBC/100 WBC (Bld) [Ratio] 0 % 0-5 [facility] MCHC Auto (RBC) [Mass/Vol]Or dered By: Angella Wallace on 11-15-2022 MCHC (RBC) [Mass/Vol] 31.5 g/dL 32-36 [facility] No Panel InformationOrdered By: Angella Wallace on 11-15-2022 Estimated GFR (MDRD) Amer 84 mL/min >60 [facility] Comment on above: GFR Calc Estimated GFR (MDRD) Non-Af Amer 70 mL/min >60 [facility] Comment on above: Non- GFR Calc Free Triiodothyronine (T3) pg/dL 2.1 pg/mL 2.18-3.98 [facility] Thyroid Stimulating Hormone (TSH) 2.48 uIU/mL 0.358-3.74 [facility] Vitamin D 25-Hydroxy 38.3 ng/mL [facility] Comment on above: Vitamin D 25(OH) Sta tus Range Deficiency <20 ng/mL (50nmol/L) Insufficiency 20 - 30 ng/mL (50 - 75 nmol/L) Sufficiency 30 - 100 ng/mL (75 - 250 nmol/L) Toxicity >100 ng/mL (>250 nmol/L) Platelets bldOrdered By: Rufina Wallace on 11-15-2022 Platelets (Bld) [#/Vol] 169 10*3/uL 150-450 [facility] Serum or plasma albumin john urement (mass/volume)Ordered By: Angella Wallace on 11-15-2022 Albumin [Mass/Vol] 3.7 g/dL 3.2-5.0 [facility] Serum or plasma albumin/glob ulin mass ratioOrdered By: Angella Wallace on 11-15-2022 Albumin/Globulin [Mass ratio] 1.2 {ratio} 0.9-2.4 [facility] Serum or plasma calcium john urement (mass/volume)Ordered By: Angella Wallace on 11-15-2022 Calcium [Mass/Vol] 8.6 mg/dL 8.5-10.1 [facility] Serum or plasma cholesterol in HDL measurement (mass/volume)Ordered By: Angella Wallace on 11-15-2022 Cholesterol in HDL [Mass/Vol] 78 mg/dL >40 [facility] Comment on above: The drugs N-Acetylcy steine and Metamizole may falsely depress this assay. Reference Range HDL <40 mg/dL Low HDL Cholesterol HDL >or= 60 mg/dL High HDL Cholesterol Serum or plasma cholesterol in VLDL measurement (mass/volume)Ordered By: Angella Wallace on 11-15-2022 Cholesterol in VLDL [Mass/Vol] 20 mg/dL 5-40 [facility] Serum or plasma creatinine m easurement (mass/volume)Ordered By: Angella Wallace on 11-15-2022 Creatinine [Mass/Vol] 0.82 mg/dL 0.55-1.02 [facility] Comment on above: The validity of the calculated GFR & GFRAA in patients over 70 years has not been determined. Clinical correlation is essential. Serum or plasma low density lipoprotein (LDL) cholesterol measurement (mass/volume)Ordered By: Angella Wallace on 11-15-2022 Cholesterol in LDL [Mass/Vol] 85 mg/dL 0-130 [facility] Serum or plasma urea nitroge n measurement (mass/volume)Ordered By: Angella Wallace on 11-15-2022 Urea nitrogen [Mass/Vol] 18 mg/dL 7-18 [facility] Thin prep Papanicolaou smear with manual screeningOrdered By: Angella Wallace on 11-15-2022 Thin prep Papanicolaou smear with manual screening 23 U/L 15-37 [facility] Thin prep Papanicolaou smear with manual screening 4 5-15 [facility] MARY SCREENING W [place] 10-20 [facility] Final Surgical Pathology Rep andrea 08-14-2018 Final Surgical Pathology Report . Pathology Reports Accession: Collected Date/Time: Received Date/Time: Pathologist: [id number] 08/09/2018 13:35 EDT 08/12/2018 13:35 EDT MD BRIANNE TRIVEDI Final Surgical Pathology Report DIAGNOSIS: RIGHT HIP, REPLACEMENT- REACTIVE BONE WITH EBURNATED ARTICULAR SURFACE CONSISTENT WITH CLINICAL HISTORY OF TRAUMATIC ARTHRITIS. NEGATIVE FOR INFLAMMATION OR NEOPLASIA. COMMENT: [facility] - A# [id number] CLINICAL INFORMATION: RIGHT KNEE POST TRAUMATIC ARTHRITIS SPECIMEN: A RIGHT HIP BONE GROSS DESCRIPTION: Received in formalin labeled with the patient's name are multiple convex and concave fragmented portions of fitzpatrick-yellow bone and soft tissue aggregating 8 x 8 x 10 x 8 x 1.5 cm. The articular surfaces are focally eburnated and the cartilage is focally nodular. The underlying bone is yellow and dense to trabecular. Bow Machine Operator sections are submitted following decalcification in one cassette. Dictated by Adry GUADALUPE ([facility]) MICROSCOPIC DESCRIPTION: Slides reviewed. Electronically Signed by Pathology Report verified by [facility] Electronically signed by BRIANNE TRIVEDI MD Sign out Date: 08/14/2018 17:25 Performing Lab: [facility], [address] [place] [address] Normal [facility] ([place]) Comment on above: Performed By: #### S PFR #### [place] [address] BMP with eGFRon 08-13-2018 Age - Reported 83 years Normal [facility] Comment on above: Performed By: #### 2 [id number] #### [facility],[address] [place], [place] [id number] Anion gap [Moles/Vol] 11 mmol/L Normal 10 - 20 [facility] Comment on above: Performed By: #### 2 [id number] #### [facility],[address] [place] [address] Calcium [Mass/Vol] 9.0 mg/dL Normal 8.6 - 10.2 [facility] Comment on above: Performed By: #### 2 [id number] #### [facility],[address] [place] [address] Chloride [Moles/Vol] 103 mmol/L Normal 98 - 107 [facility] Comment on above: Performed By: #### 2 98293 #### [facility],[address] [place] [address]357 CO2 [Moles/Vol] 26.2 mmol/L Normal 21.0 - 31.0 [facility] Comment on above: Performed By: #### 2 92581 #### [facility],[address] [place] [address]990 Creatinine [Mass/Vol] 0.8 mg/dL Normal 0.6 - 1.2 [facility] Comment on above: Performed By: #### 2 89663 #### [facility],[address] [place], [place] [id number] GFR/1.73 sq M predicted among non-blacks MDRD (S/P/Bld) [Vol rate/Area] mL/min/{1.73_m2} Normal 60 - 999 [facility] Comment on above: Performed By: #### 2 [id number] #### [facility],[address] [place], [place] [id number] Result Comment: ACCO RDING TO THE NATIONAL KIDNEY DISEASE EDUCATION PROGRAM(NKDE), A NORMAL eGFR IS A VALUE GREATER THAN OR EQUAL TO 60 ML/MIN/1.73 SQ METERS. CHRONIC KIDNEY DISEASE: <60mL/MIN/1.73 SQ METERS KIDNEY FAILURE: <15mL/MIN/1.73 SQ METERS THIS TEST SHOULD ONLY BE USED FOR PATIENTS 18 YEARS OF AGE AND OLDER. GFR/1.73 sq M predicted among non-blacks MDRD (S/P/Bld) [Vol rate/Area] Normal [facility] Comment on above: Result Comment: BASI C METABOLIC PANEL Performed By: #### 2 71583 #### [facility],[address] [place] [address] Glucose [Mass/Vol] 134 mg/dL High 74 - 106 [facility] Comment on above: Performed By: #### 2 56037 #### [facility],[address] [place] [address]12 Potassium [Moles/Vol] 3.7 mmol/L Normal 3.5 - 5.1 [facility] Comment on above: Performed By: #### 2 44828 #### [facility],[address] [place] [address] 01294 Sodium [Moles/Vol] 136 mmol/L Normal 136 - 145 [facility] Comment on above: Performed By: #### 2 17085 #### [facility],[address] [place], [place] [id number] Urea nitrogen [Mass/Vol] 15 mg/dL Normal 6 - 20 [facility] Comment on above: Performed By: #### 2 88603 #### [facility],[address] [place] [address]171 CBC + DIFFon 08-13-2018 Basophils (Bld) [#/Vol] 0.00 x10EE3/UL Normal 0.00 - 0 .10 [facility] Comment on above: Performed By: #### 2 75440 #### [facility],[address] [place] [address]03 Basophils/100 WBC (Bld) 0.4 % Normal 0.0 - 2.0 [facility] Comment on above: Performed By: #### 2 50304 #### [facility],[address] [place] [address] 94396 CBC + DIFF Normal [facility] Comment on above: Result Comment: CBC- COMPLETE BLOOD COUNT Performed By: #### 2 [id number] #### [facility],[address] [place] [address] Eosinophils (Bld) [#/Vol] 0.00 x10EE3/UL Normal 0.00 - 0.50 [facility] Comment on above: Performed By: #### 2 82787 #### [facility],[address] [place], [place] [id number] Eosinophils/100 WBC (Bld) 0.1 % Normal 0.0 - 7.0 [facility] Comment on above: Performed By: #### 2 76825 #### [place] [address] Erythrocyte distribution width (RBC) [Ratio] 14.9 % Normal 12.0 - 15.6 [facility] Comment on above: Performed By: #### 2 [id number] #### [place] [address] Hematocrit (Bld) [Volume fraction] 33.9 % Low 34.0 - 46.0 [facility] Comment on above: Performed By: #### 2 60566 #### [place] [address] Hemoglobin (Bld) [Mass/Vol] 11.5 g/dL Low 12.0 - 16.0 [facility] Comment on above: Performed By: #### 2 11784 #### [place] [id number] Lymphocytes (Bld) [#/Vol] 0.70 x10EE3/UL Low 0.80 - 2.80 [facility] Comment on above: Performed By: #### 2 83342 #### [place] [id number] Lymphocytes/100 WBC (Bld) 6.0 % Low 20.0 - 45.0 [facility] Comment on above: Performed By: #### 2 69624 #### [place] [id number] MANUAL DIFF N/A Normal [facility] Comment on above: Performed By: #### 2 85920 #### [facility],[address] [place] [address] MCH (RBC) [Entitic mass] 31 pg Normal 27 - 33 [facility] Comment on above: Performed By: #### 2 99997 #### [facility],[address] [place] [address] MCHC (RBC) [Mass/Vol] 34 X10 3 Normal 32 - 36 [facility] Comment on above: Performed By: #### 2 66521 #### [place] [address] MCV (RBC) [Entitic vol] 91 fL Normal 80 - 99 [facility] Comment on above: Performed By: #### 2 37301 #### [place] [address] Monocytes (Bld) [#/Vol] 0.90 x10EE3/UL Normal 0.20 - 1 .00 [facility] Comment on above: Performed By: #### 2 42176 #### [place] [address] MONOS % 7.8 % Normal 0.0 - 10.0 [facility] Comment on above: Performed By: #### 2 90701 #### [facility],[address] [place], [place] [id number] Morphology Zaki (Bld) [Interp] N/A Normal [facility] Comment on above: Performed By: #### 2 55506 #### [place] [address] Neutrophils (Bld) [#/Vol] 9.40 x10EE3/UL High 1.50 - 7.10 [facility] Comment on above: Performed By: #### 2 05542 #### [facility],[address] [place] [address] 201[address] Neutrophils/100 WBC (Bld) 85.7 % High 46.0 - 76.0 [facility] Comment on above: Performed By: #### 2 75071 #### [facility],[address] [place] [address] Platelet mean volume (Bld) [Entitic vol] 9.1 fL Normal 6.6 - 10.5 [facility] Comment on above: Result Comment: AUTO MATED DIFFERENTIAL Performed By: #### 2 94991 #### [address] [address] Platelets (Bld) [#/Vol] 145 x10EE3/UL Low 150 - 450 [facility] Comment on above: Performed By: #### 2 93837 #### [address] [address] RBC (Bld) [#/Vol] 3.73 x 10EE6/UL Low 4.10 - 5.30 [facility] Comment on above: Performed By: #### 2 06470 #### [facility],[address] [place] [address] WBC (Bld) [#/Vol] 10.9 x 10EE3/UL High 4.5 - 10.8 [facility] Comment on above: Performed By: #### 2 92585 #### [address] [address] OPERATIVE PROCEDURESon 08-13 OPERATIVE PROCEDURES [facility] OPERATIVE REPORT NAME ACCOUNT SEX AGE ADMIT DISCHARGE PT MED. RECORD# NUMBER DATE DATE TYPE [place] [id number] F 83 08/12/18 1 ANABEL [place] [id number] ROOM: [facility] DATE OF : 1935 DICTATING PHYSICIAN: El Gutierrez DATE OF SURGERY: August 12, 2018 SURGEON: El Gutierrez MD LIVESTOCK TRUCKER: Alfreda Thomas PA-C; MILAGROS Yang student ANESTHESIOLOGIST: Matthew Hooker CRNA ANESTHETIC: Spinal with adductor canal nerve block. PREOPERATIVE DIAGNOSIS: Right knee osteoarthritis. POSTOPERATIVE DIAGNOSIS: Right knee osteoarthritis. OPERATION PERFORMED: Right total knee replacement. COMPLICATIONS: None. ESTIMATED BLOOD LOSS: 50 mL. SPECIAL MEDICATIONS: Ancef, Decadron and tranexamic acid. INDICATIONS FOR SURGERY: The patient is an 83-year-old female with a history of knee pain. She failed conservative measures and wished to have a right total knee replacement. Appropriate informed consent was obtained and signed. FINDINGS: Intraoperative findings were consistent with knee arthritis. She underwent a standard anterior approach to the knee followed by a cemented ConforMIS knee replacement using a size 6C insert, medial polyethylene 6.1 mm and lateral polyethylene 9.5 mm. The patella was a 35 x 7 symmetric patellar button. A pre-made tibia and femur were used. retail assistant/physician delivery assistant was utilized under standard technique. She helped with patient positioning, holding of limbs, and holding of retractors. She helped with exposure throughout. She helped with alignment and positioning of our cutting guides as well as components. She helped with wound closure, bandage application, Page 1 of 3 ANABEL BARTHOLOMEW A Operative Report and patient transfer. She also was critical in teaching the COATING OPERATOR student assisting techniques and suturing techniques. Without the surgical training specialist, surgical time would have been increased, and surgical outcome could have been less optimal. DESCRIPTION OF OPERATION: The patient was taken to the operating room and transferred to the OR table. She was given a spinal anesthetic previously. ANGELA hose and an SCD were placed on the nonoperative limb. The right upper thigh was well padded. The right lower extremity was prepped, padded and draped in the usual sterile orthopedic fashion for the procedure. We began by injecting our pain-relieving solution of epinephrine, Duramorph and ropivacaine at the anterosuperior knee. The limb was exsanguinated, and the tourniquet was applied to 300 mmHg. A midline incision was carried through skin and subcutaneous tissue, bringing us down onto the extensor mechanism. Medial parapatellar arthrotomy was carried out. We released a sleeve of tissue off the upper and medial tibia. We resected the degenerative medial and lateral menisci. We noted arthritis throughout the knee with bone spurs and loss of cartilage, and the effusion was evacuated. We removed the ACL as well as the degenerative medial and lateral menisci. We removed tissue off the anterior aspect of the distal femur. Bone spurs were taken off about the patella. The patella was translated. We placed retractors medially and laterally, held by the assistants. We placed retractors superiorly, and we used the cutting guide system for the femur, beginning with removing cartilage off the end of the bone, followed by the cutting guide system to do the anterior, posterior and chamfer cuts under standard technique with the cutting guides and with the retractors held by the assistants and pins holding the blocks in place. The bony fragment was removed. We then went to the tibia. We removed the cartilage off the upper surface of the tibia. We then placed the tibial cutting guide with the appropriate 7-degree posterior slope built in. That was held in place with 3 pins. The assistants held the limb and held the retractors. We removed that piece of bone. The PCL was preserved, and the collateral ligaments were preserved. Bone spurs were removed from the posteromedial and posterolateral aspects of the femur. We now placed our femoral trial and our tibial trial, and that was allowed to free float. We checked its position based on the alignment guides as well as the pre-made templates from the CT scans. We pinned that in place ultimately at the tibia and did the drill and the punch on the upper tibia. We were happy with our construct. The sclerotic bone was freshened with a sharp pin. The patella was everted, measured and appropriate resection carried out, leaving us just under a 15 mm thick patella. We trialed and decided on a 35 x 7 mm symmetric patella. The clamp was held by the surgeon. The delivery assistant drilled 3 holes through the guide. The trial was placed and removed. The wound was thoroughly irrigated, cleaned and dried. At this point, we controlled the bleeding at the back of the knee with the Bovie. Two full batches of bone cement were mixed and opened. We had opened the components; the pre-made tibia, the pre-made femur, and the appropriate patellar button. After thoroughly irrigating and cleaning the knee and having injected our pain-relieving solution at the back of the knee, we now cemented on the tibia, femur and patella. The patella was clamped in position, and the other things were hammered into position. The excess bone cement was removed. The inserts were placed, and the knee was held in full extension by the surgeon while the delivery assistant injected our pain-relieving solution throughout the knee. Once the cement was fully hardened, the tourniquet was Page 2 of 3 ANABEL BARTHOLOMEW Operative Report let down. The bleeding was controlled with the Bovie. The wound was again thoroughly irrigated. We did use Irrisept irrigant for infection control twice throughout the procedure, using the remainder of it now. That was washed out at one minute. The patella tracked nicely. The knee was stable. We placed our actual inserts prior to closing, with the 6C inserts being placed. The knee was flexed and extended. The patella tracked nicely. We repaired the arthrotomy with #1 Vicryl about the patella and a running #2 Stratafix. We did a deep layer of 0 Vicryl, inverted 2-0 Vicryl, Steri-Strips, and Mepilex dressing. We then placed BRAXTON wraps. The patient was awakened from her anesthetic and transferred back to her own bed in the recovery room in satisfactory condition. She had an adductor canal nerve block done in the recovery room. She will be on aspirin for DVT prevention, Ancef for infection prevention, and hopefully discharged to home tomorrow. Dictated By: lE Gutierrez MD 08/12/18 12:59 JOB #: [id number] Transcribed By: osiris 08/12/18 17:21 Electronically signed by: E-SIGN DR. EL GUTIERREZ M.D. 08/13/18 07:33 Page 3 of 3 ANABEL BARTHOLOMEW Operative Report Normal [facility] KNEE 2 VIEWS RTon 08-12-2018 KNEE 2 VIEWS [place] [address] Patient: JACKIECRANABEL. Phone#: : 1935 Age: 83 Gender: F Pt. Type: In Account: [id number] Location: [id number] Ordering: EL GUTIERREZ Exam Date: 08/12/2018/11:28 Family Phys: JAREN JONES Charge Code: [id number] Physician: [place] Order #: [id number] DLP Dose#: PROCEDURE: X-RAY KNEE RT 2 VIEWS COMPARISON: None. INDICATIONS: Post Operative Knee. FINDINGS: BONES: Total knee prosthesis is present. The adjacent bony architecture is intact. SOFT TISSUES: Postsurgical soft tissue air is present. EFFUSION: None visible. OTHER: Negative. CONCLUSION: 1. Total knee prosthesis is present. Dictated by: Jeni Eubanks MD on 08/12/2018 at 12:17 Approved by: Jeni Eubanks MD on 08/12/2018 at 12:17 Normal [facility] HISTORY AND PHYSICAL EXAMon 08-05-2018 HISTORY AND PHYSICAL EXAM [facility] HISTORY & PHYSICAL NAME ACCOUNT SEX AGE ADMIT DISCHARGE PT MED. RECORD# NUMBER DATE DATE TYPE [place] [id number] F 82 1 ANABEL [place] [id number] ROOM: DATE OF : 35 DICTATING PHYSICIAN: Alfreda Thomas PROCEDURE TYPE: Right total knee replacement. PROCEDURE DATE: August 12, 2018 ATTENDING PHYSICIAN: Dr. El Gutierrez HISTORY OF PRESENT ILLNESS: This is an 82-year-old female with the chief complaint of right knee pain that has been ongoing and getting progressively worse over the past several years. She has had a previous left total knee replacement in 2016 and is very pleased with the surgical outcome. The right knee pain can be as bad as an 8 out of 10 and has had previous knee arthroscopies in 2009 and 2010. She has some right lower back and leg pain, history of sciatica. The right knee pain is described as constant, aching, and sharp. It is worse with stairs and sitting for an extended period of time. Sitting, resting, elevating the leg, and stretching with the leg elevated can help at times. Activities modifications include a reduced ability to perform normal daily activities without pain. She has difficulty with bathing, showering, getting dressed, doing her housework, and walking through the grocery store. She has not tripped or fallen. She does not feel unsafe performing any activities. Conservative measures have included rest, ice, heat, elevation, cortisone injection February of 2018 without any long-term relief of her symptoms. She has been through outpatient physical therapy and continues to work on home exercises. She has tried Tylenol and she takes this every day. She has been wearing an elastic knee sleeve for several years. X-rays are with significant joint degeneration. She feels she has failed adequate nonoperative conservative measures and wishes to proceed with a right total knee replacement at this time. PAST MEDICAL HISTORY: Consistent with (1) Osteoarthritis. (2) Hypertension. (3) Hypercholesterolemi a. PAST SURGICAL HISTORY: (1) Tonsillectomy 1948. (2) Dilation and curettage x3. (3) Left knee arthroscopy January 2010. (4) Right knee arthroscopy August of 2010. (5) Left total knee replacement August of 2015. (6) Right carpal tunnel release May of 2018. MEDICATIONS: Current medications include (1) CoQ10 100 mg by mouth every day. (2) Losartan potassium 25 mg 1 p.o. every day. (3) Pravastatin sodium 10 mg 1 p.o. every day. (4) Tylenol 325 mg p.r.n. (5) Vitamin B12 100 mcg daily. (6) Vitamin C 500 mg every day. (7) Vitamin D3 400 units 1 p.o. every day. Page 1 of 3 ANABEL BARTHOLOMEW History & Physical ALLERGIES: Latex, meloxicam, oxycodone, and sulfa. SOCIAL HISTORY: She is retired. She denies cigarette use. She currently consumes alcohol. Denies illicit drug use. REVIEW OF SYSTEMS: Documented in the [facility] medical history sheet. Please refer to attached document. PHYSICAL EXAMINATION GENERAL APPEARANCE: The patient is alert and oriented x3 in no acute distress at rest, breathing easily without respiratory distress. VITAL SIGNS: Height 63 inches. Weight 133 pounds, BMI 23.6. Blood pressure 182/77, pulse 77, temperature 96.8. HEENT: Head normocephalic and atraumatic. Eyes: PERRLA, EOMI, sclera anicteric, conjunctivae without injection. Ears: Auditory acuity grossly intact bilaterally. Nose: Bilateral patent nares without tenderness or drainage. Throat: Pharynx is clear without erythema, exudate. Tongue and uvula midline. Buccal mucosa pink and moist. NECK: Supple without adenopathy, JVD, carotid bruits, masses, or tenderness. CHEST: Symmetrical. Nontender to palpation. AP diameter within normal limits. HEART: Regular rate and rhythm without murmurs, rubs, or gallops appreciated at this time. LUNGS: Clear to auscultation bilaterally without wheezes, rales, or rhonchi. ABDOMEN: Soft and nondistended. Normoactive bowel sounds x4 without tenderness. NEUROLOGICAL: Cranial nerves II through XII are grossly intact without any focal sensory or motor deficits noted. EXTREMITIES/MUSCULO SKELETAL: Right knee has varus deformity. Right knee has pain and crepitus of the medial and patellofemoral compartment. Right knee motion is 0 to 110 degrees. Knees are ligamentously stable. No calf pain or swelling. Negative Baylee's sign. Distal pulses are intact. No signs of toenail infection. No hip pain with motion. DIAGNOSTIC DATA: X-rays of the right knee, dated June 13, 2018 [facility], with [id number] contact medially, sclerosis of the distal femur and upper tibia, and varus deformity. IMPRESSION: 1. Right knee posttraumatic arthritis. Page 2 of 3 ANABEL BARTHOLOMEW History & Physical 2. History of left knee replacement. 3. Hypertension. 4. Hypercholesterolemi a. PLAN: Dr. El Gutierrez did discuss and review with the patient all treatment options including surgical versus nonsurgical. At this time, the patient does wish to proceed with a right total knee replacement. Potential risks, benefits, and complications of this procedure were reviewed in detail including, but not limited to , infection, nerve and blood vessel damage, persistent pain, numbness, tingling, paresthesias, blood clot, pulmonary embolism, and the requirement of possible further surgery. The patient expressed full understanding, has no further questions for the doctor, and does agree to proceed with the above stated procedure and signed the appropriate surgery consent form. Her plan is for discharge to home upon leaving the hospital. Dictated By: Alfreda Thomas PA-C 07/25/18 15:02 JOB #: [id number] Transcribed By: manjula 07/25/18 15:48 Electronically signed by: E-sign Alfreda GUADALUPE 08/05/18 09:47 Update to H&P: [ ] No changes: I have examined the patient and reviewed the H&P and there are no changes. [ ] As previously dictated with the following changes: PHYSICIAN SIGNATURE: TIME: DATE: Page 3 of 3 ANABEL BARTHOLOMEW A History & Physical Normal [facility] BMP with eGFRon 07-24-2018 Age - Reported 82 years Normal [facility] Comment on above: Performed By: #### 2 92751 #### [facility],[address] [place], [place] [id number] Anion gap [Moles/Vol] 13 mmol/L Normal 10 - 20 [facility] Comment on above: Performed By: #### 2 78080 #### [facility],[address] [place] [address] Calcium [Mass/Vol] 9.8 mg/dL Normal 8.6 - 10.2 [facility] Comment on above: Performed By: #### 2 16545 #### [facility],[address] [place] [address] Chloride [Moles/Vol] 102 mmol/L Normal 98 - 107 [facility] Comment on above: Performed By: #### 2 01459 #### [facility],[address] [place] [address] CO2 [Moles/Vol] 28.0 mmol/L Normal 21.0 - 31.0 [facility] Comment on above: Performed By: #### 2 09649 #### [facility],[address] [place] [address] Creatinine [Mass/Vol] 0.8 mg/dL Normal 0.6 - 1.2 [facility] Comment on above: Performed By: #### 2 67372 #### [facility],[address] [place] [address]308 GFR/1.73 sq M predicted among non-blacks MDRD (S/P/Bld) [Vol rate/Area] mL/min/{1.73_m2} Normal 60 - 999 [facility] Comment on above: Result Comment: ACCO RDING TO THE NATIONAL KIDNEY DISEASE EDUCATION PROGRAM(NKDE), A NORMAL eGFR IS A VALUE GREATER THAN OR EQUAL TO 60 ML/MIN/1.73 SQ METERS. CHRONIC KIDNEY DISEASE: <60mL/MIN/1.73 SQ METERS KIDNEY FAILURE: <15mL/MIN/1.73 SQ METERS THIS TEST SHOULD ONLY BE USED FOR PATIENTS 18 YEARS OF AGE AND OLDER. Performed By: #### 2 25599 #### [facility],[address] [place] [address] GFR/1.73 sq M predicted among non-blacks MDRD (S/P/Bld) [Vol rate/Area] Normal [facility] Comment on above: Result Comment: BASI C METABOLIC PANEL Performed By: #### 2 50637 #### [facility],[address] [place] [address]1471 Glucose [Mass/Vol] 110 mg/dL High 74 - 106 [facility] Comment on above: Performed By: #### 2 82879 #### [facility],[address] [place] [address]882 Potassium [Moles/Vol] 3.7 mmol/L Normal 3.5 - 5.1 [facility] Comment on above: Performed By: #### 2 06826 #### [facility],[address] [place] [address] Sodium [Moles/Vol] 139 mmol/L Normal 136 - 145 [facility] Comment on above: Performed By: #### 2 18699 #### [facility],[address] [place] [address] Urea nitrogen [Mass/Vol] 17 mg/dL Normal 6 - 20 [facility] Comment on above: Performed By: #### 2 08254 #### [facility],[address] [place] [address] CBC (NO DIFF)on 07-24-2018 CBC (NO DIFF) Normal [facility] Comment on above: Result Comment: CBC( WITHOUT DIFFERENTIAL) Performed By: #### 2 64196 #### [facility],[address] [place], [place] [address] Erythrocyte distribution width (RBC) [Ratio] 14.3 % Normal 12.0 - 15.6 [facility] Comment on above: Performed By: #### 2 28368 #### [facility],[address] [place] [address] Hematocrit (Bld) [Volume fraction] 38.9 % Normal 34.0 - 46.0 [facility] Comment on above: Performed By: #### 2 58623 #### [facility],[address] [place], [place] [address] Hemoglobin (Bld) [Mass/Vol] 13.3 g/dL Normal 12.0 - 16.0 [facility] Comment on above: Performed By: #### 2 98896 #### [facility],[address] [place], [place] [id number] MCH (RBC) [Entitic mass] 31 pg Normal 27 - 33 [facility] Comment on above: Performed By: #### 2 30881 #### [facility],[address] [place] [address] MCHC (RBC) [Mass/Vol] 34 X10 3 Normal 32 - 36 [facility] Comment on above: Performed By: #### 2 45448 #### [facility],[address] [place] [address] MCV (RBC) [Entitic vol] 90 fL Normal 80 - 99 [facility] Comment on above: Performed By: #### 2 63084 #### [facility],[address] [place] [address] Platelet mean volume (Bld) [Entitic vol] 9.2 fL Normal 6.6 - 10.5 [facility] Comment on above: Performed By: #### 2 03784 #### [facility],[address] [place] [address]7623 Platelets (Bld) [#/Vol] 180 x10EE3/UL Normal 150 - 450 [facility] Comment on above: Performed By: #### 2 52785 #### [facility],[address] [place] [address] 74690 RBC (Bld) [#/Vol] 4.30 x 10EE6/UL Normal 4.10 - 5.30 [facility] Comment on above: Performed By: #### 2 50303 #### [facility],[address] [place] [address]140 WBC (Bld) [#/Vol] 4.9 x 10EE3/UL Normal 4.5 - 10.8 [facility] Comment on above: Performed By: #### 2 36525 #### [facility],[address] [place] [address] LOWER EXTREMITY RT WOon 0 07-08-2018 CT LOWER EXTREMITY RT WO [facility] [place] [address] Patient: ANABEL BARTHOLOMEW Phone#: : [phone] Age: 82 Gender: F Pt. Type: Out Account: [id number] Location: Ordering: EL GUTIERREZ Exam Date: 07/08/2018/13:41 Family Phys: JAREN JONES Charge Code: [id number] Physician: [place] Order #: [id number] DLP Dose#: PROCEDURE: CT LOWER EXTREMITY RT WO CONTRAST COMPARISON: None. INDICATIONS: Conformis TECHNIQUE: Multi-planar CT images were created without intravenous contrast. All CT scans at this facility use dose modulation, iterative reconstruction, and/or weight based dosing when appropriate to reduce radiation dose to as low as reasonably achievable. IV CONTRAST: No IV contrast used,0ml TOTAL DOSE: 34.00 CTDIvol(mGy) FINDINGS: BONES: Moderate to severe degenerative changes of the knee are present. The medial compartment is narrowed. The lateral patellofemoral compartment is narrowed with lateral subluxation of the patella. Osteophytes are present from the medial femoral condyle and medial tibial plateau. SOFT TISSUES: A small joint effusion is present. EFFUSION: None visible. OTHER: A popliteal cyst is present. Medial varicosities are present at the knee. CONCLUSION: 1. Moderate degenerative changes of the knee are present. 2. Popliteal cyst is present. Varicosities are present. Dictated by: Jeni Eubanks MD on 07/08/2018 at 16:55 Approved by: Jeni Eubanks MD on 07/08/2018 at 16:55 Normal [facility] XR THORACIC 3V AP/LAT/SWIMME RSon 08-21-2017 XR THORACIC 3V AP/LAT/SWIMMERS * * *Final Report* * *DATE OF EXAM: Aug 21 2017 10:40AM MDX 5261 - XR THORACIC 3V AP/LAT/SWIMMERS / REASON: M54.6-Pain in thoracic spine * * * * Physician Interpretation * * * * EXAM TITLE: XR THORACIC 3V AP/LAT/SWIMMERSEXAM DATE/TIME: 08/21/2017 10:40 AMCOMPARISON: None.CLINICAL INDICATION/HISTORY: PainTECHNIQUE: AP, swimmer's and lateral views of the thoracic spine are presentedFINDINGS:N o fractures or subluxations are noted.The disc spaces are maintained.Moderate osteophyte formation is present.There is no paraspinal mass or bony destructive process.Degenerativ e changes also noted in the cervical spine.IMPRESSION: Thoracic spine degenerative changes.Transcripti onist: PSCDonaldo Transcribe Date/Time: Aug 21 2017 8:09PDictated by : DIEGO MINA MDThis examination was interpreted and the report reviewed and electronically signed by: DIEGO MINA MD on Aug 21 2017 8:10PM [id number] [facility] Vital Signs Date Time Vital Sign Value Performing Clinician Faci lity 08-12-2024 14:02-0400 Body temperature 98.2 [degF] Dr. Angella Wallace MD Work Phone: [facility] 08-12-2024 14:02-0400 Diastolic blood pressure 71 mm[Hg] Dr. Angella Wallace MD Work Phone: [facility] 08-12-2024 14:02-0400 Heart rate 47 /min Dr. Angella Wallace MD Work Phone: [facility] 08-12-2024 14:02-0400 Respiratory rate 19 /min Dr. Angella Wallace MD Work Phone: [facility] 08-12-2024 14:02-0400 SaO2% (BldA) [Mass fraction] 100 % Dr. Angella Wallace MD Work Phone: [facility] 08-12-2024 14:02-0400 Systolic blood pressure 114 mm[Hg] Dr. Angella Wallace MD Work Phone: [facility] 08-12-2024 10:52-0400 Body height 160.[address] Angella Wallace MD Work Phone: [facility] 08-12-2024 10:52-0400 Body mass index (BMI) [Ratio] 20 kg/m2 Dr. Angella Wallace MD Work Phone: [facility] 08-12-2024 10:52-0400 Body weight 51.[address] Angella Wallace MD Work Phone: [facility] 05-15-2024 14:45-0400 Body mass index (BMI) [Ratio] 22 kg/m2 Dr. Angella Wallace MD Work Phone: [facility] 05-15-2024 14:45-0400 Body weight 56.[address] Angella Wallace MD Work Phone: [facility] 04-09-2023 09:20-0500 Body height 160.[address] Angella Wallace Work Phone: [facility] 04-09-2023 09:20-0500 Body mass index (BMI) [Ratio] 22.6 kg/m2 Dr. Angella Wallace Work Phone: [facility] 04-09-2023 09:20-0500 Body weight 58.[address] Angella Wallace Work Phone: [facility] 04-09-2023 09:20-0500 Respiratory rate 18 /min Dr. Angella Wallace Work Phone: [facility] 04-05-2023 14:36-0500 Body temperature 98.1 [degF] Dr. Angella Wallace Work Phone: [facility] 04-05-2023 14:36-0500 Diastolic blood pressure 62 mm[Hg] Dr. Angella Wallace Work Phone: [facility] 04-05-2023 14:36-0500 Heart rate 58 /min Dr. Angella Wallace Work Phone: [facility] 04-05-2023 14:36-0500 Respiratory rate 14 /min Dr. Angella Wallace Work Phone: [facility] 04-05-2023 14:36-0500 SaO2% (BldA) [Mass fraction] 98 % Dr. Angella Wallace Work Phone: [facility] 04-05-2023 14:36-0500 Systolic blood pressure 119 mm[Hg] Dr. Angella Wallace Work Phone: [facility] 04-05-2023 10:43-0500 Body height 160.[address] Angella Wallace Work Phone: [facility] 04-05-2023 10:43-0500 Body mass index (BMI) [Ratio] 22.6 kg/m2 Dr. Angella Wallace Work Phone: [facility] 04-05-2023 10:43-0500 Body weight 57.[address] Angella Wallace Work Phone: [facility] 11-22-2022 10:32-0400 Body height 160.[address] Angella Wallace Work Phone: [facility] 11-22-2022 10:32-0400 Body mass index (BMI) [Ratio] 22.7 kg/m2 Dr. Angella Wallace Work Phone: [facility] 11-22-2022 10:32-0400 Body temperature 98.2 [degF] Dr. Angella Wallace Work Phone: [facility] 11-22-2022 10:32-0400 Body weight 58.[address] Angella Wallace Work Phone: [facility] 11-22-2022 10:32-0400 Diastolic blood pressure 78 mm[Hg] Dr. Angella Wallace Work Phone: [facility] 11-22-2022 10:32-0400 Heart rate 61 /min Dr. Angella Wallace Work Phone: [facility] 11-22-2022 10:32-0400 Respiratory rate 16 /min Dr. Angella Wallace Work Phone: [facility] 11-22-2022 10:32-0400 SaO2% (BldA) [Mass fraction] 97 % Dr. Angella Wallace Work Phone: [facility] 11-22-2022 10:32-0400 Systolic blood pressure 138 mm[Hg] Dr. Angella Wallace Work Phone: [facility] 11-13-2022 15:31-0400 Diastolic blood pressure 72 mm[Hg] Ángela Leiva MD Work Phone: [facility] 11-13-2022 15:31-0400 Systolic blood pressure 138 mm[Hg] Ángela Leiva MD Work Phone: [facility] 11-13-2022 15:14-0400 Body weight 58.06 kg Ángela Leiva MD Work Phone: [facility] 11-13-2022 15:14-0400 Heart rate 62 /min Ángela Leiva MD Work Phone: [facility] 11-13-2022 15:14-0400 SaO2% (BldA) [Mass fraction] 100 % Ángela Leiva MD Work Phone: [facility] 03-21-2022 15:25-0500 Body temperature 97.7 [degF] Lily Praisler-Wood CRUCIBLE FURNACE TENDER.MANAGER NURSING HOME Work Phone: [facility] 03-21-2022 15:25-0500 Body weight 58.06 kg Lily Praisler-Wood CRUCIBLE FURNACE TENDER.MANAGER NURSING HOME Work Phone: [facility] 03-21-2022 15:25-0500 Diastolic blood pressure 78 mm[Hg] Lily Praisler-Wood CRUCIBLE FURNACE TENDER.MANAGER NURSING HOME Work Phone: [facility] 03-21-2022 15:25-0500 Heart rate 68 /min Lily Praisler-Wood CRUCIBLE FURNACE TENDER.MANAGER NURSING HOME Work Phone: [facility] 03-21-2022 15:25-0500 Respiratory rate 18 /min Lily Praisler-Wood CRUCIBLE FURNACE TENDER.MANAGER NURSING HOME Work Phone: [facility] 03-21-2022 15:25-0500 SaO2% (BldA) [Mass fraction] 99 % Lily Praisler-Wood CRUCIBLE FURNACE TENDER.MANAGER NURSING HOME Work Phone: [facility] 03-21-2022 15:25-0500 Systolic blood pressure 132 mm[Hg] Lily Villar APRN.CNP Work Phone: [facility] 02-06-2022 15:27-0500 Body weight 59.88 kg Ángela Leiva MD Work Phone: [facility] 02-06-2022 15:27-0500 Diastolic blood pressure 80 mm[Hg] Ángela Leiva MD Work Phone: [facility] 02-06-2022 15:27-0500 Heart rate 75 /min Ángela Leiva MD Work Phone: [facility] 02-06-2022 15:27-0500 SaO2% (BldA) [Mass fraction] 98 % Ángela Leiva MD Work Phone: [facility] 02-06-2022 15:27-0500 Systolic blood pressure 148 mm[Hg] Ángela Leiva MD Work Phone: [facility] 01-17-2022 11:55-0500 Heart rate 60 /min Jaren Jones MD Work Phone: [facility] 01-17-2022 11:16-0500 Body weight 59.69 kg Jaren Jones MD Work Phone: [facility] 01-17-2022 11:16-0500 Diastolic blood pressure 64 mm[Hg] Jaren Jones MD Work Phone: [facility] 01-17-2022 11:16-0500 Respiratory rate 16 /min Jaren Jones MD Work Phone: [facility] 01-17-2022 11:16-0500 SaO2% (BldA) [Mass fraction] 98 % Jaren Jones MD Work Phone: [facility] 01-17-2022 11:16-0500 Systolic blood pressure 114 mm[Hg] Jaren Jones MD Work Phone: [facility] 09-21-2021 14:40-0400 Body temperature 99 [degF] Tawnya Podlogar CRUCIBLE FURNACE TENDER.MANAGER NURSING HOME Work Phone: [facility] 09-21-2021 14:40-0400 Body weight 59.78 kg Tawnya Podlogar CRUCIBLE FURNACE TENDER.MANAGER NURSING HOME Work Phone: [facility] 09-21-2021 14:40-0400 Diastolic blood pressure 68 mm[Hg] Tawnya Podlogar CRUCIBLE FURNACE TENDER.MANAGER NURSING HOME Work Phone: [facility] 09-21-2021 14:40-0400 Heart rate 67 /min Tawnya Podlogar CRUCIBLE FURNACE TENDER.MANAGER NURSING HOME Work Phone: [facility] 09-21-2021 14:40-0400 Respiratory rate 18 /min Tawnya Podlogar CRUCIBLE FURNACE TENDER.MANAGER NURSING HOME Work Phone: [facility] 09-21-2021 14:40-0400 SaO2% (BldA) [Mass fraction] 96 % Tawnya Podlogar CRUCIBLE FURNACE TENDER.MANAGER NURSING HOME Work Phone: [facility] 09-21-2021 14:40-0400 Systolic blood pressure 132 mm[Hg] Tawnya Podlogar CRUCIBLE FURNACE TENDER.MANAGER NURSING HOME Work Phone: [facility] 09-09-2021 13:05-0400 Body weight 60.06 kg Tawnya Podlogar CRUCIBLE FURNACE TENDER.MANAGER NURSING HOME Work Phone: [facility] 09-09-2021 13:05-0400 Diastolic blood pressure 72 mm[Hg] Tawnya Podlogar CRUCIBLE FURNACE TENDER.MANAGER NURSING HOME Work Phone: [facility] 09-09-2021 13:05-0400 Heart rate 76 /min Tawnya Podlogar CRUCIBLE FURNACE TENDER.MANAGER NURSING HOME Work Phone: [facility] 09-09-2021 13:05-0400 Respiratory rate 18 /min Tawnya Podlogar CRUCIBLE FURNACE TENDER.MANAGER NURSING HOME Work Phone: [facility] 09-09-2021 13:05-0400 SaO2% (BldA) [Mass fraction] 98 % Tawnya Podlogar CRUCIBLE FURNACE TENDER.MANAGER NURSING HOME Work Phone: [facility] 09-09-2021 13:05-0400 Systolic blood pressure 128 mm[Hg] Tawnya Scales APRN.MANAGER NURSING HOME Work Phone: [facility] 07-11-2021 14:25-0400 Body weight 59.42 kg Ángela Leiva MD Work Phone: [facility] 07-11-2021 14:25-0400 Diastolic blood pressure 68 mm[Hg] Ángela Leiva MD Work Phone: [facility] 07-11-2021 14:25-0400 Heart rate 72 /min Ángela Leiva MD Work Phone: [facility] 07-11-2021 14:25-0400 SaO2% (BldA) [Mass fraction] 97 % Ángela Leiva MD Work Phone: [facility] 07-11-2021 14:25-0400 Systolic blood pressure 138 mm[Hg] Ángela Leiva MD Work Phone: [facility] Encounters Encounter Date Encounter Type Care Provider Facility Start: 08-12-2024 End: 08-12-2024 Emergency department patient visit Dr. Angella Wallace MD Work Phone: -Emergency Department Work Phone: Start: 05-29-2024 End: 05-29-2024 Telephone encounter Ant Burgos MD Work Phone: Neurology Comment on above: Appointment (Appoint ment Scheduled in Error) Start: 05-15-2024 End: 05-15-[address] Beto Bro [facility] Work Phone: Start: 05-15-2024 End: 05-15-2024 ambulatory Beto Bro Facility:[facility] Start: 01-28-2024 End: 01-28-2024 ambulatory Angella Wallace Facility:[facility] Start: 12-04-2023 End: 12-04-2023 ambulatory Jus Johns Facility:[facility] Start: 11-13-2023 End: 11-13-2023 ambulatory Patrick Still Facility:[facility] Start: 11-07-2023 End: 11-07-2023 ambulatory Angella Wallace Facility:[facility] Start: 10-24-2023 End: 10-24-2023 ambulatory CLARA GU Facility:[facility] Start: 10-24-2023 End: 10-24-2023 Subsequent hospital visit by physician Kang [facility] Jessica Bunn Work Phone: Radiology Comment on above: DDD (degenerative di sc disease), 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 Facility:[facility] Start: 09-10-2023 End: 09-10-2023 ambulatory Patrick Still Facility:[facility] Start: 05-15-2023 Non-patient / Non-visit Dr. Susie Wallace Work Phone: [facility] Start: 05-15-2023 End: 05-15-[address] Angella Wallace Work Phone: [facility] Work Phone: Start: 05-15-2023 End: 05-15-[address] Angella Wallace Work Phone: [facility]-Cardiovascul ar Services Work Phone: Start: 04-09-2023 End: 04-09-[address] Angella Wallace Work Phone: [facility] Work Phone: Start: 04-05-2023 Non-patient / Non-visit Dr. Susie Wallace Work Phone: [facility] Start: 04-05-2023 End: 04-05-2023 Emergency department patient visit Dr. Angella Wallace Work Phone: [facility]-Emergency Department Work Phone: Start: 04-05-2023 End: 04-05-[address] Angella Wallace Work Phone: [facility] Work Phone: Start: 04-05-2023 End: 04-05-[address] [facility] Work Phone: Start: 03-27-2023 Telephone encounter Ángela Leiva MD Work Phone: Cardiology Comment on above: Patient Question Start: 03-07-2023 End: 03-07-[address] Angella Wallace Work Phone: [facility] Work Phone: Start: 03-07-2023 End: 03-07-[address] [facility] Start: 01-22-2023 End: 01-22-[address] Angella Wallace Work Phone: [facility] Work Phone: Start: 01-22-2023 End: 01-22-[address] Angella Wallace Work Phone: [facility]-Radiology, [facility] Work Phone: Start: 11-22-2022 End: 11-22-[address] Angella Wallace Work Phone: [facility] Work Phone: Start: 11-15-2022 End: 11-15-2022 ambulatory [facility] Work Phone: Start: 11-15-2022 End: 11-15-2022 Patient encounter procedure [facility]-Laboratory Work Phone: Start: 11-13-2022 End: 11-13-2022 Patient encounter procedure Ángela Leiva MD Work Phone: Cardiology Comment on above: Essential hypertensi on, benign (Primary Dx); Mixed hyperlipidemia; Palpitations; LBBB (left bundle branch block) Start: 10-20-2022 End: 10-20-2022 Subsequent hospital visit by physician Screen Mammo [facility] Start: 10-17-2022 Telephone encounter Jas Jones MD Work Phone: Mammogram Comment on above: Orders Start: 04-10-2022 Refill Jaren Jones MD Work Phone: [facility] Comment on above: Refill Request Start: 03-27-2022 Refill Jaren Jones MD Work Phone: [facility] Comment on above: Refill Request Start: 03-21-2022 End: 03-21-2022 Patient encounter procedure Lily Villar APRN.[facility] Work Phone: [facility] Comment on above: Rash (Primary Dx) Start: 02-06-2022 End: 02-06-2022 Patient encounter procedure Ángela Leiva MD Work Phone: Cardiology Comment on above: Palpitations (Primar y Dx); Essential hypertension, benign; Other hyperlipidemia; LBBB (left bundle branch block) Start: 01-17-2022 Telephone encounter [facility] Comment on above: Results Start: 01-17-2022 End: 01-17-2022 Patient encounter procedure Jaren Jones MD Work Phone: [facility] Comment on above: Drug rash (Primary D x); Minimal cognitive impairment; Essential hypertension; Hyperlipidemia, unspecified hyperlipidemia type; Anxiety with depression; BPPV (benign paroxysmal positional vertigo), unspecified laterality Start: 09-30-2021 Documentation procedure Mammog jay Coordinator [facility] Start: 09-30-2021 Letter encounter Mammography Coordinator [facility] Department Start: 09-29-2021 Telephone encounter Tawnya dacosta APRN.MANAGER NURSING HOME Work Phone: [facility] [place] Comment on above: Vertigo update Refill Request Start: 09-21-2021 End: 09-21-2021 Patient encounter procedure Tawnya Scales APRN.MANAGER NURSING HOME Work Phone: [facility] [place] Comment on above: Dizziness (Primary D x); Bilateral impacted cerumen Start: 09-09-2021 End: 09-09-2021 Patient encounter procedure Tawnya Scales APRN.MANAGER NURSING HOME Work Phone: [facility] [place] Comment on above: Dizziness (Primary D x); Anxiety with depression; Encounter for screening mammogram for malignant neoplasm of breast Start: 07-11-2021 End: 07-11-2021 Patient encounter procedure Ángela Leiva MD Work Phone: Cardiology Comment on above: Palpitations (Primar y Dx); LBBB (left bundle branch block); Essential hypertension, benign; Other hyperlipidemia Start: 06-30-2021 Refill Jaren Jones MD Work Phone: [facility] Comment on above: Refill Request Start: 08-12-2018 End: 08-13-2018 Evaluation and management of inpatient EL GUTIERREZ [facility] Start: 07-24-2018 Encounter for other preprocedural examination EL [facility] Start: 07-24-2018 End: 07-24-2018 Patient encounter procedure EL GUTIERREZ [facility] Start: 07-08-2018 End: 07-08-2018 Patient encounter procedure EL GUTIERREZ [facility] Start: 08-21-2017 Ambulatory ÁNGELA Maribel ([facility] Encounter for other preprocedural examination EL [facility] Procedures Date Procedure Procedure Detail Performing Clinician Start: 08-12-2024 Plain chest X-ray Dr. Gunner Wallace MD Work Phone: Start: 08-12-[address] Angella Wallace MD Work Phone: Start: 05-15-2023 Cardiovascular stres s test using pharmacologic stress agent Dr. Angella Wallace Work Phone: Start: 04-05-2023 Plain chest X-ray Dr. Gunner Wallace Work Phone: Start: 03-07-[address] Angella Wallace Work Phone: Start: 01-22-2023 Radiography of thora cic spine Dr. Angella Wallace Work Phone: Start: 10-20-2022 Screening digital br [facility] Provider Start: 08-12-2018 Replacement of Right Knee Joint with Synthetic Substitute, Cemented, Open Approach EL GUTIERREZ Plan of Treatment Date Care Activity Detail Author Start: 01-11-2025 Diabetes Screening Diabetes Screenin g [facility] Start: 08-12-2024 [facility] Start: 08-12-2024 [facility] Start: 02-20-2024 Advance Directive Discussion Advance Directive Discussion [facility] Start: 11-12-2023 End: 11-12-2023 Patient encounter procedure 11/12/2023 1:40 PM EDT Office Visit Cardiology [address] [place] [id number] Ángela Leiva MD [address] [place], [place] [id number] 1 yr month follow up Cardiology Comment on above: 1 yr month follow up Start: 11-02-2023 End: 11-02-2023 Patient encounter procedure [facility] Comment on above: Lumbar spinal stenos is ; Mri being pusged from [facility] Start: 10-21-2023 Covid-19 Vaccine () Covid-19 Vaccine () [facility] Start: 10-21-2023 Covid-19 Vaccine ( season) Covid-19 Vaccine ( season) [facility] Start: 10-21-2023 Influenza vaccination Influenza Vacc ine (#1) [facility] Start: 04-05-2023 [facility] Start: 04-05-2023 End: 04-05-2023 [facility] Start: 02-19-2023 Advance Directive Discussion Advance Directive Discussion [facility] Start: 02-19-2023 Depression Assessment Depression Ass essment [facility] Start: 01-28-2023 Urine microalbumin profile [facility] Start: 01-17-2023 COVID-19 VACCINE (4 - Booster for Moderna series) COVID-19 VACCINE (4 - Booster for Moderna series) [facility] Comment on above: Postponed from 03/03 (Declined at this time) Start: 01-17-2023 COVID-19 VACCINE (5 - Moderna series) COVID-19 VACCINE (5 - Moderna series) [facility] Comment on above: Postponed from 03/03 (Declined at this time) Start: 01-11-2023 Hepatitis B surface antibody level LDL CHOLESTEROL [facility] Start: 11-22-2022 Patient referral [facility] Work Phone: Start: 10-20-2022 Covid-19 Vaccine ( season) Covid-19 Vaccine ( season) [facility] Start: 10-20-2022 Influenza vaccination [facility] Start: 02-19-2022 ADVANCE DIRECTIVE DISCUSSION ADVANCE DIRECTIVE DISCUSSION [facility] Start: 02-19-2022 DEPRESSION ASSESSMENT DEPRESSION ASS ESSMENT [facility] Start: 01-05-2022 Hepatitis B surface antibody level LDL CHOLESTEROL [facility] Start: 11-15-2021 SHINGRIX VACCINE (3 of 3) SHINGRIX VACCINE (3 of 3) [facility] Start: 10-20-2021 Influenza vaccination INFLUENZA (#1) [facility] Start: 05-06-2021 COVID-19 VACCINE (4 - Booster for Moderna series) COVID-19 VACCINE (4 - Booster for Moderna series) [facility] Start: 02-19-2021 ADVANCE DIRECTIVE DISCUSSION ADVANCE DIRECTIVE DISCUSSION [facility] Start: 02-19-2021 DEPRESSION ASSESSMENT DEPRESSION ASS ESSMENT [facility] Start: 08-07-2010 RSV Vaccine (1 - 1-d ose 75+ series) RSV Vaccine (1 - 1-dose 75+ series) [facility] Start: 05-03-2007 SHINGRIX VACCINE (2 of 3) SHINGRIX VACCINE (2 of 3) [facility] Start: 1995 Hepatitis B Vaccine (1 of 3 - Risk 3-dose series) Hepatitis B Vaccine (1 of 3 - Risk 3-dose series) [facility] Start: 1995 RSV Vaccine (1 - 1-d ose 60+ series) RSV Vaccine (1 - 1-dose 60+ series) [facility] Start: 08-07-1953 Anxiety Screening Anxiety Screening [facility] Start: 08-07-1953 Depression Screening Depression Scre ening [facility] End: 01-31-2023 ECG COMPLETE ECG COMPLETE ECG Routine Palpitations 1 Occurrences starting 01/31/2022 until 01/31/2023 [facility] Work Phone: Comment on above: 1 Occurrences starti ng 01/31/2022 until 01/31/2023 Patient Education [facility] Work Phone: Patient referral [facility] Work Phone: Radionuclide imaging of perfusion of myocardium under exercise stress [facility] End: 10-09-2022 Screening mammography bi 2-view breast inc cad MARY SCREENING Radiology Routine Encounter for screening mammogram for malignant neoplasm of breast 1 Occurrences starting 09/09/2021 until 10/09/2022 [facility] Work Phone: Comment on above: 1 Occurrences starti ng 09/09/2021 until 10/09/2022 [facility] End: 11-22-2024 XR Thoracic and lumbar spine Views for scoliosis W standing XR SCOLIOSIS PA STAND/LAT 2V Radiology Routine DDD (degenerative disc disease), thoracic 1 Occurrences starting 10/24/2023 until 11/22/2024 [facility] Work Phone: Comment on above: 1 Occurrences starti ng 10/24/2023 until 11/22/2024 XR Thoracic and lumb ar spine Views for scoliosis W standing XR SCOLIOSIS PA STAND/LAT 2V Radiology Routine DDD (degenerative disc disease), thoracic 10/24/2023 4:04 PM EDT [facility] Immunizations Immunization Date Immunization Notes Care Provider Fa cili 11-16-2022 influenza virus vaccine, unspecified formulation Clara Gu MD Work Phone: [facility] 12-14-2021 influenza (aIIV4) vaccine, age 65+ yr, quadrivalent, PF (FLUAD QUADRIVALENT) Jaren Jones MD Work Phone: [facility] 12-14-2021 influenza virus vaccine, unspecified formulation Ángela Leiva MD Work Phone: [facility] 09-20-2021 zoster vaccine recombinant Tawnya Scales CRUCIBLE FURNACE TENDERAravindMANAGER NURSING HOME Work Phone: [facility] 06-07-2021 zoster vaccine recombinant Jaren Jones MD Work Phone: [facility] Work Phone: 11-30-2020 influenza, high-dose , quadrivalent vaccine (FLUZONE HIGH DOSE QUADRIVALENT) Jaren Jones MD Work Phone: [facility] 04-15-2020 COVID-19 vaccine, booster dose (MODERNA) Jaren Jones MD Work Phone: [facility] 03-18-2020 COVID-19 vaccine, booster dose (MODERNA) Jaren Jones MD Work Phone: [facility] 12-13-2019 influenza, high-dose , quadrivalent vaccine (FLUZONE HIGH DOSE QUADRIVALENT) Jaren Jones MD Work Phone: [facility] 12-14-2018 influenza, high dose seasonal, preservative-free Jaren Jones MD Work Phone: [facility] 11-17-2017 influenza, high dose seasonal, preservative-free Jaren Jones MD Work Phone: [facility] 11-24-2016 influenza, high dose seasonal, preservative-free Jaren Jones MD Work Phone: [facility] 12-11-2015 influenza, high dose seasonal, preservative-free Jaren oJnes MD Work Phone: [facility] 01-05-2015 influenza, high dose seasonal, preservative-free Jaren Jones MD Work Phone: [facility] 06-01-2014 pneumococcal conjuga te vaccine, 13 valent Jaren Jones MD Work Phone: [facility] 12-26-2013 influenza, seasonal, injectable Jarne Jones MD Work Phone: [facility] 01-28-2013 tetanus toxoid, redu brain diphtheria toxoid, and acellular pertussis vaccine, adsorbed Jaren Jones MD Work Phone: [facility] 12-28-2012 influenza virus vaccine, unspecified formulation Jaren Jones MD Work Phone: [facility] 12-30-2011 influenza virus vaccine, unspecified formulation Jaren Jones MD Work Phone: [facility] Work Phone: 12-22-2010 influenza virus vaccine, unspecified formulation Jaren Jones MD Work Phone: [facility] 11-18-2008 influenza virus vaccine, unspecified formulation Jaren Jones MD Work Phone: [facility] 01-01-2008 influenza virus vaccine, unspecified formulation Jaren Jones MD Work Phone: [facility] Work Phone: 03-08-2007 zoster vaccine, live Claudio Jones MD Work Phone: [facility] Work Phone: 01-08-2006 influenza virus vaccine, unspecified formulation Jaren Jones MD Work Phone: [facility] 12-20-2004 influenza virus vaccine, unspecified formulation Jaren Jones MD Work Phone: [facility] Work Phone: 11-19-2002 tetanus and diphther ia toxoids, not adsorbed, for adult use Jaren Jones MD Work Phone: [facility] 09-19-2000 pneumococcal polysaccharide vaccine, 23 valent Jaren Jones MD Work Phone: [facility] Payers Date Payer Category Payer Self-pay [id number] 2019 Medicare UHC AAR MEDICAR E [facility] MED[facility] HMO [id number] 2019-Present [phone] [address] [address] [place] [address] O [id number] 2019 Medicare UHC AAR MEDICAR E [facility] MEDICARE HMO [id number] 2019-Present [phone] [place] [id number] HMO [id number] 2019 Medicare (Managed Care) [facility] MEDIC[facility] HMO [id number] 2019 Unknown [id number] 2000 Unknown [id number] 2000 Medicare [id number] 1935 Unknown [id number] 1935 Unknown [id number] 1935 Unknown [id number] Medicare [id number] Unknown [id number] 462 Unknown [id number] 462 Unknown [id number] 462 Unknown [id number] 462 Unknown [id number] 462 Unknown [id number] 462 Unknown [id number] 462 Unknown [id number] 462 Unknown [id number] 462 Social History Date Type Detail Facility Start: 12-22-2010 End: 08-12-2024 Tobacco smoking status WAIS Never smoked tobacco [facility] Start: 03-07-2021 End: 11-13-2022 Alcohol intake Current drinker of alcohol (finding) [facility] Start: 03-07-2021 End: 11-12-2023 Alcohol intake [facility] Start: 01-01-2012 History SDOH Alcohol Comment wine ocassional 3-4 times over the week [facility] Start: 1935 Sex Assigned At Not on file [facility] Start: 09-11-2021 End: 01-17-2022 Exposure to SARS-CoV-2 (event) Not sure [facility] Start: 12-22-2010 Tobacco use and exposure Smokeless tobacco non-user [facility] Start: 1935 Sex Assigned At Female [facility] Start: 03-21-2022 End: 11-12-2023 Tobacco use panel [facility] Adult Depression Screening Assessment 2 [facility] Start: 04-10-2022 End: 04-09-2023 Tobacco smoking status NHIS Unknown if ever smoked [facility] Functional Status Date Assessment Result Facility 07-14-2014 Are you deaf, or do you have serious difficulty hearing No 07/14/2014 1:33 PM Orquidea Galvan LPN No [facility] 07-14-2014 Are you blind, or do you have serious difficulty seeing, even when wearing glasses No 07/14/2014 1:33 PM Orquidea Galvan LPN No [facility] 07-14-2014 Do you have serious difficulty walking or climbing stairs No 07/14/2014 1:33 PM Orquidea Galvan LPN No [facility] 07-14-2014 Do you have difficul ty dressing or bathing No 07/14/2014 1:33 PM Orquidea Galvan LPN No [facility] 07-14-2014 Because of a physica l, mental, or emotional condition, do you have difficulty doing errands alone such as visiting a physician's office or shopping No 07/14/2014 1:33 PM Orquidea Galvan LPN No [facility] Mental Status Date Assessment Result Facility 08-12-2024 Cognitive function Voice/Name [facility] Work Phone: 04-05-2023 Cognitive function Voice/Name [facility] Work Phone: 07-14-2014 Because of a physica l, mental, or emotional condition, do you have serious difficulty concentrating, remembering, or making decisions No 07/14/2014 1:33 PM Orquidea Galvan LPN No [facility] Clinical Notes 04-20-2009 to 08-12-2024 Note Date & Type Note Facility 08-12-2024 Discharge summary Note Date/Time August 12, 2024 1:56pm [facility] Medical Records Department [address] [place] [address] Emergency Department Summary 08/12/24 MR#: [id number] Acct: [id number] Name: ANABEL BARTHOLOMEW Rep #:[id number] : 1935 89 From: Kolby Galaviz PCP: Dr. Angella Walalce MD Status:REG ER Location: ED HPI History of Present Illness Chief Complaint: Chest Pain Informant: patient and spouse/S.O. Narrative Narrative: States around 8 AM this morning felt some funny feeling in her chest and went upto her neck. History of paroxysmal A-fib. She crawled up the steps she took a dose of metoprolol that was written previously by her rag baler. Previously on metoprolol and Eliquis however states on her visit was stopped by her rag baler. She denied any rectal bleeding complaints. She started having a dry cough yesterday. No vomiting no diarrhea. This feels similar to her A-fib events in the past. Reports some lightheaded symptoms. Prior Similar Symptoms: Yes CVD Risk Factors: Positive for Hypertension and Hypercholesterolemia; Negative for Diabetes, Family History 1' </=55 or Smoking PE Risk Factors: Negative for Recent Travel/Surgery, Recent Immobilization or Prior DVT or PE [facility] Medical History Spinal stenosis Spinal stenosis at L4-L5 level Sciatica associated with disorder of lumbar spine Herniated disc Vision problems Osteopenia Osteoarthritis Hives High cholesterol Hearing problem Carpal tunnel syndrome Cataracts, both eyes UTI (urinary tract infection) Back problem Arthritis Non-smoker Chest pain Hypertension Dysrhythmia Home Medications ?Medication ?Instructions ?Recorded ?Last Taken ?Type multivitamin 1 tab PO DAILY 03/07/2203/22 History acetaminophen 500 mg capsule 500 mg PO Q6H PRN pain 04/05/23 History amlodipine 5 mg tablet 5 mg PO DAILY bp #90 tabs Unknown Rx losartan 100 mg tablet 100 mg PO DAILY bp #90 tabs 07/18/24 Unknown Rx pravastatin 10 mg tablet 10 mg PO QHS cholesterol #90 tabs 07/18/24 Unknown Rx apixaban 2.5 mg tablet (Eliquis) 2.5 mg PO BID #90 tab s 08/12/24 Unknown Rx Allergy/AdvReac Type Severity Reaction Status Date / Time latex Allergy Rash Verified 05/15/24 14:46 meloxicam Allergy Rash Verified 05/15/24 14:46 prednisone Allergy Unknown Verified 05/15/24 14:46 Seasonal Allergies: Uncoded Allergy NEEDS Verified 05/15/24 14:46 FOLLOW-UP tramadol Allergy Rash Verified 05/15/24 14:46 Family History Grandmother , age 42 Arthritis Myocardial infarction Brother , age 47 Cancer lung Father , age 59 Myocardial infarction Heart disease Hypertension Mother , age 51 Melanoma Grandfather , age 69 CVA (cerebral vascular accident) Other Melanoma and neural system tumor syndrome Surgical History History of carpal tunnel surgery History of knee replacement H/O dilation and curettage History of tonsillectomy Social History household members: spouse Smoking Status: Never smoker alcohol intake: current alcohol intake frequency: a few times a week substance use type: does not use ROS ROS ED Constitutional Constitutional ED: Denies chills, fever(s) or sweats ENT ENT ED: Denies sore throat Cardiovascular Cardiovascular: Reports chest pain, palpitations and other Details: Lightheaded ; Denies leg edema or racing heartbeat Respiratory/Chest Respiratory/Chest: Reports cough; Denies dyspnea or dyspnea on exertion Gastrointestinal Gastrointestinal: Denies abdominal pain, diarrhea, nausea or vomiting Genitourinary Genitourinary ED: Denies dysuria, hematuria or urinary frequency Musculoskeletal Musculoskeletal: Denies back pain, extremity pain or neck pain Integumentary Denies rash or wounds Neurologic Neurologic: Denies headache(s), paresthesias or weakness EXAM Physical Exam Const Vital Signs: 08/12/24 10:52 08/12/24 10:57 08/12/24 11:21 Temperature 98.6 F Temperature Source Temporal Pulse Rate 126 H 102 H Respiratory Rate 28 H 20 H Respiratory Effort Normal Non-Labored Blood Pressure 138/117 H 111/93 H Blood Pressure Mean 124 99 Pulse Ox 94 100 Oxygen Delivery Method Room Air Room Air 08/12/24 11:26 08/12/24 11:29 08/12/24 12:00 Temperature Temperature Source Pulse Rate 99 54 L 51 L Respiratory Rate 18 16 16 Respiratory Effort Blood Pressure 134/95 H 135/80 H 116/75 Blood Pressure Mean 108 98 88 Pulse Ox 99 100 98 Oxygen Delivery Method Room Air Room Air 08/12/24 13:00 Temperature Temperature Source Pulse Rate 47 L Respiratory Rate 15 Respiratory Effort Blood Pressure 96/65 Blood Pressure Mean 75 Pulse Ox 99 Oxygen Delivery Method Room Air Positive well nourished and well developed General Appearance ED: well developed and NAD HEENT Reports moist mucous membranes normocephalic and atraumatic Eyes General Eye ED: Yes normal appearance of both eyes Neck full ROM Chest Wall Chest: Negative for tenderness Resp normal respiratory effort and normal air movement Effort and Inspection: symmetric chest movement; Negative for respiratory distress Cardio no murmurs Rate: tachycardic Rhythm: abnormal rhythm Peripheral Pulses: pulses 2+ throughout GI normal to inspection, nondistended, normoactive bowel sounds and non-tender Palpation: Negative for guarding or rebound tenderness present Extremity normal to inspection General Extremety ED: Negative for edema or tenderness General Extremity: Negative for edema Neuro oriented x3 and no sensory deficits noted Sensorium / Orientation: awake and alert Skin no rashes or lesions noted and no wounds Heart Score History: Slightly/Non-Suspicious ECG: Nonspecific Repolarization Age: >/= 65 years Risk Factors: 1 or 2 Risk Factors Troponin: >1 - <3 Normal Limit Score: 5 MDM MDM MDM Narrative Medical decision making narrative: Interventions / MDM: Differential diagnosis: A-fib with RVR, chest pain Diagnosis considered but do not suspect: N/A My EKG interpretation: A-fib rate 125, nonspecific ST depression in inferior leads no elevations. Left bundle branch block. Old EKGs noted chronic left bundle branch block. EKG #2 at 1149: Sinus bradycardia rate of 50. No ST depressions. Bimodal T waves V5 V6. Imaging independently reviewed and interpreted by myself: N/A External documents reviewed: Cardiology note October 2023, metoprolol was stopped due to bradycardia heart rate at times in the 40s at baseline she is at 60 without medication. Also decided to stop her Eliquis due to noted patient taking Eliquis once a day and she has been in sinus rhythm for 5 months prior tofollow-up October 2023. Was reported to start her Eliquis if she feels a dysrhythmia and her metoprolol. Test considered but not ordered:N/A ED course: Patient A-fib RVR with chest pains. Cardiac workup initiated. IV Lopressor. Aspirin ordered. EKG slight ST depressions inferiorly likely demand. 1145: After second dose of Lopressor nurse reports heart rate in the 50s appearsmore regular on the monitor. Will repeat EKG. 1204: Repeat EKG back to sinus rhythm. Initial troponin is 30 creatinine 0.88. Hemoglobin 14. Reevaluation with patient back in sinus rhythm she is symptom-free. Patient recurrent A-fib noted, restarted on her Eliquis of 2.5 mg as she is over 80 and less than 60 kg. 1350: Delta troponin troponin trending down to 22 from 30. She remains symptom-free. Heart rate in the low 50s. I discussed with covering rag baler Dr. Baum, back in sinus rhythm can follow-up with Dr. Still. Discussed not restarting her metoprolol as her heart rate is on the lower end. He agrees. Eliquis 3-month supply sent to her pharmacy. Re-evaluation: stable Disposition discussed with patient/family/significant other: Patient and significant other Case discussed with consulting clinician: Cardiology This note was generated with QR Wild dictation software. It may contain incorrectwords, spelling, and punctuation that were not noted in checking the note beforesigning. Lab Data Attestation: I reviewed the patient's lab results. Labs: Laboratory Results - last 24 hr 08/12/24 08/12/24 11:00 12:56 WBC 5.7 RBC 4.53 Hgb 14.0 Hct 41.7 MCV 92.1 MCH 30.9 MCHC 33.6 RDW Std Deviation 46.1 H RDW Coeff of Ernesto 13.5 Plt Count 218 MPV 11.3 Immature Gran % (Auto) 0.300 Neut % (Auto) 61.0 Lymph % (Auto) 26.7 Medina % (Auto) 9.2 Eos % (Auto) 1.9 Baso % (Auto) 0.9 Absolute Neuts (auto) 3.5 Absolute Lymphs (auto) 1.53 Nucleated RBC % 0 Sodium 137 Potassium 3.6 Chloride 97 L Carbon Dioxide 23.0 Anion Gap 17 H BUN 21 H Creatinine 0.88 Estim Creat Clear Calc 35.10 L Est GFR (MDRD) Non-Af 63 BUN/Creatinine Ratio 24.0 H Glucose 107 H Calcium 10.0 Troponin T High Sens 30 H Troponin T Hi Sens 2 Hr 22 H Radiography Diagnostic Testing: Clinical Impression(s) from Imaging Studies Chest X-Ray 08/12/24 11:55 IMPRESSION: No Acute Findings. Reading Location: [facility] Discharge Plan Triage Chief Complaint: Chest Pain ED Provider: Kolby Wong Dx/Rx/DC Orders Clinical Impression: Atrial fibrillation, currently in sinus rhythm, LBBB (left bundle branch block), Chest pain Instructions: ED AFIB, ED Chest Pain, Noncardiac Prescriptions: New Eliquis 2.5 mg tablet 2.5 mg PO BID Qty: 90 0RF No Action multivitamin Tablet 1 tab PO DAILY Patient Comments: centrum acetaminophen 500 mg capsule 500 mg PO Q6H PRN (Reason: pain) amlodipine 5 mg tablet 5 mg PO DAILY Qty: 90 3RF losartan 100 mg tablet 100 mg PO DAILY Qty: 90 3RF pravastatin 10 mg tablet 10 mg PO QHS Qty: 90 3RF Primary Care Provider: Angella Wallace Referrals: Angella Wallace MD [Primary Care Provider] - Patrick Still MD [Med Staff - Active Staff] - Keep John appointment Activity Restrictions/Additional Instructions: Urine atrial fibrillation you converted in the emergency department. Labs are stable. You are restarted back on your Eliquis. Take this twice a day. Discussed with Dr. Baum. With your lower heart rate, you would not be restarted on metoprolol at this time. Follow-up with Dr. Still as scheduled. Print Language: Yi Disposition Disposition: Home, Self Care What to do if you have Problems For any increased pain, shortness of breath, bleeding, nausea or vomiting, chestpain, or any unexpected problems, contact your Primary Care Provider. Call [facility] ([phone]) or report to the closest Emergency Room. Call 911 if necessary. 08/12/24 1395 <Electronically signed by Kolby Galaviz> Cosigner Signature (if applicable): CC: Dr. Angella Wallace MD; Dr. Patrick Still MD ~ Signed [facility] Work Phone: [phone] 865-982306-24-2025 Discharge summary [facility] Medical Records Department [address] [place] [address] Emergency Department Summary 08/12/24 MR#: [id number] Acct: [id number] Name: ANABEL BARTHOLOMEW Rep #:[id number] : 1935 89 From: Kolby Galaviz PCP: Dr. Angella Wallace MD Status:REG ER Location: ED HPI History of Present Illness Chief Complaint: Chest Pain Informant: patient and spouse/S.O. Narrative Narrative: States around 8 AM this morning felt some funny feeling in her chest and went upto her neck. History of paroxysmal A-fib. She crawled up the steps she took a dose of metoprolol that was written previously by her rag baler. Previously on metoprolol and Eliquis however states on her visit was stopped by her rag baler. She denied any rectal bleeding complaints. She started having a dry cough yesterday. No vomiting no diarrhea. This feels similar to her A-fib events in the past. Reports some lightheaded symptoms. Prior Similar Symptoms: Yes CVD Risk Factors: Positive for Hypertension and Hypercholesterolemia; Negative for Diabetes, FamilyHistory 1' PE Risk Factors: Negative for Recent Travel/Surgery, Recent Immobilization or Prior DVT or PE [facility] Medical History Spinal stenosis Spinal stenosis at L4-L5 level Sciatica associated with disorder of lumbar spine Herniated disc Vision problems Osteopenia Osteoarthritis Hives High cholesterol Hearing problem Carpal tunnel syndrome Cataracts, both eyes UTI (urinary tract infection) Back problem Arthritis Non-smoker Chest pain Hypertension Dysrhythmia Home Medications ?Medication ?Instructions ?Recorded ?Last Taken ?Type multivitamin 1 tab PO DAILY 03/07/2203/22 History acetaminophen 500 mg capsule 500 mg PO Q6H PRN pain 04/05/23 History amlodipine 5 mg tablet 5 mg PO DAILY bp #90 tabs Unknown Rx losartan 100 mg tablet 100 mg PO DAILY bp #90 tabs 07/18/24 Unknown Rx pravastatin 10 mg tablet 10 mg PO QHS cholesterol #90 tabs 07/18/24 Unknown Rx apixaban 2.5 mg tablet (Eliquis) 2.5 mg PO BID #90 tab s 08/12/24 Unknown Rx Allergy/AdvReac Type Severity Reaction Status Date / Time latex Allergy Rash Verified 05/15/24 14:46 meloxicam Allergy Rash Verified 05/15/24 14:46 prednisone Allergy Unknown Verified 05/15/24 14:46 Seasonal Allergies: Uncoded Allergy NEEDS Verified 05/15/24 14:46 FOLLOW-UP tramadol Allergy Rash Verified 05/15/24 14:46 Family History Grandmother , age 42 Arthritis Myocardial infarction Brother , age 47 Cancer lung Father , age 59 Myocardial infarction Heart disease Hypertension Mother , age 51 Melanoma Grandfather , age 69 CVA (cerebral vascular accident) Other Melanoma and neural system tumor syndrome Surgical History History of carpal tunnel surgery History of knee replacement H/O dilation and curettage History of tonsillectomy Social History household members: spouse Smoking Status: Never smoker alcohol intake: current alcohol intake frequency: a few times a week substance use type: does not use ROS ROS ED Constitutional Constitutional ED: Denies chills, fever(s) or sweats ENT ENT ED: Denies sore throat Cardiovascular Cardiovascular: Reports chest pain, palpitations and other Details: Lightheaded ; Denies leg edema or racing heartbeat Respiratory/Chest Respiratory/Chest: Reports cough; Denies dyspnea or dyspnea on exertion Gastrointestinal Gastrointestinal: Denies abdominal pain, diarrhea, nausea or vomiting Genitourinary Genitourinary ED: Denies dysuria, hematuria or urinary frequency Musculoskeletal Musculoskeletal: Denies back pain, extremity pain or neck pain Integumentary Denies rash or wounds Neurologic Neurologic: Denies headache(s), paresthesias or weakness EXAM Physical Exam Const Vital Signs: 08/12/24 10:52 08/12/24 10:57 08/12/24 11:21 Temperature 98.6 F Temperature Source Temporal Pulse Rate 126 H 102 H Respiratory Rate 28 H 20 H Respiratory Effort Normal Non-Labored Blood Pressure 138/117 H 111/93 H Blood Pressure Mean 124 99 Pulse Ox 94 100 Oxygen Delivery Method Room Air Room Air 08/12/24 11:26 08/12/24 11:29 08/12/24 12:00 Temperature Temperature Source Pulse Rate 99 54 L 51 L Respiratory Rate 18 16 16 Respiratory Effort Blood Pressure 134/95 H 135/80 H 116/75 Blood Pressure Mean 108 98 88 Pulse Ox 99 100 98 Oxygen Delivery Method Room Air Room Air 08/12/24 13:00 Temperature Temperature Source Pulse Rate 47 L Respiratory Rate 15 Respiratory Effort Blood Pressure 96/65 Blood Pressure Mean 75 Pulse Ox 99 Oxygen Delivery Method Room Air Positive well nourished and well developed General Appearance ED: well developed and NAD HEENT Reports moist mucous membranes normocephalic and atraumatic Eyes General Eye ED: Yes normal appearance of both eyes Neck full ROM Chest Wall Chest: Negative for tenderness Resp normal respiratory effort and normal air movement Effort and Inspection: symmetric chest movement; Negative for respiratory distress Cardio no murmurs Rate: tachycardic Rhythm: abnormal rhythm Peripheral Pulses: pulses 2+ throughout GI normal to inspection, nondistended, normoactive bowel sounds and non-tender Palpation: Negative for guarding or rebound tenderness present Extremity normal to inspection General Extremety ED: Negative for edema or tenderness General Extremity: Negative for edema Neuro oriented x3 and no sensory deficits noted Sensorium / Orientation: awake and alert Skin no rashes or lesions noted and no wounds Heart Score History: Slightly/Non-Suspicious ECG: Nonspecific Repolarization Age: >/= 65 years Risk Factors: 1 or 2 Risk Factors Troponin: >1 - <3 Normal Limit Score: 5 MDM MDM MDM Narrative Medical decision making narrative: Interventions / MDM: Differential diagnosis: A-fib with RVR, chest pain Diagnosis considered but do not suspect: N/A My EKG interpretation: A-fib rate 125, nonspecific ST depression in inferior leads no elevations. Left bundle branch block. Old EKGs noted chronic left bundle branch block. EKG #2 at 1149: Sinus bradycardia rate of 50. No ST depressions. Bimodal T waves V5 V6. Imaging independently reviewed and interpreted by myself: N/A External documents reviewed: Cardiology note October 2023, metoprolol was stopped due to bradycardia heart rate at times in the 40s at baseline she is at 60 without medication. Also decided to stopher Eliquis due to noted patient taking Eliquis once a day and she has been in sinus rhythm for 5 months prior tofollow-up October 2023. Was reported to start her Eliquis if she feels a dysrhythmiaand her metoprolol. Test considered but not ordered:N/A ED course: Patient A-fib RVR with chest pains. Cardiac workup initiated. IV Lopressor. Aspirin ordered. EKG slight ST depressions inferiorly likely demand. 1145: After second dose of Lopressor nurse reports heart rate in the 50s appearsmore regular on themonitor. Will repeat EKG. 1204: Repeat EKG back to sinus rhythm. Initial troponin is 30 creatinine 0.88. Hemoglobin 14. Reevaluation with patient back in sinus rhythm she is symptom- free. Patient recurrent A-fib noted, restarted on her Eliquis of 2.5 mg as she is over 80 and less than 60 kg. 1350: Delta troponin troponin trending down to 22 from 30. She remains symptom- free. Heart rate in the low 50s. I discussed with covering rag baler Dr. Baum, back in sinus rhythm can follow-up with Dr. Still. Discussed not restarting her metoprolol as her heart rate is on the lower end. He agrees. Eliquis 3-month supply sent to her pharmacy. Re-evaluation: stable Disposition discussed with patient/family/significant other: Patient and significant other Case discussed with consulting clinician: Cardiology This note was generated with QR Wild dictation software. It may contain incorrectwords, spelling, and punctuation that were not noted in checking the note beforesigning. Lab Data Attestation: I reviewed the patient's lab results. Labs: Laboratory Results - last 24 hr 08/12/24 08/12/24 11:00 12:56 WBC 5.7 RBC 4.53 Hgb 14.0 Hct 41.7 MCV 92.1 MCH 30.9 MCHC 33.6 RDW Std Deviation 46.1 H RDW Coeff of Ernesto 13.5 Plt Count 218 MPV 11.3 Immature Gran % (Auto) 0.300 Neut % (Auto) 61.0 Lymph % (Auto) 26.7 Medina % (Auto) 9.2 Eos % (Auto) 1.9 Baso % (Auto) 0.9 Absolute Neuts (auto) 3.5 Absolute Lymphs (auto) 1.53 Nucleated RBC % 0 Sodium 137 Potassium 3.6 Chloride 97 L Carbon Dioxide 23.0 Anion Gap 17 H BUN 21 H Creatinine 0.88 Estim Creat Clear Calc 35.10 L Est GFR (MDRD) Non-Af 63 BUN/Creatinine Ratio 24.0 H Glucose 107 H Calcium 10.0 Troponin T High Sens 30 H Troponin T Hi Sens 2 Hr 22 H Radiography Diagnostic Testing: Clinical Impression(s) from Imaging Studies Chest X-Ray 08/12/24 11:55 IMPRESSION: No Acute Findings. Reading Location: [facility] Discharge Plan Triage Chief Complaint: Chest Pain ED Provider: Kolby Wong Dx/Rx/DC Orders Clinical Impression: Atrial fibrillation, currently in sinus rhythm, LBBB (left bundle branch block), Chest pain Instructions: ED AFIB, ED Chest Pain, Noncardiac Prescriptions: New Eliquis 2.5 mg tablet 2.5 mg PO BID Qty: 90 0RF No Action multivitamin Tablet 1 tab PO DAILY Patient Comments: centrum acetaminophen 500 mg capsule 500 mg PO Q6H PRN (Reason: pain) amlodipine 5 mg tablet 5 mg PO DAILY Qty: 90 3RF losartan 100 mg tablet 100 mg PO DAILY Qty: 90 3RF pravastatin 10 mg tablet 10 mg PO QHS Qty: 90 3RF Primary Care Provider: Angella Wallace Referrals: Angella Wallace MD [Primary Care Provider] - Patrick Still MD [Med Staff - Active Staff] - Keep John appointment Activity Restrictions/Additional Instructions: Urine atrial fibrillation you converted in the emergency department. Labs are stable. You are restarted back on your Eliquis. Take this twice a day. Discussed with Dr. Baum. With your lower heart rate, you would not be restarted on metoprolol at this time. Follow-up with Dr. Still as scheduled. Print Language: Yi Disposition Disposition: Home, Self Care What to do if you have Problems For any increased pain, shortness of breath, bleeding, nausea or vomiting, chestpain, or any unexpected problems, contact your Primary Care Provider. Call [facility] [employer] [facility] ([phone]) or report tothe closest Emergency Room. Call 911 if necessary. 08/12/24 1356 Cosigner Signature (if applicable): CC: Dr. Angella Wallace MD; Dr. Patrick Still MD ~ Signed [facility]06-24-2025 Radiology Diagnostic study note [facility] Imaging Services [address] [place] [address] Chest 1 View (Portable) MR#: [id number] Acct: [id number] Name: ANABEL BARTHOLOMEW Rep #: [id number] : 1935 F 89 From: Prashanth Woodward MD PCP: Dr. Angella Wallace MD Status: REG ER Study:Chest 1 View (Portable) Date of Exam: 08/12/24 Exam# [id number] Ordering Dr: Kolby Wong DO PROCEDURE: CHEST 1 VIEW (PORTABLE) 08/12/2024 REASON FOR EXAM: COUGH TECHNIQUE: Frontal view of the chest. COMPARISON: Prior study dated April 05, 2023. FINDINGS: Hardware: EKG electrodes Heart: Lungs: The lungs are clear. Bones: Degenerative changes are identified within the thoracic spine. Other: RAD/Chest 1 View (Portable) IMPRESSION: No Acute Findings. Reading Location: [facility] CC: Dr. Angella Wallace MD; Dr. Kolby Wong DO ~ Varnishing Unit Operator: Signed [facility]04-10-2025 Telephone encounter Note* Telephone Encounter - Madiha Cooper - 05/29/2024 9:37 AM EDT Patient's appointment on 05/29/2024 was scheduled in error. Patient only reports concerns of sciatica and spinal stenosis; for these concerns, Patient should be scheduled with a Traveling Phlebotomist, not General Neurology. Called and spoke with patient. She agreed to cancel appt with Dr. Burgos. Patient will consult PCPprior to rescheduling. Patient will call back at a later time to reschedule. Madiha Cooper [facility]04-10-2025 Miscellaneous Notes* Telephone Encounter - Madiha Cooper - 05/29/2024 9:37 AM EDT Patient's appointment on 05/29/2024 was scheduled in error. Patient only reports concerns of sciatica and spinal stenosis; for these concerns, Patient should be scheduled with a Traveling Phlebotomist, not General Neurology. Called and spoke with patient. She agreed to cancel appt with Dr. Burgos. Patient will consult PCPprior to rescheduling. Patient will call back at a later time to reschedule. Madiha Cooper documented in this encounter[facility] Evaluation note* Diagnosis Onset Date Resolution Status Admit Date Lumbar radiculopathy acute Saurabh 2024 2:32pm Spinal stenosis of lumbar re gion with neurogenic claudication acute [facility] 2024 2:32pm [facility] Work Phone: 1(629) 660-173409-04-2024 Miscellaneous Notes* Addendum Note - Severo Rosas RN - 10/24/2023 3:51 PM EDTAddended by: SEVERO ROSAS on: 10/24/2023 03:51 PM Modules accepted: Orders * Addendum Note - Rajwinder Vigil APRN.CNP - 10/24/2023 3:43 PM EDTAddended by: RAJWINDER VIGIL on: 10/24/2023 03:43 PM Modules accepted: Orders * Telephone Encounter - Severo Rosas RN - 10/24/2023 12:58 PM EDT I called and spoke to patient, returning her voice message. I notified her I placed new order for scoliosis films for her to obtain at [facility] as she had originally declined to obtain them to further think about getting the scoliosis films. Patient verbalized understanding and appreciative of call. Patient will call office with any questions or concerns. Severo Rosas RN documented in this encounterMer[facility]09-04-2024 Note* Addendum Note - Severo Rosas RN - 10/24/2023 3:51 PM EDTAddended by: SEVERO ROSAS on: 10/24/2023 03:51 PM Modules accepted: Orders [facility]09-04-2024 Note* Addendum Note - Rajwinder Vigil APRN.CNP - 10/24/2023 3:43 PM EDTAddended by: RAJWINDER VIGIL on: 10/24/2023 03:43 PM Modules accepted: Orders [facility] Work Phone: 1(618) 270-940909-04-2024 History of Present illness Narrative* Socorro Mckeon RT(R) - 10/24/2023 3:10 PM EDT Radiology Service Progress Note PATIENT NAME: Anabel Bartholomew DATE OF SERVICE: October 24, 2023 TIME: 4:04 PM PATIENT IDENTITY VERIFICATION COMPLETED USING TWO (2) IDENTIFIERS: Name and Date of confirmedby patient verbally. FALL SCREENING: Has the patient had 2 falls in the last year or 1 fall with injury or currently using an Ambulatory Assistive Device (Walker, Cane, Wheelchair, Crutches, etc.)? No PATIENT GENDER DATA: Female. status: : No status: NO. PATIENT RELEVANT IMPLANT DATA REVIEWED: Not Applicable PATIENT PRESENTS WITH AN IMPLANTABLE OR ATTACHED SHOP LEAD: No RADIOLOGY DEPARTMENT: General X-ray: Exam(s) Completed: Spine X-Ray(s): Scoliosis Series PA/LAT PERIPHERAL IV DATA: Not applicable SIGNED BY: RT Kelby(William) October 24, 2023 4:04 PM documented in this encounterMer[facility]09-04-2024 NoteHNO ID: [id number] Author: SOCORRO MCKEON RT(R) Service: ? Author Type: Technologist Type: Progress Notes Filed: 10/24/2023 16:05 Note Text: Radiology Service Progress Note PATIENT NAME: Anabel Bartholomew DATE OF SERVICE: October 24, 2023 TIME: 4:04 PM PATIENT IDENTITY VERIFICATION COMPLETED USING TWO (2) IDENTIFIERS: Name and Date of confirmed by patient verbally. FALL SCREENING: Has the patient had 2 falls in the last year or 1 fall with injury or currently using an Ambulatory Assistive Device (Walker, Cane, Wheelchair, Crutches, etc.)? No PATIENT GENDER DATA: Female. status: : No status: NO. PATIENT RELEVANT IMPLANT DATA REVIEWED: Not Applicable PATIENT PRESENTS WITH AN IMPLANTABLE OR ATTACHED SHOP LEAD: No RADIOLOGY DEPARTMENT: General X-ray: Exam(s) Completed: Spine X-Ray(s): Scoliosis Series PA/LAT PERIPHERAL IV DATA: Not applicable SIGNED BY: RT Kelby(R) October 24, 2023 4:04 [facility]09-04-2024 Telephone encounter Note* Telephone Encounter - Severo Rosas RN - 10/24/2023 12:58 PM EDT I called and spoke to patient, returning her voice message. I notified her I placed new order for scoliosis films for her to obtain at [facility] as she had originally declined to obtain them to further think about getting the scoliosis films. Patient verbalized understanding and appreciative of call. Patient will call office with any questions or concerns. Severo Rosas RN [facility]09-03-2024 Telephone encounter Note* Telephone Encounter - Severo Rosas RN - 10/23/2023 11:28 AM EDT I called and spoke to [facility] at [phone] to get MRI of lumbar spine from August 2023 pushed and report faxed. They will get imaging pushed and reports faxed to us. Provided fax number. Severo Rosas RN [facility]09-03-2024 Miscellaneous Notes* Telephone Encounter - Severo Rosas RN - 10/23/2023 11:28 AM EDT I called and spoke to [facility] at [phone] to get MRI of lumbar spine from August 2023 pushed and report faxed. They will get imaging pushed and reports faxed to us. Provided fax number. Severo Rosas RN * Telephone Encounter - Severo Rosas RN - 10/23/2023 11:23 AM EDT Spoke with patient in regards to upcoming appointment with Dr. Gu on 11/02/2023. Provided detailed instructions as to when and how to obtain scoliosis films. She stated she will go to [facility] on [address] to obtain imaging. Additionally, she stated she obtained MRI of lumbar spine in August at [facility]. Notified her our office will reach out to them to push over imaging/fax report. She understood. Patient also asked if appointment could be switched to the afternoon on the . Appointment movedfrom 11am to 2pm. Patient agreeable and thankful for information. Encouraged to call with any further questions or concerns. documented in this encounterMer[facility]09-[facility]-2024 Telephone encounter Note * Telephone Encounter - Severo Rosas RN - 10/23/2023 11:23 AM EDT Spoke with patient in regards to upcoming appointment with Dr. Gu on 11/02/2023. Provided detailed instructions as to when and how to obtain scoliosis films. She stated she will go to [facility] on [address] to obtain imaging. Additionally, she stated she obtained MRI of lumbar spine in August at [facility]. Notified her our office will reach out to them to push over imaging/fax report. She understood. Patient also asked if appointment could be switched to the afternoon on the . Appointment movedfrom 11am to 2pm. Patient agreeable and thankful for information. Encouraged to call with any further questions or concerns. [facility]02-15-2024 Discharge summary Author Mayito Palacio [facility] April 05, 2023 2:09pm Note Date/Time April 05, 2023 11:12am [facility] Medical Records Department [address] [place] [id number] Emergency Department Summary 04/05/23 MR#: [id number] Acct: [id number] Name: ANABEL BARTHOLOMEW Rep #:[id number] : 1935 87 From: Mayito Palacio MD PCP: Dr. Angella Wallace MD Status:REG ER Location: ED HPI History of Present Illness Chief Complaint: Palpitations Detail of Chief Complaint: Chest tightness x 1 month. Sent from outpatient testing for A-fib Informant: patient Onset/Context/Timing Onset: Month(s) Activity at onset: sudden and exertion Timing: Intermittent Quality: Positive for Pressure and Tightness Location: Substernal Current Severity: Gone Maximum Severity: Moderate Worsened By: Exertion (Patient states when she walks up an incline she gets chest tightness with shortness of breath and radiation to her neck) Relieved By: Rest Associated Symptoms: Positive for Dyspnea; Negative for Nausea, Vomiting, Diaphoresis, Cough, Fever, Lightheadedness, Acid Reflux or Palpitations Narrative Narrative: Patient is an 87-year-old woman who was having outpatient test done. She was noted to have A-fib. She does not have a history of A-fib. She reports chest tightness substernal for the past month when she walks up an incline. She states she is able to walk approximately 100 feet before she has symptoms. She may have symptoms walking less than 100 feet. When she is back on level ground the tightness and shortness of breath resolves. The tightness does radiate to her neck. There is no other associated symptoms. Patient does see a rag baler through the [facility]. She is scheduled to have an appointment in July she contacted them because of her symptoms and was told they would not be able to see her till October. She is a non-smoker. She states she walks on a regular basis. She does have history of hypertension. She also has history of hypercholesterolemia. She denies abdominal pain, black stool or maroon stool. She denies fever, chills night sweats. She denies headache, visual, ocular auditory symptoms. Prior Similar Symptoms: No Recent Illness/Hospitalization: No CVD Risk Factors: Positive for Hypertension and Hypercholesterolemia; Negative for Diabetes, Family History 1' </=55 or Smoking PE Risk Factors: Negative for Recent Travel/Surgery, Recent Immobilization, Prior DVT or PE, Cancer or OCP + Smoking + >/=35 TAD Risk Factors: Positive for Hypertension; Negative for Marfan's Syndrome or Family History [facility] Medical History Arthritis Back problem Carpal tunnel syndrome Cataracts, both eyes Chest pain Dysrhythmia Hearing problem Herniated disc High cholesterol Hives Hypertension Non-smoker Osteoarthritis Osteopenia UTI (urinary tract infection) Vision problems Home Medications multivitamin 1 tab PO DAILY 03/07/22 [History Last Taken 04/04/23] amlodipine 5 mg tablet 5 mg PO DAILY bp #90 tabs 06/28/22 [Rx Last Taken 04/05/23] pravastatin 10 mg tablet 10 mg PO QHS cholesterol #90 tabs 06/28/22 [Rx Last Taken 04/04/23] losartan 100 mg tablet 100 mg PO DAILY bp #90 tabs 10/10/22 [Rx Last Taken 04/04/23] acetaminophen 500 mg capsule 500 mg PO Q6H PRN pain 04/05/23 [History Last Taken 04/05/23] apixaban 2.5 mg tablet (Eliquis) 2.5 mg PO BID #60 tabs 04/05/23 [Rx Last Taken Unknown] metoprolol tartrate 25 mg tablet 25 mg PO BID #60 tabs 04/05/23 [Rx Last Taken Unknown] Allergy/AdvReac Type Severity Reaction Status Date / Time latex Allergy Rash Verified 04/05/23 10:46 meloxicam Allergy Rash Verified 04/05/23 10:46 prednisone Allergy Unknown Verified 04/05/23 10:46 Seasonal Allergies: Uncoded Allergy NEEDS Verified 04/05/23 10:46 FOLLOW-UP tramadol Allergy Rash Verified 04/05/23 10:46 Family History Grandmother , age 42 Arthritis Myocardial infarction Brother , age 47 Cancer lung Father , age 59 Myocardial infarction Heart disease Hypertension Mother , age 51 Melanoma Grandfather , age 69 CVA (cerebral vascular accident) Other Melanoma and neural system tumor syndrome Surgical History H/O dilation and curettage History of carpal tunnel surgery History of knee replacement History of tonsillectomy Social History household members: spouse Smoking Status: Never smoker substance use type: does not use ROS ROS ED Constitutional Constitutional ED: Denies chills, fever(s), subjective or sweats Eyes Eyes: Reports none ENT ENT ED: Denies ear pain, rhinorrhea or sore throat Cardiovascular Cardiovascular: Reports as per HPI; Denies orthopnea or paroxysmal nocturnal dyspnea Respiratory/Chest Respiratory/Chest: Reports dyspnea on exertion; Denies cough, dyspnea, orthopnea, paroxysmal nocturnal dyspnea or sputum Gastrointestinal Gastrointestinal: Denies abdominal pain, nausea or vomiting Genitourinary Genitourinary ED: Denies dysuria, hematuria or urinary frequency Musculoskeletal Musculoskeletal: Denies arthralgias, back pain or myalgias Neurologic Neurologic: Denies headache(s), paresthesias or weakness Endocrine Endocrinology: Denies cold intolerance or heat intolerance Hematologic/Lymphatic Hematologic/Lymphatic: Denies easy bleeding or easy bruising EXAM Physical Exam Const Vital Signs: 04/05/23 10:43 04/05/23 10:43 04/05/23 10:43 Temperature 97.3 F L Temperature Source Temporal Pulse Rate 122 H 132 H Respiratory Rate 18 16 Respiratory Effort Normal Blood Pressure 156/99 H 136/99 H Blood Pressure Mean 118 111 Pulse Ox 98 98 Oxygen Delivery Method Room Air 04/05/23 11:08 04/05/23 12:00 04/05/23 13:24 Temperature 98.4 F Temperature Source Temporal Pulse Rate 140 H 54 L Respiratory Rate 16 17 Respiratory Effort Blood Pressure 143/79 H 123/66 H Blood Pressure Mean 100 85 Pulse Ox 98 97 Oxygen Delivery Method Room Air Room Air Positive well nourished and well developed General Appearance ED: well developed and NAD; Negative for pallor HEENT Reports TM's clear and moist mucous membranes normocephalic and atraumatic Tympanic Membrane ED: Yes TM's clear Eyes PERRL and EOMs intact bilaterally General Eye ED: Negative for pale conjunctiva or scleral icterus Neck no lymphadenopathy, supple and no JVD Resp normal respiratory effort and clear to auscultation bilaterally Cardio regular rate, S1 normal heart sound, S2 normal heart sound and no murmurs Rhythm: abnormal rhythm irregularly irregular Peripheral Pulses: pulses 2+ throughout GI normal to inspection, nondistended, normoactive bowel sounds, soft to palpation,non-tender, non-distended and no masses; Negative for hepatosplenomegaly Back/Spine no CVA tenderness and no thoracic nor lumbar tenderness Extremity normal to inspection General Extremety ED: Negative for edema, pulses abnormal or tenderness General Extremity: Negative for edema or pulses abnormal Neuro oriented x3, CN's II-XII intact bilaterally and no sensory deficits noted Sensorium / Orientation: awake and alert Psych mental status grossly normal Skin no rashes or lesions noted and no wounds Skin Narrative: Patient has evidence of prior bruises legs. General Skin Exam: Negative for jaundice or pallor Rashes: No rashes noted Heart Score History: Moderately Suspicious ECG: Nonspecific Repolarization Age: >/= 65 years Risk Factors: 1 or 2 Risk Factors Score: 5 MDM MDM MDM Narrative Medical decision making narrative: Patient with new onset A-fib. This will need a workup. More concerning is patient's exertional chest tightness with dyspnea that resolves with rest or walking on level ground instead of an incline. Patient not had a recent echo, stress test or cardiac catheterization. Patient is seen by Dr. Schofield. History & Record Review Additional record(s) reviewed:: Prior outpatient record (2020. Enzymes were negative. Echo was normal.), Prior ED visit and Prior labs Lab Data Attestation: I reviewed the patient's lab results. Lab results narrative: Electrolyte panel is unremarkable. First troponin is normal, 15. TSH is normal2.85. Labs: Laboratory Results - last 24 hr 04/05/23 04/05/23 11:06 13:21 Sodium 138 Potassium 3.8 Chloride 105 Carbon Dioxide 29.0 Anion Gap 4 L BUN 18 Creatinine 0.80 Estim Creat Clear Calc 40.98 Est GFR (MDRD) Af Amer 87 Est GFR (MDRD) Non-Af 72 BUN/Creatinine Ratio 22.4 H Glucose 108 H Calcium 9.6 Troponin I High Sens 15 16 TSH 2.85 Radiography Chest X-Ray - ED: 1 View and Read by ED Physician (Independent reviewed interpreted by me at 1136 is normal. Cardiac silhouette size normal. Perihilarregion normal. Lung parenchyma is normal. Osseous structures are unremarkable.) Diagnostic Testing: Clinical Impression(s) from Imaging Studies Chest X-Ray 04/05/23 11:25 IMPRESSION: Stable examination. No acute abnormality is seen. Electronically Signed: Fracisco Woodward MD at 11:53 EST , EKG Initial EKG: Attestation: I personally reviewed and interpreted this EKG as follows: Interpretation: Atrial Fibrillation (Rate is 99. Decreased anterior force. Nonseptic ST-T wave changes noted. GA interval is 120 ms. Cures duration 3 and 48 ms. Preston is normal.) Follow-up EKG: Attestation: I personally reviewed and interpreted this EKG as follows: Interpretation: Sinus Bradycardia (Rate is 53. Patient has decreased anterior force. There is evidence of left bundle branch block. QRS duration 148 ms. QT duration 514 ms. Preston is normal.) Management Discussion w/another healthcare provider: Flooring Helper (Spoke to Dr. Brian Still regarding patient. If second troponin is normal discharged home on metoprolol titrate 25 mg twice daily and Eliquis. She is to contact the office and they will set up for an outpatient visit and appropriate testing i.e. stress etc.) Treatment and Re-Evaluation :: Dr. Still was able to determine that the left bundle branch block that is notedon her repeat EKG is old since 2019. Plan is discharge with prescription for metoprolol 25 mg twice daily and Eliquis. She was given a starter pack to offset cost. Discharge Plan Triage Chief Complaint: Palpitations ED Provider: Mayito Palacio Dx/Rx/DC Orders Clinical Impression: Atrial fibrillation, new onset, High cholesterol, Hypertension, Bradycardia, sinus Instructions: ED AFIB Prescriptions: New Eliquis 2.5 mg tablet 2.5 mg PO BID Qty: 60 0RF metoprolol tartrate 25 mg tablet 25 mg PO BID Qty: 60 0RF No Action multivitamin Tablet 1 tab PO DAILY Patient Comments: centrum acetaminophen 500 mg capsule 500 mg PO Q6H PRN (Reason: pain) amlodipine 5 mg tablet 5 mg PO DAILY Qty: 90 3RF pravastatin 10 mg tablet 10 mg PO QHS Qty: 90 3RF losartan 100 mg tablet 100 mg PO DAILY Qty: 90 3RF Primary Care Provider: Angella Wallace Referrals: Angella Wallace MD [Primary Care Provider] - Patrick Still MD [Med Staff - Active Staff] - 1 Week Disposition Disposition: Home, Self Care What to do if you have Problems For any increased pain, shortness of breath, bleeding, nausea or vomiting, chestpain, or any unexpected problems, contact your Primary Care Provider. Call [facility] ([phone]) or report to the closest Emergency Room. Call 911 if necessary. 04/05/23 1409 <Electronically signed by Mayito Palacio MD> Cosigner Signature (if applicable): CC: Dr. Angella Wallace MD ~ Signed [facility] Work Phone: 1(287) 233-992402-06-2024 Miscellaneous Notes* Telephone Encounter - Juana Posey RN - 03/27/2023 4:26 PM EST Called and left a detailed voicemail notifying patient of providers message. Clinic phone number was left in case patient had any questions. Juana Posey RN * Telephone Encounter - Jaren Jones MD - 03/27/2023 4:16 PM EST I am not sure why this is being sent here. Patient established with Dr. Wallace as PCP. Needs to contact their office. * Telephone Encounter - Nicolle Oakes RN - 03/27/2023 3:36 PM EST Message left asking patient to follow up with her PCP. Patient encouraged to go to the ED for any increase in her symptoms or chest pain. Patient's last echo and zio were done in 2020. Nicolle Oakes RN * Telephone Encounter - Jil Mondragon RN - 03/27/2023 3:04 PM EST Call received from Pt - name & [...] but it's nothing that really bothers me ormakes me have to stop. Pt reports her BPs have ranged from 128-138/68-70, HR 60's. She has been unable to schedule an appointment anytime soon for follow-up with Dr. Leiva and is scheduled 10/2023. He wanted to see her back around 05/2023. Pt now calling to ask if he would be willing to order an echocardiogram and 14- day holter monitor for her. Pt reports her recently had one and is interested in having the same work-up completed. Please call her back with response. If unavailable by phone, Pt gives permission to leave detailed message on machine or speak to spouse, Mirza: Jil Mondragon RN March 27, 2023 3:09 PM documented in this encounterMercy Health Clerm[facility]09-25-2023 History of Present illness Narrative* Ángela Leiva MD - 11/13/2022 3:20 PM EDT Images from the original note were not included. [facility] SECTION OF REGIONAL CARDIOLOGY Cardiology ([facility]) [address] [facility] [id number] OUTPATIENT VISIT DATE 11/13/2022 PRIMARY CARE PHYSICIAN: Jaren Jones [address] [place] [id number] REFERRING PHYSICIAN: Jaren Jones [address] [facility] [address] HISTORY OF PRESENT ILLNESS: Ms. Bartholomew is a 87 year old pleasant and [...] Age of Onset other (MELANOMA) Mother other (HI) Father 59 other (LUNG CANCER) Brother ALLERGIES: [...] a left bundle branch block pattern E[facility]ocardiogram [facility] 10/23/2020 Normal LV size and systolic [...] Electrocardiogram, Laboratory Testing and Echocardiogram. IMPRESSION: Ms. Bartholomew is a 87 year old woman with [...] I44.7 Ángela Leiva MD documented in this encounterMercy Health Clerm[facility]09-01-2023 History of Present illness Narrative* Laurita Gavin, RT(R) - 10/20/2022 2:30 PM EDT Radiology Service Progress Note PATIENT NAME: Anabel Bartholomew DATE OF SERVICE: October 20, 2022 TIME: 2:48 PM PATIENT IDENTITY VERIFICATION COMPLETED USING TWO (2) IDENTIFIERS: Name and Date of confirmedby patient verbally. FALL SCREENING: Has the patient [...] 20, 2022 2:48 PM documented in this encounterMercy Health Clerm[facility]08-29-2023 Miscellaneous Notes* Telephone Encounter - Jaren Jones MD - 10/17/2022 4:46 PM EDT Ok, will remove myself as PCP and cancel order. Would recommend she follow up with their office forimaging. * Telephone Encounter - Amanda Culp LPN - 10/17/2022 4:35 PM EDT Phoned patient and reviewed message with her. She stated she has changed PCP and sees Dr Angella Wallace. She says she already has mammogram scheduled for Sunday. * Telephone Encounter - Jaren Jones MD - 10/17/2022 4:29 PM EDT Typically we stop mammograms at age 75. Is patient wanting to continue mammograms at this point? * Telephone Encounter - Linnette Stanton RT(R) - 10/17/2022 4:08 PM EDT Please file orders for a screening mammogram for patient for upcoming appointment. Thanks documented in this encounterMercy Health Clerm[facility]02-20-2023 Miscellaneous Notes* Telephone Encounter - Yeimy Jovel RN - 04/10/2022 4:16 PM EST Last Office Visit: 01/17/2022 Future Office Visit: None Requested Prescriptions Pending Prescriptions Disp Refills losartan (COZAAR) 100 mg tablet 90 tablet 1 Sig: Take 1 tablet by mouth once daily. Date of Last Labs: 01/11/2022 documented in this encounterMercy Health Clerm[facility]02-06-2023 Miscellaneous Notes* Telephone Encounter - Haley Liu RN - 03/27/2022 2:35 PM EST Patient has been identified by name and [...] you. Haley Liu RN documented in this encounterMercy Health Clermont Hospital01-31-2023 History of Present illness Narrative* Lily Villar APRN.MANAGER NURSING HOME - 03/21/2022 3:48 PM EST Images from the original note were not included. Subjective Hives Associated symptoms include a rash. Pertinent negatives include no chills, fever or myalgias. Anabel Bartholomew is a 86 year old female who [...] Age of Onset other (MELANOMA) Mother other (HI) Father 59 other (LUNG CANCER) Brother Social [...] illness Lily Villar APRN.CNP documented in this encounterMercy Health Clerm[facility] Hospital01-31-2023 Instructions* Patient Instructions* Lily Villar APRN.CNP - 03/21/2022 3:44 PM [...] expected course of illness Lily Villar APRN.CNP NONSPECIFIC RASH: Our exam shows you have [...] redness, drainage or pus). documented in this encounterMercy Health Clerm[facility]12-19-2022 History of Present illness Narrative* Ángela Leiva MD - 02/06/2022 3:20 PM EST Images from the original note were not included. [facility] SECTION OF REGIONAL CARDIOLOGY Cardiology ([facility]) [address] [facility] [id number] OUTPATIENT VISIT DATE 02/06/2022 PRIMARY CARE PHYSICIAN: Jaren Jones [address] [place] [address] REFERRING PHYSICIAN: Jaren Jones [address] [facility] [address] HISTORY OF PRESENT ILLNESS: Ms. Bartholomew is a 86 year old pleasant and active woman with a history of hypertension, left bundle branch block pattern on EKG, SVT secondary to atrial tachycardia, and dyslipidemia who presents the office for routine follow-up. Since her last visit, she tells me she has been doing well. She has hadno symptoms of chest pain, or palpitations. Overall functional capacity is remained stable. She hashad no symptoms concerning for CHF including PND, [...] Age of Onset other (MELANOMA) Mother other (HI) Father 59 other (LUNG CANCER) Brother ALLERGIES: [...] a left bundle branch block pattern [facility]ocardiogram [facility] 10/23/2020 Normal LV size and systolic [...] Electrocardiogram, Laboratory Testing and Echocardiogram. IMPRESSION: Ms. Bartholomew is a 86 year old woman with [...] I44.7 Ángela Leiva MD documented in this encounterMercy Health Clerm[facility] Hospital11-29-2022 Miscellaneous Notes* Telephone Encounter - Cierra Nassar RN - 01/17/2022 4:44 PM EST Patient calls to request copies of recent lab work be mailed to home address. Copies of labs made and placed in out-going mail to be mailed to patient at home address. Cierra Nassar RN documented in this encounterMercy Health Clerm[facility]11-29-2022 History of Present illness Narrative* Jaren Jones MD - 01/17/2022 11:23 AM EST Chief Complaint Patient presents with: Physical: Started mini cog and patient refused after starting it became aggitated and demanded the mini cog paperwork. She stated she didn't want the information recorded. Papers given to patient andPCP updated. HPI Anabel Bartholomew is a 86 year old female who [...] had dizziness she had to see our SASH FINISHER instead of me. States that her symptoms of BPPV were not improved with skyler maneuvers at home. Had to see ENT and theyperformed them there and her symptoms. Discussed with patient that she had been given maneuvers forhome and if they didn't improve we would [...] controlled on current regimen. Taking her beta bryan and ARB daily. Past medical history, appointments, [...] Age of Onset other (MELANOMA) Mother other (HI) Father 59 other (LUNG CANCER) Brother Patient [...] Resolved. Jaren Jones MD documented in this encounterMercy Health Clerm[facility]08-12-2022 Miscellaneous Notes* Letter - Mammography Coordinator - 09/30/2021 8:07 AM EDT September 30, 2021 PID: [id number] Anabel Bartholomew [address] [place] [address] Dear Ms. Bartholomew, We are pleased to inform you that [...] dense breast tissue in addition to other riskfactors. Early detection of cancer is very important. We also understand recommendations regarding breast cancer screening are controversial. Please discuss with your primary care provider which strategy is best for you and whether a mammogram is right for you. Your imaging studies and report will be [facility] as part of your permanent medical record and are available for your continuing care. Thank you for allowing us to help in meeting your health care needs. Sincerely, Dr. Watt Interpreting Radiologist [facility] (Normal over 40) documented in this encounterMercy Health Clerm[facility] Hospital08-11-2022 Miscellaneous Notes* Telephone Encounter - Kelly Mckeon Ma - 09/29/2021 4:47 PM EDT Pt notified. * Telephone Encounter - Jaren Jones MD - 09/29/2021 4:00 PM EDT Glad to hear it. Let us know if symptoms return or change. * Telephone Encounter - Mel Dubose - 09/29/2021 3:51 PM EDT Patient called to advise Tawnya Scales that her vertigo has been gone for 2 days. documented in this encounterMercy Health Clerm[facility]08-11-2022 Miscellaneous Notes* Telephone Encounter - Mel Dubose - 09/29/2021 3:50 PM EDT Patient has been identified by name and date of : Yes Requested Prescriptions Pending Prescriptions Disp Refills losartan (COZAAR) 100 mg tablet 90 tablet 1 Sig: Take 1 tablet by mouth once daily. RX INSTRUCTIONS: Patient aware RX will be sent to pharmacy. No need to notify patient. Mel Dubose documented in this encounterMercy Health Clerm[facility] Hospital08-03-2022 History of Present illness Narrative* Tawnya Scales, CRUCIBLE FURNACE TENDER.MANAGER NURSING HOME - 09/21/2021 2:36 PM EDT 09/21/2021 Patient presents with: Dizziness: x4 days [...] negative findings: speech normal, mental status intact, gait,including heel, toe, and tandem walking normal, Romberg negative, muscle tone normal, muscle strength normal, rapid alternating movements normal, finger to nose normal, reflexes normal and symmetric,plantar response downgoing bilaterally SKIN Skin color, texture, [...] this helps - will have her do Skyler procedure at home three times a day - she will update me in one week with symptoms, if not improving will have her see PT - MECLIZINE 12.5 MG TABLET- common side effects discussed - update me in one to ER with red flag symptoms 2. Bilateral impacted cerumen - ICD9: 380.4, ICD10: H61.23 - resolved after irrigation Tawnya Scales APRN.CNP Prescription instructions reviewed with [...] which included preparing to see the patient, [id number] patient care, completing clinical documentation, obtaining and/or reviewing separately obtained history, performing a medically appropriate examination, counseling and educating the pat ient/family/caregiver and ordering medications, tests, or procedures. documented in this encounterMercy Health Clerm[facility]07-22-2022 History of Present illness Narrative* Tawnya Scales APRN.CNP - 09/09/2021 1:02 PM EDT 09/09/2021 Patient presents with: Dizziness: x1 week SUBJECTIVE: This is a 86 year old that is here today for Above Complaints. Reports vertigo for the past week, although she reports last night she was fine. Happens when shelays down at night, however if she turns [...] some recent stressful situations in her family recently.Denies hx of depression or anxiety, SI, HI [...] flag symptoms discussed, verbalizes understanding - discussed Skyler maneuver she can do three times a day if returns - follow-up if symptoms fail to improve 2. 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 - [facility] and after hours crisis line - Beth hansen phone number or - SERTRALINE 25 MG [...] which included preparing to see the patient, [id number] patient care, completing clinical documentation, performing a medically appropriate examination, counseling and educating the patient/family/caregiver and ordering medications, tests, or procedures. documented in this encounterMercy Health Cl[facility]05-23-2022 History of Present illness Narrative* Ángela Leiva MD - 07/11/2021 2:00 PM EDT Images from the original note were not included. [facility] VASCULAR [facility]STITUTE SECTION OF REGIONAL CARDIOLOGY Cardiology ([facility]) [address] [facility] [id number] OUTPATIENT VISIT DATE 07/11/2021 PRIMARY CARE PHYSICIAN: Jaren Jones [address] [place] [address] REFERRING PHYSICIAN: Jaren Jones [address] [facility] [address] HISTORY OF PRESENT ILLNESS: Ms. Bartholomew is a 85 year old pleasant and active woman with a history of hypertension, left bundle branch block pattern on EKG, SVT secondary to atrial tachycardia, and dyslipidemia who presents the office for routine follow-up. Since her last visit, she tells me she has been doing well. She has hadno recurrent episodes of palpitations or heart racing. She did not take a single dose of metoprololsince her last visit. She remains active and [...] Age of Onset other (MELANOMA) Mother other (HI) Father 59 other (LUNG CANCER) Brother ALLERGIES: [...] 2+ distal pulses CARDIOVASCULAR MEDICINE TESTING: Echocardiogram [facility] 10/23/2020 Normal LV size and systolic [...] Electrocardiogram, Laboratory Testing and Echocardiogram. IMPRESSION: Ms. Bartholomew is a 85 year old woman with [...] mg/dL Ángela Leiva MD documented in this encounterMercy Health Cl[facility]05-12-2022 Miscellaneous Notes* Telephone Encounter - Yeimy Jovel RN - 06/30/2021 11:33 AM EDT Patient has been identified by name and [...] you. Yeimy Jovel RN documented in this encounterMercy Health [facility]03-02-2010 History of Past illness Narrative* Problem [...] encounter (statuses as of 06/30/2021) [facility] of Past illness Narrative* Problem [...] encounter (statuses as of 07/11/2021) [facility] of Past illness Narrative* Problem [...] encounter (statuses as of 09/09/2021) [facility] of Past illness Narrative* Problem [...] encounter (statuses as of 09/21/2021) [facility] History of Past illness Narrative* Problem [...] encounter (statuses as of 09/29/2021) [facility] of Past illness Narrative* Problem [...] encounter (statuses as of 09/30/2021) [facility] of Past illness Narrative* Problem [...] encounter (statuses as of 10/04/2021) [facility] of Past illness Narrative* Problem [...] encounter (statuses as of 01/17/2022) [facility] of Past illness Narrative* Problem [...] encounter (statuses as of 01/22/2022) [facility] of Past illness Narrative* Problem [...] encounter (statuses as of 02/06/2022) [facility] of Past illness Narrative* Problem [...] encounter (statuses as of 03/22/2022) [facility] of Past illness Narrative* Problem [...] encounter (statuses as of 03/27/2022) [facility] of Past illness Narrative* Problem [...] encounter (statuses as of 04/11/2022) [facility] of Past illness Narrative* Problem [...] encounter (statuses as of 10/18/2022) [facility] of [facility] illness Narrative* Problem [...] encounter (statuses as of 11/14/2022) [facility] illness Narrative* Problem [...] encounter (statuses as of 12/24/2022) [facility] of Past illness Narrative* Problem [...] encounter (statuses as of 03/28/2023) [facility] HospitalConsult note Author Patrick Still [facility] April 05, 2023 1:48pm Note Date/Time April 05, 2023 1:22pm [facility] Medical Records Department [address] [place] [id number] Consultation - Cardiology 04/05/23 1320 MR#: [id number] Acct: [id number] Name: ANABEL BARTHOLOMEW Rep #:[id number] : [id number] From: Patrick Still MD PCP: Dr. Angella Wallace MD Status:REG ER Location: ED Assessment & Plan Assessment/Plan (1) Paroxysmal atrial fibrillation: PLAN: The patient developed presumably new onset atrial fibrillation within the last 48 hours. She has noted dyspnea on exertion and some chest pressure walking uphill. Her EKG initially showed atrial fibrillation with a rapid ventricular sponsor and a left bundle branch block pattern. She has a chronic left bundle branch block. The patient has no prior history of coronary artery disease she has never been cathed but she has had an echo which showed mitral annular calcification but no other significant valvular heart disease. LV function was normal at 60%. The patient has a history of hypertension and an 86-year-old which is probably the etiology of her atrial fibs. The patient's symptoms are concerning for possible angina. She is stable and troponins were negative on this ED visit. The patient will be instituted on Eliquis to 2.5 mg twice daily given her 87 years of age the patient was given a card to get 30 days of Eliquis free. We will continue oral Lopressor 50 mg twice daily. A 2D echocardiogram will be performed and a stress echo will be done. The patient will follow-up in our office on 04/09/2023 at 9:30 AM with Jennifer. (2) Dyspnea on exertion: PLAN: The dyspnea on exertion is potentially an anginal equivalent with this chest pressure sensation but it could also be simply related to her atrial for with rapid ventricular response. Now that she is in sinus rhythm we will do a stress echo to evaluate her response to exercise. This will also allow us to rule out an ischemic etiology. (3) Chest tightness: PLAN: The chest tightness may be related to the atrial for with a rapid ventricular sponsor but also only we need to rule out a coronary ischemic issue. A stress echo will be done when she is evaluated in the office on Sunday. (4) Hypertension: QUALIFIERS: Hypertension type: primary hypertension Qualified Code(s): I10 - Essential (primary) hypertension PLAN: Continue Lopressor we will check her blood pressure and heart rate when she is in the office we will need to add medical therapy to maintain systolic less than 145 and diastolic less than 85. 1 option would be to increase amlodipine to 10 mg/day in addition to the recently added Lopressor 50 mg twice daily which we started today in the ER. (5) High cholesterol: PLAN: The patient's lipid profile needs to be evaluated and pending the outcome of her stress testing LDL target should be less than 70 if coronary artery disease is suspected or less than 100 otherwise. She should continue the pravastatin for now. PLAN: Plan 1. Patient be evaluated in the [place] office with Jennifer Dias on Sunday to 2023 blood pressure and heart rate will be evaluated and medications titrated 2. We will schedule a 2D echo and stress echo at the time of that office visit. 3. Eliquis should be continued long-term as tolerated. We will address the financial constraints when she is evaluated in the office. HPI Consult Data Date of Consult: 04/05/23 HPI Narrative Reason for Consultation: New onset A.fib HPI Narrative: ANABEL BARTHOLOMEW, is a 87 F who presents with new onset atrial fibrillation the patient reports that she has noticed that when she was walking up he will that she developed a pressure sensation in her chest and was short of breath. She came to the emergency department with her to be evaluated and was found to be in atrial fibrillation with a rapid ventricular response. The EKG revealed a left bundle branch block which was documented by her report as early as 2019. I actually located an EKG done June 13, 2018 that showed the left bundle branch block. The patient has followed up with Dr. Sears for this left bundle branch block in the past she has never been cathed but she did have an echocardiogram done [id number]. That echo revealed normal LV function EF of 60% severe mitral annular calcification with no mitral valve stenosis or regurgitation. There is no othersignificant valvular heart disease there was some mild aortic sclerosis but no stenosis and no insufficiency. The patient has been very active walking on a routine basis until just recently when she developed this dyspnea on exertion and chest pressure going up heels that resolved spontaneously on flat ground. The patient converted to normal sinus rhythm after IV Lopressor in the emergencydepartment. [facility] Medical History Arthritis Back problem Carpal tunnel syndrome Cataracts, both eyes Chest pain Dysrhythmia Hearing problem Herniated disc High cholesterol Hives Hypertension Non-smoker Osteoarthritis Osteopenia UTI (urinary tract infection) Vision problems Home Medications multivitamin 1 tab PO DAILY 03/07/22 [History Last Taken 04/04/23] amlodipine 5 mg tablet 5 mg PO DAILY bp #90 tabs 06/28/22 [Rx Last Taken 04/05/23] pravastatin 10 mg tablet 10 mg PO QHS cholesterol #90 tabs 06/28/22 [Rx Last Taken 04/04/23] losartan 100 mg tablet 100 mg PO DAILY bp #90 tabs 10/10/22 [Rx Last Taken 04/04/23] acetaminophen 500 mg capsule 500 mg PO Q6H PRN pain 04/05/23 [History Last Taken 04/05/23] Allergy/AdvReac Type Severity Reaction Status Date / Time latex Allergy Rash Verified 04/05/23 10:46 meloxicam Allergy Rash Verified 04/05/23 10:46 prednisone Allergy Unknown Verified 04/05/23 10:46 Seasonal Allergies: Uncoded Allergy NEEDS Verified 04/05/23 10:46 FOLLOW-UP tramadol Allergy Rash Verified 04/05/23 10:46 Family History Grandmother , age 42 Arthritis Myocardial infarction Brother , age 47 Cancer lung Father , age 59 Myocardial infarction Heart disease Hypertension Mother , age 51 Melanoma Grandfather , age 69 CVA (cerebral vascular accident) Other Melanoma and neural system tumor syndrome Surgical History H/O dilation and curettage History of carpal tunnel surgery History of knee replacement History of tonsillectomy Social History household members: spouse Smoking Status: Never smoker substance use type: does not use ROS Constitutional Constitutional: Reports systems reviewed and no addt'l complaints, except as documented Eyes Eyes: Reports systems reviewed and no addt'l complaints, except as documented ENT HEENT: Reports systems reviewed and no addt'l complaints, except as documented Cardiovascular Cardiovascular: Reports as per HPI Respiratory/Chest Respiratory/Chest: Reports as per HPI Gastrointestinal Gastrointestinal: Reports systems reviewed and no addt'l complaints, except as documented Genitourinary Genitourinary: Reports systems reviewed and no addt'l complaints, except as documented Musculoskeletal Musculoskeletal: Reports systems reviewed and no addt'l complaints, except as documented Integumentary Integumentary: Reports systems reviewed and no addt'l complaints, except as documented Neurologic Neurologic: Reports systems reviewed and no addt'l complaints, except as documented Psychiatric Psychiatric: Reports systems reviewed and no addt'l complaints, except as documented Endocrine Endocrinology: Reports systems reviewed and no addt'l complaints, except as documented Hematologic/Lymphatic Hematologic/Lymphatic: Reports systems reviewed and no addt'l complaints, exceptas documented Allergic/Immunologic Allergic/Immunologic: Reports systems reviewed and no addt'l complaints, except as documented Physical Exam Const oriented x3 HEENT normocephalic Eyes EOMs intact bilaterally Neck no JVD and no carotid bruits Chest inspection of chest normal Resp clear to auscultation bilaterally Cardio regular rate, regular rhythm, S1 normal heart sound, S2 normal heart sound, no murmurs, no rub and no gallops Cardio Narrative: Examined in the emergency room. GI normal to inspection, nondistended, normoactive bowel sounds Extremity no pedal edema Skin no rashes or lesions noted Neuro Neuro Narrative: Alert and oriented x 3 Psych mental status grossly normal Risk Stratification Risk Stratification Applicable: Yes Age >/= 65: Yes >/= 3 CAD Risk Factors (HTN, HLD, DM, family hx of CAD, or current smoker): No Aspirin Use in the Past 7 Days: No Severe Angina (>/= episodes in 24 hours): No EKG ST Changes >/= 0.5mm: No Positive Cardiac Marker: No MARY Risk Stratification Score: 1 MARY % Risk: 5% Risk Charges/Coding Visit Charges Inpatient E&M: 68868 Init Hosp L3 Objective Data Vital Signs: Vital Signs Temp Pulse Resp BP Pulse Ox O2 Del Method 98.4 F 140 H 16 143/79 H 98 Room Air 04/05/23 12:00 04/05/23 12:00 04/05/23 12:00 04/05/23 12:00 04/05/23 12:00 04/05/23 12:00 Oxygen Delivery Method Room Air Weight: 127 lb 11.2 oz Body Mass Index (BMI) 22.6 Lab / Micro Data Attestation: I reviewed the patient's lab results. 04/05/23 11:06 04/05/23 11:06 Labs: Laboratory Results - last 24 hr 04/05/23 11:06: Sodium 138, Potassium 3.8, Chloride 105, Carbon Dioxide 29.0, Anion Gap 4 L, BUN 18, Creatinine 0.80, Estim Creat Clear Calc 40.98, Est GFR (MDRD) Af Amer 87, Est GFR (MDRD) Non-Af 72, BUN/Creatinine Ratio 22.4 H, Glucose 108 H, Calcium 9.6, Troponin I High Sens 15 Rhythm Strip Rhythm Strip: Sinus Rhythm Rate: 70 Cardiology Labs/Tests 04/05/23 11:06: Sodium 138, Potassium 3.8, Chloride 105, Carbon Dioxide 29.0, Anion Gap 4 L, BUN 18, Creatinine 0.80, Est GFR (MDRD) Af Amer 87, Est GFR (MDRD) Non- Af 72, BUN/Creatinine Ratio 22.4 H, Glucose 108 H, Calcium 9.6 Rhythm: EKG: ECHO: Stress Test: Cardiac Cath: PCI: CT Surgery: Holter monitor: EPS: PPM: CXR: Chest CT Scan: Radiography Diagnostic Testing: Radiology Impression Chest X-Ray 04/05/23 11:25 IMPRESSION: Stable examination. No acute abnormality is seen. Electronically Signed: Fracisco Woodward MD at 11:53 EST , EKG Follow-up EKG: Attestation: I personally reviewed and interpreted this EKG as follows: Interpretation: EKG was sinus bradycardia at 56 bpm left bundle branch block. This was similar to the old EKG from 2018. 04/05/23 1348 <Electronically signed by Patrick Still MD> Cosigner Signature (if applicable): CC: Dr. Angella Wallace MD~ Signed [facility] Work Phone: Evaluation note* Diagnosis Essential hypertension Unspecified essential hypertension documented in this encounter [facility] note* Diagnosis Palpitations- Primary LBBB (left bundle branch block) Other left bundle branch block Essential hypertension, benign Other hyperlipidemia documented in this encounter [facility] note* Diagnosis Dizziness- Primary Dizziness and giddiness Anxiety with depression Encounter for screening mammogram for malignant neoplasm of breast Other screening mammogram documented in this encounter [facility] note* Diagnosis Dizziness- Primary Dizziness and giddiness Bilateral impacted cerumen Impacted cerumen documented in this encounter [facility] noteNo assessment information [facility] Work Phone: Evaluation note* Diagnosis Drug rash- Primary Dermatitis due to drugs and medicines taken internally Minimal cognitive impairment Mild cognitive impairment, so stated Essential hypertension Unspecified essential hypertension Hyperlipidemia, unspecified hyperlipidemia type Anxiety with depression BPPV (benign paroxysmal positional vertigo), unspecified laterality documented in this encounter [facility] note* Diagnosis Palpitations- Primary Essential hypertension, benign Other hyperlipidemia LBBB (left bundle branch block) Other left bundle branch block documented in this encounter [facility] note* Diagnosis Rash- Primary Rash and other nonspecific skin eruption documented in this encounter [facility] note* Diagnosis Hyperlipidemia, unspecified hyperlipidemia type documented in this encounter [facility] note* Diagnosis Encounter for screening mammogram for malignant neoplasm of breast- Primary Other screening mammogram documented in this encounter [facility] note* Diagnosis Essential hypertension, benign- Primary Mixed hyperlipidemia Palpitations LBBB (left bundle branch block) Other left bundle branch block documented in this encounter [facility] note* Diagnosis Onset Date Resolution Status Atrial fibrillation, new onset acute Hypertension chronic [facility] Work Phone: Evaluation note* Diagnosis Onset Date Resolution Status Hypertension chronic [facility] Work Phone: Evaluation note* Diagnosis DDD (degenerative disc disease), thoracic- Primary Degeneration of thoracic or thoracolumbar intervertebral disc DDD (degenerative disc disease), thoracic- Primary Degeneration of thoracic or thoracolumbar intervertebral disc documented in this encounter [facility] note* Diagnosis DDD (degenerative disc disease), thoracic Degeneration of thoracic or thoracolumbar intervertebral disc DDD (degenerative disc disease), thoracic- Primary Degeneration of thoracic or thoracolumbar intervertebral disc documented in this encounter [facility] Discharge instructions Additional Instructions Urine atrial fibrillation you converted in the emergency department. Labs are stable. You are restarted back on your Eliquis. Take this twice a day. Discussed with Dr. Baum. With your lower heart rate, you would not be restarted on metoprolol at this time. Follow-up with Dr. Still as scheduled.[facility] Work Phone: Reason for referral (narrative)* Diagnostic Procedure Only (Routine) - Pending Review Specialty Diagnoses / Procedures Referred By Dirk t Referred To Contact [facility] Diagnoses Encounter for screening mammogram for malignant neoplasm of breast Procedures MARY SCREENING SCREENING MAMMOGRAPHY BI 2-VIEW BREAST INC CAD Tawnya Scales APRN.[facility] [address] [place] [address] [facility] [address] [place] [address] Referral ID Status Reason Start Date Expiration Date Visits Requested Visits Authorized [id number] Pending Review Auto-Generat ed Referral 09/09/2021 10/09/2022 1 1 [facility] for referral (narrative)* Outpatient Procedure (Routine) - Closed Specialty Diagnoses / Procedures Referred By Contac t Referred To [facility] Diagnoses Palpitations Procedures ECG COMPLETE ECG ROUTINE ECG W/LEAST 12 LDS W/I&R Ángela Leiva MD [address] [place] [address] [facility] [place] [address] [place] [address] Referral ID Status Reason Start Date Expiration Date V isits Requested Visits Authorized [id number] Closed Auto-Generate d Referral 01/31/2022 01/31/2023 1 1 [facility] for referral (narrative)* Diagnostic Procedure Only (Routine) - Closed Specialty Diagnoses / Procedures Referred By Contac t Referred To Contact XR IMAGING Diagnoses DDD (degenerative disc disease), thoracic Procedures XR SCOLIOSIS PA STAND/LAT 2V RADEX ENTIR THRC LMBR CRV SAC SPI W/SKULL 2/3 Rajwinder Evangelista APRN.CNP [address] [place] [address] [facility] [id number] Referral ID Status Reason Start Date Expiration Date V isits Requested Visits Authorized [id number] Closed Auto-Generate d Referral 10/24/2023 11/22/2024 1 1 [facility] for referral (narrative)No reason for referral information availableWMemorial [facility] Work Phone: Reason for visit Narrative* Diagnostic Procedure Only (Routine) - Closed Specialty Diagnoses / Procedures Referred By Contac t Referred To Contact XR IMAGING Diagnoses DDD (degenerative disc disease), thoracic Procedures XR SCOLIOSIS PA STAND/LAT 2V RADEX ENTIR THRC LMBR CRV SAC SPI W/SKULL 2/3 VW Clara Gu MD [address] [place] [address] [place] [address] Referral ID Status Reason Start Date Expiration Date V isits Requested Visits Authorized [id number] Closed Auto-Generate d Referral 10/24/2023 11/22/2024 1 1 [facility] Summary Purpose Family History No Family History Records Found Relationship Condition Age at Onset Recorded Date/T deepti Not Specified Cardiac disease Unknown Melanoma-astrocytoma syndrome Unknown Relationship Condition Age at Onset Recorded Date/T deepti Not Specified Melanoma-astrocytoma syndrome Unknown grandmother Arthritis Unknown Myocardial infarction Unknown brother Malignant neoplasm Unknown father Myocardial infarction Unknown Cardiac disease Unknown Hypertension Unknown mother Malignant melanoma Unknown grandfather Cerebrovascular accident (CVA) Unknown Advance Directives No Advanced Directives Records FoundDocuments on File Type Date Recorded 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 Advance Directive(s) Documents on File Type Date Recorded 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 Advance Directive(s) Advance Directive Response Recorded Date/ Time Advance Directives No August 24 11:02am Living Will No October 23 3:05am Power of Cardboard Inserter No October 23, 2020 3:05am Advance Directive Response Recorded Date/ Time Advance Directives No August 24 10:02am Living Will No October 23 2:05am Power of Cardboard Inserter No October 23, 2020 2:05am Advance Directive Response Recorded Date/ Time Advance Directives No August 24 10:02am Living Will No April 05 024 10:43am Power of Cardboard Inserter No April 05, 2023 10:43am Advance Directive Response Recorded Date/ Time Advance Directives No August 24 11:02am Living Will No April 05 024 11:43am Power of Cardboard Inserter No April 05, 2023 11:43am Advance Directive Response Recorded Date/ Time Do you have a Healthcare Power of Cardboard Inserter? No August 12, 2024 10:57am Advance Directives No August 24 11:02am Hospital Course Note [facility] PROGRESS N OTE/DISCHARGE SUMMARY NAME ACCOUNT SEX AGE ADMIT DISCHARGE PT MED. RECORD# NUMBER DATE DATE TYPE [place] [id number] F 83 08/12/18 1 ANABEL Hartman [id number] ROOM: 309 DATE OF : 1935 DICTATING PHYSICIAN: El Gutierrez DATE OF SERVICE: August 13, 2018 [...] active motion i (more content not included)... Chief Complaint and Reason for Visit Chief Complaint ANNUAL Chief Complaint ANNUAL INT LABS Chief Complaint INT LABS CHEST PAIN PALPITATIONS PALPITATIONS Chief Complaint INT LABS CHEST PAIN PALPITATIONS PALPITATIONS S/P [facility] 04/05/23 PER (SEEN 10/2020) Reason for Visit Atrial fibrillation, new onset Hypertension Chief Complaint INT LABS CHEST PAIN PALPITATIONS PALPITATIONS S/P [facility] 04/05/23 PER [facility] (SEEN 10/2020) CP/SOB Reason for Visit Hypertension Chief Complaint Admit Date LUMBAR SPINE May 15, 2024 2:3 2pm chest August 12, 2024 10:5 1am Reason for Visit Admit Date Lumbar radiculopathy May 15, 2024 2: 32pm Spinal stenosis of lumbar region with ne urogenic claudication May 15, 2024 2:32pm Additional Source Comments INFORMATION SOURCE (unrecogn ized section and content) DATE CREATED AUTHOR 08/21/2017 [facility] DATE CREATED AUTHOR AUTHOR'S ORGANIZ ATION 08/15/2018 [facility] DATE CREATED AUTHOR AUTHOR'S ORGANIZ ATION 10/12/2018 [facility] DATE CREATED AUTHOR AUTHOR'S ORGANIZ ATION 10/26/2023 [facility] DATE CREATED AUTHOR AUTHOR'S ORGANIZ ATION 05/31/2024 [facility] DATE CREATED AUTHOR AUTHOR'S ORGANIZ ATION 08/18/2024 [facility] Source Comments (unrecognize d section and content) In the event this informatio n is protected by the Federal Confidentiality of Alcohol and Drug Abuse Patient Records regulations: The Federal rules restrict any use of the information to criminally investigate or prosecute any alcohol or drug abuse patient.[facility] the event this information is protected by the Federal Confidentiality of Alcohol and Drug Abuse Patient Records regulations: The Federal rules restrict any use of the information to criminally investigate or prosecute any alcohol or drug abuse patient.[facility] the event this information is protected by the Federal Confidentiality of Alcohol and Drug Abuse Patient Records regulations: The Federal rules restrict any use of the information to criminally investigate or prosecute any alcohol or drug abuse patient.[facility] Hospital[facility] the event this information is protected by the Federal Confidentiality of Alcohol and Drug Abuse Patient Records regulations: The Federal rules restrict any use of the information to criminally investigate or prosecute any alcohol or drug abuse patient.[facility] Hospital[facility] the event this information is protected by the Federal Confidentiality of Alcohol and Drug Abuse Patient Records regulations: The Federal rules restrict any use of the information to criminally investigate or prosecute any alcohol or drug abuse patient.[facility] Hospital[facility] the event this information is protected by the Federal Confidentiality of Alcohol and Drug Abuse Patient Records regulations: The Federal rules restrict any use of the information to criminally investigate or prosecute any alcohol or drug abuse patient.[facility] Hospital[facility] the event this information is protected by the Federal Confidentiality of Alcohol and Drug Abuse Patient Records regulations: The Federal rules restrict any use of the information to criminally investigate or prosecute any alcohol or drug abuse patient.[facility] Hospital[facility] the event this information is protected by the Federal Confidentiality of Alcohol and Drug Abuse Patient Records regulations: The Federal rules restrict any use of the information to criminally investigate or prosecute any alcohol or drug abuse patient.[facility] Hospital[facility] the event this information is protected by the Federal Confidentiality of Alcohol and Drug Abuse Patient Records regulations: The Federal rules restrict any use of the information to criminally investigate or prosecute any alcohol or drug abuse patient.[facility] Hospital[facility] the event this information is protected by the Federal Confidentiality of Alcohol and Drug Abuse Patient Records regulations: The Federal rules restrict any use of the information to criminally investigate or prosecute any alcohol or drug abuse patient.[facility] Hospital[facility] the event this information is protected by the Federal Confidentiality of Alcohol and Drug Abuse Patient Records regulations: The Federal rules restrict any use of the information to criminally investigate or prosecute any alcohol or drug abuse patient.[facility] Hospital[facility] the event this information is protected by the Federal Confidentiality of Alcohol and Drug Abuse Patient Records regulations: The Federal rules restrict any use of the information to criminally investigate or prosecute any alcohol or drug abuse patient.[facility] Hospital[facility] the event this information is protected by the Federal Confidentiality of Alcohol and Drug Abuse Patient Records regulations: The Federal rules restrict any use of the information to criminally investigate or prosecute any alcohol or drug abuse patient.[facility] Hospital[facility] the event this information is protected by the Federal Confidentiality of Alcohol and Drug Abuse Patient Records regulations: The Federal rules restrict any use of the information to criminally investigate or prosecute any alcohol or drug abuse patient.[facility] Hospital[facility] the event this information is protected by the Federal Confidentiality of Alcohol and Drug Abuse Patient Records regulations: The Federal rules restrict any use of the information to criminally investigate or prosecute any alcohol or drug abuse patient.[facility] HospitalIn the event this information is protected by the Federal Confidentiality of Alcohol and Drug Abuse Patient Records regulations: The Federal rules restrict any use of the information to criminally investigate or prosecute any alcohol or drug abuse patient.[facility] HospitalIn the event this information is protected by the Federal Confidentiality of Alcohol and Drug Abuse Patient Records regulations: The Federal rules restrict any use of the information to criminally investigate or prosecute any alcohol or drug abuse patient.[facility] Hospital[facility] the event this information is protected by the Federal Confidentiality of Alcohol and Drug Abuse Patient Records regulations: The Federal rules restrict any use of the information to criminally investigate or prosecute any alcohol or drug abuse patient.[facility] HospitalIn the event this information is protected by the Federal Confidentiality of Alcohol and Drug Abuse Patient Records regulations: The Federal rules restrict any use of the information to criminally investigate or prosecute any alcohol or drug abuse patient.[facility] Hospital[facility] the event this information is protected by the Federal Confidentiality of Alcohol and Drug Abuse Patient Records regulations: The Federal rules restrict any use of the information to criminally investigate or prosecute any alcohol or drug abuse patient.[facility] Hospital[facility] the event this information is protected by the Federal Confidentiality of Alcohol and Drug Abuse Patient Records regulations: The Federal rules restrict any use of the information to criminally investigate or prosecute any alcohol or drug abuse patient.[facility] Reason for Visit (unrecogniz ed section and content) Reason Onset Date Comments Refill Request 06/30/2021 Reason Comments 4 month CARD check Specialty Diagnoses / Procedures Referred By Contact Referred To Contact Cardiology / FAMILY MEDICINE Diagnoses Palpitations Other chest pain Procedures CONSULT TO CARDIOLOGY NEW PATIENT VISIT LEVEL 5 Jaren Jones MD [address] [place] [address] [facility] [address] [place] [address] Referral ID Status Reason Start Date Expiration Date V isits Requested Visits Authorized [id number] Closed Patient Cleared INN/SMCP Payor Auth Obtained 03/07/2021 02/18/2022 1 1 Reason Comments Dizziness x1 week Specialty Diagnoses / Procedures Referred By Contjosemanuel t Referred To Contact [facility] Diagnoses vertigo x 1 week Procedures 4C ANTHONY Fonseca MD [facility] [address] [place] [address] Referral ID Status Reason Start Date Expiration Date V isits Requested Visits Authorized [id number] Closed Financial Clearance Required - OON Payor Patient Cleared INN/SMCP Payor Auth Obtained 09/08/2021 12/07/2021 1 1 Reason Comments Dizziness x4 days Earwax bilateral ears; comp leted drops Specialty Diagnoses / Procedures Referred By Contjosemanuel t Referred To Contact Family Practice / FAMILY MEDICINE Diagnoses Dizziness follow-up Requesting medication and possibly therapy referral. Did not start sertraline. Procedures 4C ANTHONY Fonseca MD [employer]log[employer], Tawnya, CRUCIBLE FURNACE TENDER.[facility] [address] [place] [address] Referral ID Status Reason Start Date Expiration Date Visits Re quested Visits Authorized [id number] Closed 09/21/2021 02/18/2022 1 1 Reason Comments [...] Reason Comments Hives Rash and hives on festus th sides of torso and lower abdomen since 01/07/2022 Reason Onset Date Comments Refill Request 03/27/2022 Reason Onset Date Comments Refill Request 04/10/2022 Reason Comments Orders Reason Comments Established Patient Follow-Up Reason Comments Patient Question Reason Comments Associate 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 - Other 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 Reason Comments Returning Patient's Call Reason Comments Appointment Appointment Schedule d in Error Care Teams (unrecognized sec tion and content) 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 Plant Operator Relationship Specialty Start Date End Date Jaren Jones MD [address], [place] [phone] PCP - General Family Practice 03/03/16 Drilling Plant Operator Relationship Specialty Start Date End Date Jaren Jones MD [address], [place] [id number] PCP - General Family Practice 03/03/16 Drilling Plant Operator Relationship Specialty Start Date End Date Jaren Jones MD [address], [place] [phone] PCP - General Family Practice 03/03/16 Drilling Plant Operator Relationship Specialty Start Date End Date Jaren Jones MD [address] [place] [address] PCP - General Family Practice 03/03/16 Drilling Plant Operator Relationship Specialty Start Date End Date Jaren Jones MD [address] [place] [address] PCP - General Family Practice 03/03/16 Drilling Plant Operator Relationship Specialty Start Date End Date Jaren Jones MD [address] [place] [address] PCP - General Family Practice 03/03/16 Drilling Plant Operator Relationship Specialty Start Date End Date Jaren Jones MD [address] [place] [address] PCP - General Family Medicine 03/03/16 Drilling Plant Operator Relationship Specialty Start Date End Date Jaren Jones MD [address] [place] [address] PCP - General Family Medicine 03/03/16 Drilling Plant Operator Relationship Specialty Start Date End Date Jaren Jones MD [address] [place] [address] PCP - General Family Medicine 03/03/16 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 Jas Jones MD Family Provider Active Dr. Angella Wallace MD Primary Care Provider Active Team Status: Inactive Member Role Status Dates Dr. Angella Wallace MD Primary Care Provider, Attendi ng Provider Active Team Status: Inactive Member Role Status Dates Dr. Angella Wallace MD Primary Care Provider Active Dr. Jus Johns MD Attending Provider, Referring Pr ovider Active Team Status: Inactive Member Role Status Dates Dr. Angella Wallace MD Primary Care Pro vider, Attending Provider, Referring Provider Active Team Status: Active Member Role Status Dates Dr. Angella Wallace MD Primary Care Provider Active Dr. Mayito Palacio MD Emergency Provider Active Dr. Patrick Still MD Attending Provider Active Team Status: Active Member Role Status Dates Dr. Angella Wallace MD Primary Care Pro vider, Attending Provider, Referring Provider Active Team Status: Inactive Member Role Status Dates Dr. Angella Wallace MD Primary Care Provider Active Dr. Mayito Palacio MD Emergency Provider Active Team Status: Inactive Member Role Status Dates Dr. Angella Wallace MD Primary Care Provider, Referri ng Provider Active Jennifer GUADALUPE PA Attending Provider Active Team Status: Active Member Role Status Dates Dr. Angella Wallace MD Primary Care Provider Active Dr. Odilon Baum MD Attending Provider Active Team Status: Inactive Member Role Status Dates Dr. Angella Wallace MD Primary Care Provider Active Dr. Mayito Palacio MD Attending Provider, Emergency Provi angelito Active Team Status: Inactive Member Role Status Dates Dr. Angella Wallace MD Primary Care Provider Active Jennifer GUADALUPE, PA Attending Provider, Referr ing Provider Active Team Status: Active Member Role Status Dates Dr. Angella Wallace MD Primary Care Provider Active Team Status: Inactive Member Role Status Dates Dr. Angella Wallace MD Primary Care Provider Active Start: May 15, 2024 End: May 15, 2024 Dr. Angella Wallace MD Referring Provider Active Start: May 15, 2024 End: May 15, 2024 Dr. Beto Bro MD Attending Provider Active Start: May 15, 2024 End: May 15, 2024 Team Status: Inactive Member Role Status Dates Dr. Angella Walalce MD Primary Care Provider Active Start: August 12, 2024 End: August 12, 2024 Dr. Kolby Wong DO Emergency Provider Active Start : August 12, 2024 End: Fatoumata 24th, 2025 Goals (unrecognized section and content) Goals may be documented in a n alternate sectionGoals may be documented in an alternate sectionGoals may be documented in an alternate sectionGoals may be documented in an alternate sectionGoals may be documented in an alternate sectionGoals may be documented in an alternate sectionGoals may be documented in an alternate sectionGoals may be documented in an alternate section FOR RECORDS PERTAINING TO PATIENTS WHO ARE [...] BE BASED ON THE PRIMARY CLINICAL RECORDS. [facility] [facility]. provides no warranty or guarantee of the accuracy or completeness of information in this document.
--- OUTSIDE RECORDS SUMMARY | 2024-08-22 01:51 | XMS RPT_ITS | CCD ---
Author Organization [facility] Care Team Providers [employer] Tutor Name Role Phone ÁNGELA TREVIÑO (PAC) Unavailable [...] Provider Dr. Angella Wallace Attending Provider [phone] Angella Wallace Primary Care Provider Dr. Mayito Palacio Emergency Provider Dr. Patrick Still Attending Provider Dr. Angella Wallace Referring Provider [phone] Wiley GUADALUPE, ANAYELI Pandya Attending Provider Dr. Angella Wallace Primary Care Provider Dr. Mayito Palacio Emergency Provider Dr. Patrick Still Attending Provider [phone] Angella Wallace Referring Provider [phone] Wiley GUADALUPE, ANAYELI Pandya Attending Provider Dr. Odilon Baum Attending Provider Unavailable Primary Care Provider UnavailCLARA Portillo Referring Unavailable CLARA GU Referring Unavailable Dr. Angella Wallace MD Primary Care Provider Dr. Angella Wallace MD Referring Provider Dr. Beto Bro MD Attending Provider Dr. Kolby Wong DO Emergency Provider [phone] Rodrigo, Angella Primary Care Unavailable Kolby [...] Referring Unavailable Rodrigo, Angella Primary Care Unavailable RodrigoAgnella Attending Unavailable Rodrigo, Angella Primary Care Unavailable Jus Johns Attending Unavailable Basali Ayeran Referring Unavailable Rodrigo, Angella Primary Care Unavailable BasalJus gu Attending Unavailable Basali, Ayman Referring Unavailable Rodrigo, Angella Primary Care Unavailable Allergies Allergy Classification Reported Allergen(s) Allergy Type Date of Onset Reaction(s) Facility (20 sources) benzocaine; Translations: [BENZOCAINE] Drug Allergy 01-29-[address] [facility] Repository (20 sources) Latex; Translations: [LATEX] Propensity to adverse reactions to drug (disorder) 05-29-[address] [facility] Repository (20 sources) meloxicam; Translations: [MELOXICAM] Drug Allergy 02-26-19 15 Other: See Comments [facility] Repository (20 sources) methylprednisoLONE ; Translations: [METHYLPREDNISOLON E] Drug Allergy 11-28-19 07 Hives, Swelling, Itching [facility] Repository (20 sources) NITROFURANTOIN MONOHYD/M-CRYST; Translations: [NITROFURANTOIN MONOHYD/M-CRYST] Propensity to adverse reactions to drug (disorder) 05-09-19 06 Vomiting [facility] Other [facility] Repository (1 source) oxyCODONE Drug Allergy [facility] Repository (1 source) Sulfonamides (Antibiotic) Drug allergy (disorder) [facility] Repository (20 sources) traMADol; Translations: [TRAMADOL] Drug Allergy 10-24-19 21 Rash [facility] (8 sources) predniSONE Drug Allergy 10-24-19 21 Unknown [facility] (8 sources) Seasonal Allergies: Uncoded; Translations: [Seasonal Allergies: Uncoded] Allergy to substance 07-26-19 NEEDS FOLLOW-UP [facility] (1 source) predniSONE Drug Allergy 05-16-19 [facility] Repository (1 source) traMADol Drug Allergy 05-16-19 [facility] Repository Medications Current Medications Medication Drug Class(es) [...] 12 Lead EKGon 08-12-2024 12 Lead EKG [facility] Services [address] [place] [address] 12 Lead EKG 08/12/24 1055 MR#: [id number] Acct: [id number] Name: ANABEL BARTHOLOMEW Rep #: [id number] : 1935 89 From: Odilon Baum MD [...] Abnormal ECG Confirmed by ODILON BAUM MD ([id number]), school photograph editor JUANA QUACH ([id number]) on 08/13/2024 11:05:35 AM Referred By: Confirmed By: ODILON BAUM MD 08/13/24 1105 Date Odilon Baum MD CC: Dr. Angella Wallace MD; Dr. Kolby Wong DO Signed Normal [facility] 12 Lead EKG [facility] [address] [place] [address] 12 Lead EKG 08/12/24 1149 MR#: [id number] Acct: [id number] Name: ANABEL BARTHOLOMEW Rep #: [id number] : 1935 89 From: Odilon Baum MD [...] Abnormal ECG Confirmed by JEANETTE RON, ODILON ([id number]), school photograph editor JUANA QUACH ([id number]) on 08/13/2024 11:05:42 AM Referred By: Confirmed By: ODILON BAUM MD 08/13/24 1105 Date Odilon Baum MD CC: Dr. Angella Wallace MD; Dr. Kolby Wong DO Signed Normal [facility] Absolute lymphocyte countOrd ered By: Kolby Wong on 08-12-2024 Lymphocytes Auto (Unsp spec) [#/Vol] 1.53 10*3/uL 0.83-4.51 [facility] Absolute neutrophil countOrd ered By: Kolby Wong on 08-12-2024 Neutrophils (Bld) [#/Vol] 3.5 10*3/uL 2.0-7.7 [facility] Anion gap in Serum or Plasma Ordered By: Kolby Wong on 08-12-2024 Anion gap [Moles/Vol] 17 mmol/L High 5-15 [facility] Automated blood erythrocyte countOrdered By: Kolby Wong on 08-12-2024 RBC (Bld) [#/Vol] 4.53 10*6/uL Normal 4.2-5.4 [facility] Comment on above: Performed By: #### L 100.0100, L500.2500 #### [facility] [address] [place], [address] Automated blood hematocrit ( percentage)Ordered By: Kolby Wong on 08-12-2024 Hematocrit (Bld) [Volume fraction] 41.7 % Normal 37-47 [facility] Comment on above: Performed By: #### L 100.0100, L500.2500 #### [facility] [address] [place], [address] Automated lymphocyte count a s percentage of total leukocytesOrdered By: Kolby Wong on 08-12-2024 Lymphocytes/100 WBC Auto (Unsp spec) 26.7 % 19-41 [facility] BUN/creatinine ratioOrdered By: Kolby Wong on 08-12-2024 Urea nitrogen/Creatinine [Mass ratio] 24.0 mg/mg High 10-20 [facility] Basic Metabolic Profile (BMP )on 08-12-2024 BUN/CRE 24.0 RATIO High 10-20 [facility] Comment on above: Performed By: #### L 100.0100, L500.2500 #### [facility] [address] [place], [address] ECRCL 35.10 ml/min Low 50-250 [facility] Comment on above: Performed By: #### L 100.0100, L500.2500 #### [facility] [address] [place], [address] GAP 17 High 5-15 [facility] Comment on above: Performed By: #### L 100.0100, L500.2500 #### [facility] [address] [place], [address] Potassium [Moles/Vol] 3.6 mmol/L Normal 3.3-5.1 [facility] Comment on above: Performed By: #### L 100.0100, L500.2500 #### [facility] [address] [place], [address] Basophil percentageOrdered B y: Kolby Wong on 08-12-2024 Basophils/100 WBC (Bld) 0.9 % Normal 0-1 [facility] Comment on above: Performed By: #### L 100.0100, L500.2500 #### [facility] [address] [place], [address] CBC W/Diff, Automatedon 07-21 Absolute Lymph 1.53 X10 3/uL Normal 0.83-4.51 [facility] Comment on above: Performed By: #### L 100.0100, L500.2500 #### [facility] [address] [place], [address] Absolute Neut 3.5 X10 3/uL Normal 2.0-7.7 [facility] Comment on above: Performed By: #### L 100.0100, L500.2500 #### [facility] [address] [place], [address] IG% 0.300 Normal 0.0-0.9 [facility] Comment on above: Result Comment: IG% - Immature Granulocytes (promyelocytes, myelocytes and metamyelocytes) > 1% indicates that a LEFT SHIFT is Present. Performed By: #### L 100.0100, L500.2500 #### [facility] [address] [place], [address] Lymphocytes/100 WBC (Bld) 26.7 % Normal 19-41 [facility] Comment on above: Performed By: #### L 100.0100, L500.2500 #### [facility] [address] [place], [address] Nucleated RBC (Bld) [#/Vol] 0 10*3/uL Normal 0-5 [facility] Comment on above: Performed By: #### L 100.0100, L500.2500 #### [facility] [address] [place], [address] RDW SD 46.1 fl High 35.1-43.9 [facility] Comment on above: Performed By: #### L 100.0100, L500.2500 #### [facility] [address] [place], [address] Carbon dioxide, total [Moles /volume] in Central venous bloodOrdered By: Kolby Wong on 08-12-2024 CO2 [Moles/Vol] 23.0 mmol/L Normal 21.0-32.0 [facility] Comment on above: Performed By: #### L 100.0100, L500.2500 #### [facility] [address] [place], [address] Chest 1 View (Portable)on Chest 1 View (Portable) [facility] Imaging Services [address] [place] [address] Chest 1 View (Portable) MR#: [id number] Acct: [id number] Name: ANABEL BARTHOLOMEW Rep #: [id number] : 1935 F 89 From: Fracisco irizarry MD PCP: Dr. Angella Wallace MD Status: REG ER Study: Chest 1 View (Portable) Date of Exam: 08/12/24 Exam# [id number] Ordering Dr: Kolby Wong DO PROCEDURE: CHEST 1 VIEW (PORTABLE) 08/12/2024 REASON FOR EXAM: COUGH TECHNIQUE: Frontal view of the chest. COMPARISON: Prior study dated April 05, 2023. FINDINGS: Hardware: EKG electrodes Heart: Lungs: The lungs are clear. Bones: Degenerative changes are identified within the thoracic spine. Other: RAD/Chest 1 View (Portable) IMPRESSION: No Acute Findings. Reading Location: [id number] CC: Dr. Angella Wallace MD; Dr. Kolby Wong DO Back Wedger: Signed Normal [facility] Chloride assayOrdered By: Eladio Wong on 08-12-2024 Chloride [Moles/Vol] 97 mmol/L Low 98-108 [facility] Comment on above: Performed By: #### L 100.0100, L500.2500 #### [facility] [address] [place], [address] Emergency Department Summary on 08-12-2024 Emergency Department Summary [facility] Medical Records Department [address] [place] [address] Emergency Department Summary 08/12/24 MR#: [id number] Acct: [id number] Name: ANABEL BARTHOLOMEW Rep #: [id number] : 1935 89 From: Kolby Galaviz PCP: [...] metoprolol that was written previously by her operating cost clerk. Previously on metoprolol and Eliquis however states on her visit was stopped by her operating cost clerk. She denied any rectal bleeding complaints. She [...] Recent Immobilization or Prior DVT or PE [facility] Medical History Spinal stenosis Spinal stenosis at [...] Source Pulse (more content not included)... Normal [facility] Eosinophil percentageOrdered By: Kolby Wong on 08-12-2024 Eosinophils/100 WBC (Bld) 1.9 % Normal 0-5 [facility] Comment on above: Performed By: #### L 100.0100, L500.2500 #### [facility] [address] [place], [place], [address] Erythrocyte distribution wid th ratioOrdered By: Kolby Wong on 08-12-2024 Erythrocyte distribution width (RBC) [Ratio] 13.5 % Normal 11.6-14.6 [facility] Comment on above: Performed By: #### L 100.0100, L500.2500 #### [facility] [address] [facility] [place], [address] Erythrocyte distribution wid th standard deviationOrdered By: Kolby Wong on 08-12-2024 Erythrocyte distribution width (RBC) [Ratio] 46.1 fl High 35.1-43.9 [facility] Glomerular filtration rate ( GFR) estimation/1.73 sq m using serum, plasma, or whole bOrdered By: Kolby Wong on 08-12-2024 GFR/1.73 sq M.predicted among non-blacks MDRD (S/P/Bld) [Vol rate/Area] 63 mL/min/{1.73_m2} Normal >60 [facility] Comment on above: mL/min/1.73m2 CKD-EP I Creatinine Equation (2020) Result Comment: mL/m in/1.73m2 CKD-EPI Creatinine Equation (2020) Performed By: #### L 100.0100, L500.2500 #### [facility] [address] [place], [address] Hemoglobin measurementOrdere d By: Kolby Wong on 08-12-2024 Hemoglobin (Bld) [Mass/Vol] 14.0 g/dL Normal 12.0-15.0 [facility] Comment on above: Performed By: #### L 100.0100, L500.2500 #### [facility] [address] [place], [address] Immature granulocytes/100 WB C Auto (Bld)Ordered By: Kolby Wong on 08-12-2024 Immature granulocytes/100 WBC (Bld) 0.300 % 0.0-0.9 [facility] Comment on above: IG% - Immature Granu locytes (promyelocytes, myelocytes and metamyelocytes) > 1% indicates that a LEFT SHIFT is Present. L499.0042on 08-12-2024 Trop T High Sen 22 ng/L High <=14 [facility] Comment on above: Performed By: #### L 499.0042 #### [facility] [address] [place], [address] L499.0043on 08-12-2024 Trop T High Sen Normal <=14 [facility] Comment on above: Result Comment: Canc elled via OM: Order cancelled - Patient discharged Performed By: #### L 499.0043 #### [facility] [address] [place], [address] L501.4021on 08-12-2024 Trop T High Sen 30 ng/L High <=14 [facility] Comment on above: Performed By: #### L 501.4021 #### [facility] [address] [place], [address] MCV (mean corpuscular volume ) determinationOrdered By: Kolby Wong on 08-12-2024 MCV (RBC) [Entitic vol] 92.1 fL Normal 81-99 [facility] Comment on above: Performed By: #### L 100.0100, L500.2500 #### [facility] [address] [place], [address] Mean corpuscular hemoglobin (MCH) determinationOrdered By: Kolby Wong on 08-12-2024 MCH (RBC) [Entitic mass] 30.9 pg Normal 27.0-32.0 [facility] Comment on above: Performed By: #### L 100.0100, L500.2500 #### [facility] [address] [place], [address] Mean corpuscular hemoglobin concentration (MCHC) determinationOrdered By: Kolby Wong on 08-12-2024 MCHC (RBC) [Mass/Vol] 33.6 g/dL Normal 32-36 [facility] Comment on above: Performed By: #### L 100.0100, L500.2500 #### [facility] [address] [place], [address] Mean platelet volume determi nationOrdered By: Kolby Wong on 08-12-2024 Platelet mean volume (Bld) [Entitic vol] 11.3 fL Normal 6.2-12.0 [facility] Comment on above: Performed By: #### L 100.0100, L500.2500 #### [facility] [address] [place], [address] Monocyte percentageOrdered B y: Kolby Wong on 08-12-2024 Monocytes/100 WBC (Bld) 9.2 % Normal 0-10 [facility] Comment on above: Performed By: #### L 100.0100, L500.2500 #### [facility] [address] [place], [address] Neutrophil percentageOrdered By: Kolby Le on 08-12-2024 Neutrophils/100 WBC (Bld) 61.0 % Normal 47-70 [facility] Comment on above: Performed By: #### L 100.0100, L500.2500 #### [facility] [address] [place], [address] Nucleated red blood cell per centageOrdered By: Kolby Wong on 08-12-2024 Nucleated RBC/100 WBC (Bld) [Ratio] 0 % 0-5 [facility] Platelet countOrdered By: Eladio Wong on 08-12-2024 Platelets (Bld) [#/Vol] 218 10*3/uL Normal 150-450 [facility] Comment on above: Performed By: #### L 100.0100, L500.2500 #### [facility] [address] [place], [address] Potassium measurement (mass/ volume)Ordered By: Kolby Wong on 08-12-2024 Potassium (Unsp spec) [Mass/Vol] 3.6 mmol/L 3.3-5.1 [facility] Serum creatinine measurement (mass/volume)Ordered By: Kolby Wong on 08-12-2024 Creatinine [Mass/Vol] 0.88 mg/dL Normal 0.70-1.20 [facility] Comment on above: Performed By: #### L 100.0100, L500.2500 #### [facility] [address] [place], [address] Serum glucose measurement (m ass/volume)Ordered By: Kolby Wong on 08-12-2024 Glucose [Mass/Vol] 107 mg/dL High 70-99 [facility] Comment on above: Performed By: #### L 100.0100, L500.2500 #### [facility] [address] [place], [address] Serum or plasma calcium john urement (mass/volume)Ordered By: Kolby Wong on 08-12-2024 Calcium [Mass/Vol] 10.0 mg/dL Normal 7.6-11.0 [facility] Comment on above: Performed By: #### L 100.0100, L500.2500 #### [facility] [address] [place], [place], [address] Serum or plasma urea nitroge n measurement (mass/volume)Ordered By: Kolby Wong on 08-12-2024 Urea nitrogen [Mass/Vol] 21 mg/dL High 4-19 [facility] Comment on above: Performed By: #### L 100.0100, L500.2500 #### [facility] [address] [place], [place], [address] Sodium levelOrdered By: Kolby Wong on 08-12-2024 Sodium [Moles/Vol] 137 mmol/L Normal 133-145 [facility] Comment on above: Performed By: #### L 100.0100, L500.2500 #### [facility] [address] [place], [place], [address] Troponin T.cardiac [Mass/vol ume] in Serum or Plasma by High sensitivity methodOrdered By: Kolby Wong on 08-12-2024 Troponin T.cardiac High sensitivity method [Mass/Vol] 22 ng/L High <14 [facility] Troponin T.cardiac High sensitivity method [Mass/Vol] 30 ng/L High <14 [facility] White blood cell (WBC) count Ordered By: Kolby Wong on 08-12-2024 WBC (Bld) [#/Vol] 5.7 10*3/uL Normal 4.4-11.0 [facility] Comment on above: Performed By: #### L 100.0100, L500.2500 #### [facility] [address] [place], [place], [address] CNPNon 05-29-2024 YUDYN Telephone ([facility]) ---- ANABEL BARTHOLOMEW ([id number]) 1935 F Date Time Provider Department 05/29/24 ANT BURGOS During your visit today, we recorded the following information about you: Madiha Cooper 05/29/2024 9:39 AM Addendum Patient's appointment on 05/29/2024 was scheduled in error. Patient only reports concerns of sciatica and spinal stenosis; for these concerns, Patient should be scheduled with a Curtain Framer, not General Neurology. Called and spoke with [...] of lower limb, includin*12/12/2007 07/06/2015 NEVI TRUNK///BENIGN FENRIE SKIN TRUNK [D23.5] 12/12/2007 07/06/2015 Other seborrheic [...] Encounter Status:Closed by MADIHA COOPER on 05/29/24 [facility] Orthopedic Visit Reporton Orthopedic Visit Report [facility] [address] [place] [address] [address] [place] [address] OFFICE VISIT Date of Service: 05/15/24 MR#: [id number] Acct: [id number] Name: ANABEL BARTHOLOMEW Rep #: [id number] : 1935 Provider: Dr. Beto Bro MD Age/Sex: 88/F Location: [facility] Status: Signed Intake Vital Signs 01/28/24 09:11 [...] was referred to an orthopedic surgeon at [facility] and had imaging done and [...] lumbar spine. Patient had x-rays done at [facility] in about September 2023. The [...] long- ter (more content not included)... Normal [facility] MR/BMS.[facility] 01-28-2024 MR/BMS.[facility] [address] [place] [address] OFFICE VISIT Date of Service: 01/28/24 MR#: [id number] Acct: [id number] Name: ANABEL BARTHOLOMEW Rep #: [id number] : 1935 Provider: Dr. Angella denton MD Age/Sex: 88/F Location: [facility] Status: Signed Intake Vital Signs 08/06/23 11:03 [...] M FU Chief Complaint: 6 m fu Media Director Required: No Accompanied by: Self Is patient [...] sciatica. Patient had been referred up to [facility] and saw orthopedic spinal surgeon, Dr. Alonzo, [...] a fair amount of time discussing the [place] medical marijuana program to trial CBD and see if that would help. Made special emphasis if she were to look at that, how she should look at the [place] medical marijuana provider (more content not included)... Normal [facility] Thoracic Spine 3 Viewson Thoracic Spine 3 Views [facility] Services [address] [place], [place] [address] Thoracic Spine 3 Views MR#: [id number] Acct: [id number] Name: ANABEL BARTHOLOMEW Rep #: [id number] : 1935 F 88 From: Atul Kamara MD PCP: Dr. Angella Wallace MD Status: REG CLI Study: Thoracic Spine 3 Views Date of Exam: 12/04/23 Exam# [id number] Ordering Dr: Jus Johns MD -[id number] INDICATION: Mid back pain EXAMINATION/TECHNIQ UE: [...] 15:36 EDT Reading Location ID and State: [facility] / [place] Tel , Service support , CC: Dr. Jus Johns MD; Dr. Angella Wallace MD Back Wedger: Signed Normal [facility] 12 Lead EKG performed by [facility] [place] 11-13-2023 12 [place] [address] 12 Lead EKG performed by [facility] 11/13/23 0858 MR#: [id number] Acct: [id number] Name: ANABEL BARTHOLOMEW Rep #: [id number] : 1935 88 From: Patrick Still MD Attending Dr: Dr. Patrick Still MD Status: DE P AMB Ordering Dr: Patrick Still MD Date: 11/13/23 Location: [facility] Sex: F C Admitted: BMS/12 Lead EKG performed by [facility] ECG Report Interpretation -------Sinus Rhythm -Left bundle branch block. ABNORMAL Electronically signed on 11/13/2023 at 15:[address] Patrick Still [employer] Version 8610 11/13/23 1546 Date Patrick Still MD CC: Dr. Angella Wallace MD Date Dictated: 11/13/23857 Date Transcribed: 11/13/23857 Back Wedger: Signed Normal [facility] Cardiology Visit Reporton Cardiology Visit Report [facility] [address] [place] [address] OFFICE VISIT Date of Service: 11/13/23 MR#: [id number] Acct: [id number] Name: ANABEL BARTHOLOMEW Rep #: [id number] : 1935 Provider: Dr. Patrick montes de oca MD Age/Sex: 88/F Location: [facility] Status: Signed HPI HPI History of Present [...] documented sinus rhythm for 5 months. Her KYL8TB3-XQLe score is 4. Intake Vital Signs 08/06/23 11:03 11/07/23 10:33 11/13/23 14:03 Height 5 ft 3 in 5 ft 3 in 5 ft 3 in Weight: 125 lb BMI 22.1 BP 139/79 H Blood Pressure Location Lt brachial Position Sitting Respiration 18 Pulse 60 Pulse Source Monitor Pulse Oximetry (%) 98 Oxygen Delivery Method room air Intake Visit Reasons: 1 M FU Media Director Required: No Accompanied by: Self Is patient [...] SOB ort (more content not included)... Normal [facility] MR/BMS.[facility] 11-07-2023 MR/BMS.[facility] [address] [place] [address] OFFICE VISIT Date of Service: 11/07/23 MR#: [id number] Acct: [id number] Name: ANABEL BARTHOLOMEW Rep #: [id number] : 1935 Provider: Dr. Angella denton MD Age/Sex: 88/F Location: [facility] Status: Signed Intake Vital Signs 08/06/23 11:03 [...] Intake Visit Reasons: SCIATICA Chief Complaint: sciatica Media Director Required: No Accompanied by: Self Is patient [...] spine. She did have imaging done at [facility]. They discussed the possibility of surgical intervention. She really does not want to pursue that given concerns. They had tried injections through Dr. Johns without any benefit. At [facility], she saw Dr. Alonzo. Conclusion was to [...] pain wit (more content not included)... [facility] Telephone ([facility]) ---- ANABEL BARTHOLOMEW ([id number]) 1935 F Date Time Provider Department 10/24/23 CLARA GU During your visit today, we recorded the following information about you: Severo Rosas RN 10/24/2023 1:04 PM Signed I called and spoke to patient, returning her voice message. I notified her I placed new order for scoliosis films for her to obtain at [facility] as she had originally declined to obtain them to further think about getting the scoliosis films. Patient verbalized understanding and appreciative of call. Patient will call office with any questions or concerns. TAYLOR Zurita Gina, APRN.ADJUNCT ENGLISH INSTRUCTOR 10/24/2023 3:43 PM Signed Addended by: RAJWINDER [...] 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] Order(s):XR SCOLIOSIS PA STAND/LAT 2V [[id number]] Order #: [id number] FUTURE Prescriptions as of 10/24/2023 - dupilumab [...] Encounter Status:Closed by SEVERO ROSAS on 10/24/23 [facility] XR SCOLIOSIS 2V PA STAND/LAT on [...] Multilevel degenerative disc disease. No acute fracture. Back Wedger: PSCB Transcribe Date/Time: Oct 26 2023 8:14A Dictated by : ALMAS WOODARD MD This examination was interpreted and the report reviewed and electronically signed by: ALMAS WOODARD MD on Oct 26 2023 8:17AM EST [id number] [id number] Normal [facility] 10-23-2023 [facility] Telephone (AGOR) ---- ANABEL BARTHOLOMEW ([id number]) 1935 F Date Time Provider Department 10/23/23 CLARA GU During your visit today, we recorded the following information about you: Severo Rosas RN 10/23/2023 11:55 AM Signed Spoke with patient in regards to upcoming appointment with Dr. Gu on 11/02/2023. Provided detailed instructions as to when and how to obtain scoliosis films. She stated she will go to [facility] on [address] to obtain imaging. Additionally, she stated she obtained MRI of lumbar spine in August at [facility]. Notified her our office will reach out to them to push over imaging/fax report. She understood. Patient also asked if appointment could be switched to the afternoon on the . Appointment moved from 11am to 2pm. Patient agreeable and thankful for information. Encouraged to call with any further questions or concerns. 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 Patrick Still MD Status: DE P AMB Ordering Dr: Patrick Still MD Date: 10/15/23 Location: [facility] Sex: F C Admitted: [facility]12 Lead EKG performed by [facility] ECG Report Interpretation -------Sinus Rhythm -Left bundle branch block. ABNORMAL Electronically signed on 10/15/2023 at 12:[address] Patrick Still [employer] Version [id number] 10/15/23 1204 Date Patrick Still MD CC: Dr. Angella Wallace MD Date Dictated: 10/15/231101 Date Transcribed: 10/15/231101 Back Wedger: Signed Normal [facility] Spine Lumbar (Routine)on Spine Lumbar (Routine) [facility] [address] [place] [address] Spine Lumbar (Routine) MR#: [id number] Acct: [id number] Name: ANABEL BARTHOLOMEW Rep #: [id number] : 1935 F 88 From: Brianne Hussein MD PCP: Dr. Angella Wallace MD Status: [facility] Study: Spine Lumbar (Routine) Date of Exam: 10/03/23 Exam# [id number] Ordering Dr: Jus Johns MD -[id number] STUDY: MRI LUMBAR SPINE WITHOUT CONTRAST [...] Jus Johns MD; Dr. Angella Wallace MD Back Wedger: Signed Normal [facility] 12 Lead EKG performed by [facility] on 09-10-2023 12 Lead EKG performed by [facility] [address] [place] [address] 12 Lead EKG performed by [facility] 09/10/23 1011 MR#: [id number] Acct: [id number] Name: ANABEL BARTHOLOMEW Rep #: [id number] : 1935 88 From: Patrick Still MD Attending Dr: Dr. Patrick Still MD Status: DE P AMB Ordering Dr: Patrick Still MD Date: 09/10/23 Location: [facility] Sex: F C Admitted: [facility]12 Lead EKG performed by [facility] ECG Report Interpretation -------Sinus Rhythm LBBBABNORMAL Electronically signed on 09/17/2023 at 12:[address] Patrick Still [employer] Version [id number] 09/17/23 1229 Date Patrick Still MD CC: Dr. Angella Wallace MD Date Dictated: 09/10/23 1011 Date Transcribed: 09/10/23 1011 Back Wedger: Signed Normal [facility] Absolute lymphocyte countOrd ered By: Mayitomaru Palacio on 04-05-2023 Lymphocytes Auto (Unsp spec) [#/Vol] 1.05 10*3/uL 0.83-4.51 [facility] Automated lymphocyte count a s percentage of total leukocytesOrdered By: Mayitomaru Palacio on 04-05-2023 Lymphocytes/100 WBC Auto (Unsp spec) 23.3 % 19-41 [facility] Basophil percentageOrdered B y: Mayitomaru Palacio on 04-05-2023 Basophils/100 WBC (Bld) 0.7 % 0-1 [facility] Chloride [Moles/Vol] 105 mmol/L 98-107 [facility] Eosinophils/100 WBC (Bld) 2.7 % 0-5 [facility] Glucose [Mass/Vol] 108 mg/dL 74-106 [facility] Comment on above: Fasting Glucose resu lt from 100 to 125 mg/dL suggests IMPAIRED HOMEOSTASIS per A.D.A. criteria. Hemoglobin (Bld) [Mass/Vol] 13.5 g/dL 12.0-15.0 [facility] Monocytes/100 WBC (Bld) 10.9 % 0-10 [facility] Neutrophils (Bld) [#/Vol] 2.8 10*3/uL 2.0-7.7 [facility] Neutrophils/100 WBC (Bld) 62.0 % 47-70 [facility] Potassium [Moles/Vol] 3.8 mmol/L 3.5-5.1 [facility] Sodium [Moles/Vol] 138 mmol/L 136-145 [facility] WBC (Bld) [#/Vol] 4.5 10*3/uL 4.4-11.0 [facility] Determination of erythrocyte mean corpuscular volume (MCV)Ordered By: Mayitomaru Perezo on 04-05-2023 MCV (RBC) [Entitic vol] 96.3 fL 81-99 [facility] Erythrocyte distribution wid th ratioOrdered By: Mayito Palacio on 04-05-2023 Erythrocyte distribution width (RBC) [Ratio] 13.2 % 11.6-14.6 [facility] Erythrocyte distribution wid th standard deviationOrdered By: [facility] on 04-05-2023 Erythrocyte distribution width (RBC) [Entitic vol] 47.0 fL 35.1-43.9 [facility] Hematocrit Auto (Bld) [Volum e fraction]Ordered By: [facility] on 04-05-2023 Hematocrit (Bld) [Volume fraction] 42.1 % 37-47 [facility] Immature granulocytes/100 WB C Auto (Bld)Ordered By: [facility] on 04-05-2023 Immature granulocytes/100 WBC (Bld) 0.400 % 0.0-0.9 [facility] Comment on above: IG% - Immature Granu locytes (promyelocytes, myelocytes and metamyelocytes) > 1% indicates that a LEFT SHIFT is Present. Laboratory - Chemistry and C hemistry - challengeOrdered By: On [facility] on 04-05-2023 CO2 [Moles/Vol] 29.0 mmol/L 21.0-32.0 [facility] Urea nitrogen/Creatinine [Mass ratio] 22.4 mg/mg 10-20 [facility] Laboratory - Hematology and Cell countsOrdered By: On [facility] on 04-05-2023 MCH (RBC) [Entitic mass] 30.9 pg 27.0-32.0 [facility] MCHC (RBC) [Mass/Vol] 32.1 g/dL 32-36 [facility] Nucleated RBC/100 WBC (Bld) [Ratio] 0 % 0-5 [facility] Platelet mean volume (Bld) [Entitic vol] 11.2 fL 6.2-12.0 [facility] Platelets (Bld) [#/Vol] 170 10*3/uL 150-450 [facility] No Panel InformationOrdered By: [facility] on 04-05-2023 Troponin I High Sensitivity 16 pg/mL 3.0-54.0 [facility] Comment on above: Please Note: New Nikia t Units and Gender Specific Reference Ranges. For more information see Policy Stat Procedure [place] High Sensitivity Troponin (TNIH) and attachments. Estimated Creatinine Clearance Calc 40.98 ml/min [facility] Estimated GFR (MDRD) Amer 87 mL/min >60 [facility] Comment on above: GFR Calc Estimated GFR (MDRD) Non-Af Amer 72 mL/min >60 [facility] Comment on above: Non- GFR Calc RBC Auto (Bld) [#/Vol]Ordere d By: Mayito Palacio on 04-05-2023 RBC (Bld) [#/Vol] 4.37 10*6/uL 4.2-5.4 [facility] Serum or plasma calcium john urement (mass/volume)Ordered By: Mayito Palacio on 04-05-2023 Calcium [Mass/Vol] 9.6 mg/dL 8.5-10.1 [facility] Serum or plasma creatinine m easurement (mass/volume)Ordered By: Mayitomaru Palacio on 04-05-2023 Creatinine [Mass/Vol] 0.80 mg/dL 0.55-1.02 [facility] Comment on above: The validity of the calculated GFR & GFRAA in patients over 70 years has not been determined. Clinical correlation is essential. Serum or plasma thyroid stim ulating hormone (TSH) measurement (units/volume)Ordered By: Mayito Palacio on 04-05-2023 TSH Qn 2.85 uIU/mL 0.358-3.74 [facility] Serum or plasma urea nitroge n measurement (mass/volume)Ordered By: Mayitomaru Palacio on 04-05-2023 Urea nitrogen [Mass/Vol] 18 mg/dL 7-18 [facility] Thin prep Papanicolaou smear with manual screeningOrdered By: Mayito Palacio on 04-05-2023 Thin prep Papanicolaou smear with manual screening 4 5-15 [facility] Basophil percentageOrdered B y: Angella Wallace on 03-07-2023 Basophil percentage 0-5 SEEN /hpf 0-5 [facility] Bilirubin Test strip Ql (U)O rdered By: Angella Wallace on 03-07-2023 Bilirubin Ql (U) 3 mg/dL Negative [facility] Comment on above: COLOR OF URINE MAY A FFECT DIPSTICK RESULTS. Culture, urineOrdered By: Susie Wallace on 03-07-2023 Bacteria identified Cx Nom (U) Enterococcus faecium [facility] Bacteria identified Cx Nom (U) Enterococcus faecium [facility] Ketones Test strip Ql (U)Ord ered By: Angella Wallace on 03-07-2023 Ketones Ql (U) Negative Negative [facility] Mucus LM Ql (Urine sed)Order ed By: Angella Wallace on 03-07-2023 Mucus Ql (Urine sed) 0 SEEN /hpf [facility] Nitrite Test strip Ql (U)Ord ered By: Angella Wallace on 03-07-2023 Nitrite Ql (U) Positive Negative [facility] No Panel InformationOrdered By: Angella Wallace on 03-07-2023 Urine RBC 0-5 SEEN /hpf 0-5 [facility] Protein Test strip Ql (U)Ord ered By: Angella Wallace on 03-07-2023 Protein Ql (U) 15 mg/dl Negative [facility] Squamous epithelial cells de tection in urine sediment by light microscopyOrdered By: Angella Wallace on 03-07-2023 Epithelial cells.squamous LM Ql (Urine sed) 0 SEEN /hpf 5-10 [facility] Urine blood detectionOrdered By: Angella Wallace on 03-07-2023 RBC Ql (U) 25 /ul Negative [facility] Urine clarityOrdered By: Rufina Wallace on 03-07-2023 Clarity (U) Clear Clear [facility] Urine color determinationOrd ered By: Angella Wallace on 03-07-2023 Color (U) Lauren Yellow [facility] Urine glucose detectionOrder ed By: Angella Wallace on 03-07-2023 Glucose Ql (U) Normal mg/dl Normal [facility] Urine leukocyte esterase det ection by dipstickOrdered By: Angella Wallace on 03-07-2023 Leukocyte esterase Test strip Ql (U) 25 /ul Negative [facility] Urine pHOrdered By: Angella thornton on 03-07-2023 pH (U) 7.0 [pH] 5.0 - 8.0 [facility] Urine sediment bacteria coun t by microscopy (number/high power field)Ordered By: Angella Wallace on 03-07-2023 Bacteria LM.HPF (Urine sed) [#/Area] 0 /[HPF] None Seen [facility] Urine specific gravity measu rementOrdered By: Angella Wallace on 03-07-2023 Specific gravity (U) [Rel density] 1.010 1.002-1.030 [facility] Urine urobilinogen measureme ntOrdered By: Angella Wallace on 03-07-2023 Urobilinogen Ql (U) 8 mg/dl Normal [facility] Absolute lymphocyte countOrd ered By: Angella Wallace on 11-15-2022 Lymphocytes Auto (Unsp spec) [#/Vol] 1.04 10*3/uL 0.83-4.51 [facility] Basophil percentageOrdered B y: Angella Wallace on 11-15-2022 Basophils/100 WBC (Bld) 0.5 % 0-1 [facility] Bilirubin [Mass/Vol] 0.40 mg/dL 0.20-1.00 [facility] Comment on above: For patients on eltr ombopag therapy, use of Dimension [place] TBIL is not recommended. Chloride [Moles/Vol] 105 mmol/L 98-107 [facility] Cholesterol [Mass/Vol] 183 mg/dL <200 [facility] Comment on above: <200 mg/dL Desirable 200-240 mg/dL Borderline >240 mg/dL High Risk Eosinophils/100 WBC (Bld) 1.9 % 0-5 [facility] Glucose [Mass/Vol] 110 mg/dL 74-106 [facility] Comment on above: Fasting Glucose resu lt from 100 to 125 mg/dL suggests IMPAIRED HOMEOSTASIS per A.D.A. criteria. Neutrophils (Bld) [#/Vol] 4.1 10*3/uL 2.0-7.7 [facility] Neutrophils/100 WBC (Bld) 69.5 % 47-70 [facility] Potassium [Moles/Vol] 3.8 mmol/L 3.5-5.1 [facility] Protein [Mass/Vol] 6.9 g/dL 6.4-8.2 [facility] Sodium [Moles/Vol] 139 mmol/L 136-145 [facility] Triglyceride [Mass/Vol] 102 mg/dL <199 [facility] Comment on above: The drugs N-Acetylcy steine [...] 11-15-2022 RBC (Bld) [#/Vol] 3.98 10*6/uL 4.2-5.4 [facility] Blood hemoglobin measurement (mass/volume)Ordered By: Angella Wallace on 11-15-2022 Hemoglobin (Bld) [Mass/Vol] 12.2 g/dL 12.0-15.0 [facility] Blood lymphocytes/100 leukoc ytesOrdered By: Angella Wallace on 11-15-2022 Lymphocytes/100 WBC (Bld) 17.7 % 19-41 [facility] Blood monocytes/100 leukocyt esOrdered By: Angella Wallace on 11-15-2022 Monocytes/100 WBC (Bld) 10.1 % 0-10 [facility] Blood platelet mean volumeOr dered By: Angella Wallace on 11-15-2022 Platelet mean volume (Bld) [Entitic vol] 11.0 fL 6.2-12.0 [facility] Determination of erythrocyte mean corpuscular volume (MCV)Ordered By: Angella Wallace on 11-15-2022 MCV (RBC) [Entitic vol] 97.2 fL 81-99 [facility] Hematocrit Auto (Bld) [Volum e fraction]Ordered By: Angella Wallace on 11-15-2022 Hematocrit (Bld) [Volume fraction] 38.7 % 37-47 [facility] Laboratory - Chemistry and C hemistry - challengeOrdered By: Angella Wallace on 11-15-2022 ALP [Catalytic activity/Vol] 61 U/L 45-117 [facility] ALT [Catalytic activity/Vol] 32 U/L 13-56 [facility] CO2 [Moles/Vol] 30.0 mmol/L 21.0-32.0 [facility] Free T4 [Mass/Vol] 0.79 ng/dL 0.76-1.46 [facility] Globulin (S) [Mass/Vol] 3.2 g/dL 2.2-4.2 [facility] Magnesium [Mass/Vol] 2.3 mg/dL 1.6-2.6 [facility] Urea nitrogen/Creatinine [Mass ratio] 21.8 mg/mg 10-20 [facility] Laboratory - Hematology and Cell countsOrdered By: Angella Wallace on 11-15-2022 Erythrocyte distribution width (RBC) [Entitic vol] 48.9 fL 35.1-43.9 [facility] Erythrocyte distribution width (RBC) [Ratio] 13.6 % 11.6-14.6 [facility] Immature granulocytes/100 WBC (Bld) 0.300 % 0.0-0.9 [facility] Comment on above: IG% - Immature Granu locytes (promyelocytes, myelocytes and metamyelocytes) > 1% indicates that a LEFT SHIFT is Present. MCH (RBC) [Entitic mass] 30.7 pg 27.0-32.0 [facility] Nucleated RBC/100 WBC (Bld) [Ratio] 0 % 0-5 [facility] MCHC Auto (RBC) [Mass/Vol]Or dered By: Angella Wallace on 11-15-2022 MCHC (RBC) [Mass/Vol] 31.5 g/dL 32-36 [facility] No Panel InformationOrdered By: Angella Wallace on 11-15-2022 Estimated GFR (MDRD) Amer 84 mL/min >60 [facility] Comment on above: GFR Calc Estimated GFR (MDRD) Non-Af Amer 70 mL/min >60 [facility] Comment on above: Non- GFR Calc Free Triiodothyronine (T3) pg/dL 2.1 pg/mL 2.18-3.98 [facility] Thyroid Stimulating Hormone (TSH) 2.48 uIU/mL 0.358-3.74 [facility] Vitamin D 25-Hydroxy 38.3 ng/mL [facility] Comment on above: Vitamin D 25(OH) Sta tus Range Deficiency <20 ng/mL (50nmol/L) Insufficiency 20 - 30 ng/mL (50 - 75 nmol/L) Sufficiency 30 - 100 ng/mL (75 - 250 nmol/L) Toxicity >100 ng/mL (>250 nmol/L) Platelets bldOrdered By: Rufina Wallace on 11-15-2022 Platelets (Bld) [#/Vol] 169 10*3/uL 150-450 [facility] Serum or plasma albumin john urement (mass/volume)Ordered By: Angella Wallace on 11-15-2022 Albumin [Mass/Vol] 3.7 g/dL 3.2-5.0 [facility] Serum or plasma albumin/glob ulin mass ratioOrdered By: Angella Wallace on 11-15-2022 Albumin/Globulin [Mass ratio] 1.2 {ratio} 0.9-2.4 [facility] Serum or plasma calcium john urement (mass/volume)Ordered By: Angella Wallace on 11-15-2022 Calcium [Mass/Vol] 8.6 mg/dL 8.5-10.1 [facility] Serum or plasma cholesterol in HDL measurement (mass/volume)Ordered By: Angella Wallace on 11-15-2022 Cholesterol in HDL [Mass/Vol] 78 mg/dL >40 [facility] Comment on above: The drugs N-Acetylcy steine and Metamizole may falsely depress this assay. Reference Range HDL <40 mg/dL Low HDL Cholesterol HDL >or= 60 mg/dL High HDL Cholesterol Serum or plasma cholesterol in VLDL measurement (mass/volume)Ordered By: Angella Wallace on 11-15-2022 Cholesterol in VLDL [Mass/Vol] 20 mg/dL 5-40 [facility] Serum or plasma creatinine m easurement (mass/volume)Ordered By: Angella Wallace on 11-15-2022 Creatinine [Mass/Vol] 0.82 mg/dL 0.55-1.02 [facility] Comment on above: The validity of the calculated GFR & GFRAA in patients over 70 years has not been determined. Clinical correlation is essential. Serum or plasma low density lipoprotein (LDL) cholesterol measurement (mass/volume)Ordered By: Angella Wallace on 11-15-2022 Cholesterol in LDL [Mass/Vol] 85 mg/dL 0-130 [facility] Serum or plasma urea nitroge n measurement (mass/volume)Ordered By: Angella Wallace on 11-15-2022 Urea nitrogen [Mass/Vol] 18 mg/dL 7-18 [facility] Thin prep Papanicolaou smear with manual screeningOrdered By: Angella Wallace on 11-15-2022 Thin prep Papanicolaou smear with manual screening 23 U/L 15-37 [facility] Thin prep Papanicolaou smear with manual screening 4 5-15 [facility] MARY SCREENING W [place] 10-20 [facility] Final Surgical Pathology Rep andrea 08-14-2018 Final Surgical Pathology Report . 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 NEGATIVE FOR INFLAMMATION OR NEOPLASIA. COMMENT: [facility] - A# [id number] CLINICAL INFORMATION: RIGHT KNEE POST TRAUMATIC ARTHRITIS [...] bone is yellow and dense to trabecular. Buckle Attacher sections are submitted following decalcification in one cassette. Dictated by Adry GUADALUPE ([facility]) MICROSCOPIC DESCRIPTION: Slides reviewed. Electronically Signed by Pathology Report verified by [facility] Electronically signed by BRIANNE TRIVEDI MD Sign out Date: 08/14/2018 17:25 Performing Lab: [facility], [address] [place] [address] Normal Counts Include [facility] ([place]) Comment on above: Performed By: #### S PFR #### [place] [address] BMP with eGFRon 08-13-2018 Age - Reported 83 years Normal [facility] Comment on above: Performed By: #### 2 [id number] #### [facility],[address] [place], [place] [id number] Anion gap [Moles/Vol] 11 mmol/L Normal 10 - 20 [facility] Comment on above: Performed By: #### 2 61158 #### [facility],[address] [place] [address] Calcium [Mass/Vol] 9.0 mg/dL Normal 8.6 - 10.2 [facility] Comment on above: Performed By: #### 2 59223 #### [facility],[address] [place] [address] Chloride [Moles/Vol] 103 mmol/L Normal 98 - 107 [facility] Comment on above: Performed By: #### 2 08445 #### [facility],[address] [place] [address] CO2 [Moles/Vol] 26.2 mmol/L Normal 21.0 - 31.0 [facility] Comment on above: Performed By: #### 2 93907 #### [facility],[address] [place] [address] Creatinine [Mass/Vol] 0.8 mg/dL Normal 0.6 - 1.2 [facility] Comment on above: Performed By: #### 2 21918 #### [facility],[address] [place], [place] [id number] GFR/1.73 sq M predicted among non-blacks MDRD (S/P/Bld) [Vol rate/Area] mL/min/{1.73_m2} Normal 60 - 999 [facility] Comment on above: Performed By: #### 2 54247 #### [facility],[address] [place], [place] [id number] Result Comment: ACCO RDING TO THE NATIONAL KIDNEY DISEASE EDUCATION PROGRAM(NKDE), A NORMAL eGFR IS A VALUE GREATER THAN OR EQUAL TO 60 ML/MIN/1.73 SQ METERS. CHRONIC KIDNEY DISEASE: <60mL/MIN/1.73 SQ METERS KIDNEY FAILURE: <15mL/MIN/1.73 SQ METERS THIS TEST SHOULD ONLY BE USED FOR PATIENTS 18 YEARS OF AGE AND OLDER. GFR/1.73 sq M predicted among non-blacks MDRD (S/P/Bld) [Vol rate/Area] Normal [facility] Comment on above: Result Comment: BASI C METABOLIC PANEL Performed By: #### 2 43617 #### [facility],[address] [place] [address] Glucose [Mass/Vol] 134 mg/dL High 74 - 106 [facility] Comment on above: Performed By: #### 2 56378 #### [facility],[address] [place] [address] Potassium [Moles/Vol] 3.7 mmol/L Normal 3.5 - 5.1 [facility] Comment on above: Performed By: #### 2 08676 #### [facility],[address] [place] [address]951 Sodium [Moles/Vol] 136 mmol/L Normal 136 - 145 [facility] Comment on above: Performed By: #### 2 93814 #### [facility],[address] [place], [place] [phone] Urea nitrogen [Mass/Vol] 15 mg/dL Normal 6 - 20 [facility] Comment on above: Performed By: #### 2 48928 #### [facility],[address] [place] [address] CBC + DIFFon 08-13-2018 Basophils (Bld) [#/Vol] 0.00 x10EE3/UL Normal 0.00 - 0 .10 [facility] Comment on above: Performed By: #### 2 66918 #### [facility],[address] [place] [address] Basophils/100 WBC (Bld) 0.4 % Normal 0.0 - 2.0 [facility] Comment on above: Performed By: #### 2 47057 #### [facility],[address] [place] [address]78 CBC + DIFF Normal [facility] Comment on above: Result Comment: CBC- COMPLETE BLOOD COUNT Performed By: #### 2 14184 #### [facility],[address] [place] [address] Eosinophils (Bld) [#/Vol] 0.00 x10EE3/UL Normal 0.00 - 0.50 [facility] Comment on above: Performed By: #### 2 27145 #### [facility],[address] [place], [place] [phone] Eosinophils/100 WBC (Bld) 0.1 % Normal 0.0 - 7.0 [facility] Comment on above: Performed By: #### 2 65438 #### [place] [address] Erythrocyte distribution width (RBC) [Ratio] 14.9 % Normal 12.0 - 15.6 [facility] Comment on above: Performed By: #### 2 27625 #### [place] [address] Hematocrit (Bld) [Volume fraction] 33.9 % Low 34.0 - 46.0 [facility] Comment on above: Performed By: #### 2 16231 #### [place] [address] Hemoglobin (Bld) [Mass/Vol] 11.5 g/dL Low 12.0 - 16.0 [facility] Comment on above: Performed By: #### 2 68825 #### [place] [id number] Lymphocytes (Bld) [#/Vol] 0.70 x10EE3/UL Low 0.80 - 2.80 [facility] Comment on above: Performed By: #### 2 15461 #### [place] [id number] Lymphocytes/100 WBC (Bld) 6.0 % Low 20.0 - 45.0 [facility] Comment on above: Performed By: #### 2 04917 #### [place] [id number] MANUAL DIFF N/A Normal [facility] Comment on above: Performed By: #### 2 03105 #### [facility],[address] [place] [address] MCH (RBC) [Entitic mass] 31 pg Normal 27 - 33 [facility] Comment on above: Performed By: #### 2 42747 #### [facility],[address] [place] [address] MCHC (RBC) [Mass/Vol] 34 X10 3 Normal 32 - 36 [facility] Comment on above: Performed By: #### 2 58377 #### [place] [address] MCV (RBC) [Entitic vol] 91 fL Normal 80 - 99 [facility] Comment on above: Performed By: #### 2 53727 #### [place] [address] Monocytes (Bld) [#/Vol] 0.90 x10EE3/UL Normal 0.20 - 1 .00 [facility] Comment on above: Performed By: #### 2 98114 #### [place] [address] MONOS % 7.8 % Normal 0.0 - 10.0 [facility] Comment on above: Performed By: #### 2 39427 #### [facility],[address] [place], [place] [phone] Morphology Zaki (Bld) [Interp] N/A Normal [facility] Comment on above: Performed By: #### 2 19818 #### [place] [address] Neutrophils (Bld) [#/Vol] 9.40 x10EE3/UL High 1.50 - 7.10 [facility] Comment on above: Performed By: #### 2 72853 #### [facility],[address] [place] [address] Neutrophils/100 WBC (Bld) 85.7 % High 46.0 - 76.0 [facility] Comment on above: Performed By: #### 2 68829 #### [facility],[address] [place] [address] Platelet mean volume (Bld) [Entitic vol] 9.1 fL Normal 6.6 - 10.5 [facility] Comment on above: Result Comment: AUTO MATED DIFFERENTIAL Performed By: #### 2 [id number] #### [address] [address] Platelets (Bld) [#/Vol] 145 x10EE3/UL Low 150 - 450 [facility] Comment on above: Performed By: #### 2 05916 #### [address] [address] RBC (Bld) [#/Vol] 3.73 x 10EE6/UL Low 4.10 - 5.30 [facility] Comment on above: Performed By: #### 2 47388 #### [facility],[address] [place] [address]78 WBC (Bld) [#/Vol] 10.9 x 10EE3/UL High 4.5 - 10.8 [facility] Comment on above: Performed By: #### 2 22114 #### [address] [address] OPERATIVE PROCEDURESon 08-13 OPERATIVE PROCEDURES [facility] OPERATIVE REPORT NAME ACCOUNT SEX AGE ADMIT DISCHARGE PT MED. RECORD# NUMBER DATE DATE TYPE [place] [id number] F 83 08/12/18 1 ANABEL Minnie [id number] ROOM: [facility] DATE OF : 1935 DICTATING PHYSICIAN: El Gutierrez DATE OF SURGERY: August 12, 2018 SURGEON: El Gutierrez MD SOCIAL PROBLEMS SPECIALIST: Alfreda Thomas PA-C; MILAGROS Yang student ANESTHESIOLOGIST: [...] A pre-made tibia and femur were used. field administrative assistant/physician catalog library assistant was utilized under standard technique. She helped with patient positioning, holding of limbs, and holding of retractors. She helped with exposure throughout. She helped with alignment and positioning of our cutting guides as well as components. She helped with wound closure, bandage application, Page 1 of 3 ANABEL BARTHOLOMEW A Operative Report and patient transfer. She also was critical in teaching the MANAGER UNDERWRITING student assisting techniques and suturing techniques. Without the insurance legal assistant, surgical time would have been increased, and [...] clamp was held by the surgeon. The catalog library assistant drilled 3 holes through the guide. [...] full extension by the surgeon while the catalog library assistant injected our pain-relieving solution throughout the [...] hopefully discharged to home tomorrow. Dictated By: El Gutierrez MD 08/12/18 12:59 JOB #: [id number] Transcribed By: osiris 08/12/18 17:21 Electronically signed by: E-SIGN DR. EL GUTIERREZ M.D. 08/13/18 07:33 Page 3 of 3 ANABEL BARTHOLOMEW Operative Report Normal [facility] KNEE 2 VIEWS RTon 08-12-2018 KNEE 2 VIEWS [place] [address] Patient: JACKIECRANABEL. Phone#: : 1935 Age: 83 Gender: F Pt. Type: In Account: [id number] Location: [id number] Ordering: EL GUTIERREZ Exam Date: 08/12/2018/11:28 Family Phys: JAREN JONES Charge Code: [id number] Physician: [place] Order #: [id number] DLP Dose#: PROCEDURE: X-RAY KNEE RT 2 [...] Eubanks MD on 08/12/2018 at 12:17 Normal [facility] HISTORY AND PHYSICAL EXAMon 08-05-2018 HISTORY AND PHYSICAL EXAM [facility] HISTORY & PHYSICAL NAME ACCOUNT SEX AGE ADMIT DISCHARGE PT MED. RECORD# NUMBER DATE DATE TYPE [place] [id number] F 82 1 ANABEL Hartman [id number] ROOM: DATE OF : 35 DICTATING PHYSICIAN: [...] use. REVIEW OF SYSTEMS: Documented in the [facility] medical history sheet. Please refer to [...] the right knee, dated June 13, 2018 [facility], with [id number] contact medially, sclerosis of the distal femur [...] Alfreda Thomas PA-C 07/25/18 15:02 JOB #: [id number] Transcribed By: manjula 07/25/18 15:48 Electronically signed by: E-sign Alfreda GUADALUPE 08/05/18 09:47 Update to H&P: [ ] No changes: I have examined the patient and reviewed the H&P and there are no changes. [ ] As previously dictated with the following changes: PHYSICIAN SIGNATURE: TIME: DATE: Page 3 of 3 ANABEL BARTHOLOMEW A History & Physical Normal [facility] BMP with eGFRon 07-24-2018 Age - Reported 82 years Normal [facility] Comment on above: Performed By: #### 2 08231 #### [facility],[address] [place], [place] [id number] Anion gap [Moles/Vol] 13 mmol/L Normal 10 - 20 [facility] Comment on above: Performed By: #### 2 72718 #### [facility],[address] [place] [address] Calcium [Mass/Vol] 9.8 mg/dL Normal 8.6 - 10.2 [facility] Comment on above: Performed By: #### 2 79504 #### [facility],[address] [place] [address] Chloride [Moles/Vol] 102 mmol/L Normal 98 - 107 [facility] Comment on above: Performed By: #### 2 98222 #### [facility],[address] [place] [address] CO2 [Moles/Vol] 28.0 mmol/L Normal 21.0 - 31.0 [facility] Comment on above: Performed By: #### 2 38019 #### [facility],[address] [place] [address] Creatinine [Mass/Vol] 0.8 mg/dL Normal 0.6 - 1.2 [facility] Comment on above: Performed By: #### 2 55277 #### [facility],[address] [place] [address] GFR/1.73 sq M predicted among non-blacks MDRD (S/P/Bld) [Vol rate/Area] mL/min/{1.73_m2} Normal 60 - 999 [facility] Comment on above: Result Comment: ACCO RDING TO THE NATIONAL KIDNEY DISEASE EDUCATION PROGRAM(NKDE), A NORMAL eGFR IS A VALUE GREATER THAN OR EQUAL TO 60 ML/MIN/1.73 SQ METERS. CHRONIC KIDNEY DISEASE: <60mL/MIN/1.73 SQ METERS KIDNEY FAILURE: <15mL/MIN/1.73 SQ METERS THIS TEST SHOULD ONLY BE USED FOR PATIENTS 18 YEARS OF AGE AND OLDER. Performed By: #### 2 41068 #### [facility],[address] [place] [address] GFR/1.73 sq M predicted among non-blacks MDRD (S/P/Bld) [Vol rate/Area] Normal [facility] Comment on above: Result Comment: BASI C METABOLIC PANEL Performed By: #### 2 71200 #### [facility],[address] [place] [address] Glucose [Mass/Vol] 110 mg/dL High 74 - 106 [facility] Comment on above: Performed By: #### 2 37616 #### [facility],[address] [place] [address] Potassium [Moles/Vol] 3.7 mmol/L Normal 3.5 - 5.1 [facility] Comment on above: Performed By: #### 2 45061 #### [facility],[address] [place] [address] Sodium [Moles/Vol] 139 mmol/L Normal 136 - 145 [facility] Comment on above: Performed By: #### 2 97716 #### [facility],[address] [place] [address] Urea nitrogen [Mass/Vol] 17 mg/dL Normal 6 - 20 [facility] Comment on above: Performed By: #### 2 74918 #### [facility],[address] [place] [address] CBC (NO DIFF)on 07-24-2018 CBC (NO DIFF) Normal [facility] Comment on above: Result Comment: CBC( WITHOUT DIFFERENTIAL) Performed By: #### 2 13057 #### [facility],[address] [place], [place] [address] Erythrocyte distribution width (RBC) [Ratio] 14.3 % Normal 12.0 - 15.6 [facility] Comment on above: Performed By: #### 2 55627 #### [facility],[address] [place] [address] Hematocrit (Bld) [Volume fraction] 38.9 % Normal 34.0 - 46.0 [facility] Comment on above: Performed By: #### 2 48529 #### [facility],[address] [place], [place] [id number] Hemoglobin (Bld) [Mass/Vol] 13.3 g/dL Normal 12.0 - 16.0 [facility] Comment on above: Performed By: #### 2 56839 #### [facility],[address] [place], [place] [id number] MCH (RBC) [Entitic mass] 31 pg Normal 27 - 33 [facility] Comment on above: Performed By: #### 2 67217 #### [facility],[address] [place] [address] MCHC (RBC) [Mass/Vol] 34 X10 3 Normal 32 - 36 [facility] Comment on above: Performed By: #### 2 16591 #### [facility],[address] [place] [address]227 MCV (RBC) [Entitic vol] 90 fL Normal 80 - 99 [facility] Comment on above: Performed By: #### 2 50657 #### [facility],[address] [place] [address] Platelet mean volume (Bld) [Entitic vol] 9.2 fL Normal 6.6 - 10.5 [facility] Comment on above: Performed By: #### 2 62774 #### [facility],[address] [place] [address] Platelets (Bld) [#/Vol] 180 x10EE3/UL Normal 150 - 450 [facility] Comment on above: Performed By: #### 2 08709 #### [facility],[address] [place] [address]269 RBC (Bld) [#/Vol] 4.30 x 10EE6/UL Normal 4.10 - 5.30 [facility] Comment on above: Performed By: #### 2 20410 #### [facility],[address] [place] [address] WBC (Bld) [#/Vol] 4.9 x 10EE3/UL Normal 4.5 - 10.8 [facility] Comment on above: Performed By: #### 2 76189 #### [facility],[address] [place] [address] LOWER EXTREMITY RT WOon 0 07-08-2018 CT LOWER EXTREMITY RT WO [facility] [place] [address] Patient: ANABEL BARTHOLOMEW Phone#: : 1935 Age: 82 Gender: F Pt. Type: Out Account: [id number] Location: Ordering: EL GUTIERREZ Exam Date: 07/08/2018/13:41 Family Phys: JAREN JONES Charge Code: [id number] Physician: [place] Order #: [id number] DLP Dose#: PROCEDURE: CT LOWER EXTREMITY RT [...] Eubanks MD on 07/08/2018 at 16:55 Normal [facility] XR THORACIC 3V AP/LAT/SWIMME RSon 08-21-2017 [...] MINA MD on Aug 21 2017 8:10PM [id number] [facility] Vital Signs Date Time Vital Sign Value Performing Clinician Faci lity 08-12-2024 14:02-0400 Body temperature 98.2 [degF] Dr. Angella Wallace MD Work Phone: [facility] 08-12-2024 14:02-0400 Diastolic blood pressure 71 mm[Hg] Dr. Angella Wallace MD Work Phone: [facility] 08-12-2024 14:02-0400 Heart rate 47 /min Dr. Angella Wallace MD Work Phone: [facility] 08-12-2024 14:02-0400 Respiratory rate 19 /min Dr. Angella Wallace MD Work Phone: [facility] 08-12-2024 14:02-0400 SaO2% (BldA) [Mass fraction] 100 % Dr. Angella Wallace MD Work Phone: [facility] 08-12-2024 14:02-0400 Systolic blood pressure 114 mm[Hg] Dr. Angella Wallace MD Work Phone: [facility] 08-12-2024 10:52-0400 Body height 160.[address] Angella Wallace MD Work Phone: [facility] 08-12-2024 10:52-0400 Body mass index (BMI) [Ratio] 20 kg/m2 Dr. Angella Wallace MD Work Phone: [facility] 08-12-2024 10:52-0400 Body weight 51.[address] Angella Wallace MD Work Phone: [facility] 05-15-2024 14:45-0400 Body mass index (BMI) [Ratio] 22 kg/m2 Dr. Angella Wallace MD Work Phone: [facility] 05-15-2024 14:45-0400 Body weight 56.[address] Angella Wallace MD Work Phone: [facility] 04-09-2023 09:20-0500 Body height 160.[address] Angella Wallace Work Phone: [facility] 04-09-2023 09:20-0500 Body mass index (BMI) [Ratio] 22.6 kg/m2 Dr. Angella Wallace Work Phone: [facility] 04-09-2023 09:20-0500 Body weight 58.[address] Angella Wallace Work Phone: [facility] 04-09-2023 09:20-0500 Respiratory rate 18 /min Dr. Angella Wallace Work Phone: [facility] 04-05-2023 14:36-0500 Body temperature 98.1 [degF] Dr. Angella Wallace Work Phone: [facility] 04-05-2023 14:36-0500 Diastolic blood pressure 62 mm[Hg] Dr. Angella Wallace Work Phone: [facility] 04-05-2023 14:36-0500 Heart rate 58 /min Dr. Angella Wallace Work Phone: [facility] 04-05-2023 14:36-0500 Respiratory rate 14 /min Dr. Angella Wallace Work Phone: [facility] 04-05-2023 14:36-0500 SaO2% (BldA) [Mass fraction] 98 % Dr. Angella Wallace Work Phone: [facility] 04-05-2023 14:36-0500 Systolic blood pressure 119 mm[Hg] Dr. Angella Wallace Work Phone: [facility] 04-05-2023 10:43-0500 Body height 160.[address] Angella Wallace Work Phone: [facility] 04-05-2023 10:43-0500 Body mass index (BMI) [Ratio] 22.6 kg/m2 Dr. Angella Wallace Work Phone: [facility] 04-05-2023 10:43-0500 Body weight 57.[address] Angella Wallace Work Phone: [facility] 11-22-2022 10:32-0400 Body height 160.[address] Angella Wallace Work Phone: [facility] 11-22-2022 10:32-0400 Body mass index (BMI) [Ratio] 22.7 kg/m2 Dr. Angella Wallace Work Phone: [facility] 11-22-2022 10:32-0400 Body temperature 98.2 [degF] Dr. Angella Wallace Work Phone: [facility] 11-22-2022 10:32-0400 Body weight 58.[address] Angella Wallace Work Phone: [facility] 11-22-2022 10:32-0400 Diastolic blood pressure 78 mm[Hg] Dr. Angella Wallace Work Phone: [facility] 11-22-2022 10:32-0400 Heart rate 61 /min Dr. Angella Wallace Work Phone: [facility] 11-22-2022 10:32-0400 Respiratory rate 16 /min Dr. Angella Wallace Work Phone: [facility] 11-22-2022 10:32-0400 SaO2% (BldA) [Mass fraction] 97 % Dr. Angella Wallace Work Phone: [facility] 11-22-2022 10:32-0400 Systolic blood pressure 138 mm[Hg] Dr. Angella Wallace Work Phone: [facility] 11-13-2022 15:31-0400 Diastolic blood pressure 72 mm[Hg] Ángela Leiva MD Work Phone: [facility] 11-13-2022 15:31-0400 Systolic blood pressure 138 mm[Hg] Ángela Leiva MD Work Phone: [facility] 11-13-2022 15:14-0400 Body weight 58.06 kg Ángela Leiva MD Work Phone: [facility] 11-13-2022 15:14-0400 Heart rate 62 /min Ángela Leiva MD Work Phone: [facility] 11-13-2022 15:14-0400 SaO2% (BldA) [Mass fraction] 100 % Ángela Leiva MD Work Phone: [facility] 03-21-2022 15:25-0500 Body temperature 97.7 [degF] Lily Praisler-Wood PRODUCE SPECIALIST.ADJUNCT ENGLISH INSTRUCTOR Work Phone: [facility] 03-21-2022 15:25-0500 Body weight 58.06 kg Lily Praisler-Wood PRODUCE SPECIALIST.ADJUNCT ENGLISH INSTRUCTOR Work Phone: [facility] 03-21-2022 15:25-0500 Diastolic blood pressure 78 mm[Hg] Lily Praisler-Wood PRODUCE SPECIALIST.ADJUNCT ENGLISH INSTRUCTOR Work Phone: [facility] 03-21-2022 15:25-0500 Heart rate 68 /min Lily Praisler-Wood PRODUCE SPECIALIST.ADJUNCT ENGLISH INSTRUCTOR Work Phone: [facility] 03-21-2022 15:25-0500 Respiratory rate 18 /min Lily Praisler-Wood PRODUCE SPECIALIST.ADJUNCT ENGLISH INSTRUCTOR Work Phone: [facility] 03-21-2022 15:25-0500 SaO2% (BldA) [Mass fraction] 99 % Lily Praisler-Wood PRODUCE SPECIALIST.ADJUNCT ENGLISH INSTRUCTOR Work Phone: [facility] 03-21-2022 15:25-0500 Systolic blood pressure 132 mm[Hg] Lily Villar APRN.CNP Work Phone: [facility] 02-06-2022 15:27-0500 Body weight 59.88 kg Ángela Leiva MD Work Phone: [facility] 02-06-2022 15:27-0500 Diastolic blood pressure 80 mm[Hg] Ángela Leiva MD Work Phone: [facility] 02-06-2022 15:27-0500 Heart rate 75 /min Ángela Leiva MD Work Phone: [facility] 02-06-2022 15:27-0500 SaO2% (BldA) [Mass fraction] 98 % Ángela Leiva MD Work Phone: [facility] 02-06-2022 15:27-0500 Systolic blood pressure 148 mm[Hg] Ángela Leiva MD Work Phone: [facility] 01-17-2022 11:55-0500 Heart rate 60 /min Jaren Jones MD Work Phone: [facility] 01-17-2022 11:16-0500 Body weight 59.69 kg Jaren Jones MD Work Phone: [facility] 01-17-2022 11:16-0500 Diastolic blood pressure 64 mm[Hg] Jaren Jones MD Work Phone: [facility] 01-17-2022 11:16-0500 Respiratory rate 16 /min Jaren Jones MD Work Phone: [facility] 01-17-2022 11:16-0500 SaO2% (BldA) [Mass fraction] 98 % Jaren Jones MD Work Phone: [facility] 01-17-2022 11:16-0500 Systolic blood pressure 114 mm[Hg] Jaren Jones MD Work Phone: [facility] 09-21-2021 14:40-0400 Body temperature 99 [degF] Tawnya Podlogar PRODUCE SPECIALIST.ADJUNCT ENGLISH INSTRUCTOR Work Phone: [facility] 09-21-2021 14:40-0400 Body weight 59.78 kg Tawnya Podlogar PRODUCE SPECIALIST.ADJUNCT ENGLISH INSTRUCTOR Work Phone: [facility] 09-21-2021 14:40-0400 Diastolic blood pressure 68 mm[Hg] Tawnya Podlogar PRODUCE SPECIALIST.ADJUNCT ENGLISH INSTRUCTOR Work Phone: [facility] 09-21-2021 14:40-0400 Heart rate 67 /min Tawnya Podlogar PRODUCE SPECIALIST.ADJUNCT ENGLISH INSTRUCTOR Work Phone: [facility] 09-21-2021 14:40-0400 Respiratory rate 18 /min Tawnya Podlogar PRODUCE SPECIALIST.ADJUNCT ENGLISH INSTRUCTOR Work Phone: [facility] 09-21-2021 14:40-0400 SaO2% (BldA) [Mass fraction] 96 % Tawnya Podlogar PRODUCE SPECIALIST.ADJUNCT ENGLISH INSTRUCTOR Work Phone: [facility] 09-21-2021 14:40-0400 Systolic blood pressure 132 mm[Hg] Tawnya Podlogar PRODUCE SPECIALIST.ADJUNCT ENGLISH INSTRUCTOR Work Phone: [facility] 09-09-2021 13:05-0400 Body weight 60.06 kg Tawnya Podlogar PRODUCE SPECIALIST.ADJUNCT ENGLISH INSTRUCTOR Work Phone: [facility] 09-09-2021 13:05-0400 Diastolic blood pressure 72 mm[Hg] Tawnya Podlogar PRODUCE SPECIALIST.ADJUNCT ENGLISH INSTRUCTOR Work Phone: [facility] 09-09-2021 13:05-0400 Heart rate 76 /min Tawnya Podlogar PRODUCE SPECIALIST.ADJUNCT ENGLISH INSTRUCTOR Work Phone: [facility] 09-09-2021 13:05-0400 Respiratory rate 18 /min Tawnya Podlogar PRODUCE SPECIALIST.ADJUNCT ENGLISH INSTRUCTOR Work Phone: [facility] 09-09-2021 13:05-0400 SaO2% (BldA) [Mass fraction] 98 % Tawnya Podlogar PRODUCE SPECIALIST.ADJUNCT ENGLISH INSTRUCTOR Work Phone: [facility] 09-09-2021 13:05-0400 Systolic blood pressure 128 mm[Hg] Tawnya Scales APRN.ADJUNCT ENGLISH INSTRUCTOR Work Phone: [facility] 07-11-2021 14:25-0400 Body weight 59.42 kg Ángela Leiva MD Work Phone: [facility] 07-11-2021 14:25-0400 Diastolic blood pressure 68 mm[Hg] Ángela Leiva MD Work Phone: [facility] 07-11-2021 14:25-0400 Heart rate 72 /min Ángela Leiva MD Work Phone: [facility] 07-11-2021 14:25-0400 SaO2% (BldA) [Mass fraction] 97 % Ángela Leiva MD Work Phone: [facility] 07-11-2021 14:25-0400 Systolic blood pressure 138 mm[Hg] Ángela Leiva MD Work Phone: [facility] Encounters Encounter Date Encounter Type Care Provider Facility Start: 08-12-2024 End: 08-12-2024 Emergency department patient visit Dr. Angella Wallace MD Work Phone: -Emergency Department Work Phone: Start: 05-29-2024 End: 05-29-2024 Telephone encounter Ant Burgos MD Work Phone: Neurology Comment on above: Appointment (Appoint ment Scheduled in Error) Start: 05-15-2024 End: 05-15-[address] Bet[facility] Work Phone: Start: 05-15-2024 End: 05-15-2024 ambulatory Beto Bro Facility:[facility] Start: 01-28-2024 End: 01-28-2024 ambulatory Angella Wallace Facility:[facility] Start: 12-04-2023 End: 12-04-2023 ambulatory Jus Johns Facility:[facility] Start: 11-13-2023 End: 11-13-2023 ambulatory Patrick Still Facility:[facility] Start: 11-07-2023 End: 11-07-2023 ambulatory Angella Wallace Facility:[facility] Start: 10-24-2023 End: 10-24-2023 ambulatory CLARA GU Facility:[facility] Start: 10-24-2023 End: 10-24-2023 Subsequent hospital visit by physician Kang [facility] Jessica Bunn Work Phone: Radiology Comment on above: DDD (degenerative di sc disease), 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] Start: 10-24-2023 End: 10-24-2023 Telephone encounter Clara Gu MD Work Phone: [facility] Comment on above: Returning Patient's Call Start: 10-23-2023 ambulatory CLARA GU Facility :[facility] Start: 10-23-2023 End: 10-23-2023 Telephone encounter Clara Gu MD Work Phone: [facility] Comment on above: Sterile Tech - O ther (xrays) Start: 10-15-2023 End: 10-15-2023 ambulatory Patrick Still [facility] Start: 10-03-2023 End: 10-03-2023 ambulatory [facility] Facility:[facility] Start: 09-10-2023 End: 09-10-2023 ambulatory Patrick Still Facility:[facility] Start: 05-15-2023 Non-patient / Non-visit Dr. Susie Wallace Work Phone: [facility] Start: 05-15-2023 End: 05-15-[address] Angella Wallace Work Phone: [facility] Work Phone: Start: 05-15-2023 End: 05-15-[address] Angella Wallace Work Phone: [facility] Work Phone: Start: 04-09-2023 End: 04-09-[address] Angella Wallace Work Phone: [facility] Work Phone: Start: 04-05-2023 Non-patient / Non-visit Dr. Susie Wallace Work Phone: [facility] Start: 04-05-2023 End: 04-05-2023 Emergency department patient visit Dr. Angella Wallace Work Phone: [facility]-Emergency Department Work Phone: Start: 04-05-2023 End: 04-05-[address] Angella Wallace Work Phone: [facility] Work Phone: Start: 04-05-2023 End: 04-05-[address] [facility] Work [facility]: Start: 03-27-2023 Telephone encounter Ángela Leiva MD Work Phone: Cardiology Comment on above: Patient Question Start: 03-07-2023 End: 03-07-[address] Angella Wallace Work Phone: [facility] Work Phone: Start: 03-07-2023 End: 03-07-[address] [facility] Start: 01-22-2023 End: 01-22-[address] Angella Wallace Work Phone: [facility] Work Phone: Start: 01-22-2023 End: 01-22-[address] Angella Wallace Work Phone: [facility]-Radiology, [facility] Work Phone: Start: 11-22-2022 End: 11-22-[address] Angella Wallace Work Phone: [facility] Work Phone: Start: 11-15-2022 End: 11-15-2022 ambulatory [facility] Work Phone: Start: 11-15-2022 End: 11-15-2022 Patient encounter procedure [facility] Work Phone: Start: 11-13-2022 End: 11-13-2022 Patient encounter procedure Ángela Leiva MD Work Phone: Cardiology Comment on above: Essential hypertensi on, benign (Primary Dx); Mixed hyperlipidemia; Palpitations; LBBB (left bundle branch block) Start: 10-20-2022 End: 10-20-2022 Subsequent hospital visit by physician Screen Mammo [facility] Start: 10-17-2022 Telephone encounter Jas Jones MD Work Phone: Mammogram Comment on above: Orders Start: 04-10-2022 Refill Jaren Jones MD Work Phone: [facility] Comment on above: Refill Request Start: 03-27-2022 Refill Jaren Jones MD Work Phone: [facility] Comment on above: Refill Request Start: 03-21-2022 End: 03-21-2022 Patient encounter procedure Lily Villar APRN.[facility] Work Phone: [facility] Comment on above: Rash (Primary Dx) Start: 02-06-2022 End: 02-06-2022 Patient encounter procedure Ángela Leiva MD Work Phone: Cardiology Comment on above: Palpitations (Primar y Dx); Essential hypertension, benign; Other hyperlipidemia; LBBB (left bundle branch block) Start: 01-17-2022 Telephone encounter [facility] Comment on above: Results Start: 01-17-2022 End: 01-17-2022 Patient encounter procedure Jaren Jones MD Work Phone: [facility] Comment on above: Drug rash (Primary D x); Minimal cognitive impairment; Essential hypertension; Hyperlipidemia, unspecified hyperlipidemia type; Anxiety with depression; BPPV (benign paroxysmal positional vertigo), unspecified laterality Start: 09-30-2021 Documentation procedure Mammog jay Coordinator [facility] Start: 09-30-2021 Letter encounter Mammography Coordinator [facility] Department Start: 09-29-2021 Telephone encounter Tawnya dacosta APRN.ADJUNCT ENGLISH INSTRUCTOR Work Phone: [facility] Comment on above: Vertigo update Refill Request Start: 09-21-2021 End: 09-21-2021 Patient encounter procedure Tawnya Scales APRN.ADJUNCT ENGLISH INSTRUCTOR Work Phone: [facility] Comment on above: Dizziness (Primary D x); Bilateral impacted cerumen Start: 09-09-2021 End: 09-09-2021 Patient encounter procedure Tawnya Scales APRN.ADJUNCT ENGLISH INSTRUCTOR Work Phone: [facility] Comment on above: Dizziness (Primary D x); Anxiety with depression; Encounter for screening mammogram for malignant neoplasm of breast Start: 07-11-2021 End: 07-11-2021 Patient encounter procedure Ángela Leiva MD Work Phone: Cardiology Comment on above: Palpitations (Primar y Dx); LBBB (left bundle branch block); Essential hypertension, benign; Other hyperlipidemia Start: 06-30-2021 Refill Jaren Jones MD Work Phone: [facility] Comment on above: Refill Request Start: 08-12-2018 End: 08-13-2018 Evaluation and management of inpatient [facility] Start: 07-24-2018 Encounter for other preprocedural examination [facility] Start: 07-24-2018 End: 07-24-2018 Patient encounter procedure [facility] Start: 07-08-2018 End: 07-08-2018 Patient encounter procedure [facility] Start: 08-21-2017 Ambulatory ÁNGELA Maribel ([facility] Encounter for other preprocedural examination EL [facility] Procedures Date Procedure Procedure Detail Performing Clinician [...] Start: 01-11-2025 Diabetes Screening Diabetes Screenin g [facility] Start: 08-12-2024 [facility] Start: 08-12-2024 [facility] Start: 02-20-2024 Advance Directive Discussion Advance Directive Discussion [facility] Start: 11-12-2023 End: 11-12-2023 Patient encounter procedure 11/12/2023 1:40 PM EDT Office Visit Cardiology [address] [place] [id number] Ángela Leiva MD [address] [place], [place] [id number] 1 yr month follow up Cardiology Comment on above: 1 yr month follow up Start: 11-02-2023 End: 11-02-2023 Patient encounter procedure [facility] Comment on above: Lumbar spinal stenos is ; Mri being pusged from [facility] Start: 10-21-2023 Covid-19 Vaccine () Covid-19 Vaccine () [facility] Start: 10-21-2023 Covid-19 Vaccine ( season) Covid-19 Vaccine ( season) [facility] Start: 10-21-2023 Influenza vaccination Influenza Vacc ine (#1) [facility] Start: 04-05-2023 [facility] Start: 04-05-2023 End: 04-05-2023 [facility] Start: 02-19-2023 Advance Directive Discussion Advance Directive Discussion [facility] Start: 02-19-2023 Depression Assessment Depression Ass essment [facility] Start: 01-28-2023 Urine microalbumin profile [facility] Start: 01-17-2023 COVID-19 VACCINE (4 - Booster for Moderna series) COVID-19 VACCINE (4 - Booster for Moderna series) [facility] Comment on above: Postponed from 03/03 (Declined at this time) Start: 01-17-2023 COVID-19 VACCINE (5 - Moderna series) COVID-19 VACCINE (5 - Moderna series) [facility] Comment on above: Postponed from 03/03 (Declined at this time) Start: 01-11-2023 Hepatitis B surface antibody level LDL CHOLESTEROL [facility] Start: 11-22-2022 Patient referral [facility] Work Phone: Start: 10-20-2022 Covid-19 Vaccine ( season) Covid-19 Vaccine ( season) [facility] Start: 10-20-2022 Influenza vaccination [facility] Start: 02-19-2022 ADVANCE DIRECTIVE DISCUSSION ADVANCE DIRECTIVE DISCUSSION [facility] Start: 02-19-2022 DEPRESSION ASSESSMENT DEPRESSION ASS ESSMENT [facility] Start: 01-05-2022 Hepatitis B surface antibody level LDL CHOLESTEROL [facility] Start: 11-15-2021 SHINGRIX VACCINE (3 of 3) SHINGRIX VACCINE (3 of 3) [facility] Start: 10-20-2021 Influenza vaccination INFLUENZA (#1) [facility] Start: 05-06-2021 COVID-19 VACCINE (4 - Booster for Moderna series) COVID-19 VACCINE (4 - Booster for Moderna series) [facility] Start: 02-19-2021 ADVANCE DIRECTIVE DISCUSSION ADVANCE DIRECTIVE DISCUSSION [facility] Start: 02-19-2021 DEPRESSION ASSESSMENT DEPRESSION ASS ESSMENT [facility] Start: 08-07-2010 RSV Vaccine (1 - 1-d ose 75+ series) RSV Vaccine (1 - 1-dose 75+ series) [facility] Start: 05-03-2007 SHINGRIX VACCINE (2 of 3) SHINGRIX VACCINE (2 of 3) [facility] Start: 1995 Hepatitis B Vaccine (1 of 3 - Risk 3-dose series) Hepatitis B Vaccine (1 of 3 - Risk 3-dose series) [facility] Start: 1995 RSV Vaccine (1 - 1-d ose 60+ series) RSV Vaccine (1 - 1-dose 60+ series) [facility] Start: 08-07-1953 Anxiety Screening Anxiety Screening [facility] Start: 08-07-1953 Depression Screening Depression Scre ening [facility] End: 01-31-2023 ECG COMPLETE ECG COMPLETE ECG Routine Palpitations 1 Occurrences starting 01/31/2022 until 01/31/2023 [facility] Work Phone: Comment on above: 1 Occurrences starti ng 01/31/2022 until 01/31/2023 Patient Education [facility] Work Phone: [facility] Work Phone: Radionuclide imaging of perfusion of myocardium under exercise stress [facility] End: 10-09-2022 Screening mammography bi 2-view breast inc cad MARY SCREENING Radiology Routine Encounter for screening mammogram for malignant neoplasm of breast 1 Occurrences starting 09/09/2021 until 10/09/2022 [facility] Work Phone: Comment on above: 1 Occurrences starti ng 09/09/2021 until 10/09/2022 US Heart [facility] End: 11-22-2024 XR Thoracic and lumbar spine Views for scoliosis W standing XR SCOLIOSIS PA STAND/LAT 2V Radiology Routine DDD (degenerative disc disease), thoracic 1 Occurrences starting 10/24/2023 until 11/22/2024 [facility] Work Phone: Comment on above: 1 Occurrences starti ng 10/24/2023 until 11/22/2024 XR Thoracic and lumb ar spine Views for scoliosis W standing XR SCOLIOSIS PA STAND/LAT 2V Radiology Routine DDD (degenerative disc disease), thoracic 10/24/2023 4:04 PM EDT [facility] Immunizations Immunization Date Immunization Notes Care Provider Fa cili 11-16-2022 influenza virus vaccine, unspecified formulation Clara Gu MD Work Phone: [facility] 12-14-2021 influenza (aIIV4) vaccine, age 65+ yr, quadrivalent, PF (FLUAD QUADRIVALENT) Jaren Jones MD Work Phone: [facility] 12-14-2021 influenza virus vaccine, unspecified formulation Ángela Leiva MD Work Phone: [facility] 09-20-2021 zoster vaccine recombinant Tawnya Scales PRODUCE SPECIALISTAravindADJUNCT ENGLISH INSTRUCTOR Work Phone: [facility] 06-07-2021 zoster vaccine recombinant Jaren Jones MD Work Phone: [facility] Work Phone: 11-30-2020 influenza, high-dose , quadrivalent vaccine (FLUZONE HIGH DOSE QUADRIVALENT) Jaren Jones MD Work Phone: [facility] 04-15-2020 COVID-19 vaccine, booster dose (MODERNA) Jaren Jones MD Work Phone: [facility] 03-18-2020 COVID-19 vaccine, booster dose (MODERNA) Jaren Jones MD Work Phone: [facility] 12-13-2019 influenza, high-dose , quadrivalent vaccine (FLUZONE HIGH DOSE QUADRIVALENT) Jaren Jones MD Work Phone: [facility] 12-14-2018 influenza, high dose seasonal, preservative-free Jaren Jones MD Work Phone: [facility] 11-17-2017 influenza, high dose seasonal, preservative-free Jaren Jones MD Work Phone: [facility] 11-24-2016 influenza, high dose seasonal, preservative-free Jaren Jones MD Work Phone: [facility] 12-11-2015 influenza, high dose seasonal, preservative-free Jaren Jones MD Work Phone: [facility] 01-05-2015 influenza, high dose seasonal, preservative-free Jaren Jones MD Work Phone: [facility] 06-01-2014 pneumococcal conjuga te vaccine, 13 valent Jaren Jones MD Work Phone: [facility] 12-26-2013 influenza, seasonal, injectable Jaren Jones MD Work Phone: [facility] 01-28-2013 tetanus toxoid, redu brain diphtheria toxoid, and acellular pertussis vaccine, adsorbed Jaren Jones MD Work Phone: [facility] 12-28-2012 influenza virus vaccine, unspecified formulation Jaren Jones MD Work Phone: [facility] 12-30-2011 influenza virus vaccine, unspecified formulation Jaren Jones MD Work Phone: [facility] Work Phone: 12-22-2010 influenza virus vaccine, unspecified formulation Jaren Jones MD Work Phone: [facility] 11-18-2008 influenza virus vaccine, unspecified formulation Jaren Jones MD Work Phone: [facility] 01-01-2008 influenza virus vaccine, unspecified formulation Jaren Jones MD Work Phone: [facility] Work Phone: 03-08-2007 zoster vaccine, live Claudio Jones MD Work Phone: [facility] Work Phone: 01-08-2006 influenza virus vaccine, unspecified formulation Jaren Jones MD Work Phone: [facility] 12-20-2004 influenza virus vaccine, unspecified formulation Jaren Jones MD Work Phone: [facility] Work Phone: 11-19-2002 tetanus and diphther ia toxoids, not adsorbed, for adult use Jaren Jonse MD Work Phone: [facility] 09-19-2000 pneumococcal polysaccharide vaccine, 23 valent Jaren Jones MD Work Phone: [facility] Payers Date Payer Category Payer Self-pay [id number] 2019 Medicare UHC AAR MEDICAR E [facility] MEDICARE HMO [id number] 2019-Present [phone] [address] [address] [place] [address] O [id number] 2019 Medicare UHC AAR MEDICAR E [facility] MEDICARE HMO [id number] 2019-Present [phone] [place] [id number] HMO [id number] 2019 Medicare (Managed Care) [facility] MEDICARE HMO [id number] 2019 Unknown [id number] 2000 Unknown [id number] 2000 Medicare [id number] 1935 Unknown [id number] 1935 Unknown [id number] 651 1935 Unknown [id number] 651 Medicare [id number] Unknown [id number] 462 Unknown [id number] 462 Unknown [id number] 462 Unknown [id number] 462 Unknown [id number] 462 Unknown [id number]. 462 Unknown [id number] [id number]. 462 Unknown [id number]. 462 Unknown [id number] 462 Social History Date Type Detail Facility Start: 12-22-2010 End: 08-12-2024 Tobacco smoking status FLIS Never smoked tobacco [facility] Start: 03-07-2021 End: 11-13-2022 Alcohol intake Current drinker of alcohol (finding) [facility] Start: 03-07-2021 End: 11-12-2023 Alcohol intake [facility] Start: 01-01-2012 History SDOH Alcohol Comment wine ocassional 3-4 times over the week [facility] Start: 1935 Sex Assigned At Not on file [facility] Start: 09-11-2021 End: 01-17-2022 Exposure to SARS-CoV-2 (event) Not sure [facility] Start: 12-22-2010 Tobacco use and exposure Smokeless tobacco non-user [facility] Start: 1935 Sex Assigned At Female W [facility] Start: 03-21-2022 End: 11-12-2023 Tobacco use panel [facility] Adult Depression Screening Assessment 2 [facility] Start: 04-10-2022 End: 04-09-2023 Tobacco smoking status NHIS Unknown if ever smoked [facility] Functional Status Date Assessment Result Facility 07-14-2014 Are you deaf, or do you have serious difficulty hearing No 07/14/2014 1:33 PM Orquidea Galvan LPN No [facility] 07-14-2014 Are you blind, or do you have serious difficulty seeing, even when wearing glasses No 07/14/2014 1:33 PM Orquidea Galvan LPN No [facility] 07-14-2014 Do you have serious difficulty walking or climbing stairs No 07/14/2014 1:33 PM Orquidea Galvan LPN No [facility] 07-14-2014 Do you have difficul ty dressing or bathing No 07/14/2014 1:33 PM Orquidea Galvan LPN No [facility] 07-14-2014 Because of a physica l, mental, or emotional condition, do you have difficulty doing errands alone such as visiting a physician's office or shopping No 07/14/2014 1:33 PM Orquidea Galvan LPN No [facility] Mental Status Date Assessment Result Facility 08-12-2024 Cognitive function Voice/Name [facility] Work Phone: 04-05-2023 Cognitive function Voice/Name [facility] Work Phone: 07-14-2014 Because of a physica l, mental, or emotional condition, do you have serious difficulty concentrating, remembering, or making decisions No 07/14/2014 1:33 PM Orquidea Galvan LPN No [facility] Clinical Notes 04-20-2009 to 08-12-2024 Note Date & Type Note Facility 08-12-2024 Discharge summary Note Date/Time August 12, 2024 1:56pm [facility] Medical Records Department [address] [place] [address] Emergency Department Summary 08/12/24 MR#: [id number] Acct: [id number] Name: ANABEL BARTHOLOMEW Rep #:[id number] : [...] metoprolol that was written previously by her operating cost clerk. Previously on metoprolol and Eliquis however states on her visit was stopped by her operating cost clerk. She denied any rectal bleeding complaints. She [...] Immobilization or Prior DVT or PE [facility] Medical History Spinal stenosis Spinal stenosis at [...] the low 50s. I discussed with covering operating cost clerk Dr. Baum, back in sinus rhythm can follow-up with Dr. Still. Discussed not restarting her metoprolol as her heart rate is on the lower end. He agrees. Eliquis 3-month supply sent to her pharmacy. Re-evaluation: stable Disposition discussed with patient/family/significant other: Patient and significant other Case discussed with consulting clinician: Cardiology This note was generated with Walldress dictation software. It may contain incorrectwords, spelling, [...] % (Auto) 61.0 Lymph % (Auto) 26.7 [place] % (Auto) 9.2 Eos % (Auto) 1.9 [...] 11:55 IMPRESSION: No Acute Findings. Reading Location: [facility] Discharge Plan Triage Chief Complaint: Chest Pain [...] with Dr. Still as scheduled. Print Language: Setswana Disposition Disposition: Home, Self Care What to do if you have Problems For any increased pain, shortness of breath, bleeding, nausea or vomiting, chestpain, or any unexpected problems, contact your Primary Care Provider. Call Consulted Registry ([phone]) or report to the closest Emergency Room. Call 911 if necessary. 08/12/24 4509 <Electronically signed by Kolby Galaviz> Cosigner Signature (if applicable): CC: Dr. Angella Wallace MD; Dr. Patrick Still MD ~ Signed [facility] Work Phone: 1(810) 969-566606-24-2025 Discharge summary [facility] Medical Records Department [address] [place] [address] Emergency Department Summary 08/12/24 MR#: [id number] Acct: [id number] Name: ANABEL BARTHOLOMEW Rep #:[id number] : [...] metoprolol that was written previously by her operating cost clerk. Previously on metoprolol and Eliquis however states on her visit was stopped by her operating cost clerk. She denied any rectal bleeding complaints. She started having a dry cough yesterday. No vomiting no diarrhea. This feels similar to her A-fib events in the past. Reports some lightheaded symptoms. Prior Similar Symptoms: Yes CVD Risk Factors: Positive for Hypertension and Hypercholesterolemia; Negative for Diabetes, FamilyHistory 1' PE Risk Factors: Negative for Recent Travel/Surgery, Recent Immobilization or Prior DVT or PE [facility] Medical History Spinal stenosis Spinal stenosis at [...] the low 50s. I discussed with covering operating cost clerk Dr. Baum, back in sinus rhythm can follow-up with Dr. Still. Discussed not restarting her metoprolol as her heart rate is on the lower end. He agrees. Eliquis 3-month supply sent to her pharmacy. Re-evaluation: stable Disposition discussed with patient/family/significant other: Patient and significant other Case discussed with consulting clinician: Cardiology This note was generated with Walldress dictation software. It may contain incorrectwords, spelling, [...] % (Auto) 61.0 Lymph % (Auto) 26.7 [place] % (Auto) 9.2 Eos % (Auto) 1.9 [...] 11:55 IMPRESSION: No Acute Findings. Reading Location: [facility] Discharge Plan Triage Chief Complaint: Chest Pain [...] with Dr. Still as scheduled. Print Language: Setswana Disposition Disposition: Home, Self Care What to do if you have Problems For any increased pain, shortness of breath, bleeding, nausea or vomiting, chestpain, or any unexpected problems, contact your Primary Care Provider. Call Consulted Registry ([phone]) or report tothe closest Emergency Room. Call 911 if necessary. 08/12/24 1356 Cosigner Signature (if applicable): CC: Dr. Angella Wallace MD; Dr. Patrick Still MD ~ Signed [facility]06-24-2025 Radiology Diagnostic study note [facility] Imaging Services [address] [place] [address] Chest 1 View (Portable) MR#: [id number] Acct: [id number] Name: ANABEL BARTHOLOMEW Rep #: [id number] : 1935 F 89 From: Prashanth Woodward MD PCP: Dr. Angella Wallace MD Status: REG ER Study:Chest 1 View (Portable) Date of Exam: 08/12/24 Exam# [id number] Ordering Dr: Kolby Wong DO PROCEDURE: CHEST 1 VIEW (PORTABLE) 08/12/2024 REASON FOR EXAM: COUGH TECHNIQUE: Frontal view of the chest. COMPARISON: Prior study dated April 05, 2023. FINDINGS: Hardware: EKG electrodes Heart: Lungs: The lungs are clear. Bones: Degenerative changes are identified within the thoracic spine. Other: RAD/Chest 1 View (Portable) IMPRESSION: No Acute Findings. Reading Location: [facility] CC: Dr. Angella Wallace MD; Dr. Kolby Wong DO ~ Back Wedger: Signed [facility]04-10-2025 Telephone encounter Note* Telephone Encounter - Madiha Cooper - 05/29/2024 9:37 AM EDT Patient's appointment on 05/29/2024 was scheduled in error. Patient only reports concerns of sciatica and spinal stenosis; for these concerns, Patient should be scheduled with a Curtain Framer, not General Neurology. Called and spoke with patient. She agreed to cancel appt with Dr. Bugros. Patient will consult PCPprior to rescheduling. Patient will call back at a later time to reschedule. Madiha Cooper [facility]04-10-2025 Miscellaneous Notes* Telephone Encounter - Madiha Cooper - 05/29/2024 9:37 AM EDT Patient's appointment on 05/29/2024 was scheduled in error. Patient only reports concerns of sciatica and spinal stenosis; for these concerns, Patient should be scheduled with a Curtain Framer, not General Neurology. Called and spoke with patient. She agreed to cancel appt with Dr. Burgos. Patient will consult PCPprior to rescheduling. Patient will call back at a later time to reschedule. Madiha Cooper documented in [facility] Evaluation note* Diagnosis Onset Date Resolution Status Admit Date Lumbar radiculopathy acute S[facility] 2024 2:32pm Spinal stenosis of lumbar re gion with neurogenic claudication acute [facility] 2024 2:32pm [facility] Work Phone: 1(732) 607-722309-04-2024 Miscellaneous Notes* Addendum Note - Severo Rosas [...] scoliosis films for her to obtain at [facility] as she had originally declined to obtain them to further think about getting the scoliosis films. Patient verbalized understanding and appreciative of call. Patient will call office with any questions or concerns. Severo Rosas RN documented [facility]24 Note* Addendum Note - Severo Rosas RN - 10/24/2023 3:51 PM EDTAddended by: SEVERO ROSAS on: 10/24/2023 03:51 PM Modules accepted: Orders [facility]09-04-2024 Note* Addendum Note - Rajwinder Vigil APRN.CNP - 10/24/2023 3:43 PM EDTAddended by: RAJWINDER VIGIL on: 10/24/2023 03:43 PM Modules accepted: Orders [facility] Work Phone: 1(369) 428-368509-04-2024 History of Present illness Narrative* Socorro Mckeon [...] PATIENT PRESENTS WITH AN IMPLANTABLE OR ATTACHED MEDIA RELATIONS MANAGER: No RADIOLOGY DEPARTMENT: General X-ray: Exam(s) Completed: Spine X-Ray(s): Scoliosis Series PA/LAT PERIPHERAL IV DATA: Not applicable SIGNED BY: RT Kelby(William) October 24, 2023 4:04 PM documented in this encounterUpper [facility] Center09-04-2024 NoteHNO ID: [id number] Author: SOCORRO MCKEON RT(R) Service: ? Author [...] PATIENT PRESENTS WITH AN IMPLANTABLE OR ATTACHED MEDIA RELATIONS MANAGER: No RADIOLOGY DEPARTMENT: General X-ray: Exam(s) Completed: Spine X-Ray(s): Scoliosis Series PA/LAT PERIPHERAL IV DATA: Not applicable SIGNED BY: RT Kelby(R) October 24, 2023 4:04 [facility]09-04-2024 Telephone encounter Note* Telephone Encounter - Severo Rosas RN - 10/24/2023 12:58 PM EDT I called and spoke to patient, returning her voice message. I notified her I placed new order for scoliosis films for her to obtain at [facility] as she had originally declined to obtain them to further think about getting the scoliosis films. Patient verbalized understanding and appreciative of call. Patient will call office with any questions or concerns. Severo Rosas RN [facility]09-03-2024 Telephone encounter Note* Telephone Encounter - Severo Rosas RN - 10/23/2023 11:28 AM EDT I called and spoke to [facility] at [phone] to get MRI of lumbar spine from August 2023 pushed and report faxed. They will get imaging pushed and reports faxed to us. Provided fax number. Severo Rosas RN [facility]09-03-2024 Miscellaneous Notes* Telephone Encounter - Severo Rosas RN - 10/23/2023 11:28 AM EDT I called and spoke to [facility] at [phone] to get MRI of lumbar spine from [...] films. She stated she will go to [facility] on [address] to obtain imaging. Additionally, she stated she obtained MRI of lumbar spine in August at [facility]. Notified her our office will reach out to them to push over imaging/fax report. She understood. Patient also asked if appointment could be switched to the afternoon on the . Appointment movedfrom 11am to 2pm. Patient agreeable and thankful for information. Encouraged to call with any further questions or concerns. documented in this encounterUpper [facility] Center09-03-2024 Telephone encounter Note * Telephone Encounter - Severo Rosas RN - 10/23/2023 11:23 AM EDT Spoke with patient in regards to upcoming appointment with Dr. Gu on 11/02/2023. Provided detailed instructions as to when and how to obtain scoliosis films. She stated she will go to [facility] on [address] to obtain imaging. Additionally, she stated she obtained MRI of lumbar spine in August at [facility]. Notified her our office will reach out to them to push over imaging/fax report. She understood. Patient also asked if appointment could be switched to the afternoon on the . Appointment movedfrom 11am to 2pm. Patient agreeable and thankful for information. Encouraged to call with any further questions or concerns. [facility]02-15-2024 Discharge summary Author Mayito Palacio [facility] April 05, 2023 2:09pm Note Date/Time April 05, 2023 11:12am [facility] Medical Records Department [address] [place] [id number] Emergency Department Summary 04/05/23 MR#: [id number] Acct: [id number] Name: ANABEL BARTHOLOMEW Rep #:[id number] : [...] other associated symptoms. Patient does see a operating cost clerk through the [facility]. She is scheduled to have an appointment [...] for Marfan's Syndrome or Family History [facility] Medical History Arthritis Back problem Carpal tunnel [...] anterior force. Nonseptic ST-T wave changes noted. SC interval is 120 ms. Cures duration 3 and 48 ms. Lincoln is normal.) Follow-up EKG: Attestation: I personally reviewed and interpreted this EKG as follows: Interpretation: Sinus Bradycardia (Rate is 53. Patient has decreased anterior force. There is evidence of left bundle branch block. QRS duration 148 ms. QT duration 514 ms. Lincoln is normal.) Management Discussion w/another healthcare provider: [employer] (Spoke to Dr. Brian Still regarding patient. [...] your Primary Care Provider. Call [facility] ([phone]) or report to the closest Emergency Room. Call 911 if necessary. 04/05/23 1409 <Electronically signed by Mayito Palacio MD> Cosigner Signature (if applicable): CC: Dr. Angella Wallace MD ~ Signed [facility] Work Phone: [phone]) 723-182802-06-2024 Miscellaneous Notes* Telephone Encounter - Juana Posey [...] 27, 2023 3:09 PM documented in this encounterUpper [facility]09-25-2023 History of Present illness Narrative* Ángela Leiva MD - 11/13/2022 3:20 PM EDT Images from the original note were not included. [facility] SECTION OF REGIONAL CARDIOLOGY Cardiology ([facility]) [address] [facility] [address] OUTPATIENT VISIT DATE 11/13/2022 PRIMARY CARE PHYSICIAN: Jaren Jones [address] [place] [address] REFERRING PHYSICIAN: Jaren Jones [address] [facility] [address] HISTORY OF PRESENT ILLNESS: Ms. Bartholomew is [...] Age of Onset other (MELANOMA) Mother other (IA) Father 59 other (LUNG CANCER) Brother ALLERGIES: [...] a left bundle branch block pattern Echocardiogram [facility] 10/23/2020 Normal LV size and systolic [...] I44.7 Ángela Leiva MD documented in this encounterUpper Valley Medical Center09-01-2023 History of Present illness Narrative* Laurita Gavin, [...] 20, 2022 2:48 PM documented in this encounterUpper Valley Medical Center08-29-2023 Miscellaneous Notes* Telephone Encounter - Jaren Jones [...] for upcoming appointment. Thanks documented in this encounterUpper Valley Medical Center02-20-2023 Miscellaneous Notes* Telephone Encounter - Yeimy Jovel RN - 04/10/2022 4:16 PM EST Last Office Visit: 01/17/2022 Future Office Visit: None Requested Prescriptions Pending Prescriptions Disp Refills losartan (COZAAR) 100 mg tablet 90 tablet 1 Sig: Take 1 tablet by mouth once daily. Date of Last Labs: 01/11/2022 documented in this encounterUpper Valley Medical Center02-06-2023 Miscellaneous Notes* Telephone Encounter - Haley Liu [...] you. Haley Liu RN documented in this encounterUpper Valley Medical Center01-31-2023 History of Present illness Narrative* Lily Villar APRN.ADJUNCT ENGLISH INSTRUCTOR - 03/21/2022 3:48 PM EST Images from [...] Age of Onset other (MELANOMA) Mother other (IA) Father 59 other (LUNG CANCER) Brother Social [...] illness Lily Villar APRN.CNP documented in this encounterUpper Valley Medical Center01-31-2023 Instructions* Patient Instructions* Lily Villar APRN.CNP - [...] redness, drainage or pus). documented in this encounterUpper Valley Medical Center12-19-2022 History of Present illness Narrative* Ángela Leiva MD - 02/06/2022 3:20 PM EST Images from the original note were not included. [facility] SECTION OF REGIONAL CARDIOLOGY Cardiology ([facility]) [address] [facility] [address] OUTPATIENT VISIT DATE 02/06/2022 PRIMARY CARE PHYSICIAN: Jaren Jones [address] [place] [address] REFERRING PHYSICIAN: Jaren Jones [address] [facility] [address] HISTORY OF PRESENT ILLNESS: Ms. Bartholomew is [...] 08/2015 CARPAL TUNNEL Right 05/[address] oMrales COLONOSCOPY FLX DX W/COLLJ SPEC WHEN PFRMD [...] Age of Onset other (MELANOMA) Mother other (IA) Father 59 other (LUNG CANCER) Brother ALLERGIES: [...] a left bundle branch block pattern Echocardiogram [facility] 10/23/2020 Normal LV size and systolic [...] I44.7 Ángela Leiva MD documented in this encounterUpper Valley Medical Center11-29-2022 Miscellaneous Notes* Telephone Encounter - Cierra Nassar RN - 01/17/2022 4:44 PM EST Patient calls to request copies of recent lab work be mailed to home address. Copies of labs made and placed in out-going mail to be mailed to patient at home address. Cierra Nassar RN documented in this encounterUpper Valley Medical Center11-29-2022 History of Present illness Narrative* Jaren Jones [...] had dizziness she had to see our DIRECT MARKETING REPRESENTATIVE instead of me. States that her symptoms [...] Age of Onset other (MELANOMA) Mother other (IA) Father 59 other (LUNG CANCER) Brother Patient [...] Resolved. Jaren Jones MD documented in this encounterUpper Valley Medical Center08-12-2022 Miscellaneous Notes* Letter - Mammography Coordinator - 09/30/2021 8:07 AM EDT September 30, 2021 PID: [id number] Anabel Bartholomew [address] [place] [address] Dear Ms. Bartholomew, We are pleased to [...] report will be [facility] as part of your permanent medical record and are available for your continuing care. Thank you for allowing us to help in meeting your health care needs. Sincerely, Dr. Watt Interpreting Radiologist [facility] (Normal over 40) documented in this encounterUpper Valley Medical Center08-11-2022 Miscellaneous Notes* Telephone Encounter - Kelly Mckeon [...] gone for 2 days. documented in this encounterUpper Valley Medical Center08-11-2022 Miscellaneous Notes* Telephone Encounter - Mel Dubose [...] notify patient. Mel Dubose documented in this encounterUpper Valley Medical Center08-03-2022 History of Present illness Narrative* Tawnya Scales, PRODUCE SPECIALIST.ADJUNCT ENGLISH INSTRUCTOR - 09/21/2021 2:36 PM EDT 09/21/2021 Patient [...] which included preparing to see the patient, [id number] patient care, completing clinical documentation, obtaining and/or reviewing separately obtained history, performing a medically appropriate examination, counseling and educating the pat ient/family/caregiver and ordering medications, tests, or procedures. 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 - [facility] and after hours crisis line - Beth [...] which included preparing to see the patient, gxjq-[id number] patient care, completing clinical documentation, performing a medically appropriate examination, counseling and educating the patient/family/caregiver and ordering medications, tests, or procedures. documented in this encounterUpper Valley Medical Center05-23-2022 History of Present illness Narrative* Ángela Leiva MD - 07/11/2021 2:00 PM EDT Images from the original note were not included. [facility] SECTION OF REGIONAL CARDIOLOGY Cardiology ([facility]) [address] [facility] [address] OUTPATIENT VISIT DATE 07/11/2021 PRIMARY CARE PHYSICIAN: Jaren Jones [address] [place] [address] REFERRING PHYSICIAN: Jaren Jones [address] [facility] [address] HISTORY OF PRESENT ILLNESS: Ms. Bartholomew is [...] Age of Onset other (MELANOMA) Mother other (IA) Father 59 other (LUNG CANCER) Brother ALLERGIES: [...] 2+ distal pulses CARDIOVASCULAR MEDICINE TESTING: Echocardiogram [facility] 10/23/2020 Normal LV size and systolic [...] mg/dL Ángela Leiva MD documented in this encounterUpper Valley Medical Center05-12-2022 Miscellaneous Notes* Telephone Encounter - Yeimy Jovel [...] you. Yeimy Jovel RN documented in this encounterUpper Valley Medical Center03-02-2010 History of Past illness Narrative* Problem Noted [...] of this encounter (statuses as of 06/30/2021) [facility] of Past illness Narrative* Problem Noted [...] of this encounter (statuses as of 07/11/2021) [facility] of Past illness Narrative* Problem Noted [...] of this encounter (statuses as of 09/09/2021) [facility] of Past illness Narrative* Problem Noted [...] of this encounter (statuses as of 09/21/2021) [facility] of Past illness Narrative* Problem Noted [...] of this encounter (statuses as of 09/29/2021) [facility] of Past illness Narrative* Problem Noted [...] of this encounter (statuses as of 09/30/2021) [facility] of Past illness Narrative* Problem Noted [...] of this encounter (statuses as of 10/04/2021) [facility] of Past illness Narrative* Problem Noted [...] of this encounter (statuses as of 01/17/2022) [facility] of Past illness Narrative* Problem Noted [...] of this encounter (statuses as of 01/22/2022) [facility] of Past illness Narrative* Problem Noted [...] of this encounter (statuses as of 02/06/2022) [facility] of Past illness Narrative* Problem Noted [...] of this encounter (statuses as of 03/22/2022) [facility] of Past illness Narrative* Problem Noted [...] of this encounter (statuses as of 03/27/2022) [facility] of [facility] illness Narrative* Problem Noted [...] of this encounter (statuses as of 04/11/2022) [facility] Narrative* Problem Noted [...] of this encounter (statuses as of 10/18/2022) [facility] Narrative* Problem Noted [...] of this encounter (statuses as of 11/14/2022) [facility] illness Narrative* Problem Noted [...] of this encounter (statuses as of 12/24/2022) [facility] illness Narrative* Problem Noted [...] of this encounter (statuses as of 03/28/2023) [facility] Medical CenterConsult note Author Patrick Still [facility] April 05, 2023 1:48pm Note Date/Time April 05, 2023 1:22pm [facility] Medical Records Department [address] [place] [id number] Consultation - Cardiology 04/05/23 1320 MR#: [id number] Acct: [id number] Name: ANABEL BARTHOLOMEW Rep #:[id number] : [...] Plan 1. Patient be evaluated in the [facility] office with Jennifer Dias on [...] but she did have an echocardiogram done [id number]. That echo revealed normal LV function EF [...] rhythm after IV Lopressor in the emergencydepartment. [facility] Medical History Arthritis Back problem Carpal tunnel [...] 5% Risk Charges/Coding Visit Charges Inpatient E&M: 84267 Init Hosp L3 Objective Data Vital Signs: [...] applicable): CC: Dr. Angella Wallace MD~ Signed [facility] Work Phone: Evaluation note* Diagnosis Essential hypertension Unspecified essential hypertension documented in this encounter [facility] note* Diagnosis Palpitations- Primary LBBB (left bundle branch block) Other left bundle branch block Essential hypertension, benign Other hyperlipidemia documented in this encounter [facility] note* Diagnosis Dizziness- Primary Dizziness and giddiness Anxiety with depression Encounter for screening mammogram for malignant neoplasm of breast Other screening mammogram documented in this encounter [facility] note* Diagnosis Dizziness- Primary Dizziness and giddiness Bilateral impacted cerumen Impacted cerumen documented in this encounter [facility] noteNo assessment information availableWUniversity Hospitals [facility]aug[facility] Work Phone: Evaluation note* Diagnosis Drug rash- Primary Dermatitis due to drugs and medicines taken internally Minimal cognitive impairment Mild cognitive impairment, so stated Essential hypertension Unspecified essential hypertension Hyperlipidemia, unspecified hyperlipidemia type Anxiety with depression BPPV (benign paroxysmal positional vertigo), unspecified laterality documented in this encounter [facility] note* Diagnosis Palpitations- Primary Essential hypertension, benign Other hyperlipidemia LBBB (left bundle branch block) Other left bundle branch block documented in this encounter [facility] note* Diagnosis Rash- Primary Rash and other nonspecific skin eruption documented in this encounter [facility] note* Diagnosis Hyperlipidemia, unspecified hyperlipidemia type documented in this encounter [facility] note* Diagnosis Encounter for screening mammogram for malignant neoplasm of breast- Primary Other screening mammogram documented in this encounter [facility] note* Diagnosis Essential hypertension, benign- Primary Mixed hyperlipidemia Palpitations LBBB (left bundle branch block) Other left bundle branch block documented in this encounter [facility] note* Diagnosis Onset Date Resolution Status Atrial fibrillation, new onset acute Hypertension chronic [facility] Work Phone: Evaluation note* Diagnosis Onset Date Resolution Status Hypertension chronic [facility] Work Phone: Evaluation note* Diagnosis DDD (degenerative disc disease), thoracic- Primary Degeneration of thoracic or thoracolumbar intervertebral disc DDD (degenerative disc disease), thoracic- Primary Degeneration of thoracic or thoracolumbar intervertebral disc documented in this encounter [facility] note* Diagnosis DDD (degenerative disc disease), thoracic Degeneration of thoracic or thoracolumbar intervertebral disc DDD (degenerative disc disease), thoracic- Primary Degeneration of thoracic or thoracolumbar intervertebral disc documented in this encounter [facility] Discharge instructions Additional Instructions Urine atrial fibrillation you converted in the emergency department. Labs are stable. You are restarted back on your Eliquis. Take this twice a day. Discussed with Dr. Baum. With your lower heart rate, you would not be restarted on metoprolol at this time. Follow-up with Dr. Still as scheduled.[facility] Work Phone: Reason for referral (narrative)* Diagnostic Procedure Only (Routine) - Pending Review Specialty Diagnoses / Procedures Referred By Dirk t Referred To Contact [facility] Diagnoses Encounter for screening mammogram for malignant neoplasm of breast Procedures MARY SCREENING SCREENING MAMMOGRAPHY BI 2-VIEW BREAST INC CAD Tawnya Scales APRN.ADJUNCT ENGLISH INSTRUCTOR [address] [place] [address] [facility] [address] [place] [address] Referral ID Status Reason Start Date Expiration Date Visits Requested Visits Authorized [id number] Pending Review Auto-Generat ed Referral 09/09/2021 10/09/2022 1 1 [facility] for referral (narrative)* Outpatient Procedure (Routine) - Closed Specialty Diagnoses / Procedures Referred By Contac t Referred To Contact [facility] Diagnoses Palpitations Procedures ECG COMPLETE ECG ROUTINE ECG W/LEAST 12 LDS W/I&R Ángela Leiva MD [address] [place] [address] [facility] [place] [address] [place] [address] Referral ID Status Reason Start Date Expiration Date V isits Requested Visits Authorized [id number] Closed Auto-Generate d Referral 01/31/2022 01/31/2023 1 1 [facility] for referral (narrative)* Diagnostic Procedure Only (Routine) - Closed Specialty Diagnoses / Procedures Referred By Contac t Referred To Contact XR IMAGING Diagnoses DDD (degenerative disc disease), thoracic Procedures XR SCOLIOSIS PA STAND/LAT 2V RADEX ENTIR THRC LMBR CRV SAC SPI W/SKULL 2/3 Rajwinder Evangelista APRN.CNP [address] [place] [address] [facility] [address] Referral ID Status Reason Start Date Expiration Date V isits Requested Visits Authorized [id number] Closed Auto-Generate d Referral 10/24/2023 11/22/2024 1 1 [facility] for referral (narrative)No reason for referral information availableWUniversity Hospitals [facility] Work Phone: Reason for visit Narrative* Diagnostic Procedure Only (Routine) - Closed Specialty Diagnoses / Procedures Referred By Contac t Referred To Contact XR IMAGING Diagnoses DDD (degenerative disc disease), thoracic Procedures XR SCOLIOSIS PA STAND/LAT 2V RADEX ENTIR THRC LMBR CRV SAC SPI W/SKULL 2/3 VW Clara Gu MD [address] [place] [address] [place] [id number] Referral ID Status Reason Start Date Expiration Date V isits Requested Visits Authorized [id number] Closed Auto-Generate d Referral 10/24/2023 11/22/2024 1 1 [facility] Summary Purpose Family History No Family History [...] FoundDocuments on File Type Date Recorded 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 Advance Directive(s) Documents on File Type Date Recorded 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 Advance Directive(s) Advance Directive Response Recorded Date/ Time Advance Directives No August 24 11:02am Living Will No October 23 3:05am Power of Medical Receptionist Biller No October 23, 2020 3:05am Advance Directive Response Recorded Date/ Time Advance Directives No August 24 10:02am Living Will No October 23 2:05am Power of Medical Receptionist Biller No October 23, 2020 2:05am Advance Directive Response Recorded Date/ Time Advance Directives No August 24 10:02am Living Will No April 05 024 10:43am Power of Medical Receptionist Biller No April 05, 2023 10:43am Advance Directive Response Recorded Date/ Time Advance Directives No August 24 11:02am Living Will No April 05 024 11:43am Power of Medical Receptionist Biller No April 05, 2023 11:43am Advance Directive Response Recorded Date/ Time Do you have a Healthcare Power of Medical Receptionist Biller? No August 12, 2024 10:57am Advance Directives No August 24 11:02am Hospital Course Note [facility] PROGRESS N OTE/DISCHARGE SUMMARY NAME ACCOUNT SEX AGE ADMIT DISCHARGE PT MED. RECORD# NUMBER DATE DATE TYPE [place] [id number] F 83 08/12/18 1 ANABEL Hartman [id number] ROOM: 309 DATE OF : 1935 DICTATING [...] INT LABS CHEST PAIN PALPITATIONS PALPITATIONS S/P [facility] 04/05/23 PER (SEEN 10/2020) Reason for Visit Atrial fibrillation, new onset Hypertension Chief Complaint INT LABS CHEST PAIN PALPITATIONS PALPITATIONS S/P [facility] 04/05/23 PER MH (SEEN 10/2020) CP/SOB [...] section and content) DATE CREATED AUTHOR 08/21/2017 [facility] DATE CREATED AUTHOR AUTHOR'S ORGANIZ ATION 08/15/2018 [facility] [place] DATE CREATED AUTHOR AUTHOR'S ORGANIZ ATION 10/12/2018 [facility] DATE CREATED AUTHOR AUTHOR'S ORGANIZ ATION 10/26/2023 [facility] DATE CREATED AUTHOR AUTHOR'S ORGANIZ ATION 05/31/2024 [facility] DATE CREATED AUTHOR AUTHOR'S ORGANIZ ATION 08/18/2024 [facility] Source Comments (unrecognize d section and content) In the event this informatio n is protected by the Federal Confidentiality of Alcohol and Drug Abuse Patient Records regulations: The Federal rules restrict any use of the information to criminally investigate or prosecute any alcohol or drug abuse patient.[facility] CenterIn the event this information is protected by the Federal Confidentiality of Alcohol and Drug Abuse Patient Records regulations: The Federal rules restrict any use of the information to criminally investigate or prosecute any alcohol or drug abuse patient.[facility] CenterIn the event this information is protected by the Federal Confidentiality of Alcohol and Drug Abuse Patient Records regulations: The Federal rules restrict any use of the information to criminally investigate or prosecute any alcohol or drug abuse patient.[facility] CenterIn the event this information is protected by the Federal Confidentiality of Alcohol and Drug Abuse Patient Records regulations: The Federal rules restrict any use of the information to criminally investigate or prosecute any alcohol or drug abuse patient.[facility] CenterIn the event this information is protected by the Federal Confidentiality of Alcohol and Drug Abuse Patient Records regulations: The Federal rules restrict any use of the information to criminally investigate or prosecute any alcohol or drug abuse patient.[facility] CenterIn the event this information is protected by the Federal Confidentiality of Alcohol and Drug Abuse Patient Records regulations: The Federal rules restrict any use of the information to criminally investigate or prosecute any alcohol or drug abuse patient.[facility] CenterIn the event this information is protected by the Federal Confidentiality of Alcohol and Drug Abuse Patient Records regulations: The Federal rules restrict any use of the information to criminally investigate or prosecute any alcohol or drug abuse patient.[facility] CenterIn the event this information is protected by the Federal Confidentiality of Alcohol and Drug Abuse Patient Records regulations: The Federal rules restrict any use of the information to criminally investigate or prosecute any alcohol or drug abuse patient.[facility] CenterIn the event this information is protected by the Federal Confidentiality of Alcohol and Drug Abuse Patient Records regulations: The Federal rules restrict any use of the information to criminally investigate or prosecute any alcohol or drug abuse patient.[facility] CenterIn the event this information is protected by the Federal Confidentiality of Alcohol and Drug Abuse Patient Records regulations: The Federal rules restrict any use of the information to criminally investigate or prosecute any alcohol or drug abuse patient.[facility] CenterIn the event this information is protected by the Federal Confidentiality of Alcohol and Drug Abuse Patient Records regulations: The Federal rules restrict any use of the information to criminally investigate or prosecute any alcohol or drug abuse patient.[facility] CenterIn the event this information is protected by the Federal Confidentiality of Alcohol and Drug Abuse Patient Records regulations: The Federal rules restrict any use of the information to criminally investigate or prosecute any alcohol or drug abuse patient.[facility] CenterIn the event this information is protected by the Federal Confidentiality of Alcohol and Drug Abuse Patient Records regulations: The Federal rules restrict any use of the information to criminally investigate or prosecute any alcohol or drug abuse patient.[facility] CenterIn the event this information is protected by the Federal Confidentiality of Alcohol and Drug Abuse Patient Records regulations: The Federal rules restrict any use of the information to criminally investigate or prosecute any alcohol or drug abuse patient.[facility] CenterIn the event this information is protected by the Federal Confidentiality of Alcohol and Drug Abuse Patient Records regulations: The Federal rules restrict any use of the information to criminally investigate or prosecute any alcohol or drug abuse patient.[facility] CenterIn the event this information is protected by the Federal Confidentiality of Alcohol and Drug Abuse Patient Records regulations: The Federal rules restrict any use of the information to criminally investigate or prosecute any alcohol or drug abuse patient.[facility] Center[facility] the event this information is protected by the Federal Confidentiality of Alcohol and Drug Abuse Patient Records regulations: The Federal rules restrict any use of the information to criminally investigate or prosecute any alcohol or drug abuse patient.[facility] Center[facility] the event this information is protected by the Federal Confidentiality of Alcohol and Drug Abuse Patient Records regulations: The Federal rules restrict any use of the information to criminally investigate or prosecute any alcohol or drug abuse patient.[facility] Center[facility] the event this information is protected by the Federal Confidentiality of Alcohol and Drug Abuse Patient Records regulations: The Federal rules restrict any use of the information to criminally investigate or prosecute any alcohol or drug abuse patient.[facility] Center[facility] the event this information is protected by the Federal Confidentiality of Alcohol and Drug Abuse Patient Records regulations: The Federal rules restrict any use of the information to criminally investigate or prosecute any alcohol or drug abuse patient.[facility] Center[facility] the event this information is protected by the Federal Confidentiality of Alcohol and Drug Abuse Patient Records regulations: The Federal rules restrict any use of the information to criminally investigate or prosecute any alcohol or drug abuse patient.[facility] Reason for Visit (unrecogniz ed section and content) Reason Onset Date Comments Refill Request 06/30/2021 Reason Comments 4 month CARD check Specialty Diagnoses / Procedures Referred By Contact Referred To Contact Cardiology / FAMILY MEDICINE Diagnoses Palpitations Other chest pain Procedures CONSULT TO CARDIOLOGY NEW PATIENT VISIT LEVEL 5 Jaren Jones MD [address] [place] [address] [facility] [address] [place] [address] Referral ID Status Reason Start Date Expiration Date V isits Requested Visits Authorized [id number] Closed Patient Cleared INN/SMCP Payor Auth Obtained 03/07/2021 02/18/2022 1 1 Reason Comments Dizziness x1 week Specialty Diagnoses / Procedures Referred By Contjosemanuel t Referred To Contact FAMILY MEDICINE Diagnoses vertigo x 1 week Procedures 4C ANTHONY Fonseca MD [facility] [address] [place] [address] Referral ID Status Reason Start Date Expiration Date V isits Requested Visits Authorized [id number] Closed Financial Clearance Required - OON Payor [...] Procedures 4C ANTHONY Fonseca MD [employer], Tawnya, PRODUCE SPECIALIST.[employer] ENGLISH INSTRUCTOR [address] [place] [address] Referral ID Status Reason Start Date Expiration Date Visits Re quested Visits Authorized [id number] Closed 09/21/2021 02/18/2022 1 1 Reason Comments [...] Follow-Up Reason Comments Patient Question Reason Comments Sterile Tech - Other xrays Reason Comments Returning Patient's Call Reason Comments Appointment Appointment Schedule d in Error Care Teams (unrecognized sec tion and content) Middle School Tutor Relationship Specialty Start Date End Date Jaren Jones MD [address], [place] [phone] PCP - General Family Practice 03/03/16 Middle School Tutor Relationship Specialty Start Date End Date Jaren Jones MD [address] [place], [place] [id number] PCP - General Family Practice 03/03/16 Middle School Tutor Relationship Specialty Start Date End Date Jaren Jones MD [address] [place], [place] [id number] PCP - General Family Practice 03/03/16 Middle School Tutor Relationship Specialty Start Date End Date Jaren Jones MD [address] [facility] [place] [address] PCP - General Family Practice 03/03/16 Middle School Tutor Relationship Specialty Start Date End Date Jaren Jones MD [address] [facility] [place] [address] PCP - General Family Practice 03/03/16 Middle School Tutor Relationship Specialty Start Date End Date Jaren Jones MD [address] [facility] [place] [address] PCP - General Family Practice 03/03/16 Middle School Tutor Relationship Specialty Start Date End Date Jaren Jones MD [address] [facility] [place] [address] PCP - General Family Medicine 03/03/16 Middle School Tutor Relationship Specialty Start Date End Date Jaren Jones MD [address] [facility] [place] [address] PCP - General Family Medicine 03/03/16 Middle School Tutor Relationship Specialty Start Date End Date Jaren Jones MD [address] [facility] [place] [address] PCP - General Family Medicine 03/03/16 Middle School Tutor Relationship Specialty Start Date End Date Jaren Jones MD [address] [facility] [place] [address] PCP - General Family Medicine 03/03/16 Middle School Tutor Relationship Specialty Start Date End Date Jaren Jones MD [address] [facility] [place] [address] PCP - General Family Medicine 03/03/16 Team [...] Inactive Member Role Status Dates Dr. Angella Wlalace MD Primary Care Provider Active Start: August [...] BE BASED ON THE PRIMARY CLINICAL RECORDS. [facility] [employer] [facility]. provides no warranty or guarantee of the accuracy or completeness of information in this document.
--- NOTE | 2024-08-22 02:41 | EX.ED.DYSGE1 ---
HPI History of Present Illness Chief Complaint: Palpitations Detail of Chief Complaint: Palpitations and retrosternal chest tightness Informant: patient and spouse/S.O. Onset/Context/Timing Onset: Today (30 minutes prior to presentation.) Context: Sudden Onset Timing: Continuous Quality: Pressure Location: Retrosternal Current Severity: Mild Maximum Severity: Moderate Worsened by: Nothing Relieved by: Nothing Associated Symptoms Associated Symptoms: Shortness of breath and radiation to the right and left trapezius/neck romina Narrative Narrative: Patient is an 89-year-old woman. She has history of subclinical hypothyroidism, hypertension, hypercholesterolemia, chest tightness, paroxysmal atrial fibrillation and osteoarthritis. She also has problems with the lumbar spine. She presents because she had abrupt onset of palpitations. Heart rate varied between 120 and 130 at home. Pulse ox was normal. She did complain of the retrosternal chest discomfort with radiation to the right left neck/trapezius area. This was associated with mild shortness of breath. She denies history of coronary disease. She has not had a cardiac catheterization. 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 She is on an anticoagulant. She states she has not missed a dose. Patient denies headache, visual, ocular auditory symptoms. Patient denies rhinorrhea, congestion postnasal drainage. She denies sore throat. Patient is still having chest discomfort. She also complains of palpitations. She denies orthopnea. She denies PND. She denies abdominal pain. She denies nausea or vomiting. Patient denies leg pain, swelling or discoloration. She denies history of VTE. Prior similar symptoms: Yes Recent Illness/Hospitalization: No PFSH PFS Medical History Spinal stenosis Spinal stenosis at L4-L5 level Sciatica associated with disorder of lumbar spine Herniated disc Vision problems Osteopenia Osteoarthritis Hives High cholesterol Hearing problem Carpal tunnel syndrome Cataracts, both eyes UTI (urinary tract infection) Back problem Arthritis Non-smoker Chest pain Hypertension Dysrhythmia Home Medications ?Medication ?Instructions ?Recorded ?Last Taken ?Type multivitamin 1 tab PO DAILY 03/07/22 04/04/23 History acetaminophen 500 mg capsule 500 mg PO Q6H PRN pain 04/05/23 04/05/23 History amlodipine 5 mg tablet 5 mg PO DAILY bp #90 tabs 07/18/24 Unknown Rx losartan 100 mg tablet 100 mg PO DAILY bp #90 tabs 07/18/24 Unknown Rx pravastatin 10 mg tablet 10 mg PO QHS cholesterol #90 tabs 07/18/24 Unknown Rx apixaban 2.5 mg tablet (Eliquis) 2.5 mg PO BID #90 tabs 08/12/24 Unknown Rx metoprolol succinate 25 mg 25 mg PO DAILY #30 tabs 08/22/24 Unknown Rx tablet,extended release 24 hr Allergy/AdvReac Type Severity Reaction Status Date / Time latex Allergy Rash Verified 05/15/24 14:46 meloxicam Allergy Rash Verified 05/15/24 14:46 prednisone Allergy Unknown Verified 05/15/24 14:46 Seasonal Allergies: Uncoded Allergy NEEDS Verified 05/15/24 14:46 FOLLOW-UP tramadol Allergy Rash Verified 05/15/24 14:46 Family History Grandmother , age 42 Arthritis Myocardial infarction Brother , age 47 Cancer lung Father , age 59 Myocardial infarction Heart disease Hypertension Mother , age 51 Melanoma Grandfather , age 69 CVA (cerebral vascular accident) Other Melanoma and neural system tumor syndrome Surgical History History of carpal tunnel surgery History of knee replacement H/O dilation and curettage History of tonsillectomy Social History household members: spouse Smoking Status: Never smoker alcohol intake: current alcohol intake frequency: a few times a week substance use type: does not use ROS ROS ED Constitutional Constitutional ED: Denies chills, fever(s), subjective, sweats or weight loss Eyes Eyes: Denies blurry vision or change in vision ENT ENT ED: Denies ear pain, rhinorrhea or sore throat Cardiovascular Cardiovascular: Reports chest pain, palpitations and racing heartbeat; Denies orthopnea or paroxysmal nocturnal dyspnea Respiratory/Chest Respiratory/Chest: Reports dyspnea; Denies cough, dyspnea on exertion, orthopnea or paroxysmal nocturnal dyspnea Gastrointestinal Gastrointestinal: Denies abdominal pain, melena, nausea or vomiting Genitourinary Genitourinary ED: Denies dysuria, hematuria or urinary frequency Musculoskeletal Musculoskeletal: Reports neck pain; Denies arthralgias, back pain or myalgias Integumentary Denies rash Neurologic Neurologic: Denies headache(s) or paresthesias Hematologic/Lymphatic Hematologic/Lymphatic: Reports systems reviewed and no addt'l complaints, except as documented EXAM Physical Exam Const Vital Signs: 08/22/24 01:31 08/22/24 01:36 08/22/24 01:43 Temperature 97.4 F L Temperature Source Oral Pulse Rate 132 H Respiratory Rate 22 H Respiratory Effort Normal Non-Labored Blood Pressure 139/93 H Blood Pressure Mean 108 Pulse Ox Oxygen Delivery Method Room Air Room Air 08/22/24 03:28 Temperature Temperature Source Pulse Rate 70 Respiratory Rate 18 Respiratory Effort Blood Pressure 123/72 H Blood Pressure Mean 89 Pulse Ox 96 Oxygen Delivery Method Room Air Positive well nourished and well developed Constitutional Narrative: Patient is slightly anxious. Vital signs remarkable slight elevation of blood pressure and heart rate of 132. General Appearance ED: well developed; Negative for cyanotic, diaphoretic or pallor HEENT Reports moist mucous membranes HEENT Narrative: Head is atraumatic and normocephalic. Ears are normal. Nares are patent. Posterior pharynx is normal. Eyes EOMs intact bilaterally General Eye ED: Negative for pale conjunctiva or scleral icterus Neck no lymphadenopathy, supple and no JVD Chest Wall inspection of chest normal and palpation of chest normal Resp normal respiratory effort and clear to auscultation bilaterally Cardio no murmurs Rate: tachycardic Rhythm: abnormal rhythm irregularly irregular GI normal to inspection, nondistended, normoactive bowel sounds, non-tender, non-distended and no masses; Negative for hepatosplenomegaly GI Narrative: There is no palpable pulsatile mass. There is no abdominal bruit. Back/Spine no CVA tenderness Extremity normal to inspection General Extremety ED: Negative for edema or tenderness General Extremity: Negative for edema Neuro oriented x3 and CN's II-XII intact bilaterally Sensorium / Orientation: alert Psych Mood & Affect: anxious Skin no rashes or lesions noted, no wounds and skin turgor normal General Skin Exam: Negative for jaundice or pallor MDM MDM MDM Narrative Medical decision making narrative: Patient took 50 mg of metoprolol tart Lynn when this started. She is still having chest discomfort. Need to evaluate for chest pain due to A-fib RVR, cardiac ischemia due to the rapid heart rate. Since she did take metoprolol at home she will receive 1 dose of metoprolol IV in the Emergency Department and observed. Electrolyte panel was obtained to assess renal function, potassium. Troponin was obtained to evaluate for cardiac ischemia. Since she has no respiratory symptoms and no abnormal oscillatory findings chest x-ray was not obtained. History & Record Review Additional record(s) reviewed:: Prior outpatient record (Orthopedic spine note was reviewed authored May 15, 2024. Internal medicine note authored by Dr. Angella Wallace from 01/28/2020 for for radicular pain was reviewed.), Prior ED visit (Patient was seen August [address] Kolby Flannery for A-fib. She was seen by me March 2023 for atrial fibrillation that was new onset.) and Prior labs Lab Data Attestation: I reviewed the patient's lab results. Lab results narrative: Electrolyte panel is remarkable and elevated BUN to creatinine ratio. Glucose is elevated 159 with normal CO2 anion gap. First troponin is elevated at 19. Of note August 12 patient had troponin of 30 and second/2-hour troponin was 22. Based on review of prior records she has a slightly elevated troponin. Labs: Laboratory Results - last 24 hr 08/22/24 08/22/24 01:40 03:36 WBC 8.5 RBC 4.27 Hgb 13.2 Hct 39.5 MCV 92.5 MCH 30.9 MCHC 33.4 RDW Std Deviation 46.1 H RDW Coeff of Enresto 13.5 Plt Count 192 MPV 11.4 Immature Gran % (Auto) 0.200 Neut % (Auto) 77.7 H Lymph % (Auto) 16.0 L [place] % (Auto) 5.6 Eos % (Auto) 0.1 Baso % (Auto) 0.4 Absolute Neuts (auto) 6.6 Absolute Lymphs (auto) 1.36 Nucleated RBC % 0 Sodium 134 Potassium 3.8 Chloride 98 Carbon Dioxide 21.1 Anion Gap 15 BUN 24 H Creatinine 0.86 Estim Creat Clear Calc 36.69 L Est GFR (MDRD) Non-Af 64 BUN/Creatinine Ratio 27.4 H Glucose 159 H Calcium 9.5 Troponin T High Sens 19 H D Troponin T Hi Sens 2 Hr 18 H 2-hour troponin is 18 with a delta of -1. Will discharge to home with prescription for metoprolol succinate. EKG Initial EKG: Attestation: I personally reviewed and interpreted this EKG as follows: Interpretation: Atrial Fibrillation (Rate is 122. There is evidence of a left bundle branch block. Cures duration prolonged at 130 ms. QT duration 3052 ms. There is no acute ischemic changes noted.) Treatment and Re-Evaluation :: I was informed the patient's heart rate is now in the 80s. If 2-hour troponin is unremarkable should be able to go home to follow-up with her postal delivery officer next week. Comments:: Patient discontinued taking her metoprolol tart Lynn. She was on 25 mg twice daily. Since patient's had second visit for A-fib RVR in approximately 3 weeks will discharge with prescription for metoprolol succinate 25 mg 1 tablet daily. She will need to follow-up with her postal delivery officer Dr. Patrick Still. Discharge Plan Triage Chief Complaint: Palpitations ED Provider: Mayito Palacio Dx/Rx/DC Orders Clinical Impression: Paroxysmal atrial fibrillation with rapid ventricular response, Subclinical hypothyroidism, High cholesterol, Fatigue, Hypertension, Chest pressure, Anticoagulant long-term use Instructions: ED AFIB Prescriptions: New metoprolol succinate 25 mg tablet extended release 24 hr 25 mg PO DAILY Qty: 30 0RF No Action multivitamin Tablet 1 tab PO DAILY Patient Comments: centrum acetaminophen 500 mg capsule 500 mg PO Q6H PRN (Reason: pain) Eliquis 2.5 mg tablet 2.5 mg PO BID Qty: 90 0RF amlodipine 5 mg tablet 5 mg PO DAILY Qty: 90 3RF losartan 100 mg tablet 100 mg PO DAILY Qty: 90 3RF pravastatin 10 mg tablet 10 mg PO QHS Qty: 90 3RF Primary Care Provider: Angella Wallace Referrals: Angella Wallace MD [Primary Care Provider] - 1-2 Weeks Patrick Still MD [Med Staff - Active Staff] - 5-7 Days Print Language: Serbian Disposition Disposition: Home, Self Care
[2024-08-22 03:01] LABS: Troponin T High Sensitivity 19 ng/L (<=14)
[2024-08-22 03:02] LABS: Anion Gap 15 (5-15); BUN 24 mg/dL (4-19); BUN/Creat Ratio 27.4 RATIO (10-20); Calcium,Total 9.5 mg/dL (7.6-11.0); Carbon Dioxide 21.1 mmol/L (21.0-32.0); Chloride 98 mmol/L (98-108); Estimated Creatinine Clearance 36.69 ml/min (50-250); Glucose 159 mg/dL (70-99); Potassium 3.8 mmol/L (3.3-5.1)
[2024-08-22 03:14] LABS: Differential Indicated SCAN CRITERIA MET
[2024-08-22 03:28] VITALS: BP 123/72; PULSE 70; RESP 18; O2SAT 96
[2024-08-22 04:17] LABS: Troponin T High Sens 2 HR 18 ng/L (<=14)
[2024-08-22 04:36] VITALS: BP 121/67; PULSE 78; RESP 16; TEMP 36.6; O2SAT 98
== END 2024-08-22 04:37 | disposition home or self-care (01) ==
PROVIDERS: Emergency Provider Emergency Medicine; PCP Internal Medicine; Visit Provider Emergency Medicine
DX: I48.0 Paroxysmal atrial fibrillation (principal); E03.9 Hypothyroidism, unspecified; R53.83 Other fatigue; E78.00 Pure hypercholesterolemia, unspecified; I10 Essential (primary) hypertension; R07.89 Other chest pain; Z79.01 Long term (current) use of anticoagulants
CPT/HCPCS: 80048; 84484; 85025; 93005; 96374; 99283; A4216

== ENCOUNTER → 2024-09-11 | Outpatient (CLI) | payer MEDICARE, SELFPAY | END | disposition home or self-care (01) | LOC: PSN 11:32 | PROVIDERS: PCP Internal Medicine; Referring Provider Internal Medicine Cardiovascular Disease; Visit Provider Internal Medicine Cardiovascular Disease | DX: I48.0 Paroxysmal atrial fibrillation (principal) | CPT/HCPCS: 93225; 93226 ==

== ENCOUNTER → 2024-09-12 | Outpatient (CLI) | payer MEDICARE, SELFPAY ==
--- NOTE | 2024-09-12 12:59 | MRI_ITS ---
PROCEDURE: SPINE THORACIC (ROUTINE), 09/12/2024 REASON FOR EXAM: SPONDYLOLISTHESIS, THORACIC REGION TECHNIQUE: Multisequence multiplanar MR of the thoracic spine was performed without IV contrast. IV Contrast: None COMPARISON: 12/04/2023 FINDINGS: Variable overall mild motion limitation. vertebral body heights are preserved. Focal T1 isointense and T2 bright lesions within the T3 vertebral body measure 1.1 x 1.7 cm and 1.4 x 1.7 cm. Additional similar-appearing but T1 isointense 0.9 cm lesion in the RIGHT posterolateral L1 vertebral body and 0.7 cm lesion in the LEFT T2 vertebral body. Additional T2 bright but T1 hypointense lesion within the T8 vertebral body on the LEFT posteriorly extending into the pedicle 1.3 x 1.8 cm. No clear extraosseous extension. No significant malalignment. Grossly unremarkable thoracic spinal cord morphology and signal. Diffuse thoracic disc desiccation with overall mild thoracic degenerative disc disease/disc height loss. No high-grade focal final canal or foraminal stenosis. Small disc protrusion at the T6-T7 level a within the RIGHT subarticular and lateral region demonstrates mild inferior migration and measures roughly 2 x 5 mm. Slightly larger but still small LEFT subarticular disc protrusion at T6-T7 measures 6 x 5 mm. Minute disc protrusion in the RIGHT subarticular region at T8-T9. Mild diffuse disc bulging slightly asymmetric to the RIGHT at T11-T12. Facet arthropathy from T10-L1. More prominent degenerative disc disease in the visualized lower cervical spine including disc/osteophyte complexes and disc height loss. Tiny and small anterior osteophytes are present, most prominent at the level of T8-T12. Partially imaged presumed bilateral renal cysts up to at least 4.6 cm on the LEFT. Presumed hepatic cysts upto 1.8 cm. These are technically incompletely characterized. MRI/Spine Thoracic (Routine) IMPRESSION: 1. Focal indeterminate thoracolumbar spinal osseous lesions up to 1.8 cm at the level of T8 as detailed, largest is not compatible with a typical hemangioma, remainder may reflect hemangiomas, but al l incompletely characterized in the absence of IV contrast and osseous metastatic disease cannot be entirely excluded. Correlate with medical history and recommend clinical follow-up. Consider PET/CT, MRI thoracolumbar spine with and without contrast, and/or bone scan. Comparison with any available outside CT or MRI imaging may also be helpful to evaluate stability, as hemangi omas may demonstrate a typical CT appearance. 2. Overall mild thoracic spondylosis as described. No high-grade spinal canal or foraminal stenosis identified. 3. Additional description as above. Reading Location: [id number]
== END | disposition home or self-care (01) ==
LOC: MRI 12:47
PROVIDERS: PCP Internal Medicine; Referring Provider Anesthesiology; Visit Provider Anesthesiology
DX: M47.814 Spondylosis without myelopathy or radiculopathy, thoracic region (principal)
CPT/HCPCS: 72146

== ENCOUNTER → 2024-09-30 | Outpatient (CLI) | payer MEDICARE, SELFPAY ==
--- NOTE | 2024-09-30 08:30 | PET_ITS ---
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 A preliminary CT study encompassing the Skull base, neck, chest, abdomen, pelvis, and proximal thighs was performed for purposes of attenuation correction and anatomic localization. The proximal thighs were also included. The patient's blood glucose level was 101 mg/dL (allowable range: 50-180 mg/dL). RADIOPHARMACEUTICAL: 14.99 mCi 18F-FDG (Fluorodeoxyglucose F18) IV was injected into he patient. RADIATION DOSE SUMMARY: Effective Dose: Approximately 7 mSv for a standard whole-body PET scan Organ Doses: Varies by organ, with higher doses typically to the bladder, liver, and brain COMPARISON: COMPARISON FROM CT, PET OR OTHER PERTINENT EXAMS: Thoracic spine MRI 09/12/2024. FINDINGS: Physiologic uptake: There may be expected metabolic uptake within the brain, tongue and floor of the mouth and larynx/vocal cords, heart, josseline (many normal individuals have hilar uptake in less than 3 nodes with mildly avid hilar nodes less than 2.7 SUV), liver and spleen, system, and GI tract and symmetric muscle uptake. FDG AVID AND NON-AVID LESIONS. Reported avid SUV values (g/mL*) are maximum SUV. NECK: There are no significant neck abnormalities. CHEST: Chest wall- There are no significant chest wall abnormalities. Axilla- There are no significant axillary abnormalities. Lung parenchyma- There are no significant lung parenchyma abnormalities. Mediastinum- There are no significant hilar or mediastinal adenopathy. Pleura- There are no significant pleural abnormalities. ABDOMEN: Stomach- No significant abnormalities. Liver- No significant abnormalities. Spleen- No significant abnormalities. Pancrease- No significant abnormalities. Kidneys- No significant abnormalities. Bowel- Normal bowel activity. Spine- No significant abnormalities. Moderate aortic calcification is seen; no evidence of abdominal aortic aneurysm. PELVIS: Bowel- Normal physiologic bowel activity is identified. Masses- There are no pelvic masses. Bones- In the area of reported concern in the T8 vertebral body, no hypermetabolic activity is seen. Given this, this most probably represents an hemangioma. With the use of bone window settings, there are no osteolytic or osteoblastic lesions. There are no FDG avid lesions within the visualized portion of the axial skeleton. Degenerative changes of the spine are again noted. PET/PET/CT Tumor Base -Thigh Init IMPRESSION: FDG avid- 1. No significant avid lesions. 2. In the area of reported concern in the T8 vertebral body, no hypermetabolic activity is seen. Given this, this most probably represents an hemangioma. Other: Moderate aortic calcification; no evidence of abdominal aortic aneurysm. Degenerative changes of the spine are again seen. Please note the low-dose CT scan was performed to facilitate PET image reconstr uction and anatomic localization and does not replace a diagnostic CT. Any diagnostic CT requested and performed at the time of the PET will be reported separately. Reading Location: [id number]
== END | disposition home or self-care (01) ==
LOC: ONC 08:03
PROVIDERS: PCP Internal Medicine; Referring Provider Anesthesiology; Visit Provider Anesthesiology
DX: D48.0 Neoplasm of uncertain behavior of bone and articular cartilage (principal)
CPT/HCPCS: 78815; A9552